=== PATIENT | female | born 1950 | race Caucasian/White ===

== ENCOUNTER → 2017-11-04 09:16 | Outpatient (CLI) | payer OTHER, SELFPAY ==
[2017-11-04 10:08] LABS: Amphetamine Urine VISTA NEGATIVE (<1000 ng/mL); Barbiturate Urine VISTA NEGATIVE (< 200 ng/mL); Benzodiazepine Urine VISTA NEGATIVE (< 200 ng/mL); Cocaine Urine VISTA NEGATIVE (< 300 ng/mL); Ecstacy Urine VISTA NEGATIVE (< 500 ng/mL); Methadone Urine VISTA NEGATIVE (< 300 ng/mL); PCP Urine VISTA NEGATIVE (< 25 ng/mL); THC Urine VISTA NEGATIVE (< 50 ng/mL); Vista UDS pH Range 5
== END ==
PROVIDERS: Family Provider Family Medicine; PCP Family Medicine; Visit Provider Anesthesiology Pain Medicine
DX: F11.20 Opioid dependence, uncomplicated (principal)
CPT/HCPCS: 80307

== ENCOUNTER → 2018-07-05 09:18 | Outpatient (CLI) | payer OTHER, SELFPAY ==
[2018-07-05 10:28] LABS: Amphetamine Urine VISTA NEGATIVE (<1000 ng/mL); Barbiturate Urine VISTA NEGATIVE (< 200 ng/mL); Benzodiazepine Urine VISTA NEGATIVE (< 200 ng/mL); Cocaine Urine VISTA NEGATIVE (< 300 ng/mL); Ecstacy Urine VISTA NEGATIVE (< 500 ng/mL); Methadone Urine VISTA NEGATIVE (< 300 ng/mL); PCP Urine VISTA NEGATIVE (< 25 ng/mL); THC Urine VISTA NEGATIVE (< 50 ng/mL); Vista UDS pH Range 5
== END ==
PROVIDERS: Family Provider Family Medicine; PCP Family Medicine; Referring Provider Anesthesiology Pain Medicine; Visit Provider Anesthesiology Pain Medicine
DX: F11.20 Opioid dependence, uncomplicated (principal)
CPT/HCPCS: 80307

== ENCOUNTER → 2018-09-23 07:15 | Outpatient (CLI) | payer OTHER, SELFPAY ==
--- NOTE | 2018-09-23 07:24 | MRI_ITS ---
STUDY: MRI BRAIN WITHOUT CONTRAST (ATTENTION INTERNAL AUDITORY CANALS - I.A.C.'s) REASON FOR EXAM: Female, 68 years old. Right hearing loss. No pain. TECHNIQUE: Standardized multiplanar fat and water weighted pulse sequences were obtained. COMPARISON: None. FINDINGS: Normal bilateral internal auditory canals. There is no demonstrated intracanalicular or cisternal vestibular schwannoma (acoustic neuroma) on this unenhanced examination. Normal visualized bilateral cochlea, vestibules and semicircular canals. Normal bilateral mastoid air cells. Normal midbrain, carmela and medulla. Normal cerebellum. Normal basal cisterns. Normal size of the ventricles and extra-axial spaces for the patient's age. T2 FLAIR hyperintensity foci in the white matter of both cerebral hemispheres are chronic white matter ischemic changes. Normal bilateral basal ganglia. Normal thalami. There is no extra-axial fluid accumulation. Normal flow voids within the major intracranial circulation suggesting patency by spin echo criteria. Normal sella turcica, pituitary gland, infundibular stalk, optic chiasm and hypothalamus. Normal tectal plate and pineal gland. No demonstrated orbital abnormality, within the constraints of a routine brain study. Normal visualized paranasal sinuses. Normal calvarium and skull base. Normal visualized soft tissue structures. MRI/Brain without Contrast IMPRESSION: 1. Normal unenhanced MRI of the bilateral internal auditory canals (I.A.C's). 2. Chronic white matter ischemic changes in both cerebral hemispheres. Electronically Signed: Zay Disla MD at 13:22 EST , Service support ,
[2018-09-23 08:56] LABS: CREATININE FINGERSTICK 1.4 mg/dL (0.55-1.02)
== END ==
PROVIDERS: Family Provider Family Medicine; PCP Family Medicine; Referring Provider Otolaryngology; Visit Provider Otolaryngology
DX: H91.21 Sudden idiopathic hearing loss, right ear (principal)
CPT/HCPCS: 70551

== ENCOUNTER → 2019-01-18 06:17 | Outpatient (CLI) | payer MEDICARE, SELFPAY ==
[2019-01-18 07:31] LABS: Prograf-FK506 TO CCF/UNIV MAILED SPECIMEN
[2019-01-18 07:52] LABS: Hematocrit 36.2 % (37-47); Hemoglobin 11.3 g/dl (12.0-15.0); Mean Corp Hgb Conc 31.2 g/gl (32-36); Mean Corpuscular Hgb 29.6 pg (27.0-32.0); Mean Corpuscular Volume 94.8 fL (81-99); Mean Platelet Vol. 10.7 fl (6.2-12.0); Platelet Count 242 K/mm3 (150-450); RBC Distribution Width CV 12.5 % (11.6-14.6); RBC Distribution Width SD 43.1 fl (35.1-43.9); Red Blood Count 3.82 M/mm3 (4.2-5.4)
[2019-01-18 07:53] LABS: Scan Indicated on CBC? Y/N NO
[2019-01-18 08:02] LABS: Hemoglobin A1c 5.1 % (4.2-6.3)
[2019-01-18 08:17] LABS: AST(SGOT) 29 U/L (15-37); Alanine Aminotransfer ALT/SGPT 23 U/L (13-56); Albumin, Serum 3.6 g/dL (3.2-5.0); Alkaline Phosphatase 81 U/L (45-117); Amylase 109 U/L (25-115); Anion Gap 6 (5-15); BUN 23 mg/dL (7-18); Calcium,Total 9.1 mg/dL (8.5-10.1); Chloride 104 mmol/L (98-107); Cholesterol 129 mg/dL (200); Creatinine, Serum 0.88 mg/dL (0.55-1.02); EST Glomerular Filtration Rate 67 mL/min (>60); Est Glom Filt Rate - Afr Amer 81 mL/min (>60); Globulin 3.7 g/dL (2.2-4.2); Glucose 98 mg/dL (74-106); High Density Lipoprotein 69 mg/dL; Lipase 201 U/L (73-393); Potassium 4.8 mmol/L (3.5-5.1); Protein, Total 7.3 g/dL (6.4-8.2); Sodium Level 135 mmol/L (136-145); Triglycerides 102 mg/dL; Very Low Density Lipoprotein 20 mg/dL (5-40)
[2019-01-18 08:22] LABS: Vitamin B12 457 pg/mL (211-911)
== END ==
PROVIDERS: Family Provider Family Medicine; PCP Family Medicine
DX: Z94.0 Kidney transplant status (principal); Z94.83 Pancreas transplant status; Z48.298 Encounter for aftercare following other organ transplant; I25.10 Atherosclerotic heart disease of native coronary artery without angina pectoris; I10 Essential (primary) hypertension; E10.8 Type 1 diabetes mellitus with unspecified complications; E78.5 Hyperlipidemia, unspecified
CPT/HCPCS: 36415; 80053; 80061; 82150; 82607; 83036; 83690; 84681; 85027

== ENCOUNTER → 2019-04-25 08:29 | Outpatient (CLI) | payer MEDICARE, SELFPAY ==
[2019-04-25 09:00] LABS: Absolute Lymphocyte Count 0.62 X10^3/uL (0.83-4.51); Absolute Neutrophil Count 3.1 X10^3/uL (2.0-7.7); Basophil# 0.02 X10^3/uL; Basophil% 0.5 % (0-1); Eosinophil# 0.04 X10^3/uL; Eosinophils% 0.9 % (0-5); Hematocrit 36.8 % (37-47); Hemoglobin 11.4 g/dL (12.0-15.0); Lymphocyte # 0.62 X10^3/ul (4.0); Lymphocyte % 14.7 % (19-41); Mean Corpuscular Hgb 29.7 pg (27.0-32.0); Mean Corpuscular Volume 95.8 fL (81-99); Mean Platelet Vol. 10.4 fl (6.2-12.0); Monocyte# 0.41 X10^3/uL; Monocyte% 9.7 % (0-10); NRBC Flagged by Analyzer 0 % (0-5); Neutrophil # 3.12 X10^3/uL (2.7-7.7); Neutrophil % 73.7 % (47-70); Platelet Count 243 K/mm3 (150-450); RBC Distribution Width CV 12.2 % (11.6-14.6); Red Blood Count 3.84 M/mm3 (4.2-5.4); White Blood Count 4.2 K/mm3 (4.4-11.0)
[2019-04-25 09:31] LABS: BUN 27 mg/dL (7-18); Creatinine, Serum 1.12 mg/dL (0.55-1.02); EST Glomerular Filtration Rate 51 mL/min (>60); Glucose 98 mg/dL (74-106)
[2019-04-25 09:32] LABS: ALB/GLOB Ratio 1.1 RATIO (0.9-2.4); AST(SGOT) 27 U/L (15-37); Alanine Aminotransfer ALT/SGPT 25 U/L (13-56); Albumin, Serum 3.9 g/dL (3.2-5.0); Alkaline Phosphatase 75 U/L (45-117); Amylase 110 U/L (25-115); Anion Gap 5 (5-15); BUN/Creat Ratio 24.1 RATIO (10-20); Calcium,Total 9.5 mg/dL (8.5-10.1); Chloride 104 mmol/L (98-107); Est Glom Filt Rate - Afr Amer 62 mL/min (>60); Globulin 3.6 g/dL (2.2-4.2); Lipase 234 U/L (73-393); Potassium 5.1 mmol/L (3.5-5.1); Protein, Total 7.5 g/dL (6.4-8.2); Sodium Level 137 mmol/L (136-145)
== END ==
PROVIDERS: Family Provider Family Medicine; PCP Family Medicine
DX: E10.8 Type 1 diabetes mellitus with unspecified complications (principal); I25.10 Atherosclerotic heart disease of native coronary artery without angina pectoris; I10 Essential (primary) hypertension; Z94.0 Kidney transplant status; Z94.83 Pancreas transplant status; Z48.298 Encounter for aftercare following other organ transplant
CPT/HCPCS: 36415; 80053; 80197; 82150; 83690; 85025

== ENCOUNTER → 2019-07-26 07:06 | Outpatient (CLI) | payer MEDICARE, SELFPAY ==
[2019-07-26 08:26] LABS: Absolute Lymphocyte Count 0.66 X10^3/uL (0.83-4.51); Absolute Neutrophil Count 3.6 X10^3/uL (2.0-7.7); Basophil# 0.02 X10^3/uL; Basophil% 0.4 % (0-1); Eosinophil# 0.05 X10^3/uL; Hematocrit 36.4 % (37-47); Hemoglobin 11.2 g/dL (12.0-15.0); Lymphocyte # 0.66 X10^3/ul (4.0); Lymphocyte % 13.6 % (19-41); Mean Corp Hgb Conc 30.8 g/dL (32-36); Mean Corpuscular Hgb 28.8 pg (27.0-32.0); Mean Corpuscular Volume 93.6 fL (81-99); Mean Platelet Vol. 10.8 fl (6.2-12.0); Monocyte# 0.48 X10^3/uL; Monocyte% 9.9 % (0-10); NRBC Flagged by Analyzer 0 % (0-5); Neutrophil # 3.64 X10^3/uL (2.7-7.7); Neutrophil % 74.9 % (47-70); Platelet Count 240 K/mm3 (150-450); RBC Distribution Width CV 12.2 % (11.6-14.6); RBC Distribution Width SD 41.8 fl (35.1-43.9); Red Blood Count 3.89 M/mm3 (4.2-5.4); White Blood Count 4.9 K/mm3 (4.4-11.0)
[2019-07-26 08:38] LABS: Hemoglobin A1c 5.4 % (4.2-6.3)
[2019-07-26 08:41] LABS: ALB/GLOB Ratio 1.1 RATIO (0.9-2.4); AST(SGOT) 25 U/L (15-37); Alanine Aminotransfer ALT/SGPT 39 U/L (13-56); Albumin, Serum 3.9 g/dL (3.2-5.0); Alkaline Phosphatase 82 U/L (45-117); Amylase 107 U/L (25-115); Anion Gap 6 (5-15); BUN 26 mg/dL (7-18); BUN/Creat Ratio 25.7 RATIO (10-20); Calcium,Total 9.1 mg/dL (8.5-10.1); Chloride 101 mmol/L (98-107); Creatinine, Serum 1.01 mg/dL (0.55-1.02); EST Glomerular Filtration Rate 58 mL/min (>60); Est Glom Filt Rate - Afr Amer 70 mL/min (>60); Globulin 3.6 g/dL (2.2-4.2); Glucose 94 mg/dL (74-106); Lipase 229 U/L (73-393); Potassium 5.1 mmol/L (3.5-5.1); Protein, Total 7.5 g/dL (6.4-8.2); Sodium Level 134 mmol/L (136-145)
[2019-07-30 13:03] LABS: C-Peptide 2.5 ng/mL (1.1-4.4); Tacrolimus (FK506) 6.1 ng/mL (2.0-20.0)
== END ==
PROVIDERS: Family Provider Family Medicine; PCP Family Medicine
DX: Z48.298 Encounter for aftercare following other organ transplant (principal); Z94.0 Kidney transplant status; Z94.83 Pancreas transplant status; I25.10 Atherosclerotic heart disease of native coronary artery without angina pectoris; I10 Essential (primary) hypertension
CPT/HCPCS: 36415; 80053; 80197; 82150; 83036; 83690; 84681; 85025

== ENCOUNTER → 2019-08-10 09:49 | Outpatient (CLI) | payer MEDICARE, SELFPAY ==
[2019-08-10 11:16] LABS: Amphetamine Urine VISTA NEGATIVE (<1000 ng/mL); Barbiturate Urine VISTA NEGATIVE (< 200 ng/mL); Benzodiazepine Urine VISTA NEGATIVE (< 200 ng/mL); Cocaine Urine VISTA NEGATIVE (< 300 ng/mL); Ecstacy Urine VISTA NEGATIVE (< 500 ng/mL); Methadone Urine VISTA NEGATIVE (< 300 ng/mL); PCP Urine VISTA NEGATIVE (< 25 ng/mL); THC Urine VISTA NEGATIVE (< 50 ng/mL); Vista UDS pH Range 6
== END ==
PROVIDERS: Family Provider Family Medicine; PCP Family Medicine; Referring Provider Anesthesiology Pain Medicine; Visit Provider Anesthesiology Pain Medicine
DX: F11.20 Opioid dependence, uncomplicated (principal)
CPT/HCPCS: 80307

== ENCOUNTER → 2019-09-12 06:31 | Outpatient (CLI) | payer MEDICARE, SELFPAY ==
[2019-09-12 07:26] LABS: Absolute Lymphocyte Count 0.61 X10^3/uL (0.83-4.51); Absolute Neutrophil Count 2.8 X10^3/uL (2.0-7.7); Basophil# 0.02 X10^3/uL; Basophil% 0.5 % (0-1); Eosinophil# 0.05 X10^3/uL; Eosinophils% 1.3 % (0-5); Hematocrit 36.7 % (37-47); Hemoglobin 11.3 g/dL (12.0-15.0); Lymphocyte # 0.61 X10^3/ul (4.0); Lymphocyte % 15.4 % (19-41); Mean Corp Hgb Conc 30.8 g/dL (32-36); Mean Corpuscular Hgb 29.3 pg (27.0-32.0); Mean Corpuscular Volume 95.1 fL (81-99); Mean Platelet Vol. 10.7 fl (6.2-12.0); Monocyte# 0.44 X10^3/uL; Monocyte% 11.1 % (0-10); NRBC Flagged by Analyzer 0 % (0-5); Neutrophil # 2.82 X10^3/uL (2.7-7.7); Neutrophil % 71.4 % (47-70); Platelet Count 257 K/mm3 (150-450); RBC Distribution Width CV 12.5 % (11.6-14.6); RBC Distribution Width SD 43.7 fl (35.1-43.9); Red Blood Count 3.86 M/mm3 (4.2-5.4)
[2019-09-12 07:52] LABS: AST(SGOT) 29 U/L (15-37); Alanine Aminotransfer ALT/SGPT 29 U/L (13-56); Albumin, Serum 3.8 g/dL (3.2-5.0); Alkaline Phosphatase 85 U/L (45-117); Amylase 118 U/L (25-115); Anion Gap 3 (5-15); BUN 26 mg/dL (7-18); BUN/Creat Ratio 21.7 RATIO (10-20); Calcium,Total 9.1 mg/dL (8.5-10.1); Chloride 100 mmol/L (98-107); EST Glomerular Filtration Rate 47 mL/min (>60); Est Glom Filt Rate - Afr Amer 57 mL/min (>60); Globulin 3.7 g/dL (2.2-4.2); Glucose 100 mg/dL (74-106); Lipase 249 U/L (73-393); Protein, Total 7.5 g/dL (6.4-8.2); Sodium Level 134 mmol/L (136-145)
[2019-09-13 15:16] LABS: Tacrolimus (FK506) 5.7 ng/mL (2.0-20.0)
== END ==
PROVIDERS: PCP Family Medicine; Referring Provider Family Medicine; Visit Provider Family Medicine
DX: L60.2 Onychogryphosis (principal); Z48.298 Encounter for aftercare following other organ transplant; Z94.0 Kidney transplant status; Z94.83 Pancreas transplant status; I25.10 Atherosclerotic heart disease of native coronary artery without angina pectoris; I10 Essential (primary) hypertension
CPT/HCPCS: 36415; 80053; 80197; 82150; 83690; 85025

== ENCOUNTER → 2020-03-30 06:41 | Outpatient (CLI) | payer MEDICARE, SELFPAY ==
[2020-03-30 07:13] LABS: Absolute Lymphocyte Count 0.71 X10^3/uL (0.83-4.51); Absolute Neutrophil Count 2.5 X10^3/uL (2.0-7.7); Basophil# 0.02 X10^3/uL; Basophil% 0.5 % (0-1); Eosinophil# 0.14 X10^3/uL; Eosinophils% 3.5 % (0-5); Hematocrit 33.9 % (37-47); Hemoglobin 10.4 g/dL (12.0-15.0); Lymphocyte # 0.71 X10^3/ul (4.0); Lymphocyte % 17.9 % (19-41); Mean Corp Hgb Conc 30.7 g/dL (32-36); Mean Corpuscular Hgb 29.7 pg (27.0-32.0); Mean Corpuscular Volume 96.9 fL (81-99); Mean Platelet Vol. 9.8 fl (6.2-12.0); Monocyte# 0.55 X10^3/uL; Monocyte% 13.9 % (0-10); NRBC Flagged by Analyzer 0 % (0-5); Neutrophil # 2.53 X10^3/uL (2.7-7.7); Neutrophil % 63.9 % (47-70); Platelet Count 376 K/mm3 (150-450); RBC Distribution Width CV 12.2 % (11.6-14.6)
[2020-03-30 07:46] LABS: ALB/GLOB Ratio 0.9 RATIO (0.9-2.4); AST(SGOT) 34 U/L (15-37); Alanine Aminotransfer ALT/SGPT 35 U/L (13-56); Albumin, Serum 3.1 g/dL (3.2-5.0); Alkaline Phosphatase 91 U/L (45-117); Amylase 80 U/L (25-115); Anion Gap 6 (5-15); BUN 28 mg/dL (7-18); BUN/Creat Ratio 24.6 RATIO (10-20); Calcium,Total 8.4 mg/dL (8.5-10.1); Chloride 101 mmol/L (98-107); Creatinine, Serum 1.14 mg/dL (0.55-1.02); EST Glomerular Filtration Rate 50 mL/min (>60); Est Glom Filt Rate - Afr Amer 61 mL/min (>60); Globulin 3.6 g/dL (2.2-4.2); Glucose 77 mg/dL (74-106); Lipase 140 U/L (73-393); Potassium 4.6 mmol/L (3.5-5.1); Protein, Total 6.7 g/dL (6.4-8.2); Sodium Level 135 mmol/L (136-145)
[2020-03-30 07:50] LABS: Hemoglobin A1c 5.5 % (3.8-5.6)
[2020-04-03 14:02] LABS: Tacrolimus (FK506) 9.5 ng/mL (2.0-20.0)
== END ==
PROVIDERS: PCP Family Medicine
DX: I25.10 Atherosclerotic heart disease of native coronary artery without angina pectoris (principal); I10 Essential (primary) hypertension; E10.8 Type 1 diabetes mellitus with unspecified complications; Z94.0 Kidney transplant status; Z94.83 Pancreas transplant status; Z48.298 Encounter for aftercare following other organ transplant
CPT/HCPCS: 36415; 80053; 80197; 82150; 83036; 83690; 84681; 85025

== ENCOUNTER → 2020-05-29 11:20 | Outpatient (CLI) | payer MEDICARE, SELFPAY ==
[2020-05-29 11:50] LABS: Amphetamine Urine VISTA NEGATIVE (<1000 ng/mL); Barbiturate Urine VISTA NEGATIVE (< 200 ng/mL); Benzodiazepine Urine VISTA NEGATIVE (< 200 ng/mL); Cocaine Urine VISTA NEGATIVE (< 300 ng/mL); Ecstacy Urine VISTA NEGATIVE (< 500 ng/mL); Methadone Urine VISTA NEGATIVE (< 300 ng/mL); PCP Urine VISTA NEGATIVE (< 25 ng/mL); THC Urine VISTA NEGATIVE (< 50 ng/mL); Vista UDS pH Range 7
== END ==
PROVIDERS: PCP Family Medicine; Referring Provider Anesthesiology Pain Medicine; Visit Provider Anesthesiology Pain Medicine
DX: F11.20 Opioid dependence, uncomplicated (principal)
CPT/HCPCS: 80307

== ENCOUNTER → 2020-07-11 08:21 | Outpatient (CLI) | payer MEDICARE, SELFPAY ==
[2020-07-11 08:49] LABS: Absolute Lymphocyte Count 0.63 X10^3/uL (0.83-4.51); Absolute Neutrophil Count 2.8 X10^3/uL (2.0-7.7); Basophil# 0.03 X10^3/uL; Basophil% 0.8 % (0-1); Eosinophil# 0.04 X10^3/uL; Hematocrit 38.2 % (37-47); Hemoglobin 11.7 g/dL (12.0-15.0); Lymphocyte # 0.63 X10^3/ul (4.0); Lymphocyte % 15.9 % (19-41); Mean Corp Hgb Conc 30.6 g/dL (32-36); Mean Corpuscular Hgb 29.7 pg (27.0-32.0); Mean Platelet Vol. 10.2 fl (6.2-12.0); Monocyte# 0.49 X10^3/uL; Monocyte% 12.3 % (0-10); NRBC Flagged by Analyzer 0 % (0-5); Neutrophil # 2.77 X10^3/uL (2.7-7.7); Neutrophil % 69.7 % (47-70); Platelet Count 233 K/mm3 (150-450); RBC Distribution Width CV 12.1 % (11.6-14.6); RBC Distribution Width SD 43.5 fl (35.1-43.9); Red Blood Count 3.94 M/mm3 (4.2-5.4)
[2020-07-11 09:27] LABS: AST(SGOT) 29 U/L (15-37); Alanine Aminotransfer ALT/SGPT 30 U/L (13-56); Albumin, Serum 3.5 g/dL (3.2-5.0); Alkaline Phosphatase 88 U/L (45-117); Amylase 94 U/L (25-115); Anion Gap 3 (5-15); BUN 22 mg/dL (7-18); BUN/Creat Ratio 21.2 RATIO (10-20); Calcium,Total 8.6 mg/dL (8.5-10.1); Chloride 102 mmol/L (98-107); Cholesterol 119 mg/dL (200); Creatinine, Serum 1.04 mg/dL (0.55-1.02); EST Glomerular Filtration Rate 56 mL/min (>60); Est Glom Filt Rate - Afr Amer 67 mL/min (>60); Globulin 3.4 g/dL (2.2-4.2); Glucose 92 mg/dL (74-106); High Density Lipoprotein 67 mg/dL; Lipase 150 U/L (73-393); Potassium 4.9 mmol/L (3.5-5.1); Protein, Total 6.9 g/dL (6.4-8.2); Sodium Level 135 mmol/L (136-145); Triglycerides 88 mg/dL; Very Low Density Lipoprotein 18 mg/dL (5-40)
[2020-07-13 12:55] LABS: Tacrolimus (FK506) 8.3 ng/mL (2.0-20.0)
== END ==
PROVIDERS: PCP Family Medicine
DX: Z00.00 Encounter for general adult medical examination without abnormal findings (principal); Z48.298 Encounter for aftercare following other organ transplant; Z13.6 Encounter for screening for cardiovascular disorders; E10.8 Type 1 diabetes mellitus with unspecified complications; Z94.0 Kidney transplant status; Z94.83 Pancreas transplant status
CPT/HCPCS: 36415; 80053; 80061; 80197; 82150; 83690; 85025

== ENCOUNTER → 2020-11-15 08:12 | Outpatient (CLI) | payer MEDICARE, SELFPAY ==
[2020-10-09 11:23] VITALS: BMI 16.3
[2020-11-15 09:16] LABS: Absolute Lymphocyte Count 0.61 X10^3/uL (0.83-4.51); Absolute Neutrophil Count 4.5 X10^3/uL (2.0-7.7); Basophil# 0.01 X10^3/uL; Basophil% 0.2 % (0-1); Eosinophil# 0.02 X10^3/uL; Eosinophils% 0.3 % (0-5); Hematocrit 36.1 % (37-47); Hemoglobin 10.9 g/dL (12.0-15.0); Lymphocyte # 0.61 X10^3/ul (0.83-4.51); Lymphocyte % 10.5 % (19-41); Mean Corp Hgb Conc 30.2 g/dL (32-36); Mean Corpuscular Hgb 29.5 pg (27.0-32.0); Mean Corpuscular Volume 97.6 fL (81-99); Mean Platelet Vol. 11.1 fl (6.2-12.0); Monocyte# 0.64 X10^3/uL; NRBC Flagged by Analyzer 0 % (0-5); Neutrophil # 4.51 X10^3/uL (2.7-7.7); Neutrophil % 77.7 % (47-70); Platelet Count 249 K/mm3 (150-450); RBC Distribution Width SD 43.8 fl (35.1-43.9); White Blood Count 5.8 K/mm3 (4.4-11.0)
[2020-11-15 09:38] LABS: Hemoglobin A1c 4.9 % (3.8-5.6)
[2020-11-15 09:56] LABS: ALB/GLOB Ratio 1.1 RATIO (0.9-2.4); AST(SGOT) 33 U/L (15-37); Alanine Aminotransfer ALT/SGPT 34 U/L (13-56); Albumin, Serum 3.7 g/dL (3.2-5.0); Alkaline Phosphatase 89 U/L (45-117); Amylase 123 U/L (25-115); Anion Gap 5 (5-15); BUN 36 mg/dL (7-18); BUN/Creat Ratio 28.6 RATIO (10-20); Calcium,Total 8.5 mg/dL (8.5-10.1); Chloride 98 mmol/L (98-107); Creatinine, Serum 1.26 mg/dL (0.55-1.02); EST Glomerular Filtration Rate 44 mL/min (>60); Est Glom Filt Rate - Afr Amer 54 mL/min (>60); Globulin 3.5 g/dL (2.2-4.2); Glucose 98 mg/dL (74-106); Lipase 233 U/L (73-393); Potassium 4.8 mmol/L (3.5-5.1); Protein, Total 7.2 g/dL (6.4-8.2); Sodium Level 132 mmol/L (136-145)
[2020-11-19 07:49] LABS: C-Peptide 2.4 ng/mL (1.1-4.4); Tacrolimus (FK506) 8.2 ng/mL (2.0-20.0)
== END ==
PROVIDERS: PCP Family Medicine
DX: E10.8 Type 1 diabetes mellitus with unspecified complications (principal); I25.10 Atherosclerotic heart disease of native coronary artery without angina pectoris; I10 Essential (primary) hypertension; Z94.0 Kidney transplant status; Z94.83 Pancreas transplant status
CPT/HCPCS: 36415; 80053; 80197; 82150; 83036; 83690; 84681; 85025

== ENCOUNTER 2021-03-05 07:13 | Outpatient (RCR) | payer MEDICARE, SELFPAY ==
[2020-10-09 11:23] VITALS: BMI 16.3
[2021-03-05 07:55] LABS: Absolute Lymphocyte Count 0.68 X10^3/uL (0.83-4.51); Absolute Neutrophil Count 2.1 X10^3/uL (2.0-7.7); Basophil# 0.02 X10^3/uL; Basophil% 0.6 % (0-1); Eosinophil# 0.07 X10^3/uL; Eosinophils% 2.1 % (0-5); Hematocrit 30.9 % (37-47); Hemoglobin 9.7 g/dL (12.0-15.0); Lymphocyte # 0.68 X10^3/ul (0.83-4.51); Lymphocyte % 19.9 % (19-41); Mean Corp Hgb Conc 31.4 g/dL (32-36); Mean Corpuscular Hgb 29.7 pg (27.0-32.0); Mean Corpuscular Volume 94.5 fL (81-99); Mean Platelet Vol. 10.5 fl (6.2-12.0); Monocyte# 0.48 X10^3/uL; Monocyte% 14.1 % (0-10); NRBC Flagged by Analyzer 0 % (0-5); Neutrophil # 2.14 X10^3/uL (2.7-7.7); Neutrophil % 62.7 % (47-70); Platelet Count 265 K/mm3 (150-450); RBC Distribution Width CV 12.1 % (11.6-14.6); Red Blood Count 3.27 M/mm3 (4.2-5.4); White Blood Count 3.4 K/mm3 (4.4-11.0)
[2021-03-05 08:26] LABS: AST(SGOT) 28 U/L (15-37); Alanine Aminotransfer ALT/SGPT 30 U/L (13-56); Albumin, Serum 3.3 g/dL (3.2-5.0); Alkaline Phosphatase 80 U/L (45-117); Amylase 105 U/L (25-115); Anion Gap 3 (5-15); BUN 53 mg/dL (7-18); BUN/Creat Ratio 34.9 RATIO (10-20); Calcium,Total 8.8 mg/dL (8.5-10.1); Chloride 99 mmol/L (98-107); Creatinine, Serum 1.52 mg/dL (0.55-1.02); EST Glomerular Filtration Rate 36 mL/min (>60); Est Glom Filt Rate - Afr Amer 43 mL/min (>60); Globulin 3.2 g/dL (2.2-4.2); Glucose 101 mg/dL (74-106); Lipase 133 U/L (73-393); Potassium 5.6 mmol/L (3.5-5.1); Protein, Total 6.5 g/dL (6.4-8.2); Sodium Level 132 mmol/L (136-145)
[2021-03-07 15:51] LABS: Tacrolimus (FK506) 6.6 ng/mL (2.0-20.0)
== END 2021-03-05 18:00 | disposition home or self-care (01) ==
LOC: LAB 07:13
PROVIDERS: PCP Family Medicine
DX: Z94.0 Kidney transplant status (principal); Z94.83 Pancreas transplant status; Z48.298 Encounter for aftercare following other organ transplant; E10.8 Type 1 diabetes mellitus with unspecified complications; I25.10 Atherosclerotic heart disease of native coronary artery without angina pectoris; I10 Essential (primary) hypertension
CPT/HCPCS: 36415; 80053; 80197; 82150; 83690; 85025

== ENCOUNTER → 2021-04-15 09:28 | Outpatient (CLI) | payer MEDICARE, SELFPAY ==
[2021-04-15 10:46] LABS: Amphetamine Urine VISTA NEGATIVE (<1000 ng/mL); Barbiturate Urine VISTA NEGATIVE (< 200 ng/mL); Benzodiazepine Urine VISTA NEGATIVE (< 200 ng/mL); Cocaine Urine VISTA NEGATIVE (< 300 ng/mL); Ecstacy Urine VISTA NEGATIVE (< 500 ng/mL); Methadone Urine VISTA NEGATIVE (< 300 ng/mL); PCP Urine VISTA NEGATIVE (< 25 ng/mL); THC Urine VISTA NEGATIVE (< 50 ng/mL); Vista UDS pH Range 6
== END ==
PROVIDERS: PCP Family Medicine; Referring Provider Anesthesiology Pain Medicine; Visit Provider Anesthesiology Pain Medicine
DX: F11.20 Opioid dependence, uncomplicated (principal)
CPT/HCPCS: 80307

== ENCOUNTER → 2021-05-22 08:29 | Outpatient (CLI) | payer MEDICARE, SELFPAY ==
[2021-05-22 10:57] LABS: Absolute Lymphocyte Count 0.52 X10^3/uL (0.83-4.51); Absolute Neutrophil Count 2.8 X10^3/uL (2.0-7.7); Basophil# 0.02 X10^3/uL; Basophil% 0.5 % (0-1); Eosinophil# 0.04 X10^3/uL; Hematocrit 32.5 % (37-47); Lymphocyte # 0.52 X10^3/ul (0.83-4.51); Lymphocyte % 13.6 % (19-41); Mean Corp Hgb Conc 30.8 g/dL (32-36); Mean Corpuscular Hgb 30.7 pg (27.0-32.0); Mean Corpuscular Volume 99.7 fL (81-99); Mean Platelet Vol. 11.7 fl (6.2-12.0); Monocyte# 0.38 X10^3/uL; NRBC Flagged by Analyzer 0 % (0-5); Neutrophil # 2.84 X10^3/uL (2.7-7.7); Neutrophil % 74.6 % (47-70); POSITIVE DIFFERENTIAL YES; Platelet Count 238 K/mm3 (150-450); RBC Distribution Width CV 12.9 % (11.6-14.6); RBC Distribution Width SD 47.8 fl (35.1-43.9); Red Blood Count 3.26 M/mm3 (4.2-5.4); White Blood Count 3.8 K/mm3 (4.4-11.0)
[2021-05-22 10:59] LABS: Differential Indicated SCAN CRITERIA MET
[2021-05-22 11:12] LABS: Hemoglobin A1c 4.9 % (3.8-5.6)
[2021-05-22 11:35] LABS: ALB/GLOB Ratio 0.9 RATIO (0.9-2.4); AST(SGOT) 34 U/L (15-37); Alanine Aminotransfer ALT/SGPT 30 U/L (13-56); Alkaline Phosphatase 106 U/L (45-117); Amylase 103 U/L (25-115); Anion Gap 4 (5-15); BUN 22 mg/dL (7-18); BUN/Creat Ratio 25.6 RATIO (10-20); Calcium,Total 8.7 mg/dL (8.5-10.1); Chloride 105 mmol/L (98-107); Cholesterol 108 mg/dL (200); Creatinine, Serum 0.86 mg/dL (0.55-1.02); EST Glomerular Filtration Rate 69 mL/min (>60); Est Glom Filt Rate - Afr Amer 84 mL/min (>60); Globulin 3.4 g/dL (2.2-4.2); Glucose 81 mg/dL (74-106); High Density Lipoprotein 59 mg/dL; Lipase 222 U/L (73-393); Potassium 5.2 mmol/L (3.5-5.1); Protein, Total 6.4 g/dL (6.4-8.2); Sodium Level 135 mmol/L (136-145); Triglycerides 93 mg/dL; Very Low Density Lipoprotein 19 mg/dL (5-40)
[2021-05-23 09:06] LABS: Pathologist Review Reviewed
[2021-05-25 21:08] LABS: C-Peptide 1.7 ng/mL (1.1-4.4); Tacrolimus (FK506) 4.5 ng/mL (2.0-20.0)
== END ==
PROVIDERS: PCP Family Medicine
DX: Z48.298 Encounter for aftercare following other organ transplant (principal); I25.10 Atherosclerotic heart disease of native coronary artery without angina pectoris; I10 Essential (primary) hypertension; E10.8 Type 1 diabetes mellitus with unspecified complications; Z94.0 Kidney transplant status; Z94.83 Pancreas transplant status
CPT/HCPCS: 36415; 80053; 80061; 80197; 82150; 83036; 83690; 84681; 85025

== ENCOUNTER 2021-07-23 07:50 | Outpatient (RCR) | payer MEDICARE, SELFPAY ==
[2021-03-26 23:26] VITALS: BMI 16.3
[2021-07-23 08:27] LABS: Absolute Lymphocyte Count 0.76 X10^3/uL (0.83-4.51); Absolute Neutrophil Count 3.2 X10^3/uL (2.0-7.7); Basophil# 0.03 X10^3/uL; Basophil% 0.7 % (0-1); Eosinophil# 0.08 X10^3/uL; Eosinophils% 1.7 % (0-5); Hematocrit 31.8 % (37-47); Hemoglobin 9.7 g/dL (12.0-15.0); Lymphocyte # 0.76 X10^3/ul (0.83-4.51); Lymphocyte % 16.6 % (19-41); Mean Corp Hgb Conc 30.5 g/dL (32-36); Mean Corpuscular Hgb 30.1 pg (27.0-32.0); Mean Corpuscular Volume 98.8 fL (81-99); Mean Platelet Vol. 9.8 fl (6.2-12.0); Monocyte# 0.52 X10^3/uL; Monocyte% 11.4 % (0-10); NRBC Flagged by Analyzer 0 % (0-5); Neutrophil # 3.18 X10^3/uL (2.7-7.7); Neutrophil % 69.4 % (47-70); Platelet Count 340 K/mm3 (150-450); RBC Distribution Width CV 12.4 % (11.6-14.6); RBC Distribution Width SD 44.9 fl (35.1-43.9); Red Blood Count 3.22 M/mm3 (4.2-5.4); White Blood Count 4.6 K/mm3 (4.4-11.0)
[2021-07-23 08:56] LABS: Hemoglobin A1c 4.8 % (3.8-5.6)
[2021-07-23 09:19] LABS: ALB/GLOB Ratio 0.8 RATIO (0.9-2.4); AST(SGOT) 22 U/L (15-37); Alanine Aminotransfer ALT/SGPT 29 U/L (13-56); Alkaline Phosphatase 106 U/L (45-117); Amylase 219 U/L (25-115); Anion Gap 5 (5-15); BUN 40 mg/dL (7-18); BUN/Creat Ratio 27.2 RATIO (10-20); Calcium,Total 8.5 mg/dL (8.5-10.1); Chloride 103 mmol/L (98-107); Cholesterol 158 mg/dL (200); Creatinine, Serum 1.47 mg/dL (0.55-1.02); EST Glomerular Filtration Rate 37 mL/min (>60); Est Glom Filt Rate - Afr Amer 45 mL/min (>60); Globulin 3.9 g/dL (2.2-4.2); Glucose 91 mg/dL (74-106); High Density Lipoprotein 79 mg/dL; Lipase 766 U/L (73-393); Potassium 5.3 mmol/L (3.5-5.1); Protein, Total 6.9 g/dL (6.4-8.2); Sodium Level 135 mmol/L (136-145); Triglycerides 86 mg/dL; Very Low Density Lipoprotein 17 mg/dL (5-40)
== END 2021-07-27 18:00 | disposition home or self-care (01) ==
LOC: LAB 07:50
PROVIDERS: PCP Family Medicine
DX: E10.8 Type 1 diabetes mellitus with unspecified complications (principal); Z94.0 Kidney transplant status; Z94.83 Pancreas transplant status; I25.10 Atherosclerotic heart disease of native coronary artery without angina pectoris; I10 Essential (primary) hypertension
CPT/HCPCS: 36415; 80053; 80061; 80197; 82150; 83036; 83690; 84681; 85025

== ENCOUNTER 2021-08-15 08:18 | Outpatient (RCR) | payer MEDICARE, SELFPAY ==
[2021-07-28 04:22] VITALS: BMI 16.3
[2021-07-31 09:18] LABS: Absolute Lymphocyte Count 0.61 X10^3/uL (0.83-4.51); Basophil# 0.04 X10^3/uL; Eosinophil# 0.13 X10^3/uL; Eosinophils% 3.1 % (0-5); Hematocrit 33.3 % (37-47); Hemoglobin 10.1 g/dL (12.0-15.0); Lymphocyte # 0.61 X10^3/ul (0.83-4.51); Lymphocyte % 14.5 % (19-41); Mean Corp Hgb Conc 30.3 g/dL (32-36); Mean Corpuscular Hgb 30.1 pg (27.0-32.0); Mean Corpuscular Volume 99.1 fL (81-99); Mean Platelet Vol. 10.3 fl (6.2-12.0); Monocyte# 0.46 X10^3/uL; Monocyte% 10.9 % (0-10); NRBC Flagged by Analyzer 0 % (0-5); Neutrophil # 2.95 X10^3/uL (2.7-7.7); Platelet Count 333 K/mm3 (150-450); RBC Distribution Width CV 12.5 % (11.6-14.6); RBC Distribution Width SD 45.4 fl (35.1-43.9); Red Blood Count 3.36 M/mm3 (4.2-5.4); White Blood Count 4.2 K/mm3 (4.4-11.0)
[2021-07-31 09:48] LABS: ALB/GLOB Ratio 0.7 RATIO (0.9-2.4); AST(SGOT) 28 U/L (15-37); Alanine Aminotransfer ALT/SGPT 28 U/L (13-56); Albumin, Serum 3.2 g/dL (3.2-5.0); Alkaline Phosphatase 114 U/L (45-117); Amylase 233 U/L (25-115); Anion Gap 6 (5-15); BUN 44 mg/dL (7-18); BUN/Creat Ratio 28.8 RATIO (10-20); Chloride 105 mmol/L (98-107); Creatinine, Serum 1.53 mg/dL (0.55-1.02); EST Glomerular Filtration Rate 36 mL/min (>60); Est Glom Filt Rate - Afr Amer 43 mL/min (>60); Globulin 4.4 g/dL (2.2-4.2); Glucose 98 mg/dL (74-106); Lipase 958 U/L (73-393); Potassium 5.6 mmol/L (3.5-5.1); Protein, Total 7.6 g/dL (6.4-8.2); Sodium Level 137 mmol/L (136-145)
[2021-08-02 21:44] LABS: C-Peptide 2.3 ng/mL (1.1-4.4); Tacrolimus (FK506) 2.4 ng/mL (2.0-20.0)
[2021-08-15 10:19] LABS: ALB/GLOB Ratio 0.8 RATIO (0.9-2.4); AST(SGOT) 23 U/L (15-37); Alanine Aminotransfer ALT/SGPT 24 U/L (13-56); Albumin, Serum 3.5 g/dL (3.2-5.0); Alkaline Phosphatase 101 U/L (45-117); Amylase 223 U/L (25-115); Anion Gap 4 (5-15); BUN 37 mg/dL (7-18); BUN/Creat Ratio 26.8 RATIO (10-20); Chloride 106 mmol/L (98-107); Creatinine, Serum 1.38 mg/dL (0.55-1.02); EST Glomerular Filtration Rate 40 mL/min (>60); Est Glom Filt Rate - Afr Amer 48 mL/min (>60); Globulin 4.2 g/dL (2.2-4.2); Glucose 99 mg/dL (74-106); Lipase 876 U/L (73-393); Protein, Total 7.7 g/dL (6.4-8.2); Sodium Level 135 mmol/L (136-145)
== END 2021-08-26 18:00 | disposition home or self-care (01) ==
LOC: LAB 08:18
PROVIDERS: PCP Family Medicine
DX: E10.8 Type 1 diabetes mellitus with unspecified complications (principal); Z94.0 Kidney transplant status; Z94.83 Pancreas transplant status; I25.10 Atherosclerotic heart disease of native coronary artery without angina pectoris; I10 Essential (primary) hypertension; Z48.298 Encounter for aftercare following other organ transplant
CPT/HCPCS: 36415; 80053; 80197; 82150; 83036; 83690; 84681; 85025

== ENCOUNTER → 2021-11-26 | Outpatient (CLI) | payer MEDICARE, SELFPAY ==
[2021-11-26 11:25] LABS: Amphetamine Urine VISTA NEGATIVE (<1000 ng/mL); Barbiturate Urine VISTA NEGATIVE (< 200 ng/mL); Benzodiazepine Urine VISTA NEGATIVE (< 200 ng/mL); Cocaine Urine VISTA NEGATIVE (< 300 ng/mL); Ecstacy Urine VISTA NEGATIVE (< 500 ng/mL); Methadone Urine VISTA NEGATIVE (< 300 ng/mL); PCP Urine VISTA NEGATIVE (< 25 ng/mL); THC Urine VISTA POSITIVE (< 50 ng/mL); Vista UDS pH Range 5
== END | disposition home or self-care (01) ==
LOC: LAB 10:08
PROVIDERS: PCP Family Medicine; Referring Provider Anesthesiology Pain Medicine; Visit Provider Anesthesiology Pain Medicine
DX: F11.20 Opioid dependence, uncomplicated (principal)
CPT/HCPCS: 80307

== ENCOUNTER → 2021-12-11 | Outpatient (CLI) | payer MEDICARE, SELFPAY ==
--- NOTE | 2021-12-11 06:41 | ECHOD_ITS ---
Reason For Study: Murmur Procedure This was a 2D Doppler, Color Flow transthoracic echocardiogram. The exam was of adequate technical quality. Exam performed in department. Left Ventricle Normal LV size. Left ventricular systolic function is normal. The estimated ejection fraction is 70 %. Diastolic function is indeterminate. No regional wall motion abnormalities noted. Right Ventricle Normal RV size. Normal systolic function. Atria Normal left atrium. Normal right atrium. Hypermobile atrial septum. Positive agitated saline contrast study for right to left interatrial shunt compatible with a small PFO versus ASD. Mitral Valve There is no mitral annular calcification. Moderate focal mitral valve calcification of the anterior leaflet. The mitral valve chordae are thickened and/or calcified. Mild mitral valve stenosis. Mild (1+) mitral valve insufficiency. Tricuspid Valve Normal tricuspid valve. Trivial tricuspid valve insufficiency. Unable to estimate RV systolic pressure due to insufficient tricuspid regurgitant envelope. Aortic Valve The aortic valve leaflets were not well visualized, however, based upon the 2D echocardiographic images obtained there appears to be diffuse thickening, calcification, and partial restriction of the aortic valve leaflets. Moderate aortic stenosis. Pulmonic Valve The pulmonic valve is not well visualized. Great Vessels The aortic root is not well visualized. Pericardium/Pleural No pericardial effusion. Medication 22 gauge I.V. with prn adaptor inserted into right arm. Performed a rapid injection of agitated mix of 9 cc saline and 1cc air to assess for atrial septal defect. MMode/2D Measurements & Calculations LVIDd: 3.5 cm IVSd: 0.86 cm LVOT diam: 1.8 cm LVIDs: 2.6 cm LVPWd: 0.96 cm RVDd: 2.8 cm FS: 26.7 % LVOT area: 2.4 cm2 LAV(MOD-bp): 40.0 ml LA A4 area: 14.5 cm2 RA A4 area: 11.4 cm2 LAV(MOD-bp) Indexed: 29.2 ml/m2 LAV(MOD-sp2): 41.8 ml LAV(MOD-sp4): 37.3 ml Time Measurements MV dec time: 0.30 sec Doppler Measurements & Calculations MV E max fredi: 85.2 cm/sec Lat Peak E' Fredi: 5.4 cm/sec Med Peak E' Fredi: 4.1 cm/sec MV A max fredi: 138.6 cm/sec E/E' lat: 15.9 E/E' med: 21.0 MV E/A: 0.61 MV V2 max: 154.1 cm/sec MV P1/2t max fredi: 109.8 cm/sec Ao V2 max: 271.6 cm/sec MV max P.5 mmHg MV P1/2t: 102.6 msec Ao max P.5 mmHg MV V2 mean: 86.1 cm/sec MV dec slope: 313.4 cm/sec2 Ao V2 mean: 182.9 cm/sec MV mean P.4 mmHg Ao mean P.3 mmHg MV V2 VTI: 35.0 cm MVA(P1/2t): 2.1 cm2 Ao V2 VTI: 60.8 cm MVA(VTI): 1.7 cm2 FRANKLIN(I,D): 1.00 cm2 FRANKLIN(V,D): 0.91 cm2 LV V1 max: 103.0 cm/sec SV(LVOT): 60.6 ml PA V2 max: 104.0 cm/sec LV V1 max P.3 mmHg LV V1 mean P.5 mmHg LV V1 mean: 75.0 cm/sec LV V1 VTI: 25.2 cm ECHO/Echo Complete Interpretation Summary Left ventricular systolic function is normal. The estimated ejection fraction is 70 %. Moderate focal mitral valve calcification of the anterior leaflet. The mitral valve chordae are thickened and/or calcified. Mild mitral valve stenosis. Mild (1+) mitral valve insufficiency. Trivial tricuspid valve insufficiency. Moderate aortic stenosis. Unable to estimate RV systolic pressure due to insufficient tricuspid regurgita nt envelope. Diastolic function is indeterminate. Positive agitated saline contrast study for right to left interatrial shunt com patible with a small PFO versus ASD. Ordering Physician: Beverly Sahu Referring Physician: Luh Hernandez Performed By: Aditya Kern RCS
--- NOTE | 2021-12-11 10:55 | STRESSREP_ITS ---
Stress Test Report Date: 12-11-2021 Procedure: Pharmacologic stress nuclear imaging study Indications: Chest pain; CAD; CABG; valvular heart disease; hyperlipidemia; hypertension; diabetes mellitus; status post renal transplant; status post pancreatic transplant Consent: Per the patient Procedure: The patient underwent pharmacologic (Regadenoson 0.4mg ) evaluation with a peak heart rate of 104 beats per minute (70%predicted maximal heart rate) and a peak blood pressure of 140/72 mmHg. The baseline ECG demonstrated normal sinus rhythm; right bundle branch block. The peak pharmacologic ECG demonstrated no obvious ECG changes. There was an occasional PVC pretest and during recovery. There was no complaint of chest discomfort during pharmacologic infusion or recovery. The examination was discontinued secondary to completion of protocol. Impression: 1. Pharmacologic (Regadenoson) evaluation 2. Peak pharmacologic ECG with with continued right bundle branch block with no obvious ECG changes. 3. There was an occasional PVC pretest and during recovery. 4. Nuclear images pending Myocardial perfusion imaging study: Technique: The patient was injected with 11.4 millicuries of technetium 99m Cardiolite and subsequently rest SPECT Cardiolite nuclear imaging was obtained in the horizontal long, vertical long, and short axis views. The patient underwent pharmacologic (Regadenoson) evaluation with a peak heart rate of 104 beats per minute (70% percent predicted maximal heart rate) and a peak blood pressure of 140/72 mmHg. The patient was injected with 31.9 millicuries of technetium 99m Cardiolite and subsequently stress SPECT Cardiolite nuclear imaging was obtained in the horizontal long, vertical long, and short axis views. A gated Cardiolite study at peak stress was obtained. Interpretation: Rest and stress SPECT Cardiolite nuclear imaging status post realignment, normalization, and attenuation correction demonstrate relative uniform tracer uptake and myocardial perfusion appearing within normal limits. There is end systolic thickening and brightening. The gated Cardiolite study demonstrates myocardial thickening and inward wall motion. The reported LVEF is 54%. Impression: 1. Rest and stress SPECT Cardiolite nuclear imaging demonstrate relative uniform tracer uptake and myocardial perfusion appearing within normal limits. 2. The gated Cardiolite study reports an LVEF of 54%. This note was generated with Cause.itation software. It may contain incorrect words, spelling, and punctuation that were not noted in checking the note before signing.
== END | disposition home or self-care (01) ==
LOC: CVS 06:36
PROVIDERS: PCP Family Medicine; Visit Provider Physician Assistant Medical
DX: R07.9 Chest pain, unspecified (principal); I25.10 Atherosclerotic heart disease of native coronary artery without angina pectoris; R01.1 Cardiac murmur, unspecified; Z95.1 Presence of aortocoronary bypass graft
CPT/HCPCS: 78452; 93017; 93306; A9500; A4216; J2785

== ENCOUNTER 2021-12-14 15:53 | Observation (INO) | payer MEDICARE, SELFPAY ==
[2021-12-14] VITALS (10 sets, daily range): BP systolic 125–159; BP diastolic 55–97; PULSE 79–99; RESP 14–20; TEMP 37–37.9; O2SAT 96–99; BMI 19.5; BMI 19.3
--- NOTE | 2021-12-14 16:16 | EKG12_ITS ---
Test Reason : STROKE ALERT Blood Pressure : / mmHG Vent. Rate : 083 BPM Atrial Rate : 083 BPM P-R Int : 182 ms QRS Dur : 130 ms QT Int : 374 ms P-R-T Axes : 058 -49 062 degrees QTc Int : 439 ms Normal sinus rhythm Right bundle branch block Left anterior fascicular block Bifascicular block Abnormal ECG Confirmed by DUARTE MARTÍNEZ, CHASITY ([id number]), continuity editor RONALD AVILA ([id number]) on 12/16/2021 11:37:09 AM Referred By: DARION Confirmed By:CHASITY RAMACHANDRAN MD
--- NOTE | 2021-12-14 16:16 | CT_ITS ---
We are attempting to reach an attending provider to discuss findings. An addendum with communication details will be sent when the communication is complete. STUDY: CT BRAIN WITHOUT CONTRAST REASON FOR EXAM: Female, 71 years old. Neuro deficit, acute, stroke suspected RADIATION DOSAGE (If Supplied By Facility): CTDIvol = ( ) mGy, DLP = ( ) mGycm TECHNIQUE: Transaxial CT imaging of the brain was performed without administration of intravenous contrast material. Individualized dose optimization techniques were used for this CT. COMPARISON: No relevant priors. FINDINGS: Normal soft tissue structures. Normal calvarium. There is moderate cortical and central atrophy. There is mild to moderate chronic microvascular ischemic change within periventricular white matter. There is mild cerebellar atrophy. There is a lacunar infarct within the left external capsule measuring 4 mm in diameter age indeterminate but likely chronic. There is also lacunar infarct in the right lentiform nucleus also 4 mm in diameter age-indeterminate but more likely chronic. There are diffuse dural calcifications seen along the falx and along the tentorium bilaterally. There is no intracranial hemorrhage. Normal visualized paranasal sinuses. 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 There are hyperdensities seen in the anterior right globe likely postsurgical less likely dystrophic calcifications. CT/STROKE Brain/Head without Cont IMPRESSION: Moderate cortical and central atrophy. Mild cerebellar atrophy. [id number] chronic microvascular ischemic change periventricular white matter. Lacunar infarcts within the left external capsule and the right lentiform nucleus. These are age indeterminate but more likely chronic. Dural calcifications along the falx and along the tentorium bilaterally. Prosthetic left globe. Densities at the periphery of anterior right globe likely postsurgical less likely dystrophic calcifications. Results discussed with Dr. Tl Alcala. Electronically Signed: Shawn Nesbitt MD at 17:30 EDT ,
[2021-12-14 16:40] LABS: Bedside Glucose 118 mg/dL (74-106)
[2021-12-14 17:12] LABS: Absolute Lymphocyte Count 1.31 X10^3/uL (0.83-4.51); Absolute Neutrophil Count 5.6 X10^3/uL (2.0-7.7); Basophil# 0.04 X10^3/uL; Basophil% 0.5 % (0-1); Eosinophil# 0.11 X10^3/uL; Eosinophils% 1.4 % (0-5); Hematocrit 35.9 % (37-47); Hemoglobin 11.5 g/dL (12.0-15.0); Lymphocyte # 1.31 X10^3/ul (0.83-4.51); Lymphocyte % 16.2 % (19-41); Mean Corpuscular Hgb 29.3 pg (27.0-32.0); Mean Corpuscular Volume 91.3 fL (81-99); Monocyte# 1.03 X10^3/uL; Monocyte% 12.8 % (0-10); NRBC Flagged by Analyzer 0 % (0-5); Neutrophil # 5.55 X10^3/uL (2.7-7.7); Neutrophil % 68.7 % (47-70); Platelet Count 271 K/mm3 (150-450); RBC Distribution Width CV 13.2 % (11.6-14.6); RBC Distribution Width SD 44.6 fl (35.1-43.9); Red Blood Count 3.93 M/mm3 (4.2-5.4); White Blood Count 8.1 K/mm3 (4.4-11.0)
[2021-12-14 17:17] LABS: Prothrombin Time (Protime)PT. 12.8 SECONDS (11.7-14.9)
[2021-12-14 17:18] LABS: Partial Thromboplast Time 26.5 Seconds (24.1-36.2)
[2021-12-14 17:23] LABS: Anion Gap 5 (5-15); BUN 37 mg/dL (7-18); BUN/Creat Ratio 18.5 RATIO (10-20); Calcium,Total 9.6 mg/dL (8.5-10.1); Chloride 100 mmol/L (98-107); EST Glomerular Filtration Rate 26 mL/min (>60); Est Glom Filt Rate - Afr Amer 32 mL/min (>60); Estimated Creatinine Clearance 17.74 ml/min; Glucose 102 mg/dL (74-106); Potassium 4.9 mmol/L (3.5-5.1); Sodium Level 131 mmol/L (136-145); Troponin-I HS 13 pg/mL (3.0-54.0)
--- NOTE | 2021-12-14 17:30 | RAD_ITS ---
STUDY: X-RAY CHEST REASON FOR EXAM: Female, 71 years old. Neuro deficit, acute, stroke suspected TECHNIQUE: COMPARISON: None. FINDINGS: At the right base there is a nodular density visualized measuring 1.08 cm transverse. Left lung is clear. There is no demonstrated pleural abnormality. Status post sternotomy. Normal size heart. Normal mediastinum and thania. Normal visualized pulmonary arteries. Normal visualized aortic arch and descending thoracic aorta. Normal visualized thoracic spine. Normal visualized ribs, clavicles, and shoulders. There is no demonstrated abnormality of the visualized soft tissue structures of the upper abdomen. RAD/Chest 1 View IMPRESSION: Question nodule at the right base. Recommend comparison to old chest x-ray. If unavailable recommend chest CT without and with contrast. Electronically Signed: Shawn Nesbitt MD at 17:53 EDT ,
--- NOTE | 2021-12-14 17:55 | EX.ED.DYSGE1 ---
HPI History of Present Illness Chief Complaint: Neuro S/Sx Detail of Chief Complaint: Slurred speech Informant: patient and family Onset/Context/Timing Onset: Today Context: Sudden Onset Timing: - (gone) Current Severity: 0/10 Worsened by: Nothing Relieved by: Nothing Narrative Narrative: Patient has had sudden onset slurred speech and she could not write with her right hand. This has been going on intermittently for several days now. Last episode was just under an hour prior to arrival and it lasted for about 30 minutes. She currently has no symptoms or complaints. Nothing seemed to bring this on or make it worse. Nothing seemed to make it better. [facility] Medical History Atherosclerotic heart disease of [place] coronary artery without angina pectoris Benign hypertension Gastroesophageal reflux disease Non-rheumatic mitral regurgitation Nonrheumatic aortic (valve) stenosis RBBB (right bundle branch block) Home Medications cyanocobalamin (vitamin B-12) 1,000 mcg/mL injection solution 100 mcg IM QMONTH 07/10/20 [History Last Taken Unknown] duloxetine 30 mg capsule,delayed release 30 mg PO DAILY 07/10/20 [History Last Taken Unknown] folic acid 1 mg tablet 1 mg PO DAILY 07/10/20 [History Last Taken Unknown] lisinopril 20 mg-hydrochlorothiazide 25 mg tablet 1 tab PO DAILY 07/10/20 [History Last Taken Unknown] omeprazole 40 mg capsule,delayed release 40 mg PO DAILY 07/10/20 [History Last Taken Unknown] oxycodone-acetaminophen 5 mg-325 mg tablet 1 tab PO BID PRN tab 07/10/20 [History Last Taken Unknown] pravastatin 20 mg tablet 20 mg PO QHS 07/10/20 [History Last Taken Unknown] sulfamethoxazole 400 mg-trimethoprim 80 mg tablet 1 tab PO DAILY 07/10/20 [History Last Taken Unknown] tacrolimus 0.5 mg capsule, immediate-release 0.5 mg PO Q12H cap 07/10/20 [History Last Taken Unknown] amlodipine 5 mg tablet 5 mg PO DAILY #90 tab 07/12/20 [Rx Last Taken Unknown] cholecalciferol (vitamin D3) 25 mcg (1,000 unit) capsule 25 mcg PO DAILY 07/12/20 [History Last Taken Unknown] clobetasol 0.05 % lotion 1 applic TOPICAL DAILY 07/12/20 [History Last Taken Unknown] fluticasone propionate 50 mcg/actuation nasal spray,suspension 2 spray INTRANASAL DAILY PRN 07/12/20 [History Last Taken Unknown] mycophenolate mofetil 250 mg capsule 250 mg PO BID cap 07/12/20 [History Last Taken Unknown] aspirin 81 mg tablet,delayed release 81 mg PO DAILY 10/09/20 [History Last Taken Unknown] Lactobacillus acidophilus 1,000 mmu cells PO DAILY 08/26/21 [History Last Taken Unknown] furosemide 20 mg tablet 10 mg PO DAILY tab 11/14/21 [History Last Taken Unknown] carvedilol 6.25 mg tablet 6.25 mg PO BID #180 tab 11/18/21 [Rx Last Taken Unknown] Allergy/AdvReac Type Severity Reaction Status Date / Time No Known Allergies Allergy Verified 11/14/21 08:23 Family History Father CAD (coronary artery disease) Surgical History Cataract extraction status History of coronary artery bypass surgery (~07/29/12) History of eye surgery (~01/07/05) History of kidney transplant (~03/2004) History of pancreatectomy (~03/2004) History of repair of rotator cuff (~08/31/09) History of right breast biopsy (~11/23/03) History of umbilical hernia repair (~03/01/20) Status post pancreas transplantation (~05/25/05) Social History Smoking Status: Never smoker alcohol intake: current substance use type: does not use caffeine: Yes Type: coffee Number of servings: 3 ROS ROS ED Constitutional Constitutional ED: Reports systems reviewed and no addt'l complaints, except as documented Eyes Eyes: Reports systems reviewed and no addt'l complaints, except as documented ENT ENT ED: Reports systems reviewed and no addt'l complaints, except as documented Cardiovascular Cardiovascular: Reports systems reviewed and no addt'l complaints, except as documented Respiratory/Chest Respiratory/Chest: Reports systems reviewed and no addt'l complaints, except as documented Gastrointestinal Gastrointestinal: Reports systems reviewed and no addt'l complaints, except as documented Genitourinary Genitourinary ED: Reports systems reviewed and no addt'l complaints, except as documented Musculoskeletal Musculoskeletal: Reports systems reviewed and no addt'l complaints, except as documented Integumentary Reports systems reviewed and no addt'l complaints, except as documented Neurologic Neurologic: Reports other Psychiatric Psychiatric: Reports systems reviewed and no addt'l complaints, except as documented Endocrine Endocrinology: Reports systems reviewed and no addt'l complaints, except as documented Hematologic/Lymphatic Hematologic/Lymphatic: Reports systems reviewed and no addt'l complaints, except as documented Allergic/Immunologic Allergic/Immunologic ED: Reports systems reviewed and no addt'l complaints, except as documented EXAM Physical Exam Const Vital Signs: 12/14/21 16:00 12/14/21 16:42 12/14/21 16:44 Temperature 98.9 F Temperature Source Oral Pulse Rate 79 99 Respiratory Rate 14 20 H Blood Pressure 125/97 H 153/75 H Blood Pressure Mean 106 101 Pulse Ox 99 97 96 Oxygen Delivery Method Room Air Room Air Room Air 12/14/21 17:16 Temperature Temperature Source Pulse Rate 90 Respiratory Rate 16 Blood Pressure 159/72 H Blood Pressure Mean 101 Pulse Ox 96 Oxygen Delivery Method Room Air Positive well nourished and well developed General Appearance ED: active, cooperative and well developed HEENT normocephalic Eyes PERRL and EOMs intact bilaterally Neck full ROM Resp normal respiratory effort Cardio regular rate and regular rhythm Neuro oriented x3, CN's II-XII intact bilaterally, moves all extremities, no focal motor deficits and no sensory deficits noted Skin no rashes or lesions noted MDM MDM MDM Narrative Medical decision making narrative: EKG shows sinus rhythm with a right bundle branch block and left anterior fascicular block pattern. No sign of acute infarction pattern. This was interpreted by me. Chest x-ray showed no acute process. Official read is still pending at this time. This was interpreted by me. Patient is having intermittent TIA symptoms. Her episode today lasted about half an hour. She currently has an NIH of [address] was done and showed chronic changes. EKG, labs performed. Patient will need admission for further stroke testing and risk factor mitigation. Hospitalist was contacted. Impression #1 TIA Impression #2 coronary disease Impression #3 history of hypertension Impression #4 history of kidney transplant Lab Data Attestation: I reviewed the patient's lab results. Labs: Laboratory Results - last 24 hr 12/14/21 12/14/21 12/14/21 16:30 16:35 16:35 WBC 8.1 RBC 3.93 L Hgb 11.5 L Hct 35.9 L MCV 91.3 MCH 29.3 MCHC 32.0 RDW Std Deviation 44.6 H RDW Coeff of Jenny 13.2 Plt Count 271 MPV 10.0 Immature Gran % (Auto) 0.400 Neut % (Auto) 68.7 Lymph % (Auto) 16.2 L Antelope % (Auto) 12.8 H Eos % (Auto) 1.4 Baso % (Auto) 0.5 Absolute Neuts (auto) 5.6 Absolute Lymphs (auto) 1.31 Nucleated RBC % 0 PT 12.8 INR 1.0 APTT 26.5 Sodium Potassium Chloride Carbon Dioxide Anion Gap BUN Creatinine Estim Creat Clear Calc Est GFR (MDRD) Af Amer Est GFR (MDRD) Non-Af BUN/Creatinine Ratio Glucose Calcium Troponin I High Sens POC Glucose 118 H 12/14/21 16:35 WBC RBC Hgb Hct MCV MCH MCHC RDW Std Deviation RDW Coeff of Jenny Plt Count MPV Immature Gran % (Auto) Neut % (Auto) Lymph % (Auto) Antelope % (Auto) Eos % (Auto) Baso % (Auto) Absolute Neuts (auto) Absolute Lymphs (auto) Nucleated RBC % PT INR APTT Sodium 131 L Potassium 4.9 Chloride 100 Carbon Dioxide 26.0 Anion Gap 5 BUN 37 H Creatinine 2.00 H Estim Creat Clear Calc 17.74 Est GFR (MDRD) Af Amer 32 L Est GFR (MDRD) Non-Af 26 L BUN/Creatinine Ratio 18.5 Glucose 102 Calcium 9.6 Troponin I High Sens 13 POC Glucose Radiography Diagnostic Testing: Clinical Impression(s) from Imaging Studies Brain CT 12/14/21 16:16 IMPRESSION: Moderate cortical and central atrophy. Mild cerebellar atrophy. [id number] chronic microvascular ischemic change periventricular white matter. Lacunar infarcts within the left external capsule and the right lentiform nucleus. These are age indeterminate but more likely chronic. Dural calcifications along the falx and along the tentorium bilaterally. Prosthetic left globe. Densities at the periphery of anterior right globe likely postsurgical less likely dystrophic calcifications. Results discussed with Dr. Tl Alcala. Electronically Signed: Shawn Nesbitt MD at 17:30 EDT , ADDENDUM: 12/14/21 [id number] IMPRESSION: Moderate cortical and central atrophy. Mild cerebellar atrophy. [id number] chronic microvascular ischemic change periventricular white matter. Lacunar infarcts within the left external capsule and the right lentiform nucleus. These are age indeterminate but more likely chronic. Dural calcifications along the falx and along the tentorium bilaterally. Prosthetic left globe. Densities at the periphery of anterior right globe likely postsurgical less likely dystrophic calcifications. Results discussed with Dr. Tl Alcala. N.B. : The above Results were Read Back by Shawn Nesbitt MD to Tl Alcala MD, and understanding confirmed on 12/14/2021 17:47:10 (ET). Electronically Signed: Shawn Nesbitt MD at 17:30 EDT , Chest X-Ray 12/14/21 17:30 IMPRESSION: Question nodule at the right base. Recommend comparison to old chest x-ray. If unavailable recommend chest CT without and with contrast. Electronically Signed: Shawn Nesbitt MD at 17:53 EDT , Discharge Plan Triage Chief Complaint: Neuro S/Sx ED Provider: Tl Alcala Dx/Rx/DC Orders Prescriptions: No Action cholecalciferol (vitamin D3) 25 mcg (1,000 unit) capsule 25 mcg PO DAILY RF: 0 clobetasol 0.05 % lotion 1 applic TOPICAL DAILY RF: 0 amlodipine 5 mg tablet 5 mg PO DAILY Qty: 90 RF: 3 oxycodone-acetaminophen [Percocet] 5-325 mg tablet 1 tab PO BID PRNRF: 0 cyanocobalamin (vitamin B-12) 1,000 mcg/mL solution 100 mcg IM QMONTH RF: 0 duloxetine 30 mg capsule,delayed release(DR/EC) 30 mg PO DAILY RF: 0 folic acid 1 mg tablet 1 mg PO DAILY RF: 0 lisinopril-hydrochlorothiazide 20-25 mg tablet 1 tab PO DAILY RF: 0 omeprazole 40 mg capsule,delayed release(DR/EC) 40 mg PO DAILY RF: 0 pravastatin 20 mg tablet 20 mg PO QHS RF: 0 sulfamethoxazole-trimethoprim [Bactrim] 400-80 mg tablet 1 tab PO DAILY RF: 0 tacrolimus 0.5 mg capsule 0.5 mg PO Q12H RF: 0 mycophenolate mofetil 250 mg capsule 250 mg PO BID RF: 0 fluticasone propionate [Allergy Relief (fluticasone)] 50 mcg/actuation spray,suspension 2 spray INTRANASAL DAILY PRNRF: 0 aspirin [Adult Low Dose Aspirin] 81 mg tablet,delayed release (DR/EC) 81 mg PO DAILY RF: 0 furosemide 20 mg tablet 10 mg PO DAILY RF: 0 Acidophilus Capsule 1,000 mmu cells PO DAILY RF: 0 carvedilol [Coreg] 6.25 mg tablet 6.25 mg PO BID Qty: 180 RF: 3 Primary Care Provider: Luh Hernandez
--- NOTE | 2021-12-14 18:06 | PCM.HP.STD ---
HPI - General General Date of Admission: 12/14/21 Date of Service: 12/14/21 Chief Complaint: Aphasia, Headache, Difficulty writing. HPI Narrative The patient is a 71 y/o F w/ PMHx: Anxiety and Depression, Chronic normocytic anemia, CAD s/p CABG, HTN, GERD, ESRD s/p renal transplant, Hx pancreatectomy w/ transplantation who presents to the [facility] ED on 12/14/21 with history of history of left eye surgery with history of detached retina with intervention approximately 14 days prior to current presentation with most recent reevaluation by ophthalmology on Thursday with no acute findings and appropriate reevaluation at that time with onset suddenly starting at 7 PM notable headaches described as an aching specifically behind the left eye with associated difficulty speaking and inability to appropriately right noting that she was able to write squiggles but could not write any words lasting approximately 15 to 30 minutes with complete resolution of everything but the headache at that time with then recurrent event the night prior to current presentation at approximately 10:45 PM with similar presentation and again on day of ED eventual presentation at 1515 with resolution of neurological symptoms except headache prior to ED presentation. Patient states that her vision has continued to improve and she denies any discharge from the left eye. Patient and family note that they did talk to ophthalmology who recommended ED evaluation given concern for stroke. 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 Upon ED evaluation patient had complete resolution of her neurological symptoms and NIH stroke scale was 0 at that time. Work-up in the ED included T98.9 initially however repeat T 100.2, heart rate 79, BP 125/97, respiratory rate 14, 99% on room air, CBC with WC 8.1, hemoglobin 11.5, platelet 271 without marked shift, unremarkable coags, BMP with sodium 131, BUN/creatinine 37/2.0, troponin 13, chest x-ray with questionable nodule at the right base, CT of the head with moderate cortical and central atrophy, mild cerebellar atrophy, mild to moderate chronic microvascular ischemic changes, lacunar infarcts within the left external capsule and right lentiform nucleus noted to be age-indeterminate but more likely chronic, dural calcifications along the falx and along the tentorium bilaterally, prosthetic left globe, densities at the periphery of the anterior right globe likely postsurgical and less likely dystrophic calcifications, EKG with sinus rhythm with right bundle branch block and left anterior fascicular block with no acute evidence of ischemia. [facility] Medical History (Updated 12/14/21 @ 18:[address] Zohra Tam MD) Atherosclerotic heart disease of [place] coronary artery without angina pectoris Benign hypertension Gastroesophageal reflux disease Non-rheumatic mitral regurgitation Nonrheumatic aortic (valve) stenosis RBBB (right bundle branch block) Home Medications cyanocobalamin (vitamin B-12) 1,000 mcg/mL injection solution 100 mcg IM QMONTH 07/10/20 [History Last Taken Unknown] folic acid 1 mg tablet 1 mg PO DAILY 07/10/20 [History Last Taken Unknown] lisinopril 20 mg-hydrochlorothiazide 25 mg tablet 1 tab PO DAILY 07/10/20 [History Last Taken Unknown] omeprazole 40 mg capsule,delayed release 40 mg PO DAILY 07/10/20 [History Last Taken Unknown] pravastatin 20 mg tablet 20 mg PO QHS 07/10/20 [History Last Taken Unknown] sulfamethoxazole 400 mg-trimethoprim 80 mg tablet 1 tab PO DAILY 07/10/20 [History Last Taken Unknown] tacrolimus 0.5 mg capsule, immediate-release 0.5 mg PO Q12H cap 07/10/20 [History Last Taken Unknown] cholecalciferol (vitamin D3) 25 mcg (1,000 unit) capsule 25 mcg PO DAILY 07/12/20 [History Last Taken Unknown] clobetasol 0.05 % lotion 1 applic TOPICAL DAILY PRN 07/12/20 [History Last Taken Unknown] fluticasone propionate 50 mcg/actuation nasal spray,suspension 2 spray INTRANASAL DAILY PRN 07/12/20 [History Last Taken Unknown] mycophenolate mofetil 250 mg capsule 250 mg PO DAILY cap 07/12/20 [History Last Taken Unknown] aspirin 81 mg tablet,delayed release 81 mg PO DAILY 10/09/20 [History Last Taken Unknown] carvedilol 6.25 mg tablet 6.25 mg PO BID #180 tab 11/18/21 [Rx Last Taken Unknown] Allergy/AdvReac Type Severity Reaction Status Date / Time No Known Allergies Allergy Verified 11/14/21 08:23 Family History (Updated 12/14/21 @ 18:[address] 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 Zohra Tam MD) household members: spouse Smoking Status: Never smoker alcohol intake: current alcohol intake frequency: a few times a month substance use type: does not use caffeine: Yes Type: coffee Number of servings: 3 ROS ROS Narrative Admission Review of Systems: CONSTITUTIONAL: No weight loss, fever, chills, + weakness or fatigue. HEENT: + Headache, recent L eye detached retina surgery. Denies any eye discharge or worsened appearance or worsened vision. Eyes: No visual loss, blurred vision, double vision or yellow sclerae. Ears, Nose, Throat: No hearing loss, sneezing, congestion, runny nose or sore throat. SKIN: No rash or itching, lesions, wounds. CARDIOVASCULAR: No chest pain, chest pressure or chest discomfort, palpitations, edema, orthopnea, syncopal events. RESPIRATORY: No shortness of breath, cough or sputum, wheezing, hemoptysis. GASTROINTESTINAL: No anorexia, nausea, vomiting or diarrhea, abdominal pain, melena, BRBPR. GENITOURINARY: No dysuria, frequency, urgency or retention. NEUROLOGICAL: + Headache, aphasia, difficulty writing but patient reports made squiggles only, could not understand what to write, No dizziness, syncope, paralysis, ataxia, numbness or tingling in the extremities, change in bowel or bladder control, seizure. MUSCULOSKELETAL: No muscle, back pain, joint pain or stiffness. HEMATOLOGIC: + anemia, bleeding or bruising. LYMPHATICS: No enlarged nodes. No history of splenectomy. PSYCHIATRIC: + history of depression or anxiety. ENDOCRINOLOGIC: No reports of sweating, cold or heat intolerance. No polyuria or polydipsia. ALLERGIES: No history of asthma, hives, eczema or rhinitis. Vital Signs Vital Signs Vital Signs: 12/14/21 16:00 12/14/21 16:42 12/14/21 16:44 Temperature 98.9 F Temperature Source Oral Pulse Rate 79 99 Respiratory Rate 14 20 H Blood Pressure 125/97 H 153/75 H Blood Pressure Mean 106 101 Pulse Ox 99 97 96 Oxygen Delivery Method Room Air Room Air Room Air 12/14/21 17:16 Temperature Temperature Source Pulse Rate 90 Respiratory Rate 16 Blood Pressure 159/72 H Blood Pressure Mean 101 Pulse Ox 96 Oxygen Delivery Method Room Air Weight Weight: 97 lb 7.109 oz Body Mass Index (BMI) 19.5 Physical Exam Narrative Physical Examination: General: Awake, alert, oriented x 3 and cooperative, seated upright in the ED bed, mildly fatigued, notes still some left-sided headache behind the eye but improving. Skin: Extremely tanned color, normal turgor, no icterus, no cyanosis. HEENT: AT/NC, EOMI, recent left eye surgery for retinal detachment, vision per discussion with patient has been improving, no drainage noted, scleral icterus significantly improved patient and spouse report concurrently, PERRLA, MMM, no carotid bruits or JVD noted. Lungs: Mild diminished, greater bases, poor effort no rales, ronchi or wheezing. Heart: Currently regular rate and rhythm; no gallop, rub audible. Abdomen: Soft, thin habitus, NTTP, ND, normal BS, no HSM. Extremities: No cyanosis, clubbing, or edema. Patient with bilateral hand significant arthritic change. Neurological: Patient awake, alert, oriented as noted, cognitive function appears intact; pupils equally reactive to light and accommodation, cranial nerves II-XII grossly normal, moving all 4 extremities, no focal deficits, strength preserved, finger-nose and [id number] appropriate, sensation appropriate, no evidence of any residual aphasia. Psychiatric: Affect appears normal, no acute evidence of depressive or anxiety feelings. Results Lab / Micro Data Result Diagrams: 12/14/21 16:35 12/14/21 16:35 Labs: Laboratory Results - last 24 hr 12/14/21 16:30: POC Glucose 118 H 12/14/21 16:35: WBC 8.1, RBC 3.93 L, Hgb 11.5 L, Hct 35.9 L, MCV 91.3, MCH 29.3, MCHC 32.0, RDW Std Deviation 44.6 H, RDW Coeff of Jenny 13.2, Plt Count 271, MPV 10.0, Immature Gran % (Auto) 0.400, Neut % (Auto) 68.7, Lymph % (Auto) 16.2 L, Gilchrist % (Auto) 12.8 H, Eos % (Auto) 1.4, Baso % (Auto) 0.5, Absolute Neuts (auto) 5.6, Absolute Lymphs (auto) 1.31, Nucleated RBC % 0 12/14/21 16:35: PT 12.8, INR 1.0, APTT 26.5 12/14/21 16:35: Sodium 131 L, Potassium 4.9, Chloride 100, Carbon Dioxide 26.0, Anion Gap 5, BUN 37 H, Creatinine 2.00 H, Estim Creat Clear Calc 17.74, Est GFR (MDRD) Af Amer 32 L, Est GFR (MDRD) Non-Af 26 L, BUN/Creatinine Ratio 18.5, Glucose 102, Calcium 9.6, Troponin I High Sens [address] 12/14/21 16:16 IMPRESSION: Moderate cortical and central atrophy. Mild cerebellar atrophy. Cgyw-zj-urrgzeto chronic microvascular ischemic change periventricular white matter. Lacunar infarcts within the left external capsule and the right lentiform nucleus. These are age indeterminate but more likely chronic. Dural calcifications along the falx and along the tentorium bilaterally. Prosthetic left globe. Densities at the periphery of anterior right globe likely postsurgical less likely dystrophic calcifications. Results discussed with Dr. Tl Alcala. Electronically Signed: Shawn Nesbitt MD at 17:30 EDT , ADDENDUM: 12/14/21 [id number] IMPRESSION: Moderate cortical and central atrophy. Mild cerebellar atrophy. [id number]-[id number] chronic microvascular ischemic change periventricular white matter. Lacunar infarcts within the left external capsule and the right lentiform nucleus. These are age indeterminate but more likely chronic. Dural calcifications along the falx and along the tentorium bilaterally. Prosthetic left globe. Densities at the periphery of anterior right globe likely postsurgical less likely dystrophic calcifications. Results discussed with Dr. Tl Alcala. N.B. : The above Results were Read Back by Shawn Nesbitt MD to Tl Alcala MD, and understanding confirmed on 12/14/2021 17:47:10 (ET). Electronically Signed: Shawn Nesbitt MD at 17:30 EDT , Chest X-Ray 12/14/21 17:30 IMPRESSION: Question nodule at the right base. Recommend comparison to old chest x-ray. If unavailable recommend chest CT without and with contrast. Electronically Signed: Shawn Nesbitt MD at 17:53 EDT , Assessment & Plan Assessment/Plan (1) TIA (transient ischemic attack): PLAN: The patient is a 71 y/o F w/ PMHx: Anxiety and Depression, Chronic normocytic anemia, CAD s/p CABG, HTN, GERD, ESRD s/p renal transplant, Hx pancreatectomy w/ transplantation who presents to the [facility] ED on 12/14/21 with history of history of left eye surgery with history of detached retina with intervention approximately 14 days prior to current presentation with most recent reevaluation by ophthalmology on Thursday with no acute findings and appropriate reevaluation at that time with onset suddenly starting at 7 PM notable headaches described as an aching specifically behind the left eye with associated difficulty speaking and inability to appropriately right noting that she was able to write squiggles but could not write any words lasting approximately 15 to 30 minutes with complete resolution of everything but the headache at that time with then recurrent event the night prior to current presentation at approximately 10:45 PM with similar presentation and again on day of ED eventual presentation at 1515 with resolution of neurological symptoms except headache prior to ED presentation. #1. Transient Dysarthria, inability to right, headache concerning for TIA/CVA complicated by #3 with evidence of Prior CVA (Lacunar infarcts within the left external capsule and the right lentiform nucleus): Will admit to PCU, will obtain MRI Brain, MRA Head and Neck, ECHO, PT/OT/Speech/Nutrition evaluation per protocol. Will consult Neurology for evaluation once further imaging and work-up obtained. Will allow permissive HTN temporarily with 3 addition of regimen once appropriate, maintain on asa, given she had already been on asa with CT head has noted, will add plavix pending Neurology assessment, continue home statin w/ AM FLP, fall precautions. Magnesium, TSH, FLP, hemoglobin A1c requested. Discussed with [facility] they noted she is able to be on both asa and plavix. #2. Mild Acute Renal Insufficiency on Chronic Kidney Disease Stage III, unclear subtype s/p prior ESRD with transplant status: Patient status post renal transplant with previous to this end-stage renal disease, currently admission BUN/Cr 37/2.0, baseline renal function appears more recently primarily 1.3-1.5, will continue judicious hydration, hold any nephrotoxic medications, plan repeat BMP in AM. We will continue patient home tacrolimus, mycophenolate home regimen. For review of medications patient is not on any chronic low-dose steroids. Will await repeat renal function in AM prior to restart on home bactrim regimen. #3. Recent left eye surgery for detached retina with low-grade temperature in the ED: Complicates presentation, unclear if related, also low grade T in the ED 100.2 in transplant status, will contact the [facility] about her presentation, no acute findings of note reported on CT head, plan for MRI brain, will continue to closely monitor VS and if [facility] recommends low threshold to add abx therapy. Of note however CBC with WBC 8.1 without marked left shift. Procalcitonin requested. [facility] notes no abx therapy at this time but to continue follow and will have her follow-up early at the office to re-evaluated at discharge. #4. Incidental lung nodule: Right base nodule noted on chest x-ray, will need follow-up further imaging. #5. CAD: Status post CABG, will continue aspirin, statin, temporarily holding patient hypertensive regimen for improved perfusion pending MRI of the brain, not diabetic. #6. Hypertension: We will temporarily hold patient regimen, continue with permissive hypertension and judicious hydration, as needed agents per stroke protocol in interim. #7. Hyperlipidemia: Continue home statin regimen. AM FLP. #8. Anxiety and depression: Patient reports that she recently discontinued her duloxetine regimen. Recommend in the future that tapers downward are more appropriate for this type of medications when discontinuing. #9. Chronic normocytic anemia: Admission hemoglobin 11.5, baseline appears 10-11, stable, trend. #10. GERD: We will continue patient on PPI. #11. DVT prophylaxis: SCDs, heparin ([facility] is amenable). Charges/Coding Visit Charges OBSV E&M: 93327 Initial observation care L3
[2021-12-14 18:40] LABS: Magnesium 2.2 mg/dL (1.6-2.6)
[2021-12-14] MEDS: 0.9% Normal Saline 1,000 ML 100 ML IV (20:08)
[2021-12-14] MEDS: CLARIFY ORDER 1 EACH NOTE (21:16)
[2021-12-14 21:20] LABS: Hemoglobin A1c 5.2 % (3.8-5.6)
[2021-12-14 21:25] LABS: Thyroid Stim Hormone (TSH) 0.94 uIU/mL (0.358-3.74)
[2021-12-14] MEDS: Pravastatin 20 MG Tablet PO (21:27)
[2021-12-14] MEDS: Mycophenolate Mofetil 250 MG Capsule PO (21:27)
[2021-12-14] MEDS: Clopidogrel Bisulfate 75 MG Tablet PO (21:27)
[2021-12-14] MEDS: Tacrolimus 0.5 MG Capsule PO (21:27)
[2021-12-14 21:28] LABS: Procalcitonin 0.04 ng/mL (0.00-0.09)
[2021-12-15] VITALS (13 sets, daily range): BP systolic 135–177; BP diastolic 58–65; PULSE 68–94; RESP 16–18; TEMP 36.6–37; O2SAT 97–99; BMI 19.3
--- NOTE | 2021-12-15 05:44 | PCM.PN.HOSP ---
Subjective Subjective Patient overnight without any acute events. Patient had no recurrent speech difficulties or RUE hand writing difficulties. She had no further elevated temperatures. Patient notes resolution of prior headache behind the left eye as well. Discussed plan of care which included MRI of the brain as well as echocardiogram. Reviewed CT imaging again and noted that there was evidence of prior strokes which patient had never been aware of previously. Discussed with patient's evenings prior discussion with [facility] and allowance of aspirin and Plavix given recent intervention. Patient denies fevers, chills, nausea, emesis, abdominal pain, chest pain or dyspnea. Objective Data Objective Data Vital Signs: Vital Signs Temp Pulse Resp BP Pulse Ox 97.8 F 70 16 135/58 H 97 12/15/21 02:48 12/15/21 03:30 12/15/21 02:48 12/15/21 02:48 12/15/21 02:48 Oxygen Delivery Method Room Air Weight: 95 lb 8 oz Body Mass Index (BMI) 19.3 Intake & Output: Intake and Output for Last 24 Hours 12/13/21 12/14/21 12/15/21 23:59 23:59 23:59 Output Total 240 / 240 Balance -240 / -240 Lab / Micro Data Result Diagrams: 12/14/21 16:35 12/14/21 16:35 Labs: Laboratory Results - last 24 hr 12/14/21 16:30: POC Glucose 118 H 12/14/21 16:35: WBC 8.1, RBC 3.93 L, Hgb 11.5 L, Hct 35.9 L, MCV 91.3, MCH 29.3, MCHC 32.0, RDW Std Deviation 44.6 H, RDW Coeff of Jenny 13.2, Plt Count 271, MPV 10.0, Immature Gran % (Auto) 0.400, Neut % (Auto) 68.7, Lymph % (Auto) 16.2 L, [place] % (Auto) 12.8 H, Eos % (Auto) 1.4, Baso % (Auto) 0.5, Absolute Neuts (auto) 5.6, Absolute Lymphs (auto) 1.31, Nucleated RBC % 0 12/14/21 16:35: PT 12.8, INR 1.0, APTT 26.5 12/14/21 16:35: Sodium 131 L, Potassium 4.9, Chloride 100, Carbon Dioxide 26.0, Anion Gap 5, BUN 37 H, Creatinine 2.00 H, Estim Creat Clear Calc 17.74, Est GFR (MDRD) Af Amer 32 L, Est GFR (MDRD) Non-Af 26 L, BUN/Creatinine Ratio 18.5, Glucose 102, Calcium 9.6, Troponin I High Sens 13 12/14/21 16:35: Magnesium 2.2 12/14/21 20:22: Procalcitonin 0.04 12/14/21 20:22: TSH 0.94 12/14/21 20:22: Hemoglobin A1c 5.2 Radiography Diagnostic Testing: Radiology Impression Brain CT 12/14/21 16:16 IMPRESSION: Moderate cortical and central atrophy. Mild cerebellar atrophy. Nhtf-pc-[id number] chronic microvascular ischemic change periventricular white matter. Lacunar infarcts within the left external capsule and the right lentiform nucleus. These are age indeterminate but more likely chronic. Dural calcifications along the falx and along the tentorium bilaterally. Prosthetic left globe. Densities at the periphery of anterior right globe likely postsurgical less likely dystrophic calcifications. Results discussed with Dr. Tl Alcala. Electronically Signed: Shawn Nesbitt MD at 17:30 EDT , ADDENDUM: 12/14/21 1754 IMPRESSION: Moderate cortical and central atrophy. Mild cerebellar atrophy. Gklt-lt-ychyhzmw chronic microvascular ischemic change periventricular white matter. Lacunar infarcts within the left external capsule and the right lentiform nucleus. These are age indeterminate but more likely chronic. Dural calcifications along the falx and along the tentorium bilaterally. Prosthetic left globe. Densities at the periphery of anterior right globe likely postsurgical less likely dystrophic calcifications. Results discussed with Dr. Tl Alcala. N.B. : The above Results were Read Back by Shawn Nesbitt MD to Tl Alcala MD, and understanding confirmed on 12/14/2021 17:47:10 (ET). Electronically Signed: Shawn Nesbitt MD at 17:30 EDT , Chest X-Ray 12/14/21 17:30 IMPRESSION: Question nodule at the right base. Recommend comparison to old chest x-ray. If unavailable recommend chest CT without and with contrast. Electronically Signed: Shawn Nesbitt MD at 17:53 EDT , Physical Exam Narrative Physical Examination: General: Awake, alert, oriented x 3 and cooperative, seated upright in the PCU bed, more alert, more comfortable appearing, resolved headache. Skin: Extremely tanned color, normal turgor, no icterus, no cyanosis. HEENT: AT/NC, EOMI, recent left eye surgery for retinal detachment, vision per discussion with patient has been improving, no drainage noted, scleral icterus significantly improved patient and spouse report concurrently, KORI, MMM. Lungs: Mild diminished, greater bases, poor effort no rales, ronchi or wheezing. Heart: Regular rate and rhythm; no gallop, rub audible. Abdomen: Soft, thin habitus, NTTP, ND, normal BS. Extremities: No cyanosis, clubbing, or edema. Patient with bilateral hand significant arthritic change. Neurological: Patient awake, alert, oriented as noted, cognitive function appears intact; pupils equally reactive to light and accommodation, cranial nerves II-XII grossly normal, moving all 4 extremities, no focal deficits, strength preserved, finger-nose and hwmx-yr-hivf appropriate, sensation appropriate, no evidence of any residual aphasia. Psychiatric: Affect appears normal, no acute evidence of depressive or anxiety feelings. Assessment & Plan Assessment/Plan (1) TIA (transient ischemic attack): PLAN: The patient is a 71 y/o F w/ PMHx: Anxiety and Depression, Chronic normocytic anemia, CAD s/p CABG, HTN, GERD, ESRD s/p renal transplant, Hx pancreatectomy w/ transplantation who presents to the [facility] ED on 12/14/21 with history of history of left eye surgery with history of detached retina with intervention approximately 14 days prior to current presentation with most recent reevaluation by ophthalmology on Thursday with no acute findings and appropriate reevaluation at that time with onset suddenly starting at 7 PM notable headaches described as an aching specifically behind the left eye with associated difficulty speaking and inability to appropriately right noting that she was able to write squiggles but could not write any words lasting approximately 15 to 30 minutes with complete resolution of everything but the headache at that time with then recurrent event the night prior to current presentation at approximately 10:45 PM with similar presentation and again on day of ED eventual presentation at 1515 with resolution of neurological symptoms except headache prior to ED presentation. #1. Transient Dysarthria, inability to right, headache concerning for TIA/CVA complicated by #3 with evidence of Prior CVA (Lacunar infarcts within the left external capsule and the right lentiform nucleus): Admitted to PCU, pending MRI Brain, MRA Head and Neck, ECHO, PT/OT/Speech/Nutrition evaluation per protocol. Will consult Neurology for evaluation once further imaging and work-up obtained. Will allow permissive HTN temporarily with re-addition of regimen once appropriate, maintain on asa, given she had already been on asa with CT head has noted, added plavix pending Neurology assessment which was amenable per [facility], continue home statin w/ AM FLP, fall precautions. Magnesium 2.2, TSH 0.94, FLP pending, hemoglobin A1c 5.5% but of note per discussion with [facility] patient remotely prior to pancreatic intervention was diabetic. #2. Mild Acute Renal Insufficiency on Chronic Kidney Disease Stage III, unclear subtype s/p prior ESRD with transplant status: Patient status post renal transplant with previous to this end-stage renal disease, currently admission BUN/Cr 37/2.0, baseline renal function appears more recently primarily 1.3-1.5, judiciously hydrated, temporarily held any nephrotoxic medications. Continued patient home tacrolimus, mycophenolate home regimen. For review of medications patient is not on any chronic low-dose steroids. 12/15/21 BUN/Cr pending upon evaluation. #3. Recent left eye surgery for detached retina with low-grade temperature in the ED: Complicates presentation, unclear if related, also low grade T in the ED 100.2 in transplant status. Discussed case with [facility] including no acute findings of note reported on CT head, agreed with plan for MRI brain and continued close monitoring without any abx initiation. Overnight 12/14-12/15/21 patient without any increased recurrent T, no acute complaints, procalcitonin obtained and normal range. Once discharged will plan early [facility] re-evaluation per discussion with their service. #4. Incidental lung nodule: Right base nodule noted on chest x-ray, will need follow-up further imaging outpatient. #5. CAD: Status post CABG, will continue aspirin, statin, temporarily holding patient hypertensive regimen for improved perfusion pending MRI of the brain, not diabetic but does have history of note #1. #6. Hypertension: We will temporarily hold patient regimen, continue with permissive hypertension and judicious hydration, as needed agents per stroke protocol in interim. #7. Hyperlipidemia: Continue home statin regimen. AM FLP pending upon evaluation. #8. Anxiety and depression: Patient reports that she recently discontinued her duloxetine regimen. Recommend in the future that tapers downward are more appropriate for this type of medications when discontinuing. #9. Chronic normocytic anemia: Admission hemoglobin 11.5, baseline appears 10-11, stable, trend. 12/15/21 Hgb pending on evaluation. #10. GERD: We will continue patient on PPI. #11. DVT prophylaxis: SCDs, heparin ([facility] amenable). Charges/Coding Visit Charges OBSV E&M: 96139 Subsequent observation care L3
[2021-12-15] MEDS: 0.9% Normal Saline 1,000 ML 100 ML IV (06:27)
[2021-12-15] MEDS: Folic Acid 1 MG Tablet PO (06:28)
[2021-12-15] MEDS: Pantoprazole Sodium 40 MG Tablet PO (08:25)
[2021-12-15] MEDS: Mycophenolate Mofetil 250 MG Capsule PO ×2 (08:25→21:19)
[2021-12-15] MEDS: Clopidogrel Bisulfate 75 MG Tablet PO (08:25)
[2021-12-15] MEDS: Tacrolimus 0.5 MG Capsule PO ×2 (08:25→21:19)
[2021-12-15 08:26] LABS: Absolute Lymphocyte Count 0.94 X10^3/uL (0.83-4.51); Absolute Neutrophil Count 3.6 X10^3/uL (2.0-7.7); Basophil# 0.04 X10^3/uL; Basophil% 0.8 % (0-1); Eosinophil# 0.07 X10^3/uL; Eosinophils% 1.3 % (0-5); Hematocrit 31.6 % (37-47); Hemoglobin 10.2 g/dL (12.0-15.0); Lymphocyte # 0.94 X10^3/ul (0.83-4.51); Lymphocyte % 17.8 % (19-41); Mean Corp Hgb Conc 32.3 g/dL (32-36); Mean Corpuscular Hgb 29.1 pg (27.0-32.0); Mean Corpuscular Volume 90.3 fL (81-99); Mean Platelet Vol. 9.5 fl (6.2-12.0); Monocyte# 0.66 X10^3/uL; Monocyte% 12.5 % (0-10); NRBC Flagged by Analyzer 0 % (0-5); Neutrophil # 3.56 X10^3/uL (2.7-7.7); Neutrophil % 67.4 % (47-70); Platelet Count 223 K/mm3 (150-450); RBC Distribution Width CV 13.3 % (11.6-14.6); RBC Distribution Width SD 43.7 fl (35.1-43.9); White Blood Count 5.3 K/mm3 (4.4-11.0)
[2021-12-15 08:47] LABS: AST(SGOT) 16 U/L (15-37); Alanine Aminotransfer ALT/SGPT 16 U/L (13-56); Albumin, Serum 3.2 g/dL (3.2-5.0); Alkaline Phosphatase 56 U/L (45-117); Anion Gap 4 (5-15); BUN 27 mg/dL (7-18); BUN/Creat Ratio 19.3 RATIO (10-20); Calcium,Total 8.5 mg/dL (8.5-10.1); Chloride 106 mmol/L (98-107); Cholesterol 171 mg/dL (200); EST Glomerular Filtration Rate 39 mL/min (>60); Est Glom Filt Rate - Afr Amer 48 mL/min (>60); Estimated Creatinine Clearance 24.83 ml/min; Globulin 3.3 g/dL (2.2-4.2); Glucose 102 mg/dL (74-106); High Density Lipoprotein 87 mg/dL; Potassium 4.7 mmol/L (3.5-5.1); Protein, Total 6.5 g/dL (6.4-8.2); Sodium Level 135 mmol/L (136-145); Triglycerides 70 mg/dL; Very Low Density Lipoprotein 14 mg/dL (5-40)
--- NOTE | 2021-12-15 13:30 | MRI_ITS ---
INDICATION: CVA EXAMINATION: MRA - MRA Neck W/O Contrast TECHNIQUE: Routine non-contrast [id number] Carotid MR angiogram protocol was performed without gadolinium. 3D reconstructions were reviewed. Nascet criteria using the distal ICAs for comparison were used for evaluation of stenoses. IV Contrast Dosage and Agent: None. COMPARISON: None. FINDINGS: AORTIC ARCH AND BRANCHES: No significant stenosis at the visualized portions. RIGHT CCA: No occlusion or significant stenosis. RIGHT ICA: No occlusion or significant stenosis. LEFT CCA: No occlusion or significant stenosis. LEFT ICA: No occlusion or significant stenosis. RIGHT VERTEBRAL ARTERY: No occlusion or significant stenosis. LEFT VERTEBRAL ARTERY: No occlusion or significant stenosis. No evidence of acute injury of the major arterial system of the neck. MRI/MRA Neck without Contrast IMPRESSION: Normal non-contrast MRA of the Neck. Electronically Signed: Chuckie Ramirez MD at 15:28 EDT ,
--- NOTE | 2021-12-15 13:30 | MRI_ITS ---
EXAM: MR HEAD WITHOUT INTRAVENOUS CONTRAST CLINICAL INDICATION: CVA TECHNIQUE: Multiplanar and multisequence MR images of the brain were obtained without intravenous contrast. This report was created using [employer] report generation technology. COMPARISON: CT brain 12/15/2021 FINDINGS: BRAIN AND EXTRA-AXIAL SPACES: Increased T2 signal intensity within the cerebral white matter suggestive of chronic microvascular change. No intra- or extra-axial hemorrhage. No evidence of acute infarct. No intracranial mass or mass effect. There is preservation of the gaming/white matter interface. Posterior fossa structures are unremarkable. Ventricles are appropriate for age. No hydrocephalus. Basal cisterns are patent. SELLA: Unremarkable. Normal sella turcica, pituitary gland, infundibular stalk, optic chiasm and hypothalamus. AUDITORY SYSTEM: Unremarkable. The internal auditory canals are patent. BONES/JOINTS: Unremarkable. No discrete lytic or blastic abnormalities. SINUSES: Unremarkable as visualized. Clear. MASTOID AIR CELLS: Unremarkable as visualized. Clear. ORBITS: Unremarkable as visualized. Both globes, extraocular muscles, optic nerves and retrobulbar fat appear unremarkable. VASCULATURE: Unremarkable as visualized. Normal flow voids in the major intracranial circulation. MRI/Brain without Contrast IMPRESSION: 1. No evidence of acute ischemia. 2. Chronic microvascular changes. Electronically Signed: Chuckie Ramirez MD at 15:27 EDT ,
--- NOTE | 2021-12-15 13:30 | MRI_ITS ---
INDICATION: CVA EXAMINATION: MRA - MRA Head W/O Contrast TECHNIQUE: Routine [place] of [place]/brain 3D time of flight MR angiogram protocol was performed without gadolinium. 3D reconstructions were reviewed. IV Contrast Dosage and Agent: None. COMPARISON: None. FINDINGS: --Anterior Circulation: ICAs: No significant stenosis at the intracranial/visualized segments. ACAs: No significant stenosis at the visualized segments. ACOM: Present. MCAs: No significant stenosis at the visualized segments. --Posterior Circulation: PCOMs: Left P-comm is present tobacco blender: No significant stenosis at the visualized segments. BASILAR ARTERY: No significant stenosis. VERTEBRAL ARTERIES: No significant stenosis at the intradural/visualized segments. No evidence of intracranial aneurysm or vascular malformation. MRI/MRA Head ONLY without Contrast IMPRESSION: Normal MRA head. Electronically Signed: Chuckie Ramirez MD at 15:25 EDT ,
--- NOTE | 2021-12-15 14:58 | TELEMED_ITS ---
[facility] has confirmed receipt of a request for visit. This document confirms receipt of the order initiating the consult. To find the results of the consultation, please view the patient's reports for the scanned Telemed Consult.
[2021-12-15] MEDS: OFLOXACIN 5 ML DROPS LEFT EYE ×2 (17:26→21:18)
[2021-12-15] MEDS: hydrALAZINE 20 MG/ML Vial 10 MG IV (17:32)
[2021-12-15] MEDS: 0.9% Saline Lock 10 ML Syringe IV ×2 (17:32→21:19)
[2021-12-15] MEDS: Carvedilol 6.25 MG Tablet PO (21:19)
[2021-12-15] MEDS: Pravastatin 20 MG Tablet PO (21:19)
[2021-12-16] VITALS (7 sets, daily range): BP systolic 140–163; BP diastolic 70–89; PULSE 71–80; RESP 18; TEMP 36.8; O2SAT 98–99
[2021-12-16 05:20] LABS: Absolute Lymphocyte Count 0.95 X10^3/uL (0.83-4.51); Absolute Neutrophil Count 4.7 X10^3/uL (2.0-7.7); Basophil# 0.05 X10^3/uL; Basophil% 0.8 % (0-1); Eosinophil# 0.12 X10^3/uL; Eosinophils% 1.9 % (0-5); Hematocrit 33.7 % (37-47); Hemoglobin 10.9 g/dL (12.0-15.0); Lymphocyte # 0.95 X10^3/ul (0.83-4.51); Lymphocyte % 14.7 % (19-41); Mean Corp Hgb Conc 32.3 g/dL (32-36); Mean Corpuscular Hgb 29.5 pg (27.0-32.0); Mean Corpuscular Volume 91.1 fL (81-99); Mean Platelet Vol. 10.3 fl (6.2-12.0); Monocyte# 0.66 X10^3/uL; Monocyte% 10.2 % (0-10); NRBC Flagged by Analyzer 0 % (0-5); Neutrophil # 4.66 X10^3/uL (2.7-7.7); Neutrophil % 72.1 % (47-70); Platelet Count 228 K/mm3 (150-450); RBC Distribution Width CV 13.2 % (11.6-14.6); RBC Distribution Width SD 43.7 fl (35.1-43.9); White Blood Count 6.5 K/mm3 (4.4-11.0)
[2021-12-16 05:53] LABS: BUN 26 mg/dL (7-18); Creatinine, Serum 1.18 mg/dL (0.55-1.02); Glucose 98 mg/dL (74-106)
[2021-12-16 05:54] LABS: ALB/GLOB Ratio 0.9 RATIO (0.9-2.4); AST(SGOT) 23 U/L (15-37); Alanine Aminotransfer ALT/SGPT 16 U/L (13-56); Albumin, Serum 3.3 g/dL (3.2-5.0); Alkaline Phosphatase 61 U/L (45-117); Anion Gap 6 (5-15); Calcium,Total 8.9 mg/dL (8.5-10.1); Chloride 105 mmol/L (98-107); EST Glomerular Filtration Rate 48 mL/min (>60); Est Glom Filt Rate - Afr Amer 58 mL/min (>60); Estimated Creatinine Clearance 29.46 ml/min; Globulin 3.5 g/dL (2.2-4.2); Potassium 4.5 mmol/L (3.5-5.1); Protein, Total 6.8 g/dL (6.4-8.2); Sodium Level 133 mmol/L (136-145)
[2021-12-16] MEDS: Aspirin E.C. 81 MG Tablet PO (08:27)
[2021-12-16] MEDS: Clopidogrel Bisulfate 75 MG Tablet PO (08:27)
[2021-12-16] MEDS: Pantoprazole Sodium 40 MG Tablet PO (08:27)
[2021-12-16] MEDS: Carvedilol 6.25 MG Tablet PO (08:27)
[2021-12-16] MEDS: Folic Acid 1 MG Tablet PO (08:27)
[2021-12-16] MEDS: Tacrolimus 0.5 MG Capsule PO (08:27)
[2021-12-16] MEDS: OFLOXACIN 5 ML DROPS LEFT EYE ×2 (08:28→12:24)
[2021-12-16] MEDS: Cholecalciferol (VIT D3) 25 MCG TABLET (1,000 UNITS) PO (08:28)
[2021-12-16] MEDS: Mycophenolate Mofetil 250 MG Capsule PO (08:28)
[2021-12-16] MEDS: Acetaminophen 325 MG Tablet 650 MG PO (12:24)
--- NOTE | 2021-12-16 13:55 | DCINST_ITS ---
Discharge Instructions Diet Discharge Diet: Low fat / Low cholesterol Activity Discharge Activity: Return to Normal Activity Dressing / Incision Call your doctor if you observe: Shortness of breath, Dizziness and Chest pain Follow Up Care Test Results: Test results from this visit will be discussed in further detail at your follow-up appointment, if applicable. Discharge Plan Admission Admit Date/Time: 12/14/21 18:15 Primary Reason for Your Visit: TIA Attending Provider: Allyson Camargo Primary Care Provider: Luh Hernandez Consulting Providers: Zohra Tam Instructions Additional Instructions / Restrictions: Follow-up with ophthalmology/[facility] within two days. Discharge Orders/Prescriptions Prescriptions: New clopidogrel 75 mg Tablet 75 mg PO DAILY 30 Days Qty: 30 RF: 0 Continued cholecalciferol (vitamin D3) 25 mcg (1,000 unit) capsule 25 mcg PO DAILY RF: 0 clobetasol 0.05 % lotion 1 applic TOPICAL DAILY PRN (Reason: Back Pain) RF: 0 cyanocobalamin (vitamin B-12) 1,000 mcg/mL solution 100 mcg IM QMONTH RF: 0 folic acid 1 mg tablet 1 mg PO DAILY RF: 0 lisinopril-hydrochlorothiazide 20-25 mg tablet 1 tab PO DAILY RF: 0 omeprazole 40 mg capsule,delayed release(DR/EC) 40 mg PO DAILY RF: 0 pravastatin 20 mg tablet 20 mg PO QHS RF: 0 sulfamethoxazole-trimethoprim [Bactrim] 400-80 mg tablet 1 tab PO DAILY RF: 0 tacrolimus 0.5 mg capsule 0.5 mg PO Q12H RF: 0 mycophenolate mofetil 250 mg capsule 250 mg PO DAILY RF: 0 fluticasone propionate [Allergy Relief (fluticasone)] 50 mcg/actuation spray,suspension 2 spray INTRANASAL DAILY PRN (Reason: allergies) RF: 0 aspirin [Adult Low Dose Aspirin] 81 mg tablet,delayed release (DR/EC) 81 mg PO DAILY RF: 0 ofloxacin 0.3 % drops 1 drp LEFT EYE 4X/DAY RF: 0 carvedilol [Coreg] 6.25 mg tablet 6.25 mg PO BID Qty: 180 RF: 3 Other Ambulatory Orders: 30-Day Event Recorder (Routine) Location: None Selected Ordered By: Filomena Dent NP Referrals / Follow Up: Luh Hernandez DO [Primary Care Provider] - In 1 Week Saran Candelario MD [STAFF PHYSICIAN] - Within 2 Weeks Disposition Disposition (needs filled in before D/C Order can be placed): Home, Self Care
--- NOTE | 2021-12-16 14:11 | CASEMGMT ---
This RN CM to room and pt states no further questions/concerns/needs for discharge. Pt declines need for any further therapy. S[place] RN CM
--- NOTE | 2021-12-16 14:12 | DS.PCM_ITS ---
Documented by User: Filomena Dent NP, GEOTECHNICAL LABORATORY TECHNICIAN-C 12/16/21 14:20 Providers Date of Admission: 12/14/21 Date of Discharge: 12/16/21 Primary Care Physician: Dr. Luh Hernandez DO Reason For Visit: TIA Diagnosis Discharge Diagnosis (1) TIA (transient ischemic attack): Status: Acute Code(s): G45.9 - Transient cerebral ischemic attack, unspecified Medications at Discharge Home Medications cyanocobalamin (vitamin B-12) 1,000 mcg/mL injection solution 100 mcg IM QMONTH 07/10/20 folic acid 1 mg tablet 1 mg PO DAILY 07/10/20 lisinopril 20 mg-hydrochlorothiazide 25 mg tablet 1 tab PO DAILY 07/10/20 omeprazole 40 mg capsule,delayed release 40 mg PO DAILY 07/10/20 pravastatin 20 mg tablet 20 mg PO QHS 07/10/20 sulfamethoxazole 400 mg-trimethoprim 80 mg tablet 1 tab PO DAILY 07/10/20 tacrolimus 0.5 mg capsule, immediate-release 0.5 mg PO Q12H cap 07/10/20 cholecalciferol (vitamin D3) 25 mcg (1,000 unit) capsule 25 mcg PO DAILY 07/12/20 clobetasol 0.05 % lotion 1 applic TOPICAL DAILY PRN 07/12/20 fluticasone propionate 50 mcg/actuation nasal spray,suspension 2 spray INTRANASAL DAILY PRN 07/12/20 mycophenolate mofetil 250 mg capsule 250 mg PO DAILY cap 07/12/20 aspirin 81 mg tablet,delayed release 81 mg PO DAILY 10/09/20 carvedilol 6.25 mg tablet 6.25 mg PO BID #180 tab 11/18/21 ofloxacin 1 drp LEFT EYE 4X/DAY 12/14/21 clopidogrel 75 mg PO DAILY 30 Days #30 tab 12/16/21 Hospital Course Operations None Procedures 2-D Echocardiogram Summary of Care Provided Hospital Course: Patient is a 71-year-old female admitted 12/14/2021 due to aphasia, difficulty writing. 1. TIA-symptoms resolved. MRI negative for stroke. MRA of neck normal. Normal MRA of head. [facility] neurology consulted. Recommend continuing aspirin, Plavix, statin at discharge. 30-day Holter monitor to assess for A. fib. Recommend outpatient follow-up with neurology and outpatient EEG. Echocardiogram completed 12/11/2021 which demonstrated an EF of 70%, moderate aortic stenosis, small PFO. Follow-up with neurology within 2 weeks. Follow-up with PCP in 1 week. 2. Acute kidney injury on chronic kidney disease stage IIIb-history of end-stage renal disease status post transplant. Continue tacrolimus, mycophenolate, Bactrim. SELMA resolved. 3. Recent left eye surgery for detached retina-continue home ophthalmic regimen. Close follow-up with [facility] at discharge. 4. Incidental lung nodule-right base lung nodule noted on chest x-ray. Outpatient follow-up with PCP for further outpatient imaging/evaluation. 5. CAD with history of CABG-continue aspirin, statin, carvedilol, lisinopril. 6. Hypertension-stable, continue current regimen. 7. Hyperlipidemia- continue statin. 8. Anxiety/depression-on duloxetine. Patient seen and examined prior to discharge. Physical assessment as noted below. Patient is stable for discharge with follow up recommendations as noted above. This patient was seen by PABLITO Aylaa under the supervision of Dr. Camargo. Physical Exam Const alert, oriented x3 and no apparent distress Orientation / Consciousness: awake, oriented to person, oriented to place and oriented to time HEENT normocephalic and moist oral mucous membranes Eyes PERRL, EOMs intact bilaterally and conjunctivae normal Neck no lymphadenopathy Resp normal respiratory effort and clear to auscultation bilaterally Cardio regular rate and regular rhythm Cardio Narrative: +murmur Peripheral Pulses: pulses 2+ throughout GI normal to inspection, nondistended, normoactive bowel sounds, non-tender and non-distended Extremity normal to inspection Skin no rashes or lesions noted Lesions: no lesions Rashes: no rashes Trauma: no lacerations or abrasions Neuro CN's II-XII intact bilaterally, no focal motor deficits, no sensory deficits no rojelio and deep tendon reflexes 2+ bilaterally Psych mental status grossly normal and affect normal Weight / BMI Weight Weight: 94 lb 2.198 oz Body Mass Index (BMI) 19.3 ABG / Lab / Microbiology Data Result Diagrams: 12/16/21 04:42 12/16/21 04:42 Laboratory: Laboratory Results - last 24 hr 12/16/21 04:42: WBC 6.5, RBC 3.70 L, Hgb 10.9 L, Hct 33.7 L, MCV 91.1, MCH 29.5, MCHC 32.3, RDW Std Deviation 43.7, RDW Coeff of Jenny 13.2, Plt Count 228, MPV 10.3, Immature Gran % (Auto) 0.300, Neut % (Auto) 72.1 H, Lymph % (Auto) 14.7 L, Frederick % (Auto) 10.2 H, Eos % (Auto) 1.9, Baso % (Auto) 0.8, Absolute Neuts (auto) 4.7, Absolute Lymphs (auto) 0.95, Nucleated RBC % 0 12/16/21 04:42: Sodium 133 L, Potassium 4.5, Chloride 105, Carbon Dioxide 22.0, Anion Gap 6, BUN 26 H, Creatinine 1.18 H, Estim Creat Clear Calc 29.46, Est GFR (MDRD) Af Amer 58 L, Est GFR (MDRD) Non-Af 48 L, BUN/Creatinine Ratio 22.0 H, Glucose 98, Calcium 8.9, Total Bilirubin 0.30, AST 23, ALT 16, Alkaline Phosphatase 61, Total Protein 6.8, Albumin 3.3, Globulin 3.5, Albumin/Globulin Ratio 0.9 Radiography Diagnostic Testing: Radiology Impression Brain MRI 12/15/21 13:30 IMPRESSION: 1. No evidence of acute ischemia. 2. Chronic microvascular changes. Electronically Signed: Chuckie Ramirez MD at 15:27 EDT , Head MRA 12/15/21 13:30 IMPRESSION: Normal MRA head. Electronically Signed: Chuckie Ramirez MD at 15:25 EDT , Neck MRA 12/15/21 13:30 IMPRESSION: Normal non-contrast MRA of the Neck. Electronically Signed: Chuckie Ramirez MD at 15:28 EDT , D/C Instructions Discharge Diet: Low fat / Low cholesterol Call your doctor if you observe: Shortness of breath, Dizziness and Chest pain Meaningful Use Info Meaningful Use Diagnoses (Choose all that apply): None applicable Discharge Plan Admission Admit Date/Time: 12/14/21 18:15 Primary Reason for Your Visit: TIA Attending Provider: Allyson Camargo Primary Care Provider: Luh Hernandez Consulting Providers: Zohra Tam Instructions Additional Instructions / Restrictions: Follow-up with ophthalmology/[facility] within two days. Discharge Orders/Prescriptions Prescriptions: New clopidogrel 75 mg Tablet 75 mg PO DAILY 30 Days Qty: 30 RF: 0 Continued cholecalciferol (vitamin D3) 25 mcg (1,000 unit) capsule 25 mcg PO DAILY RF: 0 clobetasol 0.05 % lotion 1 applic TOPICAL DAILY PRN (Reason: Back Pain) RF: 0 cyanocobalamin (vitamin B-12) 1,000 mcg/mL solution 100 mcg IM QMONTH RF: 0 folic acid 1 mg tablet 1 mg PO DAILY RF: 0 lisinopril-hydrochlorothiazide 20-25 mg tablet 1 tab PO DAILY RF: 0 omeprazole 40 mg capsule,delayed release(DR/EC) 40 mg PO DAILY RF: 0 pravastatin 20 mg tablet 20 mg PO QHS RF: 0 sulfamethoxazole-trimethoprim [Bactrim] 400-80 mg tablet 1 tab PO DAILY RF: 0 tacrolimus 0.5 mg capsule 0.5 mg PO Q12H RF: 0 mycophenolate mofetil 250 mg capsule 250 mg PO DAILY RF: 0 fluticasone propionate [Allergy Relief (fluticasone)] 50 mcg/actuation spray,suspension 2 spray INTRANASAL DAILY PRN (Reason: allergies) RF: 0 aspirin [Adult Low Dose Aspirin] 81 mg tablet,delayed release (DR/EC) 81 mg PO DAILY RF: 0 ofloxacin 0.3 % drops 1 drp LEFT EYE 4X/DAY RF: 0 carvedilol [Coreg] 6.25 mg tablet 6.25 mg PO BID Qty: 180 RF: 3 Other Ambulatory Orders: 30-Day Event Recorder (Routine) Location: None Selected Ordered By: Filomena Dent GEOTECHNICAL LABORATORY TECHNICIAN Referrals / Follow Up: David,Luh, DO [Primary Care Provider] - In 1 Week Saran Candelario MD [STAFF PHYSICIAN] - Within 2 Weeks Disposition Disposition (needs filled in before D/C Order can be placed): Home, Self Care Documented by User: Dr. Allyson Camargo MD 12/16/21 16:25 Providers Date of Admission: 12/14/21 Reason For Visit: TIA Medications at Discharge Home Medications cyanocobalamin (vitamin B-12) 1,000 mcg/mL injection solution 100 mcg IM QMONTH 07/10/20 folic acid 1 mg tablet 1 mg PO DAILY 07/10/20 lisinopril 20 mg-hydrochlorothiazide 25 mg tablet 1 tab PO DAILY 07/10/20 omeprazole 40 mg capsule,delayed release 40 mg PO DAILY 07/10/20 pravastatin 20 mg tablet 20 mg PO QHS 07/10/20 sulfamethoxazole 400 mg-trimethoprim 80 mg tablet 1 tab PO DAILY 07/10/20 tacrolimus 0.5 mg capsule, immediate-release 0.5 mg PO Q12H cap 07/10/20 cholecalciferol (vitamin D3) 25 mcg (1,000 unit) capsule 25 mcg PO DAILY 07/12/20 clobetasol 0.05 % lotion 1 applic TOPICAL DAILY PRN 07/12/20 fluticasone propionate 50 mcg/actuation nasal spray,suspension 2 spray INTRANASAL DAILY PRN 07/12/20 mycophenolate mofetil 250 mg capsule 250 mg PO DAILY cap 07/12/20 aspirin 81 mg tablet,delayed release 81 mg PO DAILY 10/09/20 carvedilol 6.25 mg tablet 6.25 mg PO BID #180 tab 11/18/21 ofloxacin 1 drp LEFT EYE 4X/DAY 12/14/21 clopidogrel 75 mg PO DAILY 30 Days #30 tab 12/16/21 ABG / Lab / Microbiology Data Result Diagrams: 12/16/21 04:42 12/16/21 04:42 Discharge Plan Admission Admit Date/Time: 12/14/21 18:15 Primary Reason for Your Visit: TIA Attending Provider: Allyson Camargo Primary Care Provider: Luh Hernandez Consulting Providers: Zohra Tam Instructions Additional Instructions / Restrictions: Follow-up with ophthalmology/[facility] within two days. Discharge Orders/Prescriptions Prescriptions: New clopidogrel 75 mg Tablet 75 mg PO DAILY 30 Days Qty: 30 RF: 0 Continued cholecalciferol (vitamin D3) 25 mcg (1,000 unit) capsule 25 mcg PO DAILY RF: 0 clobetasol 0.05 % lotion 1 applic TOPICAL DAILY PRN (Reason: Back Pain) RF: 0 cyanocobalamin (vitamin B-12) 1,000 mcg/mL solution 100 mcg IM QMONTH RF: 0 folic acid 1 mg tablet 1 mg PO DAILY RF: 0 lisinopril-hydrochlorothiazide 20-25 mg tablet 1 tab PO DAILY RF: 0 omeprazole 40 mg capsule,delayed release(DR/EC) 40 mg PO DAILY RF: 0 pravastatin 20 mg tablet 20 mg PO QHS RF: 0 sulfamethoxazole-trimethoprim [Bactrim] 400-80 mg tablet 1 tab PO DAILY RF: 0 tacrolimus 0.5 mg capsule 0.5 mg PO Q12H RF: 0 mycophenolate mofetil 250 mg capsule 250 mg PO DAILY RF: 0 fluticasone propionate [Allergy Relief (fluticasone)] 50 mcg/actuation spray,suspension 2 spray INTRANASAL DAILY PRN (Reason: allergies) RF: 0 aspirin [Adult Low Dose Aspirin] 81 mg tablet,delayed release (DR/EC) 81 mg PO DAILY RF: 0 ofloxacin 0.3 % drops 1 drp LEFT EYE 4X/DAY RF: 0 carvedilol [Coreg] 6.25 mg tablet 6.25 mg PO BID Qty: 180 RF: 3 Other Ambulatory Orders: 30-Day Event Recorder (Routine) Location: None Selected Ordered By: Filomena Dent NP Referrals / Follow Up: Luh Hernandez DO [Primary Care Provider] - In 1 Week Saran Candelario MD [STAFF PHYSICIAN] - Within 2 Weeks Disposition Disposition (needs filled in before D/C Order can be placed): Home, Self Care Charges/Coding Addendum Addendum: This patient was seen in conjunction with Filomena Dent NP. I have independently interviewed and examined the patient and reviewed pertinent historical, laboratory, and other data. I have reviewed her note and concur with her documentation 71-year-old female with past medical history of anxiety/depression, CAD status post CABG, hypertension who comes in with aphasia, difficulty writing and a headache. This happened on the day of admission. Patient's symptoms had resolved and and at time of admission. Her NIH stroke scale was 0. CT of the head showed moderate cortical and central atrophy, mild cerebral atrophy, mild to moderate chronic microvascular ischemic changes. Patient was admitted to the PCU. MRI of the brain was negative for acute stroke. MRA of the head and neck was unremarkable. 2D echo showed EF of 70%, moderate aortic stenosis, small PFO. Tele-neurology was consulted and recommended continue aspirin, Plavix, statin at discharge. 30-day event monitor was obtained to assess for A. fib. Patient needs to follow-up with outpatient neurology within 2 weeks and also needs to get an outpatient EEG. Physical Exam: Gen: Comfortable, not pale, not jaundiced CVS:HS I +II, regular, no murmurs RESP: Clinically clear to auscultation GI: BS present and normal, soft, nontender, no palpable organs EXT:No edema Time spent coordinating all aspects of patient's care, discussing with nursin minutes Visit Charges OBSV E&M: 25670 Observation care discharge
--- NOTE | 2021-12-16 14:55 | PHA.DC.MC ---
Pharmacy Service has performed discharge medication reconciliation and counseling for this patient. 1. CLOPIDOGREL 75MG PO DAILY The patient's discharge medication list was reviewed for discrepancies and discrepancies were resolved. Home Medications cyanocobalamin (vitamin B-12) 1,000 mcg/mL injection solution 100 mcg IM QMONTH 07/10/20 folic acid 1 mg tablet 1 mg PO DAILY 07/10/20 lisinopril 20 mg-hydrochlorothiazide 25 mg tablet 1 tab PO DAILY 07/10/20 omeprazole 40 mg capsule,delayed release 40 mg PO DAILY 07/10/20 pravastatin 20 mg tablet 20 mg PO QHS 07/10/20 sulfamethoxazole 400 mg-trimethoprim 80 mg tablet 1 tab PO DAILY 07/10/20 tacrolimus 0.5 mg capsule, immediate-release 0.5 mg PO Q12H cap 07/10/20 cholecalciferol (vitamin D3) 25 mcg (1,000 unit) capsule 25 mcg PO DAILY 07/12/20 clobetasol 0.05 % lotion 1 applic TOPICAL DAILY PRN 07/12/20 fluticasone propionate 50 mcg/actuation nasal spray,suspension 2 spray INTRANASAL DAILY PRN 07/12/20 mycophenolate mofetil 250 mg capsule 250 mg PO DAILY cap 07/12/20 aspirin 81 mg tablet,delayed release 81 mg PO DAILY 10/09/20 carvedilol 6.25 mg tablet 6.25 mg PO BID #180 tab 11/18/21 ofloxacin 1 drp LEFT EYE 4X/DAY 12/14/21 clopidogrel 75 mg PO DAILY 30 Days #30 tab 12/16/21 The patient was counseled on the following discharge medications and changes in medications for homegoing were reviewed. The Reason for Use, instructions for use, and potential side effects were reviewed for all new medications. The patient's questions regarding all of their medications were answered. The patient was able to verbally demonstrate an understanding of their discharge medications.
== END 2021-12-16 13:58 | disposition home or self-care (01) ==
LOC: ED 18:16 → PCU 18:30
PROVIDERS: Admitting Provider Family Medicine; Emergency Provider Emergency Medicine; PCP Family Medicine; Visit Provider Internal Medicine
DX: G45.9 Transient cerebral ischemic attack, unspecified (principal); Z94.83 Pancreas transplant status; N17.9 Acute kidney failure, unspecified; N18.32 Chronic kidney disease, stage 3b; F32.A Depression, unspecified; I12.9 Hypertensive chronic kidney disease with stage 1 through stage 4 chronic kidney disease, or unspecified chronic kidney disease; E78.5 Hyperlipidemia, unspecified; R47.01 Aphasia; K21.9 Gastro-esophageal reflux disease without esophagitis; I25.10 Atherosclerotic heart disease of native coronary artery without angina pectoris; I45.2 Bifascicular block; R47.81 Slurred speech; Z79.82 Long term (current) use of aspirin; F41.9 Anxiety disorder, unspecified; R91.1 Solitary pulmonary nodule; Z79.899 Other long term (current) drug therapy; Z94.0 Kidney transplant status; R47.1 Dysarthria and anarthria
CPT/HCPCS: 36415; 70450; 70544; 70547; 70551; 71045; 80048; 80053; 80061; 82962; 83036; 83735; 84145; 84443; 84484; 85025; 85610; 85730; 92523; 92610; 93005; 94762; 96361; 96374; 97161; 97165; 97802; 99218; 99285; J7030; A4216; G0378

== ENCOUNTER 2022-01-25 14:29 | Emergency (ER) | payer MEDICARE, SELFPAY ==
[2022-01-25 14:30] VITALS: BP 154/99; PULSE 77; RESP 16; TEMP 36.2; O2SAT 99; BMI 20.6
[2022-01-25 15:18] VITALS: BP 170/63; PULSE 69; RESP 13; O2SAT 98
--- NOTE | 2022-01-25 15:19 | EKG12_ITS ---
Test Reason : GENERAL Blood Pressure : / mmHG Vent. Rate : 067 BPM Atrial Rate : 067 BPM P-R Int : 192 ms QRS Dur : 120 ms QT Int : 412 ms P-R-T Axes : 076 -55 081 degrees QTc Int : 435 ms Normal sinus rhythm Right bundle branch block Left anterior fascicular block Bifascicular block Consider Left ventricular hypertrophy Abnormal ECG Confirmed by ANTHONY MARTÍNEZ, VALERIA ([id number]), restaurant expeditor BRADY YOST ([id number]) on 01/28/2022 9:58:27 AM Referred By: DUSTIN/LYNSEY Confirmed By:VALERIA CRUZ MD
--- NOTE | 2022-01-25 15:21 | EX.ED.DYSGE1 ---
HPI History of Present Illness Chief Complaint: Palpitations Detail of Chief Complaint: Abnormal event monitor reading Informant: patient Narrative Narrative: Patient presents secondary to abnormal findings on her event monitor. She was seen here approximately 5 weeks ago with TIA symptoms for 3 consecutive days. Her neurologic work-up was unremarkable. She has had an event monitor on. She received a phone call this morning secondary to abnormal reading. Patient states that she was vomiting this morning and became lightheaded and dizzy. Event monitor appeared to show third-degree heart block. She had a junctional escape rhythm and is now currently back in sinus rhythm. She denies chest pain. [facility] Medical History Atherosclerotic heart disease of [place] coronary artery without angina pectoris Benign hypertension Gastroesophageal reflux disease Non-rheumatic mitral regurgitation Nonrheumatic aortic (valve) stenosis RBBB (right bundle branch block) TIA (transient ischemic attack) Home Medications cyanocobalamin (vitamin B-12) 1,000 mcg/mL injection solution 100 mcg IM QMONTH vitamin 07/10/20 [History Last Taken Unknown] folic acid 1 mg tablet 1 mg PO DAILY supplement 07/10/20 [History Last Taken Unknown] lisinopril 20 mg-hydrochlorothiazide 25 mg tablet 1 tab PO DAILY blood pressure 07/10/20 [History Last Taken Unknown] omeprazole 40 mg capsule,delayed release 40 mg PO DAILY reflux 07/10/20 [History Last Taken Unknown] pravastatin 20 mg tablet 20 mg PO QHS cholesterol 07/10/20 [History Last Taken Unknown] sulfamethoxazole 400 mg-trimethoprim 80 mg tablet (Bactrim) 1 tab PO DAILY infection 07/10/20 [History Last Taken Unknown] tacrolimus 0.5 mg capsule, immediate-release 0.5 mg PO Q12H anti rejection 07/10/20 [History Last Taken Unknown] cholecalciferol (vitamin D3) 25 mcg (1,000 unit) capsule 25 mcg PO DAILY vitamin 07/12/20 [History Last Taken Unknown] clobetasol 0.05 % lotion 1 applic topical DAILY PRN Back Pain 07/12/20 [History Last Taken Unknown] fluticasone propionate 50 mcg/actuation nasal spray,suspension (Allergy Relief (fluticasone)) 2 spray intranasal DAILY PRN allergies 07/12/20 [History Last Taken Unknown] mycophenolate mofetil 250 mg capsule 250 mg PO DAILY anti rejection 07/12/20 [History Last Taken Unknown] aspirin 81 mg tablet,delayed release (Adult Low Dose Aspirin) 81 mg PO DAILY heart health 10/09/20 [History Last Taken Unknown] carvedilol 6.25 mg tablet (Coreg) 6.25 mg PO BID #180 tabs 11/18/21 [Rx Last Taken Unknown] furosemide 20 mg tablet 10 mg PO DAILY PRN Edema 01/25/22 [History Last Taken Unknown] Allergy/AdvReac Type Severity Reaction Status Date / Time No Known Allergies Allergy Verified 01/25/22 14:33 Family History Father CAD (coronary artery disease) Mother Dementia Surgical History Cataract extraction status History of coronary artery bypass surgery (~07/29/12) History of eye surgery (~01/07/05) History of kidney transplant (~03/2004) History of pancreatectomy (~03/2004) History of repair of rotator cuff (~08/31/09) History of right breast biopsy (~11/23/03) History of umbilical hernia repair (~03/01/20) Status post pancreas transplantation (~05/25/05) Social History household members: spouse Smoking Status: Never smoker alcohol intake: current alcohol intake frequency: a few times a month substance use type: does not use caffeine: Yes Type: coffee Number of servings: 3 ROS ROS ED Constitutional Constitutional ED: Denies chills or fever(s) Eyes Eyes: Denies change in vision or discharge from eye(s) ENT ENT ED: Denies discharge from eye(s), rhinorrhea or sore throat Cardiovascular Cardiovascular: Reports palpitations; Denies chest pain Respiratory/Chest Respiratory/Chest: Denies cough or dyspnea Gastrointestinal Gastrointestinal: Reports nausea and vomiting; Denies abdominal pain or diarrhea Genitourinary Genitourinary ED: Denies dysuria Musculoskeletal Musculoskeletal: Denies back pain or extremity pain Integumentary Denies Abrasions or rash Neurologic Neurologic: Reports weakness; Denies headache(s) Allergic/Immunologic Allergic/Immunologic ED: Denies lip swelling or urticaria EXAM Physical Exam Const Vital Signs: 01/25/22 14:30 01/25/22 15:18 01/25/22 15:18 Temperature 97.2 F L Temperature Source Temporal Pulse Rate 77 69 Respiratory Rate 16 13 Respiratory Effort Normal Non-Labored Respiratory Pattern Normal Blood Pressure 154/99 H 170/63 H Blood Pressure Mean 117 98 Pulse Ox 99 98 Oxygen Delivery Method Room Air Room Air 01/25/22 16:16 Temperature Temperature Source Pulse Rate 65 Respiratory Rate 16 Respiratory Effort Respiratory Pattern Blood Pressure 152/63 H Blood Pressure Mean 92 Pulse Ox 96 Oxygen Delivery Method Room Air Positive well nourished and well developed General Appearance ED: well developed HEENT Reports normocephalic and head/scalp atraumatic Eyes PERRL and EOMs intact bilaterally Neck supple Chest Wall inspection of chest normal and palpation of chest normal Resp normal respiratory effort and clear to auscultation bilaterally Cardio regular rate and regular rhythm GI normal to inspection, nondistended, normoactive bowel sounds Palpation: soft Extremity normal to inspection Neuro oriented x3 and no sensory deficits noted Sensorium / Orientation: alert Motor Exam: strength 5/5 throughout Psych mental status grossly normal Skin no rashes or lesions noted MDM MDM MDM Narrative Medical decision making narrative: Patient placed on residential monitor. Defibrillation pads placed on the patient and defibrillator placed outside the room. Lab work obtained. Lab Data Attestation: I reviewed the patient's lab results. Labs: Laboratory Results - last 24 hr 01/25/22 01/25/22 15:02 15:02 WBC 5.5 RBC 3.68 L Hgb 11.0 L Hct 34.1 L MCV 92.7 MCH 29.9 MCHC 32.3 RDW Std Deviation 44.7 H RDW Coeff of Jenny 13.1 Plt Count 271 MPV 9.8 Immature Gran % (Auto) 0.200 Neut % (Auto) 78.7 H Lymph % (Auto) 10.0 L Josephine % (Auto) 9.2 Eos % (Auto) 1.4 Baso % (Auto) 0.5 Absolute Neuts (auto) 4.3 Absolute Lymphs (auto) 0.55 L Nucleated RBC % 0 Differential Comment SCANNED Sodium 134 L Potassium 4.5 Chloride 102 Carbon Dioxide 26.0 Anion Gap 6 BUN 20 H Creatinine 1.30 H Estim Creat Clear Calc 28.57 Est GFR (MDRD) Af Amer 52 L Est GFR (MDRD) Non-Af 43 L BUN/Creatinine Ratio 15.4 Glucose 128 H Calcium 8.9 Magnesium 2.2 Troponin I High Sens 11 Rapid COVID: Negative EKG Initial EKG: Attestation: I personally reviewed and interpreted this EKG as follows: Interpretation: Sinus Rhythm (Sinus at 67 bifascicular block. No significant change when compared to prior study from November 2021.) Treatment and Re-Evaluation Narrative: Patient resting comfortably. CBC and chemistry studies unremarkable here. Troponin and magnesium are both normal. We called [facility] for transfer, however her insurance is not accepted at that facility. Patient has been discussed with [facility]. She has been accepted and will be transferred via EMS. Discharge Plan Triage Chief Complaint: Palpitations ED Provider: Cindy Noyola Dx/Rx/DC Orders Clinical Impression: Intermittent complete heart block Prescriptions: No Action cholecalciferol (vitamin D3) 25 mcg (1,000 unit) capsule 25 mcg PO DAILY clobetasol 0.05 % lotion 1 applic TOPICAL DAILY PRN (Reason: Back Pain) cyanocobalamin (vitamin B-12) 1,000 mcg/mL solution 100 mcg IM QMONTH folic acid 1 mg tablet 1 mg PO DAILY lisinopril-hydrochlorothiazide 20-25 mg tablet 1 tab PO DAILY omeprazole 40 mg capsule,delayed release(DR/EC) 40 mg PO DAILY pravastatin 20 mg tablet 20 mg PO QHS sulfamethoxazole-trimethoprim [Bactrim] 400-80 mg tablet 1 tab PO DAILY tacrolimus 0.5 mg capsule 0.5 mg PO Q12H mycophenolate mofetil 250 mg capsule 250 mg PO DAILY fluticasone propionate [Allergy Relief (fluticasone)] 50 mcg/actuation spray,suspension 2 spray INTRANASAL DAILY PRN (Reason: allergies) Rx Instructions: administer into each nostril aspirin [Adult Low Dose Aspirin] 81 mg tablet,delayed release (DR/EC) 81 mg PO DAILY Rx Instructions: 3 times a week furosemide 20 mg Tablet 10 mg PO DAILY PRN (Reason: Edema) carvedilol [Coreg] 6.25 mg tablet 6.25 mg PO BID Qty: 180 3RF Rx Instructions: must administer with a meal/food Primary Care Provider: Luh Hernandez Referrals: Luh Hernandez DO [Primary Care Provider] - Disposition Disposition: Acute Care Hospital Discharge Location: [facility]
[2022-01-25 15:31] LABS: Absolute Lymphocyte Count 0.55 X10^3/uL (0.83-4.51); Absolute Neutrophil Count 4.3 X10^3/uL (2.0-7.7); Basophil# 0.03 X10^3/uL; Basophil% 0.5 % (0-1); Eosinophil# 0.08 X10^3/uL; Eosinophils% 1.4 % (0-5); Hematocrit 34.1 % (37-47); Lymphocyte # 0.55 X10^3/ul (0.83-4.51); Mean Corp Hgb Conc 32.3 g/dL (32-36); Mean Corpuscular Hgb 29.9 pg (27.0-32.0); Mean Corpuscular Volume 92.7 fL (81-99); Mean Platelet Vol. 9.8 fl (6.2-12.0); Monocyte# 0.51 X10^3/uL; Monocyte% 9.2 % (0-10); NRBC Flagged by Analyzer 0 % (0-5); Neutrophil # 4.34 X10^3/uL (2.7-7.7); Neutrophil % 78.7 % (47-70); POSITIVE DIFFERENTIAL YES; Platelet Count 271 K/mm3 (150-450); RBC Distribution Width CV 13.1 % (11.6-14.6); RBC Distribution Width SD 44.7 fl (35.1-43.9); Red Blood Count 3.68 M/mm3 (4.2-5.4); White Blood Count 5.5 K/mm3 (4.4-11.0)
[2022-01-25 15:32] LABS: Differential Indicated SCAN CRITERIA MET
[2022-01-25] MEDS: 0.9% Normal Saline 1,000 ML 150 ML IV (15:38)
--- NOTE | 2022-01-25 15:42 | ED.RN ---
Patient on pads and cart in room
[2022-01-25 15:47] LABS: BUN 20 mg/dL (7-18); EST Glomerular Filtration Rate 43 mL/min (>60); Estimated Creatinine Clearance 28.57 ml/min; Glucose 128 mg/dL (74-106)
[2022-01-25 15:48] LABS: Anion Gap 6 (5-15); BUN/Creat Ratio 15.4 RATIO (10-20); Calcium,Total 8.9 mg/dL (8.5-10.1); Chloride 102 mmol/L (98-107); Est Glom Filt Rate - Afr Amer 52 mL/min (>60); Magnesium 2.2 mg/dL (1.6-2.6); Potassium 4.5 mmol/L (3.5-5.1); Sodium Level 134 mmol/L (136-145); Troponin-I HS 11 pg/mL (3.0-54.0)
[2022-01-25 16:02] LABS: Differential Comment SCANNED
[2022-01-25 16:16] VITALS: BP 152/63; PULSE 65; RESP 16; O2SAT 96
--- NOTE | 2022-01-25 17:24 | NURSING ---
CALLED PHYSICIANS FOR TRANSPORT TO [facility], ETA 60 MIN AT THIS TIME
[2022-01-25 17:38] VITALS: BP 146/93; PULSE 67; RESP 17; O2SAT 96
== END 2022-01-25 18:52 | disposition short-term general hospital (02) ==
PROVIDERS: Emergency Provider Emergency Medicine; PCP Family Medicine; Visit Provider Emergency Medicine
DX: I44.2 Atrioventricular block, complete (principal); Z94.83 Pancreas transplant status; I25.10 Atherosclerotic heart disease of native coronary artery without angina pectoris; I10 Essential (primary) hypertension; Z94.0 Kidney transplant status; Z95.1 Presence of aortocoronary bypass graft; Z79.899 Other long term (current) drug therapy; Z86.73 Personal history of transient ischemic attack (TIA), and cerebral infarction without residual deficits
CPT/HCPCS: 80048; 83735; 84484; 85025; 87811; 93005; 96360; 96361; 99285; J7030; A4216

== ENCOUNTER → 2022-06-26 | Outpatient (CLI) | payer MEDICARE, SELFPAY ==
--- NOTE | 2022-06-26 14:00 | MRI_ITS ---
STUDY: MRI LUMBAR SPINE WITHOUT CONTRAST REASON FOR EXAM: Female, 72 years old. low back pain TECHNIQUE: Standardized fat and water weighted pulse sequences were obtained in the sagittal and axial planes. COMPARISON: Radiograph lumbar spine May 29, 2022 and MRI lumbar spine December 30, 2016. FINDINGS: T12-L1: Normal endplates. Normal disc height, hydration and morphology. Normal bilateral facet joints. Normal central canal and bilateral lateral recesses. Normal bilateral intervertebral neural foramina. Normal lumbar lordosis. Moderate dextroconvex scoliosis. Normal conus medullaris that terminates at the L1. L1-2: Spondylitic endplates. Normal disc height, hydration and morphology. Normal bilateral facet joints. Normal central canal and bilateral lateral recesses. Normal bilateral intervertebral neural foramina. L2-3: Disc space narrowing. Moderate circumferential disc marginal osteophyte. Moderately severe narrowing of the central canal and neural foramina. L3-4: Severe trefoil type spinal thecal sac and neural foramina due to a circumferential disc marginal osteophyte and hypertrophic facet disease. L4-5: Severe trefoil type spinal thecal sac and neural foramina due to a circumferential disc marginal osteophyte and hypertrophic facet disease. L5-S1: Severe trefoil type spinal thecal sac and neural foramina due to a circumferential disc marginal osteophyte and hypertrophic facet disease. Normal visualized sacral ala. Normal visualized paraspinous soft tissue structures. Bilateral renal atrophy. Pelvic mass may represent a transplanted kidney. MRI/Spine Lumbar (Routine) IMPRESSION: Moderate scoliosis. Spondylosis. Severe multilevel spinal stenosis especially at L4-5 with almost complete spinal block. This demonstrates interval progression. Neurosurgical consultation recommended. Electronically Signed: Jordan Garza MD at 19:18 EST Reading Location ID and State: [address] [place] [id number] , Service support ,
[2022-06-26 14:15] VITALS: BP 164/76; PULSE 86; RESP 16; O2SAT 96
[2022-06-26 14:30] VITALS: BP 162/69; PULSE 86; RESP 16; O2SAT 93
[2022-06-26 14:45] VITALS: BP 162/68; PULSE 86; RESP 16; O2SAT 95
[2022-06-26 14:52] VITALS: BP 164/69; PULSE 85; RESP 16; O2SAT 94
== END | disposition home or self-care (01) ==
LOC: MRI 13:21
PROVIDERS: PCP Family Medicine; Referring Provider Orthopaedic Surgery; Visit Provider Orthopaedic Surgery
DX: M54.50 Low back pain, unspecified (principal); M48.061 Spinal stenosis, lumbar region without neurogenic claudication; M51.36 Other intervertebral disc degeneration, lumbar region; M47.816 Spondylosis without myelopathy or radiculopathy, lumbar region; R19.00 Intra-abdominal and pelvic swelling, mass and lump, unspecified site; M41.9 Scoliosis, unspecified; N26.1 Atrophy of kidney (terminal)
CPT/HCPCS: 72148

== ENCOUNTER 2022-11-28 06:59 | Day surgery (SDC) | payer MEDICARE, SELFPAY ==
[2022-11-28] VITALS (7 sets, daily range): BP systolic 135–142; BP diastolic 49–62; PULSE 76–83; RESP 16–18; TEMP 36.5–37.1; O2SAT 94–98; BMI 19.5
[2022-11-28] MEDS: Lactated Ringers 1,000 ML 15 ML IV (07:44)
--- NOTE | 2022-11-28 08:57 | RAD_ITS ---
PROCEDURE: Spinal cord stimulator insertion. DATE OF EXAMINATION: November 28, 2022. INDICATION: Female, 72 years old. Chronic back pain. FLUOROSCOPY TIME (if supplied): (65.7 seconds) minutes/seconds. 5 images were submitted. RAD/Lumbar Spine 2 or 3 Views IMPRESSION: Fluoroscopic services provided for percutaneous spinal cord stimulator placement. The tip of the electrodes is at the T7-T8 level. Electronically Signed: Trevin Mtz MD at 10:48 EDT ,
[2022-11-28] MEDS: Bupivacaine 0.25% 30 ML Vial (09:15)
[2022-11-28] MEDS: Lidocaine 1% /Epi 1:100 (20ml) 20 ML Vial (09:15)
== END 2022-11-28 11:19 | disposition home or self-care (01) ==
LOC: SDC 07:02 → AC 07:04
PROVIDERS: PCP Family Medicine; Referring Provider Anesthesiology Pain Medicine; Visit Provider Anesthesiology Pain Medicine
PROC: (CPT 63685; principal; 2022-11-28 08:15)
DX: M54.16 Radiculopathy, lumbar region (principal); M48.061 Spinal stenosis, lumbar region without neurogenic claudication; M54.50 Low back pain, unspecified; G89.29 Other chronic pain; I25.10 Atherosclerotic heart disease of native coronary artery without angina pectoris; I10 Essential (primary) hypertension; E78.00 Pure hypercholesterolemia, unspecified; Z86.73 Personal history of transient ischemic attack (TIA), and cerebral infarction without residual deficits; Z95.1 Presence of aortocoronary bypass graft; Z95.0 Presence of cardiac pacemaker; Z79.82 Long term (current) use of aspirin; Z79.899 Other long term (current) drug therapy
CPT/HCPCS: 63650; 63685; 00620; 72100; 76000; C1778; J7120; J2405

== ENCOUNTER → 2023-04-27 | Outpatient (CLI) | payer MEDICARE, SELFPAY ==
--- NOTE | 2023-04-27 11:02 | ECHOD_ITS ---
Reason For Study: Aortic Stenosis Procedure This was a 2D Doppler, Color Flow transthoracic echocardiogram. Exam performed in department. Left Ventricle Normal LV size. Mild concentric left ventricular hypertrophy. The left ventricular ejection fraction is 70 %. Diastolic function is indeterminate. Right Ventricle ICD or pacer leads identified within the right ventricle. Atria The left and right atria are normal. ICD or pacer leads identified within the right atrium. Aneurysmal atrial septum. Mitral Valve Severe mitral annular calcification. Mild mitral valve stenosis. Mild (1+) mitral valve insufficiency. Tricuspid Valve Trivial tricuspid valve insufficiency. Unable to estimate RV systolic pressure due to insufficient tricuspid regurgitant envelope. Aortic Valve Moderate diffuse aortic valve calcification. Moderate aortic stenosis. Pulmonic Valve The pulmonic valve is not well visualized. Great Vessels Normal sized aortic root. Pericardium/Pleural No pericardial effusion. MMode/2D Measurements & Calculations LVIDd: 3.9 cm IVSd: 1.00 cm LVOT diam: 1.8 cm LVIDs: 2.0 cm LVPWd: 0.97 cm LVOT area: 2.5 cm2 RVDd: 3.0 cm FS: 47.6 % Ao root diam: 2.7 cm LAV(MOD-bp): 37.3 ml LVAd ap4: 19.2 cm2 LA dimension: 3.6 cm LAV(MOD-bp) Indexed: 28.0 ml/m2 LVLd ap4: 6.6 cm LAV(MOD-sp2): 48.1 ml EDV(MOD-sp4): 45.8 ml LAV(MOD-sp4): 29.2 ml EDV(sp4-el): 47.4 ml LVAs ap4: 10.2 cm2 LVLs ap4: 5.8 cm ESV(MOD-sp4): 15.9 ml ESV(sp4-el): 15.1 ml EF(MOD-sp4): 65.3 % EF(sp4-el): 68.2 % SV(MOD-sp4): 29.9 ml SV(sp4-el): 32.3 ml LA A4 area: 13.2 cm2 RA A4 area: 17.1 cm2 TAPSE: 1.1 cm Time Measurements MV dec time: 0.29 sec Doppler Measurements & Calculations MV E max fredi: 91.5 cm/sec Lat Peak E' Fredi: 6.3 cm/sec Med Peak E' Fredi: 4.1 cm/sec MV A max fredi: 131.2 cm/sec E/E' lat: 14.4 E/E' med: 22.2 MV E/A: 0.70 MV V2 max: 142.8 cm/sec MV P1/2t max fredi: 95.9 cm/sec Ao V2 max: 305.1 cm/sec MV max P.2 mmHg MV P1/2t: 99.0 msec Ao max P.2 mmHg MV V2 mean: 76.1 cm/sec Ao V2 mean: 209.3 cm/sec MV mean P.8 mmHg MV dec slope: 283.7 cm/sec2 Ao mean P.4 mmHg MV V2 VTI: 31.7 cm MVA(P1/2t): 2.2 cm2 Ao V2 VTI: 64.3 cm AV (velocity ratio): 0.38 MVA(VTI): 1.9 cm2 FRANKLIN(I,D): 0.95 cm2 FRANKLIN(V,D): 0.89 cm2 LV V1 max: 107.9 cm/sec SV(LVOT): 61.2 ml PA V2 max: 96.1 cm/sec LV V1 max P.7 mmHg LV V1 mean P.4 mmHg LV V1 mean: 73.0 cm/sec LV V1 VTI: 24.4 cm TR max fredi: 171.4 cm/sec TR max P.8 mmHg ECHO/Echo Complete Interpretation Summary Mild concentric left ventricular hypertrophy. The left ventricular ejection fraction is 70 %. Diastolic function is indeterminate. Severe mitral annular calcification. Mild mitral valve stenosis. Moderate aortic stenosis. Aneurysmal atrial septum. Ordering Physician: Angus Bashir Referring Physician: Angus Bashir Performed By: Aditya Kern RCS
== END | disposition home or self-care (01) ==
PROVIDERS: PCP Family Medicine; Referring Provider Nurse Practitioner Family; Visit Provider Nurse Practitioner Family
DX: I35.0 Nonrheumatic aortic (valve) stenosis (principal); I25.10 Atherosclerotic heart disease of native coronary artery without angina pectoris
CPT/HCPCS: 93306

== ENCOUNTER 2023-09-25 08:30 | Outpatient (RCR) | payer MEDICARE, SELFPAY ==
--- NOTE | 2023-09-15 10:59 | HP.PTEVAL ---
Patient's Visit Information Visit Information Visit Information: GEORGINA VALLADARES is a 73 year old F referred to Physical Therapy by Dr. Smitha Wills MD with a diagnosis of BACK PAIN AND BALANCE. Date of Evaluation: 09/15/23 Physical Therapist: Teddy Recinos, PT, Cert MDT, OCS Visit Plan Frequency: 2x /Week Duration: 4 Weeks Plan: PREACUTION: LEGALY BLIND , AND PACEMAKER PT INTERVTIONS DLS, POSTURAL EX'S ,BALNACE PROGRAM ,FUNCTIONAL STRENGTHENING AND BLE STRENGTHNEING Subjective Subjective: This 73 y/o female presents to physical therapy with low back pain and balance. Patient has had back pain~ 10 years . Patient has been under care of pain management with epidural injections last injection last . No recent imaging. 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 Patient has had pain stimulator 2022. Patient has lumbar pain described constant ache. Aggravating factors walking ,standing ,housework vacuuming ,patient uses cane for balance. Alleviating factors rest and sitting. Denies paresthesia/tingling. Bowel/bladder -. Coughing/sneezing -. Patient pain can affects sleeping. Patient has balance deficits as well as legally blind which can affects balance. Patient has no falls. Patient pain affects QOL and function. Patient goals to decrease pain and improve strength and balance. SOCIAL: VOCATION: retired Objective Objective: POSTURE: mild forward posture GAIT: ambulates with straight cane 2 point gait guidance due to legally blind PALAPTION: unremarkable MMT: quad/hams 4/5 ,hip flexion 4-/5 ,hip abduction 4-/5,ankle 4/5 LUMBAR ROM: flexion mod loss ,extension severe loss ,side glides min/mod loss FLEXABLITY: min tight Special Tests L/S Slump test left side: Negative L/S Slump test right side: Negative L/S Left Straight Leg Raise: Negative L/S Right Straight Leg Raise: Negative Balance/Special Test Scores Functional Gait Assessment Score: 10 % Disability: 66.6700 CATSIB Score (Max score 120 seconds): 35 Oswestry Low Back Score: 26 Goals Goal 1:: Patient to be I with HEP for back and balance Goal Time Frame: 4-6 Weeks Goal 2:: Patient to demonstrate 50% improvement with decrease pain and improved function Goal Time Frame: 4-6 Weeks Goal 3:: Patient to improve lumbar ROM for function of recovery to put on shoes Goal Time Frame: 4-6 Weeks Goal 4:: Patient to improve back oswestry score by 5 points to improve QOL Goal Time Frame: 4-6 Weeks Goal 5:: Patient to improve CATSIB by 5-10 points to improve balance Goal Time Frame: 4-6 Weeks Goal 6:: Patient to improve functional gait assessment score by 5 points to improve QOL and function Goal Time Frame: 4-6 Weeks Rehabilitation Potential Physical Therapy Diagnosis: This patient has low back pain with DDD with poor ROM lumbar ,decrease strength ,decrease balance with CATSIB ,functional gait assessment impairs walking along with legally blind and other comorbities to influence condition thus benefit from skilled PT Rehabilitation Potential: Good Anticipated Interventions Patient/Client Instruction: Educate patient on: Condition and Plan of Care For the Purpose of:: To decrease pain, To increase ROM, To improve muscle performance and motor function, To improve ability to perform ADL's, To increase tolerance to activity/condition/position, To improve ability of physical actions for home/community/work/leisure, To improve gait and locomotor functions, To improve health of tissue, To decrease soft tissue restriction, To increase flexibility/ROM, To improve endurance and To improve balance Therapeutic Exercise to Include: Strength training, Endurance training, Balance training, Body mechanics, Postural training, Flexibilty training and Dynamic Lumbar Stabilization For the Purpose of:: To decrease pain, To increase ROM, To improve muscle performance and motor function, To increase tolerance to activity/condition/position, To improve ability of physical actions for home/community/work/leisure, To improve health of tissue, To decrease soft tissue restriction, To increase flexibility/ROM, To improve endurance, To improve balance and To improve tolerance to ADL's Text: Thank you for the opportunity to evaluate your patient. For Medicare and Medicare HMO plans, please review the plan of care and approve it. It will need to be FAXED BACK to us at [phone] for Medicare purposes. For Medicare only, by signing this I certify the plan of care. Please let me know if there are questions or concerns regarding this plan of care. Physician Signature: Date:
--- NOTE | 2023-11-09 16:43 | HP.PTDCSUM ---
Discharge Summary D/C summary: It has been my pleasure to treat GEORGINA VALLADARES referred by Dr. Smitha Wills MD, with the diagnosis of BACK PAIN AND BALANCE for a total of 3 visit(s). Discharge Date: Please see the following information for a summary of their discharge status. Subjective Subjective: Patient reports she felt pretty good after last session, is compliant with HEP, states they are making her sore but not painful. Pain Back: Pain Intensity (Out of 10): 3 Objective Objective/Function: Did well with progression of balance and strengthening activities today with fatigue t/o. Had a few LOB standing on foam with toe taps. Goals Goal 1:: Patient to be I with HEP for back and balance Goal 2:: Patient to demonstrate 50% improvement with decrease pain and improved function Goal 3:: Patient to improve lumbar ROM for function of recovery to put on shoes Goal 4:: Patient to improve back oswestry score by 5 points to improve QOL Goal 5:: Patient to improve CATSIB by 5-10 points to improve balance Goal 6:: Patient to improve functional gait assessment score by 5 points to improve QOL and function Plan Plan: PREACUTION: LEGALY BLIND , AND PACEMAKER PT INTERVTIONS DLS, POSTURAL EX'S ,BALNACE PROGRAM ,FUNCTIONAL STRENGTHENING AND BLE STRENGTHNEING D/C Information d/c sentence: If there are questions or concerns regarding this patient's physical therapy, please feel free to call me at [phone]. Thank you for the referral of this patient. Sincerely, Teddy Recinos, PT, Cert MDT, OCS Balance/Gait/Functional tests Balance/Special Test Scores Functional Gait Assessment Score: 10 % Disability: 66.6700 CATSIB Score (Max score 120 seconds): 35 Oswestry Low Back Score: 26
== END 2023-09-25 19:00 | disposition home or self-care (01) ==
LOC: PT 08:30
PROVIDERS: PCP Family Medicine; Referring Provider Anesthesiology Pain Medicine; Visit Provider Anesthesiology Pain Medicine
DX: M54.9 Dorsalgia, unspecified (principal); R26.81 Unsteadiness on feet
CPT/HCPCS: 97110; 97162

== ENCOUNTER → 2023-11-04 | Outpatient (CLI) | payer MEDICARE, SELFPAY ==
--- NOTE | 2023-11-04 11:40 | RAD_ITS ---
STUDY: X-RAY - CERVICAL SPINE REASON FOR EXAM: Female, 73 years old. Other cervical disc degeneration, unspecified cervical region TECHNIQUE: 3 view(s) of the cervical spine were obtained. COMPARISON: None FINDINGS: Normal anterior atlantoaxial articulation. Normal odontoid process. Normal cervical lordosis. 2 mm of anterolisthesis of C4 on C5 and 2 mm retrolisthesis of C6 on C7. There is multi-level endplate spondylosis. There is multi-level degenerative disc disease with multilevel disc space narrowing. Normal visualized intervertebral neuroforamina. The soft tissue structures are unremarkable. RAD/Cerv Spine 2 or 3 Views IMPRESSION: Moderate degenerative disc disease lower cervical spine with 2 mm of anterolisthesis of C4 on C5 and 2 mm retrolisthesis of C6 on C7. Electronically Signed: Irwin Teixeira MD at 20:17 EDT ,
== END | disposition home or self-care (01) ==
LOC: RAD 11:35
PROVIDERS: PCP Family Medicine; Referring Provider Anesthesiology Pain Medicine; Visit Provider Anesthesiology Pain Medicine
DX: M50.30 Other cervical disc degeneration, unspecified cervical region (principal); M54.12 Radiculopathy, cervical region
CPT/HCPCS: 72040

== ENCOUNTER → 2023-12-09 | Outpatient (CLI) | payer MEDICARE, SELFPAY ==
--- NOTE | 2023-12-09 13:25 | CT_ITS ---
INDICATION: GAIT ABNORMALITIES EXAMINATION: CT CERVICAL SPINE - CT Spine Cervical W/O Contrast Injection TECHNIQUE: Helically acquired images were obtained of the cervical spine. 2D reformatted images were reviewed. The protocol utilizes one or more of the following dose reduction techniques: automated exposure control, adjustment of mA and/or kV according to patient size, and/or use of iterative reconstruction technique. IV Contrast dosage and agent: None. RADIATION DOSAGE (If Supplied By Facility): CTDIvol = ( 12.00 ) mGy, DLP = ( 244.94 ) mGycm COMPARISON: No relevant prior comparison study available FINDINGS: VERTEBRAE: No fracture or traumatic subluxation. No discrete lytic or blastic abnormality. Normal alignment. Normal craniocervical junction and cervicothoracic junction. DISCS and SPINAL CANAL: Degenerative changes of the atlantoaxial joint. Severe disc space narrowing of C3-C4, C4-C5, C5-C6 and C6-C7. Mild anterolisthesis of C5 over C6. Posterior lateral degenerative spurs at multiple levels. Degenerative changes of the apophyseal joints at multiple levels. Mild spinal canal stenosis at the level of C6-C7. NECK SOFT TISSUES: No prevertebral soft tissue swelling. Atherosclerotic calcifications of the carotid arteries bilaterally and of the visualized vertebral arteries. LUNG APICES: Clear. CT/Spine Cervical without Contras IMPRESSION: Multilevel degenerative changes of the cervical spine as described above. If clinically indicated, further evaluation with MRI of the cervical spine might be of value. Electronically Signed: Ruben Rojas MD at 14:06 EDT ,
== END | disposition home or self-care (01) ==
PROVIDERS: PCP Family Medicine; Referring Provider Psychiatry & Neurology Neurology; Visit Provider Psychiatry & Neurology Neurology
DX: R26.9 Unspecified abnormalities of gait and mobility (principal)
CPT/HCPCS: 72125

== ENCOUNTER → 2023-12-29 | Outpatient (CLI) | payer MEDICARE, SELFPAY ==
--- NOTE | 2023-12-29 14:28 | MRI_ITS ---
STUDY: MRI CERVICAL SPINE WITHOUT CONTRAST REASON FOR EXAM: Female, 73 years old. PAIN IN NECK, SHOULDERS, ARMS NUMB, LOSS OF BALANCE PAIN IN SPINE, NO SURGERY TECHNIQUE: Standardized fat and water weighted pulse sequences were obtained in the sagittal and axial planes. COMPARISON: CT of the cervical spine dated December 09, 2023 FINDINGS: Normal foramen magnum and brainstem-cervical cord junction. Normal craniovertebral junction. There are degenerative changes of the anterior atlantoaxial articulation. Normal odontoid process. There is reversal of the normal cervical lordosis. C2-3: Normal endplates. Normal disc height. Minimal posterior annular bulging. Diffuse disc desiccation. Moderate central canal stenosis with mild mass effect on the anterior posterior aspect of the cord secondary to annular bulging and moderate hypertrophy of the ligamenta flava. Mild bilateral foraminal stenosis is present, left greater than right secondary to uncovertebral and facet joint hypertrophy. C3-4: Severe disc space narrowing with a minimal posterior disc spur complex causing mild mass effect/compression on anterior aspect of the cord and [id number] central canal stenosis. Mild bilateral foraminal stenosis. C4-5: Severe disc space narrowing with a minor anterior disc spur complex. Mild intrinsic central canal stenosis. Normal right neural foramen. Mild facet joint hypertrophy. Mild left foraminal stenosis. C5-6: Moderate to severe disc space narrowing with a diffuse disc osteophyte complex and superimposed subligamentous small disc extrusion causing moderate to severe central canal stenosis and compression of the cord; which is slightly flattened and with increase bright signal due to compressive myelomalacia. Moderate right foraminal stenosis with nerve root compression due to uncovertebral hypertrophy. Mild left foraminal stenosis. C6-7: Retrolisthesis of C6 on C7 of 2 mm. Moderate to significant disc space narrowing with a diffuse disc bulge/disc spur complex causing compression anterior aspect of cord and moderate central canal stenosis severe bilateral foraminal stenosis with nerve root compression due to uncovertebral facet joint hypertrophy. C7-T1: Normal endplates. Normal disc height and morphology. Normal central canal and intervertebral neural foramina. Diffuse disc desiccation. Normal remaining aspects of the cervical cord. There is no demonstrated cervical cord demyelinating process. Normal visualized soft tissue structures. MRI/Spine Cervical (Routine) IMPRESSION: 1. Multilevel degenerative changes, as described above. 2. Severe central canal stenosis without cord compression and flattening and compressive myelomalacia at C5-C6 due to a large disc osteophyte complex Electronically Signed: Uriel Mcmahon MD at 16:05 EDT ,
[2023-12-29 14:48] VITALS: BP 169/73; PULSE 77; RESP 16; O2SAT 96
[2023-12-29 14:58] VITALS: BP 135/46; PULSE 68; RESP 14; O2SAT 92
[2023-12-29 15:08] VITALS: BP 142/58; PULSE 71; RESP 14; O2SAT 92
[2023-12-29 15:18] VITALS: BP 152/61; PULSE 76; RESP 14; O2SAT 92
== END | disposition home or self-care (01) ==
PROVIDERS: PCP Family Medicine; Referring Provider Psychiatry & Neurology Neurology; Visit Provider Psychiatry & Neurology Neurology
DX: M48.02 Spinal stenosis, cervical region (principal)
CPT/HCPCS: 72141

== ENCOUNTER → 2024-01-14 | Outpatient (CLI) | payer MEDICARE, SELFPAY ==
--- NOTE | 2024-01-14 10:18 | ECHOD_ITS ---
Reason For Study: Pre-op clearance Procedure This was a 2D Doppler, Color Flow transthoracic echocardiogram. Exam performed in department. Left Ventricle Normal LV size. Mild eccentric left ventricular hypertrophy. Left ventricular systolic function is hyperdynamic. The estimated ejection fraction is 70 %. Diastolic function is indeterminate. No regional wall motion abnormalities noted. Right Ventricle Normal RV size. ICD or pacer leads identified within the right ventricle. Normal systolic function. Atria The left and right atria are normal. ICD or pacer leads identified within the right atrium. Mitral Valve Moderate mitral annular calcification. Mild mitral valve stenosis. Mean transmitral valve gradient 4 mmHg. Moderate (2+) eccentric mitral valve insufficiency. Tricuspid Valve Normal tricuspid valve. Mild (1+) tricuspid valve insufficiency. Pulmonary artery systolic pressure is 26 mmHg. Aortic Valve Trisinus/trileaflet aortic valve. Moderate aortic stenosis. Peak aortic valve gradient 53 mmHg. Mean aortic valve gradient 29 mmHg. Mild (1+) aortic valve insufficiency. Pulmonic Valve Normal pulmonic valve. Mild (1+) pulmonic valve insufficiency. Great Vessels Normal aortic root. Pericardium/Pleural No pericardial effusion. MMode/2D Measurements & Calculations LVIDd: 3.7 cm IVSd: 1.0 cm LVOT diam: 1.8 cm LVIDs: 1.9 cm LVPWd: 1.2 cm LVOT area: 2.5 cm2 RVDd: 2.7 cm FS: 47.5 % Ao root diam: 2.3 cm LAV(MOD-bp): 34.5 ml LVAd ap4: 23.7 cm2 LAV(MOD-bp) Indexed: 25.7 ml/m2 LVLd ap4: 7.3 cm LAV(MOD-sp2): 44.1 ml EDV(MOD-sp4): 63.4 ml LAV(MOD-sp4): 27.5 ml EDV(sp4-el): 65.0 ml LVAs ap4: 10.6 cm2 LVLs ap4: 6.0 cm ESV(MOD-sp4): 16.6 ml ESV(sp4-el): 15.9 ml EF(MOD-sp4): 73.9 % EF(sp4-el): 75.5 % LVAd ap2: 20.5 cm2 SV(MOD-sp4): 46.9 ml SV(MOD-sp2): 36.3 ml LVLd ap2: 7.1 cm EDV(MOD-sp2): 49.7 ml EDV(sp2-el): 50.1 ml LVAs ap2: 9.2 cm2 LVLs ap2: 6.4 cm ESV(MOD-sp2): 13.4 ml ESV(sp2-el): 11.2 ml EF(MOD-sp2): 72.9 % SV(sp4-el): 49.0 ml LA dimension(2D): 4.0 cm LA A4 area: 12.8 cm2 RA A4 area: 12.6 cm2 TAPSE: 1.7 cm Time Measurements MV dec time: 0.23 sec Doppler Measurements & Calculations MV E max fredi: 95.7 cm/sec Lat Peak E' Fredi: 7.4 cm/sec Med Peak E' Fredi: 4.3 cm/sec MV A max fredi: 173.9 cm/sec E/E' lat: 12.9 E/E' med: 22.2 MV E/A: 0.55 MV V2 max: 166.0 cm/sec MV P1/2t max fredi: 105.6 cm/sec Ao V2 max: 362.1 cm/sec MV max P.0 mmHg MV P1/2t: 74.6 msec Ao max P.6 mmHg MV V2 mean: 97.8 cm/sec Ao V2 mean: 252.5 cm/sec MV mean P.3 mmHg MV dec slope: 414.8 cm/sec2 Ao mean P.7 mmHg MV V2 VTI: 37.3 cm MVA(P1/2t): 2.9 cm2 Ao V2 VTI: 85.0 cm AV (velocity ratio): 0.37 MVA(VTI): 2.1 cm2 FRANKLIN(I,D): 0.92 cm2 FRANKLIN(V,D): 0.86 cm2 AI max fredi: 389.3 cm/sec LV V1 max: 125.9 cm/sec SV(LVOT): 78.4 ml AI max P.7 mmHg LV V1 max P.3 mmHg AI dec slope: 335.6 cm/sec2 LV V1 mean P.7 mmHg AI P1/2t: 339.8 msec LV V1 mean: 91.8 cm/sec LV V1 VTI: 31.6 cm PA V2 max: 108.6 cm/sec TR max fredi: 241.8 cm/sec TR max P.4 mmHg ECHO/Echo Complete Interpretation Summary The estimated ejection fraction is 70 %. Diastolic function is indeterminate. Mild eccentric left ventricular hypertrophy. Mild mitral valve stenosis. Moderate (2+) eccentric mitral valve insufficiency. Mild (1+) tricuspid valve insufficiency. Moderate aortic stenosis. Mild (1+) aortic valve insufficiency. Ordering Physician: Fernando Donaldson Referring Physician: Luh Hernandez Performed By: Piedad Deleon RDCS
--- NOTE | 2024-01-14 10:18 | CDU_ITS ---
Reason For Study: Lightheadedness Rt. Velocities/BP Lt. Velocities/BP Prox CCA 64.5/4.1 cm/sec. Prox CCA 75.9/6 cm/sec. Mid CCA 53.2/6 cm/sec. Mid CCA 66.4/6.9 cm/sec. Dist CCA 51.3/6.9 cm/sec. Dist CCA 49.4/6.9 cm/sec. Prox ICA 56/6.9 cm/sec. Prox ICA 74/13.5 cm/sec. Mid ICA 71.1/10.7 cm/sec. Mid ICA 60.8/11.3 cm/sec. Dist ICA 72.1/11.6 cm/sec. Dist ICA 86.1/20.1 cm/sec. Rt. ICA/CCA = 1.36. Lt. ICA/CCA = 1.30. Prox ECA 80.6 cm/sec. Prox ECA 145.9 cm/sec. Rt. Vert. 64.5/8.8 cm/sec. Lt. Vert. 35.8/5.9 cm/sec. Right Extracranial There is intimal thickening but no significant atherosclerotic plaque noted in the right common carotid artery. There is heterogeneous, irregular atherosclerotic plaque noted in the right internal carotid artery. There is heterogeneous, irregular atherosclerotic plaque noted in the right external carotid artery. Antegrade flow is noted in the right vertebral artery. Left Extracranial There is intimal thickening but no significant atherosclerotic plaque noted in the left common carotid artery. There is heterogeneous, irregular atherosclerotic plaque noted in the left internal carotid artery. There is heterogeneous, irregular atherosclerotic plaque noted in the left external carotid artery. Antegrade flow is noted in the left vertebral artery. Procedure Carotid Duplex [id number]. This is a Carotid Duplex examination using B-mode, color flow and specral Doppler. Exam performed in department. VL/Carotid Duplex Ultrasound Interpretation Summary Calcific irregular plaque at the proximal right internal carotid artery with le ss than 50% stenosis Less than 50% stenosis right external carotid artery Irregular calcific plaque at the proximal left internal carotid artery with les s than 50% stenosis Less than 50% stenosis left external carotid artery Patent and antegrade flow bilateral vertebrals Ordering Physician: Fernando Donaldson Referring Physician: Luh Hernandez Performed By: Laure Perez RVT
--- NOTE | 2024-01-14 13:06 | STRESSREP ---
Stress Test Report Date: 01/14/2024 Procedure: Pharmacologic stress nuclear imaging study Indications: Coronary artery disease Consent: Per the patient Procedure: The patient underwent pharmacologic (Regadenoson 0.4mg ) evaluation with a peak heart rate of 90 beats per minute (61%predicted maximal heart rate) and a peak blood pressure of 160/78 mmHg. The baseline ECG demonstrated sinus rhythm with right bundle branch block. The peak pharmacologic ECG demonstrated no diagnostic ischemic changes. There were no cardiac dysrhythmias pretest, during pharmacologic infusion, or recovery. There was no complaint of chest discomfort during pharmacologic infusion or recovery. The patient was injected with 11.8 millicuries of technetium 99m Cardiolite and subsequently rest SPECT Cardiolite nuclear imaging was obtained in the horizontal long, vertical long, and short axis views. The patient underwent pharmacologic (Regadenoson) evaluation. The patient was injected with 32.9 millicuries of technetium 99m Cardiolite and subsequently stress SPECT Cardiolite nuclear imaging was obtained in the horizontal long, vertical long, and short axis views. No gated study was done. The examination was stopped secondary to completion of protocol. Rest and stress SPECT Cardiolite nuclear imaging status post realignment, normalization, and attenuation correction demonstrate small reversible perfusion defect of the basal septum. Impression: 1. Pharmacologic (Regadenoson) evaluation 2. Peak pharmacologic ECG with no diagnostic ischemic changes. 3. There were no cardiac dysrhythmias pretest, during pharmacologic infusion, or recovery. 5. A very small reversible perfusion defect of the basal septum suggestive of mild ischemia. 6. No gated images were done. This note was generated with Augureation software. It may contain incorrect words, spelling, and punctuation that were not noted in checking the note before signing.
== END | disposition home or self-care (01) ==
PROVIDERS: PCP Family Medicine; Referring Provider Internal Medicine Cardiovascular Disease; Visit Provider Internal Medicine Cardiovascular Disease
DX: Z01.818 Encounter for other preprocedural examination (principal); G95.89 Other specified diseases of spinal cord; I35.0 Nonrheumatic aortic (valve) stenosis; I25.10 Atherosclerotic heart disease of native coronary artery without angina pectoris; R53.83 Other fatigue; Z95.0 Presence of cardiac pacemaker; Z86.79 Personal history of other diseases of the circulatory system; R42 Dizziness and giddiness; M48.02 Spinal stenosis, cervical region; E78.2 Mixed hyperlipidemia
CPT/HCPCS: 78452; 93017; 93306; 93880; A9500; A4216; J2785

== ENCOUNTER 2024-02-12 09:58 | Inpatient (IN) | payer MEDICARE, SELFPAY ==
[2024-01-13 13:24] LABS: Absolute Lymphocyte Count 0.92 X10^3/uL (0.83-4.51); Absolute Neutrophil Count 3.7 X10^3/uL (2.0-7.7); Basophil# 0.04 X10^3/uL; Basophil% 0.8 % (0-1); Eosinophils% 1.9 % (0-5); Hematocrit 36.1 % (37-47); Hemoglobin 11.2 g/dL (12.0-15.0); Lymphocyte # 0.92 X10^3/ul (0.83-4.51); Lymphocyte % 17.7 % (19-41); Mean Corpuscular Hgb 29.2 pg (27.0-32.0); Mean Platelet Vol. 10.2 fl (6.2-12.0); Monocyte# 0.45 X10^3/uL; Monocyte% 8.7 % (0-10); NRBC Flagged by Analyzer 0 % (0-5); Neutrophil # 3.66 X10^3/uL (2.7-7.7); Neutrophil % 70.5 % (47-70); Platelet Count 290 K/mm3 (150-450); RBC Distribution Width CV 13.6 % (11.6-14.6); RBC Distribution Width SD 47.1 fl (35.1-43.9); Red Blood Count 3.84 M/mm3 (4.2-5.4); White Blood Count 5.2 K/mm3 (4.4-11.0)
[2024-01-13 13:28] LABS: Prothrombin Time (Protime)PT. 13.6 SECONDS (11.7-14.9)
[2024-01-13 13:29] LABS: Partial Thromboplast Time 30.3 Seconds (24.1-36.2)
[2024-01-13 13:46] LABS: Anion Gap 6 (5-15); BUN 37 mg/dL (7-18); BUN/Creat Ratio 27.2 RATIO (10-20); Calcium,Total 10.4 mg/dL (8.5-10.1); Chloride 101 mmol/L (98-107); Creatinine, Serum 1.36 mg/dL (0.55-1.02); EST Glomerular Filtration Rate 40 mL/min (>60); Est Glom Filt Rate - Afr Amer 49 mL/min (>60); Glucose 113 mg/dL (74-106); Potassium 5.3 mmol/L (3.5-5.1); Sodium Level 133 mmol/L (136-145)
[2024-01-13 13:50] LABS: AST(SGOT) 20 U/L (15-37); Alanine Aminotransfer ALT/SGPT 17 U/L (13-56); Albumin, Serum 4.2 g/dL (3.2-5.0); Alkaline Phosphatase 65 U/L (45-117); Bilirubin, Direct 0.18 mg/dL (0.00-0.30); Globulin 3.9 g/dL (2.2-4.2); Magnesium 2.1 mg/dL (1.6-2.6); Protein, Total 8.1 g/dL (6.4-8.2)
[2024-01-13 14:28] LABS: HIV - WCH Non-Reactive (Nonreactive); Hepatitis B Surface Antibody Reactive; Hepatitis C Antibody Non-Reactive (Nonreactive)
[2024-01-15 05:07] LABS: Hepatitis A AB, Total Negative (Negative)
[2024-02-12] VITALS (18 sets, daily range): BP systolic 133–176; BP diastolic 55–85; PULSE 67–120; RESP 14–18; TEMP 36.2–37.5; O2SAT 93–98; BMI 19.3
--- NOTE | 2024-02-12 06:30 | RAD_ITS ---
STUDY: X-RAY - CERVICAL SPINE REASON FOR EXAM: Female, 73 years old. ANTERIOR FUSION C5-6 C6-7 TECHNIQUE: 2 view(s) of the cervical spine were obtained. COMPARISON: 11/04/2023 FINDINGS: 15 seconds of fluoroscopy of the cervical spine was utilized operating room during anterior cervical discectomy and fusion and 9 images are cemented for interpretation... RAD/Cerv Spine 2 or 3 Views IMPRESSION: Fluoroscopy during anterior cervical discectomy and fusion. Electronically Signed: Irwin Teixeira MD at 17:14 EDT ,
[2024-02-12] MEDS: Acetaminophen 500 MG Tablet 1000 MG PO ×3 (06:44→21:07)
[2024-02-12] MEDS: Lactated Ringers 1,000 ML 15 ML IV (06:44)
[2024-02-12] MEDS: Magnesium 1 GM over 15 mins IV (06:44)
--- NOTE | 2024-02-12 07:04 | PCM.PRE.AN2 ---
ASA Classification* ASA Classification ASA Classification: 4 Assessment & Plan Anesthesia* Anesthesia Assessment Anesthesia Assessment: Discussed sedation and/or anesthesia options, risks, benefits, and alternatives with patient/parents/legal guardian/POA. Questions invited. The patient/parents/legal guardian/POA seems to understand and agrees to proceed with anesthesia plan. Reviewed the physical assessment, medical history, allergy history and patient home medications list prior to surgery/procedure/anesthetic and documented any changes. Performed airway and anesthesia risk assessments. Anesthesia Type Anesthesia Type: General (mod aortic stenosis, l arm av fistula, CADS with mild ischemia on stress testing) Anesthesia Focused Assessment* Temperature: 98.3 F Pulse Rate: 67 Blood Pressure: 133/80 Respiratory Rate: 16 Pulse Ox: 98 Airway Assessment Mouth opens: >3 cm Mallampati Score: II Focused Labs Anesthesia Preop lab: CBC WBC 5.2 K/mm3 (4.4-11.0) 01/13/24 12:47 RBC 3.84 M/mm3 (4.2-5.4) L 01/13/24 12:47 Hgb 11.2 g/dL (12.0-15.0) L 01/13/24 12:47 Hct 36.1 % (37-47) L 01/13/24 12:47 Plt Count 290 K/mm3 (150-450) 01/13/24 12:47 CHEMISTRY Potassium 5.3 mmol/L (3.5-5.1) H 01/13/24 12:47 Sodium 133 mmol/L (136-145) L 01/13/24 12:47 Magnesium 2.1 mg/dL (1.6-2.6) 01/13/24 12:47 BUN 37 mg/dL (7-18) H 01/13/24 12:47 Creatinine 1.36 mg/dL (0.55-1.02) H 01/13/24 12:47 Glucose 113 mg/dL (74-106) H 01/13/24 12:47 POC Glucose 118 mg/dL (74-106) H 12/14/21 16:30 TSH 0.94 uIU/mL (0.358-3.74) 12/14/21 20:22 COAG PT 13.6 SECONDS (11.7-14.9) 01/13/24 12:47 Pre-Assessment Diagnosis/Proposed Procedure Planned Operative Procedure(s): ANTERIOR CERVICAL DISC FUSION C5-6 C6-7 Anesthesia History Anesthesia History - substitute nurse: Anesthesia History - substitute nurse Hx Hospitalization No 01/27/24 10:03 Any Problems With Anesthesia No 01/27/24 10:03 Cholinesterase deficiency No 01/27/24 10:03 You/Your Family Experience No 01/27/24 10:03 fever (hyperthermia) with Relationship Recent Exposure to Contagious No 02/12/24 06:31 Disease Does patient have nerve Yes: PT ABLE TO TURN OFF DOS 01/27/24 10:03 stimulator Patient instructed to have device shut off --Does patient have Pacemaker Yes 02/12/24 06:31 or ICD? When Was Last Pacemaker Check QUESTION #4 FULL TEXT: You/Your Family Experience fever (hyperthermia) with Anesthesia Last Oral Intake Last Oral intake: Last Oral Intake NPO since 04:30 02/12/24 06:31 Meds taken in AM with sips of Yes 02/12/24 06:31 water? Meds patient instructed to see med list 02/12/24 06:31 take am of surgery PONV PONV - substitute nurse: PONV - substitute nurse Female Yes 01/27/24 10:03 HX of Motion Sickness Yes 01/27/24 10:03 HX of N/V After Surgery No 01/27/24 10:03 Non-Smoker Yes 01/27/24 10:03 Duration of Surgery greater Yes 01/27/24 10:03 than 60 minutes Number of Risk Factors 4 01/27/24 10:03 PONV Score Severe Risk 01/27/24 10:03 Height & Weight Height & Weight: Anesthesia: Height & Weight Height 4 ft 11 in 02/12/24 06:31 Weight: 43.5 kg 02/12/24 06:31 Body Mass Index (BMI) 19.3 02/12/24 06:31 Respiratory Assessment Respiratory Assessment - substitute nurse: Respiratory Tract Infection Hx - substitute nurse Hx Respiratory Tract Infection No 01/27/24 10:03 STOP Sleep Apnea STOP Sleep Apnea - substitute nurse: STOP Sleep Apnea - substitute nurse Hx Hypertension Yes: CONTROLLED WITH MED 01/27/24 10:03 Hx Sleep Apnea No 01/27/24 10:03 CPAP BIPAP Do you snore loudly (louder Yes 01/27/24 10:03 than talking or can be heard Do you often feel tired/ No 01/27/24 10:03 fatigued/ sleepy during daytime? Has anyone observed you stop Yes 01/27/24 10:03 breathing during sleep? STOP Results Positive 01/27/24 10:03 QUESTION #5 FULL TEXT : Do you snore loudly (louder than talking or can be heard through closed doors)? Tobacco Use History Tobacco Use History - substitute nurse: Tobacco Use History - substitute nurse Tobacco Use Smoking Status Never smoker 01/27/24 10:03 Hx Tobacco Use No 01/27/24 10:03 Years Smoking Packs Smoked per Day Smoking Cessation Date was within the last 15 years Hx Smoking Cessation Date Hx Smoking Cessation No 01/27/24 10:03 Counseling Hematologic Medial History Hematologic Hx - substitute nurse: Hematologic Medical Hx - buffer copper Hx of Blood Transfusion No 01/27/24 10:03 Hx of Transfusion in last 3 No 01/27/24 10:03 Months Date of Last Transfusion (if within last 3 months) Ever experience any problems No 01/27/24 10:03 with transfusion(s)? Specify any problems Hx of Preganancy in last 3 No 01/27/24 10:03 Months Nurse Filling Out Transfusion DSCHRIBER 01/27/24 10:03 & Questions: Date: 01/27/24 01/27/24 10:03 Time: 10:05 01/27/24 10:03 Patient unable to answer at this time (ie. confused, unrespo /Reproduction History /Reproductive History - substitute nurse: /Reproductive Hx- substitute nurse Hx Now No 01/27/24 10:03 Gestational Age (in weeks): EDC: Hx Hx Para Hx Section SAB No 01/27/24 10:03 Active Medications Active Medications: Current Medications Generic Name Dose Route Start Last Admin Trade Name Freq PRN Reason Stop Dose Admin Acetaminophen 1,000 mg 02/12/24 07:30 02/12/24 06:44 Acetaminophen 500 Mg Tablet PO 02/12/24 07:31 1,000 mg X1 ONE Administration Cefazolin Sodium 2 gm/ Sodium 110 mls @ 150 mls/hr 02/12/24 07:30 Chloride IV 02/12/24 08:13 PREOP ONE Magnesium Sulfate 1 gm/ 102 mls @ 408 mls/hr 02/12/24 07:30 02/12/24 06:44 Dextrose IV 02/12/24 07:44 408 mls/hr X1 ONE Administration Lactated Ringer's 1,000 mls @ 15 mls/hr 02/12/24 06:00 02/12/24 06:44 IV 15 mls/hr .Q48H BERNARD Administration Insulin Human Lispro 1 - 6 unit 02/12/24 07:30 Insulin Lispro 100 Unit/Ml Insuln.Pen SC 02/12/24 18:00 Q4H PRN PRN BG>/= 180, SEE PROTOCOL Protocol PFSH Medical History Diabetes Bruising Back pain Blackout Gastric reflux History of pain when walking Fatigue Wears hearing aid Wears glasses Cancer Ambulates with cane Arthritis High cholesterol Easy bruising Non-smoker History of stress test History of echocardiogram Cardiology follow-up encounter HLD (hyperlipidemia) Spinal stenosis of lumbar region at multiple levels Scoliosis of lumbar region due to degenerative disease of spine in adult Low back pain DDD (degenerative disc disease) High degree atrioventricular block TIA (transient ischemic attack) Chest pain Non-rheumatic mitral regurgitation Nonrheumatic aortic (valve) stenosis RBBB (right bundle branch block) Atherosclerotic heart disease of [place] coronary artery without angina pectoris Gastroesophageal reflux disease Benign hypertension Home Medications ?Medication ?Instructions ?Recorded ?Last Taken ?Type cyanocobalamin (vitamin B-12) 100 mcg IM QMONTH vitamin 07/10/20 01/22/24 History 1,000 mcg/mL injection solution folic acid 1 mg tablet 1 mg PO DAILY supplement 07/10/20 02/11/24 History pravastatin 20 mg tablet 20 mg PO QHS cholesterol 07/10/20 02/11/24 History sulfamethoxazole 400 1 tab PO DAILY ANTI REJECTION 07/10/20 02/11/24 History mg-trimethoprim 80 mg tablet (Bactrim) tacrolimus 0.5 mg capsule, 1 mg PO Q12H anti rejection 07/10/20 02/11/24 History immediate-release cholecalciferol (vitamin D3) 25 25 mcg PO DAILY vitamin 07/12/20 02/11/24 History mcg (1,000 unit) capsule aspirin 81 mg tablet,delayed 81 mg PO DAILY heart health 10/09/20 02/07/24 History release (Adult Low Dose Aspirin) mycophenolate mofetil 250 mg 250 mg PO BID anti rejection 09/25/22 02/11/24 History capsule amlodipine 10 mg tablet 10 mg PO DAILY BP 11/20/22 02/12/24 04:20 History lisinopril 20 1 tab PO DAILY BP #90 tabs 05/07/23 02/11/24 Rx mg-hydrochlorothiazide 25 mg tablet carvedilol 6.25 mg tablet 6.25 mg PO BID HEART #180 tabs 08/05/23 02/12/24 04:20 Rx ibandronate 150 mg tablet 150 mg PO QMONTH BONE HEALTH 08/05/23 Unknown History omeprazole 40 mg capsule,delayed 40 mg PO DAILY GERD 08/05/23 02/12/24 04:20 History release duloxetine 30 mg capsule,delayed 30 mg PO BID DEPRESSION 01/13/24 02/12/24 04:20 History release hydrocodone-acetaminophen 5-325mg 1 tab PO BID PRN PRN pain 01/13/24 02/11/24 History 5mg-325mg Allergy/AdvReac Type Severity Reaction Status Date / Time Seasonal Allergies: Uncoded Allergy Other Verified 02/05/24 11:34 Family History Father CAD (coronary artery disease) Mother Dementia Surgical History S/P insertion of sacral nerve stimulator (~11/2022) Presence of permanent cardiac pacemaker (~01/28/22) History of umbilical hernia repair (~03/01/20) History of right breast biopsy (~11/23/03) Cataract extraction status History of repair of rotator cuff (~08/31/09) History of eye surgery (~01/07/05) History of pancreatectomy (~03/2004) History of kidney transplant (~03/2004) History of coronary artery bypass surgery (~07/29/12) Status post pancreas transplantation (~05/25/05) Social History household members: spouse Smoking Status: Never smoker alcohol intake: current alcohol intake frequency: a few times a week substance use type: does not use caffeine: Yes Type: coffee Number of servings: 3 Review of Systems (Anesthesia) ROS Narrative System reviewed and no additional complaints, except as documented.
[2024-02-12 07:18] LABS: Bedside Glucose 135 mg/dL (74-106)
--- NOTE | 2024-02-12 07:20 | PCM.HP.BLA ---
History and Physical Date of Admission: 02/12/24 MR#: [id number] Acct: [id number] Name: GEORGINA VALLADARES Rep #: [id number] : 1950 Provider: Dr. Rambo Verduzco MD Age/Sex: 73/F Location: [facility] – [place] Status: Signed Intake Vital Signs 01/12/2411:33 Height 4 ft 11 in Intake Visit Reasons: cervical spine Chief Complaint: pre op cervical spine Is patient in pain?: Yes (neck ) Pain scale (1-10): 8 Allergies Seasonal Allergies: Uncoded Allergy (Verified 02/05/24 11:34) Other Medications ?Medication ?Instructions ?Recorded ?Confirmed ?Type cyanocobalamin (vitamin B-12) 100 mcg IM QMONTH vitamin 07/10/20 02/05/24 History 1,000 mcg/mL injection solution folic acid 1 mg tablet 1 mg PO DAILY supplement 07/10/20 02/05/24 History pravastatin 20 mg tablet 20 mg PO QHS cholesterol 07/10/20 02/05/24 History sulfamethoxazole 400 1 tab PO DAILY ANTI REJECTION 07/10/20 02/05/24 History mg-trimethoprim 80 mg tablet (Bactrim) tacrolimus 0.5 mg capsule, 1 mg PO Q12H anti rejection 07/10/20 02/05/24 History immediate-release cholecalciferol (vitamin D3) 25 25 mcg PO DAILY vitamin 07/12/20 02/05/24 History mcg (1,000 unit) capsule aspirin 81 mg tablet,delayed 81 mg PO DAILY heart health 10/09/20 02/05/24 History release (Adult Low Dose Aspirin) mycophenolate mofetil 250 mg 250 mg PO BID anti rejection 09/25/22 02/05/24 History capsule amlodipine 10 mg tablet 10 mg PO DAILY BP 11/20/22 02/05/24 History lisinopril 20 1 tab PO DAILY BP #90 tabs 05/07/23 02/05/24 Rx mg-hydrochlorothiazide 25 mg tablet carvedilol 6.25 mg tablet 6.25 mg PO BID HEART #180 tabs 08/05/23 02/05/24 Rx ibandronate 150 mg tablet 150 mg PO QMONTH BONE HEALTH 08/05/23 02/05/24 History omeprazole 40 mg capsule,delayed 40 mg PO DAILY GERD 08/05/23 02/05/24 History release duloxetine 30 mg capsule,delayed 30 mg PO BID DEPRESSION 01/13/24 02/05/24 History release hydrocodone-acetaminophen 5-325mg 1 tab PO BID PRN PRN pain 01/13/24 02/05/24 History 5mg-325mg Have you fallen in the past year?: Yes PFSH Medical History Diabetes Bruising Back pain Blackout Gastric reflux History of pain when walking Fatigue Wears hearing aid Wears glasses Cancer Ambulates with cane Arthritis High cholesterol Easy bruising Non-smoker History of stress test History of echocardiogram Cardiology follow-up encounter HLD (hyperlipidemia) Spinal stenosis of lumbar region at multiple levels Scoliosis of lumbar region due to degenerative disease of spine in adult Low back pain DDD (degenerative disc disease) High degree atrioventricular block TIA (transient ischemic attack) Chest pain Non-rheumatic mitral regurgitation Nonrheumatic aortic (valve) stenosis RBBB (right bundle branch block) Atherosclerotic heart disease of [place] coronary artery without angina pectoris Gastroesophageal reflux disease Benign hypertension Surgical History S/P insertion of sacral nerve stimulator (~11/2022) Presence of permanent cardiac pacemaker (~01/28/22) History of umbilical hernia repair (~03/01/20) History of right breast biopsy (~11/23/03) Cataract extraction status History of repair of rotator cuff (~08/31/09) History of eye surgery (~01/07/05) History of pancreatectomy (~03/2004) History of kidney transplant (~03/2004) History of coronary artery bypass surgery (~07/29/12) Status post pancreas transplantation (~05/25/05) Family History Father CAD (coronary artery disease)Mother Dementia Social History household members: spouse Smoking Status: Never smoker alcohol intake: current alcohol intake frequency: a few times a week substance use type: does not use caffeine: Yes Type: coffee Number of servings: 3 HPI cervical spine Chief Complaint: pre-op cervical spine Details: This documentation accurately reflects the service provided and the decisions made by me, Dr. Rambo Verduzco MD 02/05/24 5220. Part of today?s visit was documented by [ ], acting as scribe. GEORGINA VALLADARES is a 73 year old F here today for pre-op cervical spine. DOS 02-12-24 Georgina has been seen by Dr. Eagle last month and has been referred to me for severe worsening cervical myelopathy. She notices neck pain for many months, however it has been the worsening balance difficulties for which she initially required a cane followed by a quad cane and then now a walker for the last 3 months. She is also had severe difficulty with dexterity and she has been dropping things from her hand. She has severe difficulty holding a pen and writing and her handwriting is severely worsened over the last few months. She has had balance issues with multiple falls. 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 She has a complex medical history with cardiac comorbidities as well as history of pancreas and kidney transplantation's. She has been cleared by cardiology. Ortho Exam General General: Yes no acute distress Neurologic: Yes alert and Yes oriented x3 Spine SPINE TESTING CERVICAL THORACIC LUMBAR Musculoskeletal Strength 0=absent - 5=normal Details: Examination of the neck shows bilateral paraspinal tenderness. Neurologic motion of upper and lower extremity shows 4+ of 5 strength in all muscle groups. Vane's is positive bilaterally. Romberg's and gait could not be tested because of severe imbalance. Hyperreflexia noted in lower extremities. Coding Level of Care Code Off vis,est,level 4 Diagnoses Cervical myelopathy G95.9 Time Spent (min) 35 Assessment and Plan Assessment and Plan (1) Cervical myelopathy: Status: Acute Plan I evaluated her x-rays CT and MRI of the cervical spine. She has autofusion from C3-5. C4-5 shows stable spondylolisthesis. C5-6 and C6-7 show severe degenerative stenosis with cord compression and myelomalacia. I explained her imaging findings in detail. She has severe progressive cervical myelopathy from stenosis and cord compression cord signal changes. I explained to her that this is typically treated with surgery in order to halt the progression of myelopathy. I recommend C5-7 ACDF on an urgent basis. All risk benefits and alternatives were discussed in detail. The risks include but are not limited to infection, bleeding, injury to nerves and vessels, esophageal injury, recurrent laryngeal nerve injury, hoarseness, and dysphagia, dysphonia, Sharon syndrome, spinal cord injury, nerve root injury, pneumonia, atelectasis, hematoma, need for further surgery, cardiopulmonary event, DVT, pulm embolism, . Patient understands and agrees to proceed with surgical consent was signed.
[2024-02-12] MEDS: Cefazolin 2 GM in 0.9% Normal Saline (100mL Bag) 100 ML IV ×2 (07:30→15:12)
--- NOTE | 2024-02-12 10:05 | PCM.OPRPT ---
Report of Operation Date of Procedure: 02/12/24 Description of Surgical Findings:: Preoperative diagnosis: C5-7 disc degeneration with stenosis, cord compression, severe myelopathy Postoperative diagnosis: Same Name of procedure: C5-7 anterior cervical discectomy and fusion with plate instrumentation - Anterior cervical fusion C5-6, CPT code 91911 - Anterior plate instrumentation C5-7, CPT code 32542/59 - Anterior cervical fusion C6-7, CPT code 03207/51 -C5-6 structural allograft bone with DBX, CPT code 13614 -C6-7 structural allograft bone with DBX, CPT code 75027 Attending surgeon: Rambo Verduzco M.D. Anesthesia: Gen. endotracheal Estimated blood loss: 25 mL Complications: None Instrumentation used: Medtronic Dix Elite plate, LASR corticocancellous block Indications: The patient is a pleasant 73-year-old lady who presented with neck pain, worsening difficulty with dexterity and balance. MRI showed C5-7 disc degeneration with stenosis with cord compression & cord signal changes. In order to halt the progression of myelopathy, the patient requested surgical treatment. All risks and benefits of the procedure were explained to the patient. The risks include but are not limited to infection, bleeding, injury to nerves and vessels, vertebral artery injury, spinal cord injury, paralysis, vocal cord paralysis, injury to esophagus, pseudoarthrosis, need for further procedures, adjacent segment degeneration. Procedure: The patient was identified in the preoperative suite using unique patient identifiers. Skin was marked consent was taken and all questions were answered. The patient was then brought back to the operative room and a timeout was performed. General endotracheal anesthesia was given. Intraoperative neuro monitoring leads were applied. The patient was carefully positioned supine on a regular OR table. A lateral view with a C-arm was done to identify the level and to define the incision. The anterior neck was then prepped and draped in the usual fashion. A final timeout was then performed. A transverse skin incision was taken to the left of midline. Subcutaneous tissue was then divided with Bovie. Platysma was identified and cut along the incision with scissors. The fascial interval between the sternocleidomastoid and the larynx was developed. Omohyoid was identified and retracted. The esophagus with the larynx was retracted medially to reach the prevertebral fascia. Marker x-ray was performed with bent spinal needle and disc space and levels were confirmed. Longus coli muscle was elevated on both sides at and above and below C5-7 discs. Self-retaining retractors were then placed. A long handle knife was then used to perform annulotomy at C5-6. Disc fragments were removed with the pituitary. Allison pins were placed in C5 and C6 for disc distraction. Curettes and bur was utilized to remove cartilage from the endplates. Discectomy was performed laterally up to the uncovertebral joints. Posterior osteophytes were thinned down with the bur and adequate decompression in the central and foraminal areas were performed and PLL was thinned out. Once the disc space was prepared, trials of various sizes were utilized. Thorough irrigation was given. 6 mm LASR cortical cancellous allograft bone large footprint was then fashioned in such a way that concavities were burred out inferiorly and superiorly and half cc of DBX (demineralized bone matrix) was squeezed into the cancellous portion. The graft was then inserted into the C5-6 disc space. The retractors were then repositioned and the procedure was repeated for C6-7 discs with complete discectomy. Graft size was 5 mm at with large footprint at C6-7. The grafts were found to be in good apposition with good pullout strength. A 37 mm Medtronic Dix Elite plate was then fixed to C5-7 with 15 mm screws. A lateral x-ray was then taken to check the length of the screws. Both AP and lateral x-rays showed good positioning of plate and screws. The locking mechanism over the screw heads was then turned. Thorough irrigation was again given. Hemostasis was achieved. A [place] drain was then inserted. Closure was done with 3-0 Vicryl for the platysma and subcutaneous tissue layers and 4-0 Monocryl for the skin. Closure was done around the drain. Steri-Strips were applied and dressing was done with 4 x 4 gauze and Tegaderm. A cervical collar was then applied. The patient was then woken up from anesthesia extubated and taken to PACU in stable condition. From here, the patient will be transitioned to the floor. Intraoperative neuro monitoring was performed throughout this procedure. Motor evoked potentials were run periodically. All potentials remained at baseline throughout the procedure. I was present for the entire surgery and performed the surgery myself. Surgeon: Rambo Verduzco Drains: annalise aguirre Admit VTE Documentation VTE Mechan Device Prophylaxis: SCD's Procedures Musculoskeletal [id number]: Other Procedure See Report
--- NOTE | 2024-02-12 10:28 | PCM.POST.ANE ---
Anesthesia: Postop Eval I Current Vital Signs Temperature: 99.5 F Pulse Rate: 90 Blood Pressure: 157/76 Respiratory Rate: 14 Pulse Ox: 96 Oxygen Delivery Method: Room Air Assessment Airway patent: Yes Spontaneous unlabored respirations: Yes Mental status: Awake and Calm nausea: No Vomiting: No Anesthesia Complication: No Fluid Hydration Crystalloid volume administer (ml): 1,200 Total IV fluid infused: 1,200 Progress Note Anesthesia document: Postop Eval 1 completed: Yes
[2024-02-12 11:36] LABS: Bedside Glucose 148 mg/dL (74-106)
[2024-02-12] MEDS: Lactated Ringers 1,000 ML 100 ML IV (12:52)
--- NOTE | 2024-02-12 13:30 | CASEMGMT ---
RIC CASTILLO Assessment: Face to Face with pt for initial transition planning/care coordination assessment. RIC CASTILLO introduced self and role at [facility], pt voices understanding and consents to assessment. Pt is A&O x4 and answers all questions appropriately at this time. Pt lying in bed in no distress with at bedside. Therapy in room for eval upon RN CM leaving. Care providers, pharmacy, and demographics verified/updated. Admitting Dx: Anterior cervical fusion PCP:David Specialists:Dax, ortho; Mendoza, cardio; [facility] ur coordinator Preferred Pharmacy: [facility] [place] Insurance: [employer] [facility] Prescription Benefit: yes LNOK: Carl Goodwin, Living Arrangements: Pt lives with in a two story home with 1 step to enter with a grab bar. Pt reports she was I in ADLs and IADLs prior to surgery. Pt denies concerns at home. Transportation: Pt does not drive, provides transportation. DME:3 walkers, 3 canes, shower chair, BGM but has not needed since transplant HHC/SNF: Denies hx of Pt states no concerns with going home at time of dc. able to assist and requests therapy eval with a walker. Therapy aware. Pt states no further concerns/needs. CM to follow. Advised pt to ask CM if any further question/concerns/needs arise, voices understanding. Pt Goal: Home Plan: Home pending therapy tatiana. Branden LARIOS CM
--- NOTE | 2024-02-12 13:31 | PCM.PN.HOSP ---
Reason for Visit Reason for Visit: Neck pain Subjective Subjective Patient is a 73 year old white female who presented ?to [facility] on 02/12/2024 for an elective ACDF at C5-C7 the secondary 2 disc degeneration with stenosis at these levels as well as cord compression and severe myelopathy. She has a history of coronary artery disease with a CABG in 2012 as well as moderate aortic valve stenosis and was evaluated preoperatively with a stress test and echocardiogram done by her orthodontist vice president. She also has a history of kidney/pancreas transplant done in 2013. We have been consulted post operatively for medical management for chronic medical issues. She was evaluated on the medical floor postoperatively. Pt states that she is feeling ok. Pain is fairly well controlled. Objective Data Objective Data Vital Signs: Vital Signs Temp Pulse Resp BP Pulse Ox O2 Del Method O2 Flow Rate 97.6 F L 83 16 141/69 H 98 Nasal Cannula 2 02/12/24 12:36 02/12/24 12:36 02/12/24 12:36 02/12/24 12:36 02/12/24 12:36 02/12/24 12:36 02/12/24 12:36 Oxygen Flow Rate (L/min) 2 Oxygen Delivery Method Nasal Cannula Weight: 43.5 kg Body Mass Index (BMI) 19.3 Intake & Output: Intake and Output for Last 24 Hours 02/10/24 02/11/24 02/12/24 23:59 23:59 23:59 Intake Total 1227.25 / 1227.25 Balance 1227.25 / 1227.25 Lab / Micro Data 01/13/24 12:47 01/13/24 12:47 Labs: Laboratory Results - last 24 hr 02/12/24 06:20: POC Glucose 135 H 02/12/24 10:35: POC Glucose 148 H Micro: Microbiology 01/13/24 12:47 Swab (Method) Nasal Screen MRSA/MSSA - Final Physical Exam Const alert, oriented x3, no apparent distress and average body habitus Constitutional Narrative: Older, WF, sitting up in a chair at the bedside, present, Pt appears comfortable and nontoxic HEENT head/scalp atraumatic Head and Scalp: normocephalic Resp normal respiratory effort, no retractions, no use of accessory muscles and clear to auscultation bilaterally Auscultation: Negative for rales, rhonchi or wheezes Cardio regular rate, regular rhythm, S1 normal heart sound, S2 normal heart sound, no rub, no gallops and no clicks; Negative for no murmurs Cardio Narrative: 4/6 SM GI normal to inspection, nondistended, normoactive bowel sounds, soft to palpation and non-tender Extremity no clubbing, cyanosis or edema Neuro oriented x3 and moves all extremities Speech: speech normal Psych affect normal Psych Narrative: very pleasant Assessment & Plan Assessment/Plan (1) Cervical myelopathy: PLAN: Plan C5 through C7 disc degeneration with stenosis/cord compression/severe myelopathy -management per primary service -recommend bowel regimen -PT/OT per primary service CAD/essential HTN/HPL/moderate aortic valve stenosis/mitral regurgitation -CABGx5 2012 @ [facility] -continue home amlodipine -continue home carvedilol -continue home lisinopril- hydrochlorothiazide -continue home pravastatin H/O complete heart block -has permanent cardiac pacemaker -continue outpatient follow up H/O renal/pancreatic transplant -continue immunosuppression -continue prophylactic antibiotics GERD -Continue home PPI Osteoporosis -restart bisphosphonate at discharge H/O TIA -blood pressure and lipid control as above -continue home aspirin when appropriate for surgery Depression -continue home duloxetine DVT prophylaxis -per primary -would recommend at least SCD's for now until chemoprophylaxis can be initiated Charges/Coding Visit Charges Inpatient E&M: 00422 Subs Hosp L2
--- NOTE | 2024-02-12 13:53 | POSTOPAN2_ITS ---
Anesthesia Postop Eval I Sum Postop Eval Completion status Anesthesia document: Postop Eval 1 completed: Yes Anesthesia Postop Eval I Summary Anesthesia Postop Eval I Summary: Anesthesia Postop Eval I: Assessment Summary Airway patent Yes 02/12/24 10:29 VP [email or web address] Spontaneous unlabored Yes 02/12/24 10:29 VP [email or web address] respirations Mental status Awake,Calm 02/12/24 10:29 VP [email or web address] nausea No 02/12/24 10:29 VP [email or web address] Vomiting No 02/12/24 10:29 VP [email or web address] Anesthesia Postop Eval I: Fluid Summary Crystalloid volume administer 1,200 02/12/24 10:29 VP [email or web address] (ml) Colloids volume administered ( ml) Blood Product volume administered (ml) Total IV fluid infused 1,200 02/12/24 10:29 VP [email or web address] Anesthesia Postop Eval I: Summary Notes Anesthesia Complication No 02/12/24 10:29 VP [email or web address] Anesthesia Complication Comment: Post-operative progress note Anesthesia: Postop Eval II Evaluation Mental status: Awake and Calm Pain Level: 2 nausea: No Vomiting: No Complications Anesthesia Complication: No
--- NOTE | 2024-02-12 13:53 | PCM.POSTANE2 ---
Anesthesia Postop Eval I Sum Postop Eval Completion status Anesthesia document: Postop Eval 1 completed: Yes Anesthesia Postop Eval I Summary Anesthesia Postop Eval I Summary: Anesthesia Postop Eval I: Assessment Summary Airway patent Yes 02/12/24 10:29 DIRECTOR OF RETAIL [email or web address] Spontaneous unlabored Yes 02/12/24 10:29 DIRECTOR OF RETAIL [email or web address] respirations Mental status Awake,Calm 02/12/24 10:29 DIRECTOR OF RETAIL MERCHANDISING.[email or web address] nausea No 02/12/24 10:29 DIRECTOR OF RETAIL MERCHANDISING.[email or web address] Vomiting No 02/12/24 10:29 DIRECTOR OF RETAIL MERCHANDISING.[email or web address] Anesthesia Postop Eval I: Fluid Summary Crystalloid volume administer 1,200 02/12/24 10:29 DIRECTOR OF RETAIL [email or web address] (ml) Colloids volume administered ( ml) Blood Product volume administered (ml) Total IV fluid infused 1,200 02/12/24 10:29 DIRECTOR OF RETAIL [email or web address] Anesthesia Postop Eval I: Summary Notes Anesthesia Complication No 02/12/24 10:29 DIRECTOR OF RETAIL MERCHANDISING.[email or web address] Anesthesia Complication Comment: Post-operative progress note Anesthesia: Postop Eval II Evaluation Mental status: Awake and Calm Pain Level: 2 nausea: No Vomiting: No Complications Anesthesia Complication: No
[2024-02-12] MEDS: dexAMETHasone 4 MG/ML Vial IV ×2 (14:42→21:03)
[2024-02-12] MEDS: Folic Acid 1 MG Tablet PO (15:04)
[2024-02-12] MEDS: Methocarbamol 500 MG Tablet 1000 MG PO ×2 (15:04→21:08)
[2024-02-12] MEDS: Pantoprazole Sodium 40 MG Tablet PO (15:04)
[2024-02-12] MEDS: Smz/Tmp Ds Tablet 0.5 TABLET PO (15:05)
[2024-02-12] MEDS: Ondansetron 4 MG/2 ML Vial IV (16:44)
[2024-02-12] MEDS: Morphine 4 MG/ML Syringe IV (16:57)
--- NOTE | 2024-02-12 17:04 | NURSING ---
Pt was up to chair for approximately 2 hrs. pt became hot and dry heaved. Zofran given. Assisted to bathroom, voided but missed measuring hat. Pt was incont of mod of urine prior to toileting while pt was dry heaving. Back to bed now;. Bed exit alarm on.
[2024-02-12] MEDS: Senna/Docusate Sodium 1 Tablet 2 TABLET PO (21:07)
[2024-02-12] MEDS: DULoxetine Hcl 30 MG Capsule PO (21:07)
[2024-02-12] MEDS: Mycophenolate Mofetil 250 MG Capsule PO (21:07)
[2024-02-12] MEDS: Carvedilol 6.25 MG Tablet PO (21:07)
[2024-02-12] MEDS: Pravastatin 20 MG Tablet PO (21:07)
[2024-02-12] MEDS: Tacrolimus Anhydrous 1 MG Capsule PO (21:07)
[2024-02-13] MEDS: Cefazolin 2 GM in 0.9% Normal Saline (100mL Bag) 100 ML IV (00:49)
[2024-02-13] MEDS: Lactated Ringers 1,000 ML 100 ML IV (00:51)
[2024-02-13] MEDS: oxyCODONE 5 MG Tablet PO ×2 (00:52→06:12)
[2024-02-13 00:53] VITALS: BP 168/73; PULSE 95; RESP 18; TEMP 36.8; O2SAT 96
[2024-02-13] MEDS: Morphine 2 MG/ML Syringe IV (03:34)
[2024-02-13 03:47] VITALS: BP 164/91; PULSE 97; RESP 22; TEMP 36.8; O2SAT 97
[2024-02-13 06:08] VITALS: BP 163/77; PULSE 94; RESP 18; TEMP 36.7; O2SAT 96
[2024-02-13] MEDS: Acetaminophen 500 MG Tablet 1000 MG PO (06:13)
[2024-02-13 07:19] LABS: Hematocrit 34.3 % (37-47); Hemoglobin 10.9 g/dL (12.0-15.0); Mean Corp Hgb Conc 31.8 g/dL (32-36); Mean Corpuscular Hgb 29.5 pg (27.0-32.0); Mean Platelet Vol. 10.5 fl (6.2-12.0); Platelet Count 231 K/mm3 (150-450); RBC Distribution Width CV 13.1 % (11.6-14.6); RBC Distribution Width SD 45.1 fl (35.1-43.9); Red Blood Count 3.69 M/mm3 (4.2-5.4); White Blood Count 11.4 K/mm3 (4.4-11.0)
[2024-02-13 07:46] LABS: Anion Gap 7 (5-15); BUN 24 mg/dL (7-18); BUN/Creat Ratio 19.2 RATIO (10-20); Calcium,Total 8.7 mg/dL (8.5-10.1); Chloride 100 mmol/L (98-107); Creatinine, Serum 1.25 mg/dL (0.55-1.02); EST Glomerular Filtration Rate 44 mL/min (>60); Est Glom Filt Rate - Afr Amer 54 mL/min (>60); Estimated Creatinine Clearance 27.12 ml/min; Glucose 144 mg/dL (74-106); Potassium 4.9 mmol/L (3.5-5.1); Sodium Level 130 mmol/L (136-145)
[2024-02-13 08:16] VITALS: O2SAT 97
[2024-02-13 08:36] VITALS: BP 153/77; PULSE 94; RESP 18; TEMP 36.6; O2SAT 98
[2024-02-13] MEDS: Smz/Tmp Ds Tablet 0.5 TABLET PO (08:51)
[2024-02-13] MEDS: Mycophenolate Mofetil 250 MG Capsule PO (08:52)
[2024-02-13] MEDS: amLODIPine 10 MG Tablet PO (08:52)
[2024-02-13] MEDS: Methocarbamol 500 MG Tablet 1000 MG PO (08:52)
[2024-02-13] MEDS: Tacrolimus Anhydrous 1 MG Capsule PO (08:52)
[2024-02-13] MEDS: Pantoprazole Sodium 40 MG Tablet PO (08:52)
[2024-02-13] MEDS: hydroCHLOROthiazide 25 MG Tablet PO (08:52)
[2024-02-13] MEDS: Carvedilol 6.25 MG Tablet PO (08:52)
[2024-02-13] MEDS: DULoxetine Hcl 30 MG Capsule PO (08:52)
[2024-02-13] MEDS: Folic Acid 1 MG Tablet PO (08:52)
[2024-02-13] MEDS: Lisinopril 20 MG Tablet PO (08:53)
[2024-02-13] MEDS: Senna/Docusate Sodium 1 Tablet 2 TABLET PO (08:53)
--- NOTE | 2024-02-13 10:34 | RAD_ITS ---
EXAM: XR CERVICAL SPINE, 2 OR 3 VIEWS CLINICAL INDICATION: s/p acdf -- pls do upright AP, Lat TECHNIQUE: Frontal and lateral views of the cervical spine. COMPARISON: XR Cervical Spine dated 11/04/2023 FINDINGS: VERTEBRAE: See below. DISC SPACES: Interval anterior surgical fusion of C5, C6 and C7 with disc implantation. Prominent degenerative narrowing and facet arthropathy at the C3-4 and C4-5 levels again seen. SOFT TISSUES: Normal. No prevertebral soft tissue widening. LUNG APICES: Clear. RAD/Cerv Spine 2 or 3 Views IMPRESSION: Postoperative and degenerative changes. No acute abnormality. Electronically Signed: Chuckie Ramirez MD at 12:14 EDT ,
[2024-02-13 12:08] VITALS: BP 160/75; PULSE 78; RESP 18; TEMP 36.6; O2SAT 100
--- NOTE | 2024-02-13 12:08 | PCM.PN.ORT ---
Subjective Subjective Postop day 1 status post C5-7 ACDF. Pain well-controlled. Denies significant dysphagia. Ambulated with walker with PT. Objective Data Objective Data Vital Signs: Vital Signs Temp Pulse Resp BP Pulse Ox O2 Del Method O2 Flow Rate 98 F 94 18 153/77 H 98 Room Air 2 02/13/24 08:36 02/13/24 08:36 02/13/24 08:36 02/13/24 08:36 02/13/24 08:36 02/13/24 08:36 02/12/24 20:55 FiO2 98 02/12/24 12:36 Oxygen Flow Rate (L/min) 2 Oxygen Delivery Method Room Air Weight: 95 lb 14.417 oz Body Mass Index (BMI) 19.3 Intake & Output: Intake and Output for Last 24 Hours 02/11/24 02/12/24 02/13/24 23:59 23:59 23:59 Intake Total 2577.25 / 2777.25 1251.67 / 1251.67 Output Total 1000 / 1000 Balance 2577.25 / 2177.25 251.67 / 251.67 Lab / Micro Data 02/13/24 06:53 02/13/24 06:53 Labs: Laboratory Results - last 24 hr 02/13/24 06:53: WBC 11.4 H, RBC 3.69 L, Hgb 10.9 L, Hct 34.3 L, MCV 93.0, MCH 29.5, MCHC 31.8 L, RDW Std Deviation 45.1 H, RDW Coeff of Jenny 13.1, Plt Count 231, MPV 10.5, Sodium 130 L, Potassium 4.9, Chloride 100, Carbon Dioxide 23.0, Anion Gap 7, BUN 24 H, Creatinine 1.25 H, Estim Creat Clear Calc 27.12, Est GFR (MDRD) Af Amer 54 L, Est GFR (MDRD) Non-Af 44 L, BUN/Creatinine Ratio 19.2, Glucose 144 H, Calcium 8.7 Micro: Microbiology 01/13/24 12:47 Swab (Method) Nasal Screen MRSA/MSSA - Final Radiography Diagnostic Testing: Radiology Impression Cervical Spine X-Ray 02/12/24 06:30 IMPRESSION: Fluoroscopy during anterior cervical discectomy and fusion. Electronically Signed: Irwin Teixeira MD at 17:14 EDT , Physical Exam Narrative Dressing?sanguinous saturation. Dressing was removed. [place] drain was removed and new dressing was applied. Neurologic evaluation of upper extremity shows 5 x 5 power normal shows normal sensations in all dermatomes. Vane's negative. Assessment & Plan Assessment/Plan (1) S/P cervical spinal fusion: PLAN: Plan Postop day 1 status post C5-7 ACDF. X-rays done, reviewed. [place] drain removed. PT OT cleared. Okay to discharge home and follow-up in clinic in 2 weeks.
== END 2024-02-13 13:21 | disposition home or self-care (01) | DRG 472 ==
LOC: MS3 12:30
PROVIDERS: Anesthesiology; Admitting Provider Orthopaedic Surgery Orthopaedic Surgery of the Spine; PCP Family Medicine; Referring Provider Orthopaedic Surgery Orthopaedic Surgery of the Spine; Visit Provider Orthopaedic Surgery Orthopaedic Surgery of the Spine
PROC: 0RG20A0 Fusion of 2 or more Cervical Vertebral Joints with Interbody Fusion Device, Anterior Approach, Anterior Column, Open Approach (ICD-10-PCS; CPT 22551; principal; 2024-02-12 07:00)
DX: M50.022 Cervical disc disorder at C5-C6 level with myelopathy (principal); Z94.0 Kidney transplant status; Z94.83 Pancreas transplant status; I10 Essential (primary) hypertension; I35.0 Nonrheumatic aortic (valve) stenosis; F32.A Depression, unspecified; M48.02 Spinal stenosis, cervical region; I25.10 Atherosclerotic heart disease of native coronary artery without angina pectoris; K21.9 Gastro-esophageal reflux disease without esophagitis; E78.00 Pure hypercholesterolemia, unspecified; M81.0 Age-related osteoporosis without current pathological fracture; Z95.0 Presence of cardiac pacemaker; Z95.1 Presence of aortocoronary bypass graft; Z79.82 Long term (current) use of aspirin; Z79.899 Other long term (current) drug therapy; Z86.73 Personal history of transient ischemic attack (TIA), and cerebral infarction without residual deficits
CPT/HCPCS: 36415; 72040; 76000; 80048; 80076; 82962; 83735; 85025; 85027; 85610; 85730; 86703; 86706; 86708; 86803; 86850; 86900; 86901; 87081; 94668; 97116; 97162; 97166; 97530; C1713; J7030; J7120; J2405; J3475

== ENCOUNTER 2024-02-15 09:43 | Inpatient (IN) | payer MEDICARE, SELFPAY ==
[2024-02-15] VITALS (10 sets, daily range): BP systolic 152–197; BP diastolic 71–89; PULSE 82–102; RESP 16–18; TEMP 35.9–37.2; O2SAT 95–100; BMI 18.3
--- NOTE | 2024-02-15 14:31 | CT_ITS ---
STUDY: CT SOFT TISSUE NECK WITHOUT CONTRAST REASON FOR EXAM: Female, 73 years old. Dysphasia.. The patient is status post anterior fusion with screw and plate fixation device and prosthetic disc at the C5-C6 and C6-C7 levels. RADIATION DOSAGE (If Supplied By Facility): CTDIvol = ( 8.82 ) mGy, DLP = ( 284.20 ) mGycm TECHNIQUE: The patient was scanned in a multi-detector CT scanner. High resolution transaxial imaging was performed without the administration of intravenous contrast material. Sagittal and coronal images were reconstructed. Individualized dose optimization techniques were used for this CT. COMPARISON: None. FINDINGS: There is diffuse soft tissue swelling more prominent on the left side. Air is seen within the soft tissues most likely secondary to recent surgical intervention. There is also evidence of a soft tissue swelling in the prevertebral space suggestive of possible hematoma formation. Normal visualized paranasal sinuses. The patient is status post anterior fusion with screw and plate fixation device and prosthetic disc at the C5-C6 and C6-C7 levels. Loss of the normal cervical lordosis. Mild compromise of the subglottic airway. Extensive plaque calcification of the aortic bifurcations bilaterally. CT/Soft Tissue Neck without Contr IMPRESSION: Status post anterior fusion at the C5-C6 and C6-C7 levels. Diffuse cervical soft tissue swelling as described and possible hematoma in the prevertebral soft tissues worse on the left side of the midline most likely secondary to recent surgical intervention. Mild compromise of the subglottic airway. Extensive carotid plaque formation. Electronically Signed: Trevin Mtz MD at 15:21 EDT ,
--- NOTE | 2024-02-15 14:34 | NURSING ---
MED SURG OBS GARAY DYSPHAGIA
--- NOTE | 2024-02-15 14:35 | NURSING ---
MED SURG OBS GARAY DYSPALGIA
[2024-02-15 14:52] LABS: Absolute Lymphocyte Count 1.02 X10^3/uL (0.83-4.51); Absolute Neutrophil Count 9.5 X10^3/uL (2.0-7.7); Basophil# 0.04 X10^3/uL; Basophil% 0.3 % (0-1); Eosinophil# 0.04 X10^3/uL; Eosinophils% 0.3 % (0-5); Hematocrit 31.8 % (37-47); Hemoglobin 10.2 g/dL (12.0-15.0); Lymphocyte # 1.02 X10^3/ul (0.83-4.51); Lymphocyte % 8.3 % (19-41); Mean Corp Hgb Conc 32.1 g/dL (32-36); Mean Corpuscular Hgb 28.8 pg (27.0-32.0); Mean Corpuscular Volume 89.8 fL (81-99); Mean Platelet Vol. 9.8 fl (6.2-12.0); Monocyte# 1.59 X10^3/uL; NRBC Flagged by Analyzer 0 % (0-5); Neutrophil # 9.48 X10^3/uL (2.7-7.7); Neutrophil % 77.5 % (47-70); POSITIVE DIFFERENTIAL YES; Platelet Count 206 K/mm3 (150-450); RBC Distribution Width CV 12.6 % (11.6-14.6); RBC Distribution Width SD 41.6 fl (35.1-43.9); Red Blood Count 3.54 M/mm3 (4.2-5.4); White Blood Count 12.2 K/mm3 (4.4-11.0)
[2024-02-15 14:54] LABS: Differential Indicated SCAN CRITERIA MET
--- NOTE | 2024-02-15 15:02 | EX.ED.DYSGE1 ---
HPI History of Present Illness Chief Complaint: Other, Pain/Inj Narrative Narrative: 73-year-old female sent in by Dr. Fiore for evaluation. She states that overnight she noticed she is having more trouble swallowing. She is not able to eat food or drink fluids and started to choke on this. Initially she was on a soft diet which he was discharged from the hospital after having surgery with Dr. Verduzco. Patient advance her diet was eating well up until yesterday. She does not feel nauseous. She is not having pain. She states that she feels as if her throat is a little swollen. Patient had anterior cervical discectomy at C5-7 with anterior fusion of C5-C6 and plate instrumentation at C5-7. Patient is able to tolerate her own secretions. [facility] Medical History Diabetes Bruising Back pain Blackout Gastric reflux History of pain when walking Fatigue Wears hearing aid Wears glasses Cancer Ambulates with cane Arthritis High cholesterol Easy bruising Non-smoker History of stress test History of echocardiogram Cardiology follow-up encounter HLD (hyperlipidemia) Spinal stenosis of lumbar region at multiple levels Scoliosis of lumbar region due to degenerative disease of spine in adult Low back pain DDD (degenerative disc disease) High degree atrioventricular block TIA (transient ischemic attack) Chest pain Non-rheumatic mitral regurgitation Nonrheumatic aortic (valve) stenosis RBBB (right bundle branch block) Atherosclerotic heart disease of [place] coronary artery without angina pectoris Gastroesophageal reflux disease Benign hypertension Home Medications ?Medication ?Instructions ?Recorded ?Last Taken ?Type cyanocobalamin (vitamin B-12) 100 mcg IM QMONTH vitamin 07/10/20 01/22/24 History 1,000 mcg/mL injection solution folic acid 1 mg tablet 1 mg PO DAILY supplement 07/10/20 02/11/24 History pravastatin 20 mg tablet 20 mg PO QHS cholesterol 07/10/20 02/11/24 History sulfamethoxazole 400 1 tab PO DAILY ANTI REJECTION 07/10/20 02/11/24 History mg-trimethoprim 80 mg tablet (Bactrim) tacrolimus 0.5 mg capsule, 1 mg PO Q12H anti rejection 07/10/20 02/11/24 History immediate-release cholecalciferol (vitamin D3) 25 25 mcg PO DAILY vitamin 07/12/20 02/11/24 History mcg (1,000 unit) capsule aspirin 81 mg tablet,delayed 81 mg PO DAILY heart health 10/09/20 02/07/24 History release (Adult Low Dose Aspirin) mycophenolate mofetil 250 mg 250 mg PO BID anti rejection 09/25/22 02/11/24 History capsule amlodipine 10 mg tablet 10 mg PO DAILY BP 11/20/22 02/12/24 04:20 History lisinopril 20 1 tab PO DAILY BP #90 tabs 05/07/23 02/11/24 Rx mg-hydrochlorothiazide 25 mg tablet carvedilol 6.25 mg tablet 6.25 mg PO BID HEART #180 tabs 08/05/23 02/12/24 04:20 Rx ibandronate 150 mg tablet 150 mg PO QMONTH [facility] 08/05/23 Unknown History omeprazole 40 mg capsule,delayed 40 mg PO DAILY GERD 08/05/23 02/12/24 04:20 History release duloxetine 30 mg capsule,delayed 30 mg PO BID DEPRESSION 01/13/24 02/12/24 04:20 History release acetaminophen 500 mg tablet 500 mg PO Q6H 7 days #28 tabs 02/13/24 Unknown Rx methocarbamol 500 mg tablet 750 mg (1.5 x 500 mg) PO TID PRN 02/13/24 Unknown Rx pain/spasms 7 days #28 tabs oxycodone 5 mg tablet 2.5 - 5 mg (0.5 - 1 x 5 mg) PO Q6H 02/13/24 Unknown Rx PRN pain 7 days #28 tabs sennosides 8.6 mg-docusate sodium 2 tab PO BID PRN constipation 7 02/13/24 Unknown Rx 50 mg tablet (Stimulant Laxative days #28 tabs Plus) Allergy/AdvReac Type Severity Reaction Status Date / Time Seasonal Allergies: Uncoded Allergy Other Verified 02/15/24 09:44 Family History Father CAD (coronary artery disease) Mother Dementia Surgical History S/P insertion of sacral nerve stimulator (~11/2022) Presence of permanent cardiac pacemaker (~01/28/22) History of umbilical hernia repair (~03/01/20) History of right breast biopsy (~11/23/03) Cataract extraction status History of repair of rotator cuff (~08/31/09) History of eye surgery (~01/07/05) History of pancreatectomy (~03/2004) History of kidney transplant (~03/2004) History of coronary artery bypass surgery (~07/29/12) Status post pancreas transplantation (~05/25/05) Social History household members: spouse Smoking Status: Never smoker alcohol intake: current alcohol intake frequency: a few times a week substance use type: does not use caffeine: Yes Type: coffee Number of servings: 3 ROS ROS ED Constitutional Constitutional ED: Denies chills, fever(s) or sweats Eyes Eyes: Denies blurry vision or change in vision ENT ENT ED: Reports other Details: Difficulty swallowing ; Denies ear pain or sore throat Cardiovascular Cardiovascular: Denies chest pain, palpitations or racing heartbeat Respiratory/Chest Respiratory/Chest: Denies cough, dyspnea or sputum Gastrointestinal Gastrointestinal: Denies abdominal pain, constipation, diarrhea, nausea or vomiting Genitourinary Genitourinary ED: Denies dysuria, hematuria or urinary frequency Musculoskeletal Musculoskeletal: Denies arthralgias, myalgias or neck pain Integumentary Denies abscess, Abrasions or rash Neurologic Neurologic: Denies headache(s), paresthesias or weakness Psychiatric Psychiatric: Denies anxiety, depression, suicidal ideation or suicidal thoughts Endocrine Endocrinology: Denies polydipsia or polyuria EXAM Physical Exam Const Vital Signs: 02/15/24 09:45 02/15/24 09:53 02/15/24 11:44 Temperature 96.6 F L Temperature Source Temporal Pulse Rate 92 88 Respiratory Rate 18 16 Respiratory Effort Normal Respiratory Pattern Normal Blood Pressure 152/80 H 170/89 H Blood Pressure Mean 104 116 Pulse Ox 99 98 Oxygen Delivery Method Room Air Room Air 02/15/24 13:00 Temperature Temperature Source Pulse Rate 84 Respiratory Rate 16 Respiratory Effort Respiratory Pattern Blood Pressure 161/74 H Blood Pressure Mean 103 Pulse Ox 97 Oxygen Delivery Method Room Air Positive well nourished General Appearance ED: NAD; Negative for pallor HEENT Reports dry mucous membranes Nose: external nose normal Mouth ED: Yes oral and palatal mucosa normal, Yes lips normal, Yes tongue normal, Yes salivary gland normal and Yes dry mucous membranes Mouth: oral and palatal mucosa normal, lips normal, tongue normal, salivary gland normal and dry mucous membranes Eyes PERRL Resp normal respiratory effort and clear to auscultation bilaterally Cardio regular rate and regular rhythm GI normal to inspection, nondistended, normoactive bowel sounds Neuro oriented x3 and CN's II-XII intact bilaterally Sensorium / Orientation: alert Psych mental status grossly normal Skin no rashes or lesions noted General Skin Exam: Negative for jaundice or pallor MDM MDM MDM Narrative Medical decision making narrative: Patient evaluated for difficulty swallowing. Initially I spoke with Dr. Verduzco who asked me to get speech evaluation. Speech was in it the room and tried to look at her vocal cords but there is too much swelling. Patient was unable to swallow. At this point we added lab work including a CBC to assess white blood cell count, hemoglobin, platelets. BMP to assess renal function and electrolytes. Dr. Verduzco requested that I give 10 of IV Decadron. We obtained CT of the soft tissue of the neck without contrast per his request which showed diffuse cervical soft tissue swelling possibly a hematoma. Patient is protecting her airway. She is speaking in full sentences. Her vital signs are stable and she is not hypoxic or tachypneic. Discussed the case with Dr. Verduzco who will admit the patient for monitoring in the PCU. He did not believe this was a hematoma. Impression: 1. Postoperative soft tissue swelling Lab Data Attestation: I reviewed the patient's lab results. Labs: Laboratory Results - last 24 hr 02/15/24 14:35 Diff Path Review Reviewed Radiography Diagnostic Testing: Clinical Impression(s) from Imaging Studies Soft Tissue Neck CT 02/15/24 14:31 IMPRESSION: Status post anterior fusion at the C5-C6 and C6-C7 levels. Diffuse cervical soft tissue swelling as described and possible hematoma in the prevertebral soft tissues worse on the left side of the midline most likely secondary to recent surgical intervention. Mild compromise of the subglottic airway. Extensive carotid plaque formation. Electronically Signed: Trevin Mtz MD at 15:21 EDT , Discharge Plan Disposition Disposition: Acute Care Hospital [facility] Discharge Date/Time: 02/15/24 17:29
[2024-02-15 15:10] LABS: Anion Gap 6 (5-15); BUN 17 mg/dL (7-18); BUN/Creat Ratio 18.4 RATIO (10-20); Chloride 90 mmol/L (98-107); Creatinine, Serum 0.93 mg/dL (0.55-1.02); EST Glomerular Filtration Rate 63 mL/min (>60); Est Glom Filt Rate - Afr Amer 76 mL/min (>60); Glucose 94 mg/dL (74-106); Potassium 4.5 mmol/L (3.5-5.1); Sodium Level 124 mmol/L (136-145)
[2024-02-15] MEDS: dexAMETHasone 10 MG/ML Vial IV ×2 (15:14→21:18)
--- NOTE | 2024-02-15 15:24 | PCM.PN.HOSP ---
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, Hx renal txp and Hx pancreas transplant on chronic CellCept and tacrolimus regimen, GERD, CAD s/p CABG, Hx TIA, Hx Diabetes mellitus who presents to the [facility] ED on 02/15/2024 with history of recent cervical spinal fusion with C5-7 anterior cervical discectomy and fusion with plate instrumentation secondary to underlying history of cervical myelopathy on 02/12/24 who now represents secondary to history of onset over the last 12 hours difficulty swallowing, unable to eat or drink any fluids if she starts to choke with also altered hoarse voice with some mild throat discomfort but no recent fevers or chills but given not improving and worsening prompted ED evaluation. Workup in the ED included T96.6, heart rate 92, BP 152/80, respiratory rate 18, 99% room air, CBC with WBC 12.2, hemoglobin 10.2, MCV 89.8, platelet 206 with left shift, BMP with sodium 124, chloride 90 otherwise unremarkable, CT neck soft tissue without contrast with noted evidence status post anterior fusion at the C5-6 and C6-7 levels, diffuse cervical soft tissue swelling with a possible hematoma in the prevertebral soft tissues worse on the left side of the midline most likely secondary to recent intervention, mild compromise of the subglottic airway, extensive carotic plaque formation. Patient admitted per Dr. Verduzco with recent surgical intervention history per his service. In the ED, ED physician and Dr. Verduzco requested evaluation for speech therapy. In the ED patient administered Decadron 10 mg IV x 1, Zofran 4 mg IV x 1, morphine 4 mg IV x 1 and metoprolol 5 mg IV x 1. Orthopedic surgery requested Hospitalist service consultation. In the ED patient currently denies fevers, chills, nausea, emesis, abdominal pain, chest pain or dyspnea. Objective Data Objective Data Vital Signs: Vital Signs Temp Pulse Resp BP Pulse Ox O2 Del Method 96.6 F L 84 18 178/73 H 96 Room Air 02/15/24 09:45 02/15/24 15:00 02/15/24 15:00 02/15/24 15:00 02/15/24 15:00 02/15/24 15:00 Oxygen Delivery Method Room Air Lab / Micro Data 02/15/24 14:35 02/15/24 14:35 Labs: Laboratory Results - last 24 hr 02/15/24 14:35: WBC 12.2 H, RBC 3.54 L, Hgb 10.2 L, Hct 31.8 L, MCV 89.8, MCH 28.8, MCHC 32.1, RDW Std Deviation 41.6, RDW Coeff of Jenny 12.6, Plt Count 206, MPV 9.8, Immature Gran % (Auto) 0.600, Neut % (Auto) 77.5 H, Lymph % (Auto) 8.3 L, [place] % (Auto) 13.0 H, Eos % (Auto) 0.3, Baso % (Auto) 0.3, Absolute Neuts (auto) 9.5 H, Absolute Lymphs (auto) 1.02, Nucleated RBC % 0, Differential Comment COMMENT, Diff Path Review November foll, Sodium 124 L, Potassium 4.5, Chloride 90 L, Carbon Dioxide 28.0, Anion Gap 6, BUN 17, Creatinine 0.93, Est GFR (MDRD) Af Amer 76, Est GFR (MDRD) Non-Af 63, BUN/Creatinine Ratio 18.4, Glucose 94, Calcium 9.0 Radiography Diagnostic Testing: Radiology Impression Soft Tissue Neck CT 02/15/24 14:31 IMPRESSION: Status post anterior fusion at the C5-C6 and C6-C7 levels. Diffuse cervical soft tissue swelling as described and possible hematoma in the prevertebral soft tissues worse on the left side of the midline most likely secondary to recent surgical intervention. Mild compromise of the subglottic airway. Extensive carotid plaque formation. Electronically Signed: Trevin Mtz MD at 15:21 EDT , Physical Exam Narrative Physical Examination: General: Awake, alert, oriented x 3 and cooperative, seated upright in the ED bed in no apparent distress, No evidence of any airway compromise, fatigued, hoarse voice evident. Skin: Normal color, normal turgor, no icterus, no cyanosis except very staged ecchymoses, abrasions. HEENT: AT/NC, EOMI, PERRLA, dry MM, posterior oropharynx with some erythema but no acute findings and some difficulty viewing the region given inability to open her mouth wide secondary to neck brace in place, status post recent cervical fusion with anterior dressings in place with no active drainage, difficult to assess JVD and carotid bruit given neck brace in place. Lungs: Diminished, distant, no evidence of any distress, no rales, ronchi or wheezing. Heart: Regular rate and rhythm; no gallop, rub audible, + SM Abdomen: Soft, thin habitus, NTTP, ND, mildly hyperactive BS, no appreciated HSM. Extremities: No cyanosis, clubbing, or edema. Neurological: Patient awake, alert, oriented as noted, cognitive function intact; pupils equally reactive to light and accommodation, cranial nerves grossly normal, moving all 4 extremities, no focal deficits, strength moderately to severely global decreased given recent surgery and acute presentation. Psychiatric: Affect appears flat, fatigued, no acute evidence of depressive or anxiety feelings. 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, Hx renal txp and Hx pancreas transplant on chronic CellCept and tacrolimus regimen, GERD, CAD s/p CABG, Hx TIA, Hx Diabetes mellitus who presents to the [facility] ED on 02/15/2024 with history of recent cervical spinal fusion with C5-7 anterior cervical discectomy and fusion with plate instrumentation secondary to underlying history of cervical myelopathy on 02/12/24 who now represents secondary to history of onset over the last 12 hours difficulty swallowing, unable to eat or drink any fluids if she starts to choke with also altered hoarse voice with some mild throat discomfort but no recent fevers or chills but given not improving and worsening prompted ED evaluation. #1. Acute dysphagia with diffuse cervical soft tissue swelling and possible hematoma in the prevertebral soft tissues with mild compromise of the subglottic airway: Onset over the last 12 hours status post recent cervical surgery, admitted per primary service orthopedic surgery, maintain on telemetry monitoring, maintain on continuous airway monitoring, continue scheduled Decadron therapy, speech therapy ongoing assessments, ENT per orthopedic surgery discretion, maintain n.p.o. status, transitioning medications to IV options as able, maintain on aspiration precautions. #2. Cervical myelopathy status post recent cervical spinal fusion: Status post recent C5-7 anterior cervical discectomy and fusion with plate instrumentation, continue neck brace per primary service Dr. Verduzco parameters, continue PT/OT in addition to ST given presentation as noted, will have IV pain regimen only given unsafe current oral intake, incision/dressing care per Dr. Verduzco discretion. #3. Hypertension, uncontrolled given lack of recent oral antihypertensive regimen: Temporarily holding all oral hypertensive regimen including amlodipine, Coreg, lisinopril, hydrochlorothiazide, will have IV scheduled Lopressor with hold parameters and as needed IV hydralazine. #4. History of renal transplant, history of pancreatic transplant: Patient status post pancreatectomy with pancreatic and kidney transplant history per report in 2003, given current presentation with inability for oral intake will temporally hold patient tacrolimus and CellCept regimen, resume once clinically appropriate for oral intake, not on any chronic steroid therapy per current list, utilizes chronic suppressive Bactrim which will also be held but low threshold to transition to IV antibiotic therapy if needed. #5. History high degree AV block/complete heart block: Status post pacemaker status, encourage continued outpatient follow-up with cardiology as previously arranged. #6. Hx TIA: Temporarily holding aspirin, if long-term low threshold to transition to TX but given possible need for scoping will temporally hold out right, temporarily holding statin hypertensive regimen, resume once clinically appropriate. #7. CAD: Status post CABG in 2012, temporally holding aspirin, if long-term low threshold to transition to TX but given possible need for scoping will temporally hold out right, temporally holding statin therapy, Coreg and lisinopril, resume once clinically appropriate. #8. Anxiety and depression: Temporally holding home Cymbalta regimen given unsafe oral intake, resume once clinically appropriate. #9. Hyperlipidemia: Temporarily holding patient on statin therapy. #10. History of diabetes: Unclear exact extent, unclear if previous on insulin therapy or only oral, status post pancreatectomy as noted, not on any chronic regimen currently, blood sugar upon presentation 94, will defer aggressive Accu-Cheks and sliding scale but if repeat labs in the a.m. concerning low threshold to add. #11. Carotid disease: Recent carotid duplex ultrasound 01/15/2024 with calcific irregular plaque in the proximal right ICA with less than 50% stenosis, less than 50% stenosis right external carotid artery, regular calcific plaque at the proximal left ICA with less than 50% stenosis, less 50% stenosis left external carotid artery, patent antegrade flow bilateral vertebrals, as noted temporally holding aspirin, statin, hypertensive regimen. #12. Valvular heart disease: Most recent echocardiogram noted 01/14/2024 with EF 70%, diastolic function indeterminate, mild eccentric LVH, mild MV stenosis, moderate MV insufficiency, mild TVI, moderate aortic stenosis, mild AV insufficiency. #13. GERD: Will maintain on IV PPI given presentation. #14. DVT prophylaxis: SCDs given noted hematoma on imaging status post recent OR to be cautious and unclear if may be scope will be necessary. #15. CODE status: Patient HCPOA and living will are not in place but her who is present would be her decision-maker if necessary. Discussed CODE status at length including difference between FULL code, DNR-CCA and DNR-CC status. Following discussions about the differences in these status, requested Full Code status. Charges/Coding Visit Charges Inpatient E&M: 63318 Subs Hosp L3
[2024-02-15] MEDS: Morphine 4 MG/ML Syringe IV (15:37)
[2024-02-15] MEDS: Ondansetron 4 MG/2 ML Vial IV (15:37)
--- NOTE | 2024-02-15 15:38 | SP.FEES_ITS ---
FEES Patient Information Date of Evaluation: 02/15/24 Time of Evaluation: 14:00 Diagnosis: Dysphagia R13.10 Referring Physician: French Molina Staff Providing this Care/Treatment:: YANETH Direct Billable Minutes: 100 History: Past Medical History:: PMH: Diabetes, Bruising, Back pain, Blackout, Gastric reflux, History of pain when walking, Fatigue, Wears hearing aid, Wears glasses, Cancer, Ambulates with cane, Arthritis, High cholesterol, Easy bruising, Non- smoker, History of stress test, History of echocardiogram, Cardiology follow-up encounter, HLD, Spinal stenosis of lumbar region at multiple levels, Scoliosis of lumbar region due to degenerative disease of spine in adult, Low back pain, DDD, High degree atrioventricular block, TIA, Chest pain, Non-rheumatic mitral regurgitation, Nonrheumatic aortic (valve) stenosis, RBBB, Atherosclerotic heart disease of [place] coronary artery without angina pectoris, GERD, Benign hypertension. Surgical Hx: S/P insertion of sacral nerve stimulator (~11/2022), Presence of permanent cardiac pacemaker (~01/28/22), History of umbilical hernia repair (~03/01/20), History of right breast biopsy (~11/23/03), Cataract extraction status, History of repair of rotator cuff (~08/31/09), History of eye surgery (~01/07/05), History of pancreatectomy (~03/2004), History of kidney transplant (~03/2004), History of coronary artery bypass surgery (~07/29/12), Status post pancreas transplantation (~05/25/05). Pt presented to [facility] ED with inability to swallow anything that was not food or drink. Pt is 3 days s/p anterior cervical discectomy and fusion for C5-C7 disc degeneration w/ stenosis, cord compression, and severe myelopathy. Per patient and , she had resumed an oral diet after surgery and was even consuming soft solids and liquids on the evening of 02/14/24; however, when she woke up today she could only swallow her own saliva and her voice was hoarse. ASSEMBLY LEAD PERSON was consulted in the ED for BSE; however, ASSEMBLY LEAD PERSON requested FEES order from physician to objectively assess oropharyngeal anatomy and aspiration risk. Current Diet: Comment:: Pt unable to swallow anything but her saliva per patient report. Respiratory Status Observation:: Room air Vocal Quality: Observations:: Hoarse Cognition: Observations:: WNL Position During FEES: Position During FEES:: Upright Location: In Bed Fiberoptic Endoscope: Size: 3.4 mm Nare Used:: Right Anatomical Findings: Anatomical Findings:: The scope was passed through the R nare without difficulty; however, ASSEMBLY LEAD PERSON observed a white, irregular-textured, raised excrescence on the R side of the R inferior turbinate. Upon entering the nasopharynx, the posterior pharyngeal wall appeared bruised. The oropharynx, laryngeal vestibule, and hypopharynx had such severe edema it was difficult to visualize structures other than the posterior pharyngeal wall and epiglottis. During task for inhalation followed by phonation, the ASSEMBLY LEAD PERSON was able to visualize an edematous L arytenoid cartilage and the L true vocal fold briefly. Secretions: Description:: Thin and Clear Penetration-Aspiration Scale Penetration-Aspiration Scale Thin Liquids by Teaspoon Food/Drink Provided:: ASSEMBLY LEAD PERSON trialed ice chip as the patient appeared to be managing her own secretions at bedside. Pt did not cope well with ice chip, began choking on ice chip, and had a difficult time eliciting a cough and breathing. ASSEMBLY LEAD PERSON alerted RN who attended quickly to the patient as ASSEMBLY LEAD PERSON removed scope. The patient's SpO2 briefly dropped to mid 80s and then recovered to the 90s. ASSEMBLY LEAD PERSON discontinued further trials and concluded the assessment. Diagnosis/Impressions Diagnosis: Severe pharyngeal phase dysphagia R13.13 Impressions: Pt is currently unable to swallow any drink or food due to severe pharyngeal edema s/p anterior cervical discectomy and fusion. Pt requires medical management of edema prior to re-assessment of swallow function by ASSEMBLY LEAD PERSON. Additionally, an ENT consult is recommended due to ASSEMBLY LEAD PERSON observing a white, irregular-textured, raised excrescence on the R side of the R inferior turbinate as the scope was passed. Recommendations Comments: STRICT NPO Recommend Repeat Instrumental Swallow Assessment: Yes Need for Skilled Speech Therapy Services: Yes Recommended Referrals: ENT Consult Education Completed: 1. Described result of evaluation., 2. Pt understands evaluation & agrees with goals and treatment plan. and 4. Family/caregivers understand evaluation & agree w/ goals & tx plan. Comments: Pt is being admitted. ASSEMBLY LEAD PERSON will request dysphagia therapy orders to follow and re-assess swallow function once edema has been medically managed.
--- NOTE | 2024-02-15 15:43 | ST ---
Image 1. HEALTH INSURANCE AGENT visualized a white, irregular-textured, and raised excrescence on the R wall of the R inferior turbinate as the scope was passed through the R nare at the start of the evaluation. HEALTH INSURANCE AGENT recommends ENT consult.
--- NOTE | 2024-02-15 16:21 | PCM.HP.BLA ---
History and Physical Date of Admission: 02/15/24 Violet is postop day 3 status post C5-7 ACDF. She has multiple medical comorbidities including cardiac morbidities and history of pancreas and kidney replacements. She presents with severe dysphagia which worsened such that she could not eat or drink anything since today morning. She was discharged from the hospital on postop day 1 Thursday. She denies eating anything hard. She called our orthopedic office earlier today morning, and I requested that she come into the ER. She has been in the ER and underwent swallowing evaluation which suggested keeping her n.p.o. Dressing was changed by this morning and did not have any significant drainage. On exam, dressing showed dried sanguinous staining. I remove the dressing and place a new 1. No active discharge noticed. Postop swelling noticed throughout the left anterolateral neck. No fluctuation. Patient is able to take deep breaths without any stridor. Maintaining good saturation. Neurologic evaluation of upper and lower extremity shows 5 x 5 power normal shows normal sensations in all dermatomes. Assessment & Plan Assessment/Plan (1) S/P cervical spinal fusion: (2) Dysphagia: QUALIFIERS: Dysphagia type: other dysphagia Qualified Code(s): R13.19 - Other dysphagia PLAN: Plan Patient is postop day 3 with severe postoperative swelling. I reviewed CT soft tissue neck shows edema in the prevertebral space and the possibility of hematoma. I would like to monitor her and keep her n.p.o. with IV steroids. recommend admission to PCU for continuous monitoring of oxygen saturation as well as blood pressure. Systolics are staying high. Will keep her on IV Decadron 10 mg every 8. All medications will be given IV. Recommend upright position in bed with head of bed at least 60 degrees. Weightbearing as tolerated. Okay to ambulate with walker. Appreciate hospitalist comanagement. Discussed with Dr. Tam. Will request speech pathology to continue follow-up for further recommendations as the swelling comes down. Discussed with patient and her . All questions answered.
[2024-02-15] MEDS: Metoprolol Tartrate 5 MG/5 ML Vial IV (17:05)
[2024-02-15] MEDS: 0.9% Normal Saline (1000mL) 1,000 ML 125 ML IV (18:39)
[2024-02-15] MEDS: hydrALAZINE 20 MG/ML Vial 10 MG IV (18:41)
[2024-02-15] MEDS: Morphine 2 MG/ML Syringe IV (20:30)
[2024-02-15] MEDS: 0.9% Saline Lock 10 ML Syringe IV ×2 (20:35→21:23)
[2024-02-15] MEDS: Pantoprazole Sodium 40 MG in 0.9% Normal Saline (100mL MB+) 100 ML 330 MG IV (21:17)
[2024-02-16] VITALS (13 sets, daily range): BP systolic 145–179; BP diastolic 64–83; PULSE 79–93; RESP 16–18; TEMP 36.8–37.1; O2SAT 94–98; BMI 18.3
[2024-02-16] MEDS: 0.9% Normal Saline (1000mL) 1,000 ML 125 ML IV (03:21)
[2024-02-16 05:56] LABS: Absolute Lymphocyte Count 0.64 X10^3/uL (0.83-4.51); Absolute Neutrophil Count 8.3 X10^3/uL (2.0-7.7); Basophil# 0.01 X10^3/uL; Basophil% 0.1 % (0-1); Hematocrit 31.6 % (37-47); Hemoglobin 10.1 g/dL (12.0-15.0); Lymphocyte # 0.64 X10^3/ul (0.83-4.51); Mean Corpuscular Hgb 29.2 pg (27.0-32.0); Mean Corpuscular Volume 91.3 fL (81-99); Mean Platelet Vol. 9.9 fl (6.2-12.0); Monocyte# 0.21 X10^3/uL; Monocyte% 2.3 % (0-10); NRBC Flagged by Analyzer 0 % (0-5); Neutrophil # 8.27 X10^3/uL (2.7-7.7); Neutrophil % 89.9 % (47-70); Platelet Count 193 K/mm3 (150-450); RBC Distribution Width CV 12.9 % (11.6-14.6); RBC Distribution Width SD 43.1 fl (35.1-43.9); Red Blood Count 3.46 M/mm3 (4.2-5.4); White Blood Count 9.2 K/mm3 (4.4-11.0)
[2024-02-16] MEDS: Metoprolol Tartrate 5 MG/5 ML Vial IV ×3 (06:24→21:38)
[2024-02-16] MEDS: dexAMETHasone 10 MG/ML Vial IV ×3 (06:24→21:40)
[2024-02-16 06:56] LABS: ALB/GLOB Ratio 0.9 RATIO (0.9-2.4); AST(SGOT) 24 U/L (15-37); Alanine Aminotransfer ALT/SGPT 9 U/L (13-56); Albumin, Serum 3.4 g/dL (3.2-5.0); Alkaline Phosphatase 48 U/L (45-117); Anion Gap 12 (5-15); BUN 26 mg/dL (7-18); BUN/Creat Ratio 28.3 RATIO (10-20); Calcium,Total 8.7 mg/dL (8.5-10.1); Chloride 95 mmol/L (98-107); Creatinine, Serum 0.92 mg/dL (0.55-1.02); EST Glomerular Filtration Rate 64 mL/min (>60); Est Glom Filt Rate - Afr Amer 77 mL/min (>60); Estimated Creatinine Clearance 34.98 ml/min; Globulin 3.7 g/dL (2.2-4.2); Glucose 124 mg/dL (74-106); Potassium 4.8 mmol/L (3.5-5.1); Protein, Total 7.1 g/dL (6.4-8.2); Sodium Level 128 mmol/L (136-145)
--- NOTE | 2024-02-16 09:15 | PCM.PN.HOSP ---
Reason for Visit Reason for Visit: Diagnoses Other dysphagia (02/15/24) Arthrodesis status (02/15/24) Subjective Subjective Patient is a 73-year-old female who underwent C5-7 anterior cervical discectomy and fusion with plate instrumentation on 02/12/[address] Rambo Verduzco discharge on 02/13/2024 presented to the emergency department with difficulty swallowing Objective Data Objective Data Vital Signs: Vital Signs Temp Pulse Resp BP Pulse Ox O2 Del Method O2 Flow Rate 98.8 F 91 16 179/77 H 98 Nasal Cannula 1 02/16/24 03:23 02/16/24 06:24 02/16/24 03:23 02/16/24 06:24 02/16/24 03:23 02/16/24 03:23 02/16/24 03:23 Oxygen Flow Rate (L/min) 1 Oxygen Delivery Method Nasal Cannula Weight: 41.1 kg Body Mass Index (BMI) 18.3 Intake & Output: Intake and Output for Last 24 Hours 02/14/24 02/15/24 02/16/24 23:59 23:59 23:59 Intake Total 110 / 110 1000 / 1000 Balance 110 / 110 1000 / 1000 Lab / Micro Data 02/16/24 05:42 02/16/24 05:42 Labs: Laboratory Results - last 24 hr 02/15/24 14:35: WBC 12.2 H, RBC 3.54 L, Hgb 10.2 L, Hct 31.8 L, MCV 89.8, MCH 28.8, MCHC 32.1, RDW Std Deviation 41.6, RDW Coeff of Jenny 12.6, Plt Count 206, MPV 9.8, Immature Gran % (Auto) 0.600, Neut % (Auto) 77.5 H, Lymph % (Auto) 8.3 L, [place] % (Auto) 13.0 H, Eos % (Auto) 0.3, Baso % (Auto) 0.3, Absolute Neuts (auto) 9.5 H, Absolute Lymphs (auto) 1.02, Nucleated RBC % 0, Differential Comment COMMENT, Diff Path Review November, Sodium 124 L, Potassium 4.5, Chloride 90 L, Carbon Dioxide 28.0, Anion Gap 6, BUN 17, Creatinine 0.93, Est GFR (MDRD) Af Amer 76, Est GFR (MDRD) Non-Af 63, BUN/Creatinine Ratio 18.4, Glucose 94, Calcium 9.0 02/16/24 05:42: WBC 9.2, RBC 3.46 L, Hgb 10.1 L, Hct 31.6 L, MCV 91.3, MCH 29.2, MCHC 32.0, RDW Std Deviation 43.1, RDW Coeff of [place] 12.9, Plt Count 193, MPV 9.9, Immature Gran % (Auto) 0.700, Neut % (Auto) 89.9 H, Lymph % (Auto) 7.0 L, [place] % (Auto) 2.3, Eos % (Auto) 0.0, Baso % (Auto) 0.1, Absolute Neuts (auto) 8.3 H, Absolute Lymphs (auto) 0.64 L, Nucleated RBC % 0, Sodium 128 L, Potassium 4.8, Chloride 95 L, Carbon Dioxide 21.0, Anion Gap 12, BUN 26 H, Creatinine 0.92, Estim Creat Clear Calc 34.98, Est GFR (MDRD) Af Amer 77, Est GFR (MDRD) Non-Af 64, BUN/Creatinine Ratio 28.3 H, Glucose 124 H, Calcium 8.7, Total Bilirubin 0.70, AST 24, ALT 9 L, Alkaline Phosphatase 48, Total Protein 7.1, Albumin 3.4, Globulin 3.7, Albumin/Globulin Ratio 0.9 Radiography Diagnostic Testing: Radiology Impression Soft Tissue Neck CT 02/15/24 14:31 IMPRESSION: Status post anterior fusion at the C5-C6 and C6-C7 levels. Diffuse cervical soft tissue swelling as described and possible hematoma in the prevertebral soft tissues worse on the left side of the midline most likely secondary to recent surgical intervention. Mild compromise of the subglottic airway. Extensive carotid plaque formation. Electronically Signed: Trevin Mtz MD at 15:21 EDT , Physical Exam Narrative GENERAL: cooperative HEENT: Atraumatic; normocephalic EYES; Anicteric, Normal Conjunctiva NECK; patient in neck collar surgical incision clean dry and intact RESPIRATORY: Diminished to auscultation CARDIOVASCULAR: Regular S1 S2, GI: soft, normoactive bowel sounds, : No Renal angle tenderness; EXTREMITIES: No edema, no clubbing, MUSCULOSKELETAL: no muscle wasting NEURO: Awake; no lateralizing signs. SKIN: No Rash PSYCH; Flat affect Assessment & Plan Assessment/Plan (1) Dysphagia: QUALIFIERS: Dysphagia type: other dysphagia Qualified Code(s): R13.19 - Other dysphagia (2) S/P cervical spinal fusion: PLAN: Plan Patient is a 73-year-old female who underwent C5-7 anterior cervical discectomy and fusion with plate instrumentation on 02/12/[address] Rambo Verduzco discharge on 02/13/2024 presented to the emergency department with difficulty swallowing 1. Acute dysphagia ? Secondary to postoperative hematoma. Imaging studies obtained on admission did show Diffuse cervical soft tissue swelling as described and possible hematoma in the prevertebral soft tissues worse on the left side of the midline most likely secondary to recent surgical intervention.Mild compromise of the subglottic airway.admitted for inpatient management. Patient was kept n.p.o., was treated with Decadron with consultation ENT surgeon. Consult placed to speech therapy 2. Status post C5-7 anterior cervical discectomy and fusion with plate instrumentation on 02/12/[address] Rambo Verduzco 3. Essential hypertension ? Patient home medications were placed on hold given her difficulty with swallowing placed on hydralazine as needed. Blood pressure greater than 160 4. Coronary artery disease ? CABG patient is on guideline directed medical therapy 5. History of high degree AV block ? Status post pacemaker placement 6. History of renal transplant ? Patient is on Bactrim as well as tacrolimus 7. History of pancreatic transplant -Patient is on Bactrim as well as tacrolimus 8. Dyslipidemia ? Plan is to resume home meds once patient is able to swallow 9. Carotid artery disease ? Patient to follow-up with primary care physician for referral to vascular surgery 10. DVT prophylaxis ? Bilateral SCDs Charges/Coding Visit Charges Inpatient E&M: 91183 Subs Hosp L2
[2024-02-16] MEDS: Pantoprazole Sodium 40 MG in 0.9% Normal Saline (100mL MB+) 100 ML 330 MG IV ×2 (09:21→21:38)
[2024-02-16 11:50] LABS: Pathologist Review Reviewed
[2024-02-16] MEDS: 0.9% Saline Lock 10 ML Syringe IV ×3 (14:17→21:40)
--- NOTE | 2024-02-16 14:43 | CASEMGMT ---
Social Work SW asked pt and about POA papers, pt confirms is healthcare POA. SW asked to bring in the papers as able so we can place a copy on the chart. Pt and state understanding. LIBERTY Kapadia
--- NOTE | 2024-02-16 15:05 | CASEMGMT ---
Met with patient to complete REYES form. REYES form explained to patient who voiced understanding and signed form. Original form placed in pt?s chart and copy provided to patient. Jazmine Mccallum, Discharge Planning Asst
--- NOTE | 2024-02-16 16:08 | HP.SPFEES ---
FEES Patient Information Date of Evaluation: 02/16/24 Time of Evaluation: 12:30 Diagnosis: Dysphagia R13.10 Referring Physician: Rambo Verduzco Staff Providing this Care/Treatment:: YANETH Direct Billable Minutes: 116 History: Past Medical History:: Diabetes, Bruising, Back pain, Blackout, Gastric reflux, History of pain when walking, Fatigue, Wears hearing aid, Wears glasses, Cancer, Ambulates with cane, Arthritis, High cholesterol, Easy bruising, Non-smoker, History of stress test, History of echocardiogram, Cardiology follow-up encounter, HLD, Spinal stenosis of lumbar region at multiple levels, Scoliosis of lumbar region due to degenerative disease of spine in adult, Low back pain, DDD, High degree atrioventricular block, TIA, Chest pain, Non-rheumatic mitral regurgitation, Nonrheumatic aortic (valve) stenosis, RBBB, Atherosclerotic heart disease of eek coronary artery without angina pectoris, GERD, Benign hypertension. Surgical Hx: S/P insertion of sacral nerve stimulator (~11/2022), Presence of permanent cardiac pacemaker (~01/28/22), History of umbilical hernia repair (~03/01/20), History of right breast biopsy (~11/23/03), Cataract extraction status, History of repair of rotator cuff (~08/31/09), History of eye surgery (~01/07/05), History of pancreatectomy (~03/2004), History of kidney transplant (~03/2004), History of coronary artery bypass surgery (~07/29/12), Status post pancreas transplantation (~05/25/05). Pt presented to [facility] ED 02/15/24 with inability to swallow anything that was not food or drink. Pt is 3 days s/p anterior cervical discectomy and fusion for C5-C7 disc degeneration w/ stenosis, cord compression, and severe myelopathy. Per patient and , she had resumed an oral diet after surgery and was even consuming soft solids and liquids on the evening of 02/14/24; however, when she woke up 02/15/24 she could only swallow her own saliva and her voice was hoarse. TRANSPORT AIDE was consulted in the ED for BSE; however, TRANSPORT AIDE requested FEES order from physician to objectively assess oropharyngeal anatomy and aspiration risk. FEES was completed 02/15/24 and recommended strict NPO due to severe pharyngeal edema and choking episode on ice chip during assessment. She was also recommended for ENT consult due to incidental finding of a white, irregular-textured excrescence in R inferior nasal turbinate during the FEES. Patient was admitted to PCU for medical management of severe post-operative swelling. She was started on IV steroids. TRANSPORT AIDE spoke with Dr. Verduzco, pt?s surgeon, this morning who recommended re-assessment of swallow function today. After discussion with Dr. Verduzco, will proceed with repeat FEES. Current Diet: Comment:: Strict NPO Respiratory Status Observation:: 1L via nasal cannula Vocal Quality: Observations:: Hoarse Comments:: Decreased hoarseness and increased vocal intensity as compared to FEES 02/15/24. Cognition: Observations:: WNL Position During FEES: Position During FEES:: Upright Location: In Chair Fiberoptic Endoscope: Size: 3.4 mm Nare Used:: Left Comments: TRANSPORT AIDE reviewed findings of white, irregular-textured excrescence in R inferior nasal turbinate during the FEES completed on 02/15/24 and informed pt and of recommendations for ENT consult. TRANSPORT AIDE passed scope through L nare for today's assessment without difficulty. No abnormal findings upon passing scope through L nare. Anatomical Findings: Anatomical Findings:: Continued bruising of posterior pharyngeal wall at the level of the oropharynx and extending into the nasopharynx. Pt continues with moderate edema throughout oropharynx, epiglottis, and laryngeal vestibule. TRANSPORT AIDE able to visualize the R arytenoid and aryepiglottic folds, as well as the ventricular folds. Of note, the patient had a large, purple protuberance extending from the L side of the posterior pharyngeal wall, covering ~1/2 of the laryngeal vestibule (TRANSPORT AIDE unable to visualize L arytenoid or L aryepiglottic fold), and extending to the L lateral glosso-epiglottic fold. Large purple protuberance is likely a hematoma s/p cervical fusion. Of note, soft tissue CT of the neck 02/15/24 revealed Diffuse cervical soft tissue swelling as described and possible hematoma in the prevertebral soft tissues worse on the left side of the midline most likely secondary to recent surgical intervention. Area of the R pyriforms also appeared dark purple. Unable to visualize the hypopharynx. During task for inhalation and phonation ([id number]), TRANSPORT AIDE able to briefly visualize the R vocal fold, L ventricular fold, and glottis. Unable to view the L vocal fold d/t edema of the L ventricular fold. Secretions: Description:: Thin and Clear Penetration-Aspiration Scale Penetration-Aspiration Scale Thin Liquids by Teaspoon Food/Drink Provided:: Unfortunately, TRANSPORT AIDE was only able to trial 1 ice chip as the patient had an extensive coughing episode. Yankauer suction was ready and available, but was not needed. Following ice chip trial, thin, clear secretions were pooling in the vallecula, on the large purple protuberance on the L side of the pharynx, spilling to the laryngeal vestibule and R side of the oropharynx with reflexive coughing. Due to patient having difficulty managing her secretions and 1 ice chip trial, TRANSPORT AIDE removed scope and discontinued trials. Diagnosis/Impressions Diagnosis: Severe pharyngeal phase dysphagia R13.13 Impressions: Pt continues to be unable to swallow any drink or food due to moderate-severe pharyngeal edema and large protuberance in L side of pharynx (likely hematoma when comparing FEES imaging to soft tissue CT of the neck 02/15/24) s/p anterior cervical discectomy and fusion. TRANSPORT AIDE spoke with Dr. Verduzco who recommends continued medical management of edema prior to re-assessment of swallow function by TRANSPORT AIDE 02/17/24. He reported that he feels the hematoma appears to be stable. Recommendations Comments: Strict NPO Recommend Repeat Instrumental Swallow Assessment: Yes Comments: Repeat FEES 02/17/24 planned for 9:30 Need for Skilled Speech Therapy Services: Yes Recommended Referrals: ENT Consult Education Completed: 1. Described result of evaluation., 2. Pt understands evaluation & agrees with goals and treatment plan. and 4. Family/caregivers understand evaluation & agree w/ goals & tx plan. Comments: Pt is being admitted. TRANSPORT AIDE will request dysphagia therapy orders to follow and re-assess swallow function once edema has been medically managed.
--- NOTE | 2024-02-16 16:13 | ST ---
Image 1. Large, purple protuberance extending from the L side of the posterior pharyngeal wall, covering ~1/2 of the laryngeal vestibule (SLUDGE CONTROL ATTENDANT unable to visualize L arytenoid or L aryepiglottic fold), and extending to the L lateral glosso-epiglottic fold. Large purple protuberance is likely a hematoma s/p cervical fusion. Of note, soft tissue CT of the neck 02/15/24 revealed Diffuse cervical soft tissue swelling as described and possible hematoma in the prevertebral soft tissues worse on the left side of the midline most likely secondary to recent surgical intervention.
[2024-02-16] MEDS: hydrALAZINE 20 MG/ML Vial 10 MG IV (16:20)
--- NOTE | 2024-02-16 17:16 | PN.ORTHO_ITS ---
Subjective Subjective Postop day 4 status post C5-7 ACDF admitted for dysphagia. Underwent speech eval again today. Still continues to fail swallow evaluation. Continues to stay NPO. Mentions that her throat feels less swollen compared to last night. Objective Data Objective Data Vital Signs: Vital Signs Temp Pulse Resp BP Pulse Ox O2 Del Method O2 Flow Rate 98.5 F 86 18 174/76 H 96 Room Air 1 02/16/24 16:18 02/16/24 16:20 02/16/24 16:18 02/16/24 16:20 02/16/24 16:18 02/16/24 16:18 02/16/24 09:38 Oxygen Flow Rate (L/min) 1 Oxygen Delivery Method Room Air Weight: 90 lb 9.76 oz Body Mass Index (BMI) 18.3 Intake & Output: Intake and Output for Last 24 Hours 02/14/24 02/15/24 02/16/24 23:59 23:59 23:59 Intake Total 110 / 110 2109 Balance 110 / 110 2109 Medical Nutrition Assessment Dietitian: Malnutrition Criteria Met Start: 02/16/24 14:47 Freq: Status: Active Protocol: Document 02/16/24 14:47 SB (Rec: 02/16/24 14:47 SB [id number]) Nutrition Malnutrition Evidence of Malnutrition Exists Yes Malnutrition (severe): Acute Illness/Injury Evidenced By Suboptimal Energy Intake ( Severe),Weight Loss (Severe) Intake Problem Inadequate Oral Intake Etiology related to swallowing difficulty Signs/Symptoms as evidence by NPO. Status Active Problem Clinical Problem Acute Disease or Injury Related Malnutrition Etiology severe protein calorie malnutrition related to swallowing difficulty and inability to take adequate PO Signs/Symptoms as evidence by 4.7% unintentional weight loss in less than 1 week, inadequate PO intake <50% x 1 week, and BMI of 18.3. Status Active Problem Recommendation Dietitian Recommendations/Changes Recommend advance diet as tolerated to regular with consistency/texture per PROFESSOR OF VEGETABLE SCIENCE. Monitor need to restrict carbohydrates given history of DM. Suggest Ensure plus HP for repletion as diet advanced from NPO. Consider enteral nutrition support if PO remains contraindicated in 24-72 hours . Reviewed and approved by Mae Zuniga, MS, RD, LD Lab / Micro Data 02/16/24 05:42 02/16/24 05:42 Labs: Laboratory Results - last 24 hr 02/15/24 14:35: Diff Path Review Reviewed 02/16/24 05:42: WBC 9.2, RBC 3.46 L, Hgb 10.1 L, Hct 31.6 L, MCV 91.3, MCH 29.2, MCHC 32.0, RDW Std Deviation 43.1, RDW Coeff of Jenny 12.9, Plt Count 193, MPV 9.9, Immature Gran % (Auto) 0.700, Neut % (Auto) 89.9 H, Lymph % (Auto) 7.0 L, [place] % (Auto) 2.3, Eos % (Auto) 0.0, Baso % (Auto) 0.1, Absolute Neuts (auto) 8.3 H, Absolute Lymphs (auto) 0.64 L, Nucleated RBC % 0, Sodium 128 L, Potassium 4.8, Chloride 95 L, Carbon Dioxide 21.0, Anion Gap 12, BUN 26 H, Creatinine 0.92, Estim Creat Clear Calc 34.98, Est GFR (MDRD) Af Amer 77, Est GFR (MDRD) Non-Af 64, BUN/Creatinine Ratio 28.3 H, Glucose 124 H, Calcium 8.7, Total Bilirubin 0.70, AST 24, ALT 9 L, Alkaline Phosphatase 48, Total Protein 7.1, Albumin 3.4, Globulin 3.7, Albumin/Globulin Ratio 0.9 Physical Exam Narrative Dressing?CDI. Neurologic evaluation of upper extremity shows 5 out of 5 bilateral muscles normal sensations in all dermatomes. Assessment & Plan Assessment/Plan (1) Dysphagia: QUALIFIERS: Dysphagia type: other dysphagia Qualified Code(s): R 13.19 - Other dysphagia (2) S/P cervical spinal fusion: PLAN: Plan Postop day 4 cervical C5-7 ACDF readmitted for dysphagia. Throat soreness improvement with IV steroids. Will continue IV Decadron 10 mg Q8. Encouraged out of bed mobility with nursing as frequently as possible. Blood pressures continue to stay on the higher side. Appreciate hospitalist comanagement. If vitals stay stable, it may be okay to transfer to regular MedSurg floor if okay with hospitalist. Continue IV formulations of all home meds. Concerned about staying off of antirejection medication for her pancreas and kidney transplants. Will discuss with hospitalist and pharmacy regarding possible procuring of IV formulations of these medications. ENT consult for speech scope finding of nasal excrescence.
--- NOTE | 2024-02-16 22:21 | NURSING ---
Notified pharmacy that patient did not appear to get 1000 dose of protonix IV. Bag was not mixed or ran or hooked up to patient. Pharmacy said to make a note and continue with 2200 dose as scheduled.
[2024-02-17] VITALS (9 sets, daily range): BP systolic 142–179; BP diastolic 54–85; PULSE 69–93; RESP 14–17; TEMP 36.3–36.8; O2SAT 95–100; BMI 18.6
[2024-02-17] MEDS: Metoprolol Tartrate 5 MG/5 ML Vial IV (06:12)
[2024-02-17] MEDS: dexAMETHasone 10 MG/ML Vial IV ×2 (06:13→15:36)
--- NOTE | 2024-02-17 08:02 | PN.HOSP_ITS ---
Reason for Visit Reason for Visit: Diagnoses Other dysphagia (02/15/24) Arthrodesis status (02/15/24) Subjective Subjective Patient seen still complains of some throat discomfort. Scheduled to undergo speech and swallow eval. Objective Data Objective Data Vital Signs: Vital Signs Temp Pulse Resp BP Pulse Ox O2 Del Method O2 Flow Rate 98.1 F 80 14 161/58 H 97 Room Air 1 02/17/24 05:00 02/17/24 06:12 02/17/24 05:00 02/17/24 05:00 02/17/24 05:00 02/17/24 05:00 02/16/24 09:38 Oxygen Flow Rate (L/min) 1 Oxygen Delivery Method Room Air Weight: 41.1 kg Body Mass Index (BMI) 18.3 Intake & Output: Intake and Output for Last 24 Hours 02/15/24 02/16/24 02/17/24 23:59 23:59 23:59 Intake Total 110 / 110 2220 / 2220 0 / 0 Balance 110 / 110 2220 / 2220 0 / 0 Medical Nutrition Assessment Dietitian: Malnutrition Criteria Met Start: 02/16/24 14:47 Freq: Status: Active Protocol: Document 02/16/24 14:47 SB (Rec: 02/16/24 14:47 SB [id number]) Nutrition Malnutrition Evidence of Malnutrition Exists Yes Malnutrition (severe): Acute Illness/Injury Evidenced By Suboptimal Energy Intake ( Severe),Weight Loss (Severe) Intake Problem Inadequate Oral Intake Etiology related to swallowing difficulty Signs/Symptoms as evidence by NPO. Status Active Problem Clinical Problem Acute Disease or Injury Related Malnutrition Etiology severe protein calorie malnutrition related to swallowing difficulty and inability to take adequate PO Signs/Symptoms as evidence by 4.7% unintentional weight loss in less than 1 week, inadequate PO intake <50% x 1 week, and BMI of 18.3. Status Active Problem Recommendation Dietitian Recommendations/Changes Recommend advance diet as tolerated to regular with consistency/texture per PASSENGER CAR CONDUCTOR. Monitor need to restrict carbohydrates given history of DM. Suggest Ensure plus HP for repletion as diet advanced from NPO. Consider enteral nutrition support if PO remains contraindicated in 24-72 hours . Reviewed and approved by Mae Zuniga, , RD, LD Lab / Micro Data 02/17/24 08:40 02/17/24 08:40 Labs: Laboratory Results - last 24 hr 02/15/24 14:35: Diff Path Review Reviewed Physical Exam Narrative GENERAL: cooperative HEENT: Atraumatic; normocephalic EYES; Anicteric, Normal Conjunctiva NECK; patient in neck collar surgical incision clean dry and intact RESPIRATORY: Diminished to auscultation CARDIOVASCULAR: Regular S1 S2, GI: soft, normoactive bowel sounds, : No Renal angle tenderness; EXTREMITIES: No edema, no clubbing, MUSCULOSKELETAL: no muscle wasting NEURO: Awake; no lateralizing signs. SKIN: No Rash PSYCH; Flat affect Assessment & Plan Assessment/Plan (1) Dysphagia: QUALIFIERS: Dysphagia type: other dysphagia Qualified Code(s): R 13.19 - Other dysphagia (2) S/P cervical spinal fusion: PLAN: Plan Patient is a 73-year-old female who underwent C5-7 anterior cervical discectomy and fusion with plate instrumentation on 02/12/[address] Rambo Verduzco discharge on 02/13/2024 presented to the emergency department with difficulty swallowing 1. Acute dysphagia ? Secondary to postoperative hematoma. Imaging studies obtained on admission did show Diffuse cervical soft tissue swelling as described and possible hematoma in the prevertebral soft tissues worse on the left side of the midline most likely secondary to recent surgical intervention.Mild compromise of the subglottic airway.admitted for inpatient management. Patient was kept n.p.o., was treated with Decadron with consultation ENT surgeon. Consult placed to speech therapy ? 02/17/2024;Patient seen still complains of some throat discomfort. Scheduled to undergo speech and swallow eval. 2. Status post C5-7 anterior cervical discectomy and fusion with plate instrumentation on 02/12/[address] Rambo Verduzco 3. Essential hypertension ? Patient home medications were placed on hold given her difficulty with swallowing placed on hydralazine as needed. Blood pressure greater than 160 4. Coronary artery disease ? CABG patient is on guideline directed medical therapy 5. History of high degree AV block ? Status post pacemaker placement 6. History of renal transplant ? Patient is on Bactrim as well as tacrolimus 7. History of pancreatic transplant -Patient is on Bactrim as well as tacrolimus 8. Dyslipidemia ? Plan is to resume home meds once patient is able to swallow 9. Carotid artery disease ? Patient to follow-up with primary care physician for referral to vascular surgery 10. DVT prophylaxis ? Bilateral SCDs Time spent in the patient's overall evaluation,decision-making process, review of diagnostic data, adjustment of management, discussion with other providers, nursing nursing and ancillary staff involved in patient's care documentation, 36 Minutes Charges/Coding Visit Charges Inpatient E&M: 38022 Subs Hosp L2
[2024-02-17 08:47] LABS: Absolute Lymphocyte Count 0.57 X10^3/uL (0.83-4.51); Absolute Neutrophil Count 9.4 X10^3/uL (2.0-7.7); Basophil# 0.01 X10^3/uL; Basophil% 0.1 % (0-1); Hematocrit 34.4 % (37-47); Hemoglobin 11.1 g/dL (12.0-15.0); Lymphocyte # 0.57 X10^3/ul (0.83-4.51); Lymphocyte % 5.4 % (19-41); Mean Corp Hgb Conc 32.3 g/dL (32-36); Mean Corpuscular Hgb 29.4 pg (27.0-32.0); Monocyte# 0.46 X10^3/uL; Monocyte% 4.4 % (0-10); NRBC Flagged by Analyzer 0 % (0-5); Neutrophil % 89.4 % (47-70); POSITIVE DIFFERENTIAL YES; Platelet Count 285 K/mm3 (150-450); RBC Distribution Width CV 13.2 % (11.6-14.6); Red Blood Count 3.78 M/mm3 (4.2-5.4); White Blood Count 10.5 K/mm3 (4.4-11.0)
[2024-02-17 09:20] LABS: Anion Gap 9 (5-15); BUN 39 mg/dL (7-18); BUN/Creat Ratio 34.2 RATIO (10-20); Chloride 102 mmol/L (98-107); Creatinine, Serum 1.14 mg/dL (0.55-1.02); EST Glomerular Filtration Rate 49 mL/min (>60); Est Glom Filt Rate - Afr Amer 60 mL/min (>60); Estimated Creatinine Clearance 28.09 ml/min; Glucose 134 mg/dL (74-106); Magnesium 2.2 mg/dL (1.6-2.6); Phosphorus 3.3 mg/dL (2.5-4.9); Potassium 4.3 mmol/L (3.5-5.1); Sodium Level 133 mmol/L (136-145)
[2024-02-17] MEDS: 0.9% Saline Lock 10 ML Syringe IV ×2 (10:50→21:27)
[2024-02-17] MEDS: Pantoprazole Sodium 40 MG in 0.9% Normal Saline (100mL MB+) 100 ML 330 MG IV ×2 (10:50→21:27)
[2024-02-17] MEDS: hydrALAZINE 20 MG/ML Vial 10 MG IV (10:50)
--- NOTE | 2024-02-17 11:58 | CASEMGMT ---
RN CM to pt room at this time for pt assessment. Pt and pt request that this RN CM come back later for assessment. ENZO.
--- NOTE | 2024-02-17 14:45 | CASEMGMT ---
Addendum entered by Mary Birmingham 02/17/24 15:26: Sol states that she will come in and see the pt tomorrow prior to DC. Original Note: RN CM Assessment Face to Face with patient for initial transition planning/care coordination assessment. RN JONATHAN introduced self and role at [facility], pt voices understanding. Pt is A&Ox4 and is resting comfortably in the chair. Pt at bedside. Care providers, pharmacy, and demographics verified. Admitting dx: Dysphagia LACE Strata: 3 PCP: Luh Hernandez Specialists: Dax DAWSON (Ortho), Beverly Padilla (DECORATING MACHINE TENDER - Kidney Medicine) Preferred Pharmacy: [email or web address] Insurance: [employer] [facility] Prescription Benefit: Yes LNOK: Carl Goodwin (H) Living Arrangements: Pt lives with her in a two story home with a FFSU and one step to enter ADLs/IADLs: Pt states that she is independent Transportation: Pt does not drive. Pt drives. Denies concerns DME: Shower GB. Shower chair. FWW. Cane. C-Collar. BP Monitor. Pulse Ox. HHC/SNF: Denies history or needs Pt?s goal: Home with Plan: Per Dr. Verduzco, the plan is to DC the pt tomorrow (02/17) and recommends to f/u with OP ST. The MD (Dax) is not recommending OP PT/OT (although PT is recommending this). At this time, the pt is unsure if the pt will need OP ST. This RN CM educated the pt and her SO that this is recommended and the pt states that if her swelling goes down we will not need it. Pt and pt notified that CM will f/u prior to DC to see if they would like this set up. The pt also has concerns regarding their financial situation and would like to have answers regarding inpt/ obs status, qualifications, procedure expenses, etc. Larry (pt advocate) is already involved with this case and has been assisting the pt and the pt SO. This RN CM also emailed Sol (pt financial advisor trainee) to see if she could be of assistance. SW also notified and aware and to provide assistance as warranted. CM and SW to follow to ensure safe DC home from [facility]. Bee Birmingham RN, CM
--- NOTE | 2024-02-17 15:29 | PCM.CONS.GEN ---
Assessment & Plan Assessment/Plan (1) Dysphagia: QUALIFIERS: Dysphagia type: other dysphagia Qualified Code(s): R13.19 - Other dysphagia PLAN: 5 days s/p ACDF with cervical hematoma -speech pathology photodocumented hematoma findings; i viewed these images. they are consistent with her reason for admission. she has no stridor or voice changes and appears to be doing quite well. she will follow up a few weeks after discharge to reevaluate her larynx in clinic. HPI Consult Data Date of Consult: 02/17/24 HPI Narrative Reason for Consultation: endoscopic findings HPI Narrative: GEORGINA VALLADARES, is a 73 F who presents 5 days s/p left cervical hematoma with subsequent dysphagia. she was admitted and put on decadron; she is currently doing quite well and per dr vazquez is significantly better since admission. [facility] Medical History Diabetes Bruising Back pain Blackout Gastric reflux History of pain when walking Fatigue Wears hearing aid Wears glasses Cancer Ambulates with cane Arthritis High cholesterol Easy bruising Non-smoker History of stress test History of echocardiogram Cardiology follow-up encounter HLD (hyperlipidemia) Spinal stenosis of lumbar region at multiple levels Scoliosis of lumbar region due to degenerative disease of spine in adult Low back pain DDD (degenerative disc disease) High degree atrioventricular block TIA (transient ischemic attack) Chest pain Non-rheumatic mitral regurgitation Nonrheumatic aortic (valve) stenosis RBBB (right bundle branch block) Atherosclerotic heart disease of [place] coronary artery without angina pectoris Gastroesophageal reflux disease Benign hypertension Home Medications ?Medication ?Instructions ?Recorded ?Last Taken ?Type cyanocobalamin (vitamin B-12) 100 mcg IM QMONTH vitamin 07/10/20 01/22/24 History 1,000 mcg/mL injection solution folic acid 1 mg tablet 1 mg PO DAILY supplement 07/10/20 02/11/24 History pravastatin 20 mg tablet 20 mg PO QHS cholesterol 07/10/20 02/11/24 History sulfamethoxazole 400 1 tab PO DAILY ANTI REJECTION 07/10/20 02/11/24 History mg-trimethoprim 80 mg tablet (Bactrim) tacrolimus 0.5 mg capsule, 1 mg PO Q12H anti rejection 07/10/20 02/11/24 History immediate-release cholecalciferol (vitamin D3) 25 25 mcg PO DAILY vitamin 07/12/20 02/11/24 History mcg (1,000 unit) capsule aspirin 81 mg tablet,delayed 81 mg PO DAILY heart health 10/09/20 02/07/24 History release (Adult Low Dose Aspirin) mycophenolate mofetil 250 mg 250 mg PO BID anti rejection 09/25/22 02/11/24 History capsule amlodipine 10 mg tablet 10 mg PO DAILY BP 11/20/22 02/12/24 04:20 History lisinopril 20 1 tab PO DAILY BP #90 tabs 05/07/23 02/11/24 Rx mg-hydrochlorothiazide 25 mg tablet carvedilol 6.25 mg tablet 6.25 mg PO BID HEART #180 tabs 08/05/23 02/12/24 04:20 Rx ibandronate 150 mg tablet 150 mg PO QMONTH B[facility]ALTH 08/05/23 Unknown History omeprazole 40 mg capsule,delayed 40 mg PO DAILY GERD 08/05/23 02/12/24 04:20 History release duloxetine 30 mg capsule,delayed 30 mg PO BID DEPRESSION 01/13/24 02/12/24 04:20 History release acetaminophen 500 mg tablet 500 mg PO Q6H 7 days #28 tabs 02/13/24 Unknown Rx methocarbamol 500 mg tablet 750 mg (1.5 x 500 mg) PO TID PRN 02/13/24 Unknown Rx pain/spasms 7 days #28 tabs oxycodone 5 mg tablet 2.5 - 5 mg (0.5 - 1 x 5 mg) PO Q6H 02/13/24 Unknown Rx PRN pain 7 days #28 tabs sennosides 8.6 mg-docusate sodium 2 tab PO BID PRN constipation 7 02/13/24 Unknown Rx 50 mg tablet (Stimulant Laxative days #28 tabs Plus) Allergy/AdvReac Type Severity Reaction Status Date / Time Seasonal Allergies: Uncoded Allergy Other Verified 02/15/24 09:44 Family History Father CAD (coronary artery disease) Mother Dementia Surgical History S/P insertion of sacral nerve stimulator (~11/2022) Presence of permanent cardiac pacemaker (~01/28/22) History of umbilical hernia repair (~03/01/20) History of right breast biopsy (~11/23/03) Cataract extraction status History of repair of rotator cuff (~08/31/09) History of eye surgery (~01/07/05) History of pancreatectomy (~03/2004) History of kidney transplant (~03/2004) History of coronary artery bypass surgery (~07/29/12) Status post pancreas transplantation (~05/25/05) Social History household members: spouse Smoking Status: Never smoker alcohol intake: current alcohol intake frequency: a few times a week substance use type: does not use caffeine: Yes Type: coffee Number of servings: 3 ROS Constitutional Constitutional: Reports systems reviewed and no addt'l complaints, except as documented Eyes Eyes: Reports systems reviewed and no addt'l complaints, except as documented ENT HEENT: Denies hoarseness, mouth pain, mucositis or nasal congestion Respiratory/Chest Respiratory/Chest: Denies dry cough, dyspnea or pain with cough Physical Exam Const alert and oriented x3 General Appearance: cooperative HEENT HEENT Narrative: c-collar in place. left neck consistent with her postoperative hematoma. voice normal. no stridor/stertor. oral cavity, nose and soft palate normal. Medical Records Data Medical Nutrition Assessment Dietitian: Malnutrition Criteria Met Start: 02/16/24 14:47 Freq: Status: Active Protocol: Document 02/16/24 14:47 SB (Rec: 02/16/24 14:47 [id number]) Nutrition Malnutrition Evidence of Malnutrition Exists Yes Malnutrition (severe): Acute Illness/Injury Evidenced By Suboptimal Energy Intake ( Severe),Weight Loss (Severe) Intake Problem Inadequate Oral Intake Etiology related to swallowing difficulty Signs/Symptoms as evidence by NPO. Status Active Problem Clinical Problem Acute Disease or Injury Related Malnutrition Etiology severe protein calorie malnutrition related to swallowing difficulty and inability to take adequate PO Signs/Symptoms as evidence by 4.7% unintentional weight loss in less than 1 week, inadequate PO intake <50% x 1 week, and BMI of 18.3. Status Active Problem Recommendation Dietitian Recommendations/Changes Recommend advance diet as tolerated to regular with consistency/texture per CHILDHOOD TEACHER. Monitor need to restrict carbohydrates given history of DM. Suggest Ensure plus HP for repletion as diet advanced from NPO. Consider enteral nutrition support if PO remains contraindicated in 24-72 hours . Reviewed and approved by Mae Zuniga, MS, RD, LD Lab / Micro Data 02/17/24 08:40 02/17/24 08:40 Labs: Laboratory Results - last 24 hr 02/17/24 08:40: WBC 10.5, RBC 3.78 L, Hgb 11.1 L, Hct 34.4 L, MCV 91.0, MCH 29.4, MCHC 32.3, RDW Std Deviation 44.0 H, RDW Coeff of Jenny 13.2, Plt Count 285, MPV 10.0, Immature Gran % (Auto) 0.700, Neut % (Auto) 89.4 H, Lymph % (Auto) 5.4 L, [place] % (Auto) 4.4, Eos % (Auto) 0.0, Baso % (Auto) 0.1, Absolute Neuts (auto) 9.4 H, Absolute Lymphs (auto) 0.57 L, Nucleated RBC % 0, Sodium 133 L, Potassium 4.3, Chloride 102, Carbon Dioxide 22.0, Anion Gap 9, BUN 39 H, Creatinine 1.14 H, Estim Creat Clear Calc 28.09, Est GFR (MDRD) Af Amer 60, Est GFR (MDRD) Non-Af 49 L, BUN/Creatinine Ratio 34.2 H, Glucose 134 H, Calcium 9.0, Phosphorus 3.3, Magnesium 2.2
[2024-02-17] MEDS: Carvedilol 6.25 MG Tablet PO ×2 (15:38→21:32)
[2024-02-17] MEDS: Folic Acid 1 MG Tablet PO (15:38)
[2024-02-17] MEDS: amLODIPine 10 MG Tablet PO (15:39)
[2024-02-17] MEDS: Lisinopril 20 MG Tablet PO (15:39)
[2024-02-17] MEDS: hydroCHLOROthiazide 25 MG Tablet PO (15:39)
[2024-02-17] MEDS: Smz/Tmp Ds Tablet 0.5 TABLET PO (15:40)
[2024-02-17] MEDS: Mycophenolate Mofetil 250 MG Capsule PO ×2 (15:40→21:33)
[2024-02-17] MEDS: DULoxetine Hcl 30 MG Capsule PO ×2 (15:42→21:32)
--- NOTE | 2024-02-17 15:50 | SP.FEES_ITS ---
FEES Patient Information Date of Evaluation: 02/17/24 Time of Evaluation: 09:30 Diagnosis: Dysphagia R13.10 Referring Physician: Rambo Verduzco Staff Providing this Care/Treatment:: YANETH Direct Billable Minutes: 135 History: Past Medical History:: Diabetes, Bruising, Back pain, Blackout, Gastric reflux, History of pain when walking, Fatigue, Wears hearing aid, Wears glasses, Cancer, Ambulates with cane, Arthritis, High cholesterol, Easy bruising, Non-smoker, History of stress test, History of echocardiogram, Cardiology follow-up encounter, HLD, Spinal stenosis of lumbar region at multiple levels, Scoliosis of lumbar region due to degenerative disease of spine in adult, Low back pain, DDD, High degree atrioventricular block, TIA, Chest pain, Non-rheumatic mitral regurgitation, Nonrheumatic aortic (valve) stenosis, RBBB, Atherosclerotic heart disease of [place] coronary artery without angina pectoris, GERD, Benign hypertension. Surgical Hx: S/P insertion of sacral nerve stimulator (~11/2022), Presence of permanent cardiac pacemaker (~01/28/22), History of umbilical hernia repair (~03/01/20), History of right breast biopsy (~11/23/03), Cataract extraction status, History of repair of rotator cuff (~08/31/09), History of eye surgery (~01/07/05), History of pancreatectomy (~03/2004), History of kidney transplant (~03/2004), History of coronary artery bypass surgery (~07/29/12), Status post pancreas transplantation (~05/25/05). Pt presented to [facility] ED 02/15/24 with inability to swallow anything that was not food or drink. Pt is 3 days s/p anterior cervical discectomy and fusion for C5- C7 disc degeneration w/ stenosis, cord compression, and severe myelopathy. Per patient and , she had resumed an oral diet after surgery and was even consuming soft solids and liquids on the evening of 02/14/24; however, when she woke up 02/15/24 she could only swallow her own saliva and her voice was hoarse. SIX COLOR PRESS OPERATOR was consulted in the ED for BSE; however, SIX COLOR PRESS OPERATOR requested FEES order from physician to objectively assess oropharyngeal anatomy and aspiration risk. FEES was completed 02/15/24 and recommended strict NPO due to severe pharyngeal edema and choking episode on ice chip during assessment. She was also recommended for ENT consult due to incidental finding of a white, irregular-textured excrescence in R inferior nasal turbinate during the FEES. Patient was admitted to PCU for medical management of severe post-operative swelling. She was started on IV steroids. SIX COLOR PRESS OPERATOR repeated FEES 02/16/24 with patient having extensive coughing epis ode of single ice chip and pooling of secretions in pharynx and presence of large, purple protuberance (likely hematoma). Soft tissue CT of the neck 02/15/24 revealed Diffuse cervical soft tissue swelling as described and possible hematoma in the prevertebral soft tissues worse on the left side of the midline most likely secondary to recent surgical intervention. SIX COLOR PRESS OPERATOR recommended continuing strict NPO with plans for re-assessment of swallow via FEES today after continued medical intervention for post-operative edema. Current Diet: Comment:: Strict NPO Respiratory Status Observation:: Room air Vocal Quality: Observations:: Hoarse Comments:: Mildly hoarse Cognition: Observations:: WNL Position During FEES: Position During FEES:: Upright Location: In Chair Fiberoptic Endoscope: Size: 3.4 mm Nare Used:: Left Comments: SIX COLOR PRESS OPERATOR observed white, irregular-textured excrescence in R inferior nasal turbinate during the FEES completed on 02/15/24. ENT consult placed. SIX COLOR PRESS OPERATOR passed scope through L nare for today's assessment without difficulty. No abnormal findings upon passing scope through L nare. Anatomical Findings: Anatomical Findings:: Continued bruised posterior pharyngeal wall. Pt has mild- moderate edema of the arytenoids and ventricular folds. Tongue base appears bruised with mild-moderate edema. Able to visualize R true vocal fold for majority of the study, while L true vocal fold appears to be covered by edematous L ventricular fold except during phonation. R true vocal fold appears white, while L true vocal folds appears red during phonation. Vocal folds have slight gap when adducted. Large purple protuberance, likely hematoma, appears smaller today as compared to yesterday. Large, purple protuberance now extends from the L side of the posterior pharyngeal wall, covering the L arytenoid and L aryepiglottic fold, and extending to the L lateral glosso-epiglottic fold. Secretions: Description:: Thin and Clear Penetration-Aspiration Scale Penetration-Aspiration Scale Thin Liquids by Single Straw Food/Drink Provided:: Green-colored liquids Swallow Onset Location:: [place] PAS Score: PAS Score *5 Visual Analysis of Swallowing Efficiency and Safety (VASES) after the swallow: Oropharynx, Hypopharynx, Epiglottis and Laryngeal Vestibule Comments:: 10% anterior commissure of true vocal folds, 15% in R pyriform sinus, 20% in vallecula, 10% on large purple protuberance Strategies Trialed:: Cued cough and re-swallow = effective Multiple swallows = effective Additional Comments:: Cannot definitively rule out aspiration during 2nd trial (PAS of 5) as the glottis was difficult to visualize with remaining edema. Other thin liquids trials were PAS of 1. Puree Textures Food/Drink Provided:: Green-colored applesauce Swallow Onset Location:: [place] PAS Score: PAS Score *1 Visual Analysis of Swallowing Efficiency and Safety (VASES) after the swallow: Oropharynx, Hypopharynx and Epiglottis Comments:: <5% inter-arytenoid tissue, <5% in R pyriform sinus, 15% in vallecula, 20% on large purple protuberance, <5% epiglottis, 10% R aryepiglottic fold Strategies Trialed:: Effortful swallow = little to no impact Multiple swallows = somewhat effective Soft & Bite Sized Textures Food/Drink Provided:: 1/ Lidia Doone softened and moistened in green-colored applesauce Swallow Onset Location:: [place] PAS Score: PAS Score *1 Visual Analysis of Swallowing Efficiency and Safety (VASES) after the swallow: Oropharynx, Hypopharynx and Epiglottis Comments:: <5% inter-arytenoid tissue, 10% in R pyriform sinus, 20% in vallecula, 30% on large purple protuberance, 15% epiglottis Strategies Trialed:: Multiple swallows = somewhat effective Liquid wash = somewhat effective Diagnosis/Impressions Diagnosis: Moderate pharyngeal dysphagia R13.13 Impressions: The pharyngeal phase is primarily marked by... -Mild-moderate pharyngeal residues, most notable with applesauce and cookie trials, due to decreased pharyngeal contraction. Liquid wash and multiple swallows were most effective in clearing pharyngeal residues. -Decreased airway closure with deep laryngeal penetration of thin liquids via straw 1X. Cannot definitively rule out aspiration. Cough and re-swallow is most effective in decreasing aspiration risk. Did not trial thickened liquids due to concerns for increased pharyngeal residue and increased risk for post prandial aspiration. Swallowing Impairment: Decreased Pharyngeal Contraction and Decreased Airway Closure Recommendations Diet: Puree Textures and Thin Liquids Medication Administration:: Crushed in puree Comments: Pt can't have anti-rejection meds crushed. SIX COLOR PRESS OPERATOR recommends whole in applesauce one at a time for pills that can't be crushed. Frequent oral care Intermittent cough and re-swallow w/ liquids Compensatory Strategies: Small Bites, Small Sips, Slow Rate, Multiple Swallows, Alternate bites/solids and sips/liquids, Sitting upright and Remain sitting upright for 30 minutes after PO intake Supervision: 1:1 Distant Supervision Recommend Repeat Instrumental Swallow Assessment: TBD Need for Skilled Speech Therapy Services: Yes Comments: Will follow for dysphagia therapy at bedside during remainder of acute stay. Will recommend OP speech therapy orders at discharge to follow for ongoing assessment of diet tolerance, trialing solids w/ SIX COLOR PRESS OPERATOR to consider diet advancement, and for continued education re: strategies to decrease risk for aspiration. Hold oropharyngeal strengthening at this time to allow the throat time to fully heal from postoperative edema. Recommended Referrals: ENT Consult (Consult already placed from 02/15/24 FEES) Education Completed: 1. Described result of evaluation., 2. Pt understands evaluation & agrees with goals and treatment plan. and 4. Family/caregivers understand evaluation & agree w/ goals & tx plan. Comments: Pt is being admitted. SIX COLOR PRESS OPERATOR will request dysphagia therapy orders to follow and re-assess swallow function once edema has been medically managed.
--- NOTE | 2024-02-17 16:12 | PCM.PN.ORT ---
Subjective Subjective Postop day 5 status post C4-7 ACDF readmitted for dysphagia. Patient doing much better today. Was seen by speech pathology this morning and was cleared for soft diet with restrictions. Feels much lesser sore in the throat now. Eager to start antirejection medications for her pancreas and kidney transplants. Objective Data Objective Data Vital Signs: Vital Signs Temp Pulse Resp BP Pulse Ox O2 Del Method O2 Flow Rate 98.2 F 93 16 164/85 H 100 Room Air 1 02/17/24 15:00 02/17/24 15:00 02/17/24 15:00 02/17/24 15:00 02/17/24 15:00 02/17/24 15:00 02/16/24 09:38 Oxygen Flow Rate (L/min) 1 Oxygen Delivery Method Room Air Weight: 90 lb 9.76 oz Body Mass Index (BMI) 18.3 Intake & Output: Intake and Output for Last 24 Hours 02/15/24 02/16/24 02/17/24 23:59 23:59 23:59 Intake Total 110 / 110 2220 / 2220 410 / 410 Balance 110 / 110 2220 / 2220 410 / 410 Medical Nutrition Assessment Dietitian: Malnutrition Criteria Met Start: 02/16/24 14:47 Freq: Status: Active Protocol: Document 02/16/24 14:47 SB (Rec: 02/16/24 14:47 SB [id number]) Nutrition Malnutrition Evidence of Malnutrition Exists Yes Malnutrition (severe): Acute Illness/Injury Evidenced By Suboptimal Energy Intake ( Severe),Weight Loss (Severe) Intake Problem Inadequate Oral Intake Etiology related to swallowing difficulty Signs/Symptoms as evidence by NPO. Status Active Problem Clinical Problem Acute Disease or Injury Related Malnutrition Etiology severe protein calorie malnutrition related to swallowing difficulty and inability to take adequate PO Signs/Symptoms as evidence by 4.7% unintentional weight loss in less than 1 week, inadequate PO intake <50% x 1 week, and BMI of 18.3. Status Active Problem Recommendation Dietitian Recommendations/Changes Recommend advance diet as tolerated to regular with consistency/texture per HEALTH SAFETY ENGINEER. Monitor need to restrict carbohydrates given history of DM. Suggest Ensure plus HP for repletion as diet advanced from NPO. Consider enteral nutrition support if PO remains contraindicated in 24-72 hours . Reviewed and approved by Mae Zuniga, MS, RD, LD Lab / Micro Data 02/17/24 08:40 02/17/24 08:40 Labs: Laboratory Results - last 24 hr 02/17/24 08:40: WBC 10.5, RBC 3.78 L, Hgb 11.1 L, Hct 34.4 L, MCV 91.0, MCH 29.4, MCHC 32.3, RDW Std Deviation 44.0 H, RDW Coeff of Jenny 13.2, Plt Count 285, MPV 10.0, Immature Gran % (Auto) 0.700, Neut % (Auto) 89.4 H, Lymph % (Auto) 5.4 L, [place] % (Auto) 4.4, Eos % (Auto) 0.0, Baso % (Auto) 0.1, Absolute Neuts (auto) 9.4 H, Absolute Lymphs (auto) 0.57 L, Nucleated RBC % 0, Sodium 133 L, Potassium 4.3, Chloride 102, Carbon Dioxide 22.0, Anion Gap 9, BUN 39 H, Creatinine 1.14 H, Estim Creat Clear Calc 28.09, Est GFR (MDRD) Af Amer 60, Est GFR (MDRD) Non-Af 49 L, BUN/Creatinine Ratio 34.2 H, Glucose 134 H, Calcium 9.0, Phosphorus 3.3, Magnesium 2.2 Physical Exam Narrative Dressing?CDI. Neurologic evaluation of upper extremity shows 5 out of 5 bilateral muscles normal sensations in all dermatomes. Assessment & Plan Assessment/Plan (1) Dysphagia: QUALIFIERS: Dysphagia type: other dysphagia Qualified Code(s): R13.19 - Other dysphagia (2) S/P cervical spinal fusion: PLAN: Plan Postop day 4 cervical C5-7 ACDF readmitted for dysphagia. Throat soreness improvement with IV steroids. Will taper IV Decadron to 4 mg Q8. Encouraged out of bed mobility with nursing as frequently as possible. Speech pathology recommends starting soft diet per their recommendations and okay to start oral medications crushed in applesauce. Discussed with speech pathology, okay to try antirejection medication capsules whole without crushing or opening. Will likely discharge home with swallowing restrictions tomorrow. All questions answered. Appreciate HEALTH SAFETY ENGINEER and hospitalist comanagement.
[2024-02-17] MEDS: Pravastatin 20 MG Tablet PO (21:32)
[2024-02-17] MEDS: dexAMETHasone 4 MG/ML Vial IV (21:39)
[2024-02-17] MEDS: Tacrolimus Anhydrous 1 MG Capsule PO (21:40)
[2024-02-18 03:30] VITALS: BP 135/83; PULSE 70; RESP 17; TEMP 36.4; O2SAT 96
[2024-02-18 05:53] VITALS: BMI 18.6
[2024-02-18] MEDS: dexAMETHasone 4 MG/ML Vial IV (05:54)
[2024-02-18] MEDS: 0.9% Saline Lock 10 ML Syringe IV (05:54)
[2024-02-18 08:16] VITALS: O2SAT 96
--- NOTE | 2024-02-18 08:21 | PCM.PN.HOSP ---
Reason for Visit Reason for Visit: Diagnoses Other dysphagia (02/17/24) Arthrodesis status (02/17/24) Subjective Subjective Patient seen swallowing has improved. Home medications including antirejection medications started the day prior Objective Data Objective Data Vital Signs: Vital Signs Temp Pulse Resp BP Pulse Ox O2 Del Method O2 Flow Rate 97.6 F L 70 17 135/83 H 96 Room Air 1 02/18/24 03:30 02/18/24 03:30 02/18/24 03:30 02/18/24 03:30 02/18/24 03:30 02/18/24 03:33 02/16/24 09:38 Oxygen Flow Rate (L/min) 1 Oxygen Delivery Method Room Air Weight: 41.7 kg Body Mass Index (BMI) 18.6 Intake & Output: Intake and Output for Last 24 Hours 02/16/24 02/17/24 02/18/24 23:59 23:59 23:59 Intake Total 2220 / 2220 520 / 520 222 / 222 Balance 2220 / 2220 520 / 520 222 / 222 Medical Nutrition Assessment Dietitian: Malnutrition Criteria Met Start: 02/16/24 14:47 Freq: Status: Active Protocol: Document 02/16/24 14:47 SB (Rec: 02/16/24 14:47 SB [id number]) Nutrition Malnutrition Evidence of Malnutrition Exists Yes Malnutrition (severe): Acute Illness/Injury Evidenced By Suboptimal Energy Intake ( Severe),Weight Loss (Severe) Intake Problem Inadequate Oral Intake Etiology related to swallowing difficulty Signs/Symptoms as evidence by NPO. Status Active Problem Clinical Problem Acute Disease or Injury Related Malnutrition Etiology severe protein calorie malnutrition related to swallowing difficulty and inability to take adequate PO Signs/Symptoms as evidence by 4.7% unintentional weight loss in less than 1 week, inadequate PO intake <50% x 1 week, and BMI of 18.3. Status Active Problem Recommendation Dietitian Recommendations/Changes Recommend advance diet as tolerated to regular with consistency/texture per BUSINESS CENTER REPRESENTATIVE. Monitor need to restrict carbohydrates given history of DM. Suggest Ensure plus HP for repletion as diet advanced from NPO. Consider enteral nutrition support if PO remains contraindicated in 24-72 hours . Reviewed and approved by Mae Zuniga, , RD, LD Lab / Micro Data 02/17/24 08:40 02/17/24 08:40 Labs: Laboratory Results - last 24 hr 02/17/24 08:40: WBC 10.5, RBC 3.78 L, Hgb 11.1 L, Hct 34.4 L, MCV 91.0, MCH 29.4, MCHC 32.3, RDW Std Deviation 44.0 H, RDW Coeff of Jenny 13.2, Plt Count 285, MPV 10.0, Immature Gran % (Auto) 0.700, Neut % (Auto) 89.4 H, Lymph % (Auto) 5.4 L, Sp[place] % (Auto) 4.4, Eos % (Auto) 0.0, Baso % (Auto) 0.1, Absolute Neuts (auto) 9.4 H, Absolute Lymphs (auto) 0.57 L, Nucleated RBC % 0, Sodium 133 L, Potassium 4.3, Chloride 102, Carbon Dioxide 22.0, Anion Gap 9, BUN 39 H, Creatinine 1.14 H, Estim Creat Clear Calc 28.09, Est GFR (MDRD) Af Amer 60, Est GFR (MDRD) Non-Af 49 L, BUN/Creatinine Ratio 34.2 H, Glucose 134 H, Calcium 9.0, Phosphorus 3.3, Magnesium 2.2 Physical Exam Narrative GENERAL: cooperative HEENT: Atraumatic; normocephalic EYES; Anicteric, Normal Conjunctiva NECK; patient in neck collar surgical incision clean dry and intact RESPIRATORY: Diminished to auscultation CARDIOVASCULAR: Regular S1 S2, GI: soft, normoactive bowel sounds, : No Renal angle tenderness; EXTREMITIES: No edema, no clubbing, MUSCULOSKELETAL: no muscle wasting NEURO: Awake; no lateralizing signs. SKIN: No Rash PSYCH; Flat affect Assessment & Plan Assessment/Plan (1) Dysphagia: QUALIFIERS: Dysphagia type: other dysphagia Qualified Code(s): R13.19 - Other dysphagia (2) S/P cervical spinal fusion: PLAN: Plan Patient is a 73-year-old female who underwent C5-7 anterior cervical discectomy and fusion with plate instrumentation on 02/12/[address] Rambo Verduzco discharge on 02/13/2024 presented to the emergency department with difficulty swallowing 1. Acute dysphagia ? Secondary to postoperative hematoma. Imaging studies obtained on admission did show Diffuse cervical soft tissue swelling as described and possible hematoma in the prevertebral soft tissues worse on the left side of the midline most likely secondary to recent surgical intervention.Mild compromise of the subglottic airway.admitted for inpatient management. Patient was kept n.p.o., was treated with Decadron with consultation ENT surgeon. Consult placed to speech therapy ? 02/17/2024;Patient seen still complains of some throat discomfort. Scheduled to undergo speech and swallow eval. 2. Status post C5-7 anterior cervical discectomy and fusion with plate instrumentation on 02/12/[address] Rambo Verduzco 3. Essential hypertension ? Patient home medications were placed on hold given her difficulty with swallowing placed on hydralazine as needed. Blood pressure greater than 160 4. Coronary artery disease ? CABG patient is on guideline directed medical therapy 5. History of high degree AV block ? Status post pacemaker placement 6. History of renal transplant ? Patient is on Bactrim as well as tacrolimus 7. History of pancreatic transplant -Patient is on Bactrim as well as tacrolimus 8. Dyslipidemia ? Plan is to resume home meds once patient is able to swallow 9. Carotid artery disease ? Patient to follow-up with primary care physician for referral to vascular surgery 10. severe protein calorie malnutrition related to swallowing difficulty and inability to take adequate PO patient seen in consultation by dietitian noted recommendations reviewed 11. DVT prophylaxis ? Bilateral SCDs Time spent in the patient's overall evaluation,decision-making process, review of diagnostic data, adjustment of management, discussion with other providers, nursing nursing and ancillary staff involved in patient's care documentation, 36 Minutes Charges/Coding Visit Charges Inpatient E&M: 50033 Subs Hosp L2
[2024-02-18] MEDS: Tacrolimus Anhydrous 1 MG Capsule PO (08:56)
[2024-02-18] MEDS: Folic Acid 1 MG Tablet PO (08:57)
[2024-02-18] MEDS: Mycophenolate Mofetil 250 MG Capsule PO (08:57)
[2024-02-18] MEDS: hydroCHLOROthiazide 25 MG Tablet PO (08:57)
[2024-02-18] MEDS: amLODIPine 10 MG Tablet PO (08:57)
[2024-02-18] MEDS: Carvedilol 6.25 MG Tablet PO (08:57)
[2024-02-18] MEDS: Lisinopril 20 MG Tablet PO (08:58)
[2024-02-18] MEDS: DULoxetine Hcl 30 MG Capsule PO (08:58)
[2024-02-18] MEDS: Pantoprazole Sodium 40 MG in 0.9% Normal Saline (100mL MB+) 100 ML 330 MG IV (09:06)
[2024-02-18 09:30] VITALS: BP 156/64; PULSE 69; RESP 16; TEMP 36.6; O2SAT 97
--- NOTE | 2024-02-18 10:15 | CASEMGMT ---
Addendum entered by Tea Lewis 02/18/24 12:36: Script for OP ST received from Dr Verduzco and provided to pt. Dr Verduzco states pt is requesting recommendations by ST from today be provided to her. These were printed off and given to pt at this time. Pt denies having other dc needs/concerns. Original Note: RIC CASTILLO NOTE: Per Dr Flowers, he anticipates pt will be discharged home today. RIC CASTILLO to room. Pt sitting up in chair, in room visiting. Introduced self and role. Discussed OP ST, as this is recommended by ST @ [facility]. Pt aware this is recommended but states she has not decided yet if she wishes to do that, stating she wants to wait and see how she does once she gets home. She states if she does go, she would go to [facility]. She is agreeable to taking a script for OP ST home @ dc and then if she decides to go, she will call to schedule appt. She and deny having other discharge needs/concerns. Enrique MOFFETT RN CM
--- NOTE | 2024-02-18 13:09 | PCM.PN.ORT ---
Subjective Subjective Postop day 6 status post C5-7 ACDF with dysphagia. This is significantly improved and is now soft solid diet per speech pathology. Was able to restart her oral antirejection medications. Objective Data Objective Data Vital Signs: Vital Signs Temp Pulse Resp BP Pulse Ox O2 Del Method O2 Flow Rate 97.9 F 69 16 156/64 H 97 Room Air 1 02/18/24 09:30 02/18/24 09:30 02/18/24 09:30 02/18/24 09:30 02/18/24 09:30 02/18/24 09:30 02/16/24 09:38 Oxygen Flow Rate (L/min) 1 Oxygen Delivery Method Room Air Weight: 91 lb 14.924 oz Body Mass Index (BMI) 18.6 Intake & Output: Intake and Output for Last 24 Hours 02/16/24 02/17/24 02/18/24 23:59 23:59 23:59 Intake Total 2220 / 2220 520 / 520 332 / 332 Balance 2220 / 2220 520 / 520 332 / 332 Medical Nutrition Assessment Dietitian: Malnutrition Criteria Met Start: 02/16/24 14:47 Freq: Status: Active Protocol: Document 02/16/24 14:47 SB (Rec: 02/16/24 14:47 SB [id number]) Nutrition Malnutrition Evidence of Malnutrition Exists Yes Malnutrition (severe): Acute Illness/Injury Evidenced By Suboptimal Energy Intake ( Severe),Weight Loss (Severe) Intake Problem Inadequate Oral Intake Etiology related to swallowing difficulty Signs/Symptoms as evidence by NPO. Status Active Problem Clinical Problem Acute Disease or Injury Related Malnutrition Etiology severe protein calorie malnutrition related to swallowing difficulty and inability to take adequate PO Signs/Symptoms as evidence by 4.7% unintentional weight loss in less than 1 week, inadequate PO intake <50% x 1 week, and BMI of 18.3. Status Active Problem Recommendation Dietitian Recommendations/Changes Recommend advance diet as tolerated to regular with consistency/texture per HEMATOLOGY NURSE EDUCATOR. Monitor need to restrict carbohydrates given history of DM. Suggest Ensure plus HP for repletion as diet advanced from NPO. Consider enteral nutrition support if PO remains contraindicated in 24-72 hours . Reviewed and approved by Mae Zuniga, MS, RD, LD Lab / Micro Data 02/17/24 08:40 02/17/24 08:40 Physical Exam Narrative Dressing?CDI. Neurologic evaluation of upper extremity shows 5 out of 5 bilateral muscles normal sensations in all dermatomes. Assessment & Plan Assessment/Plan (1) Dysphagia: QUALIFIERS: Dysphagia type: other dysphagia Qualified Code(s): R13.19 - Other dysphagia (2) S/P cervical spinal fusion: PLAN: Plan Postop day 6 cervical C5-7 ACDF readmitted for dysphagia. Will discharge home today with dietary restrictions based on speech pathology recommendations. Appreciate HEMATOLOGY NURSE EDUCATOR, hospitalist, ENT involvement. Follow-up in clinic in 1 week as scheduled.
--- NOTE | 2024-02-18 13:25 | PHA.DC.MC.R ---
Pharmacy [facility] Pharmacy Service has performed discharge medication reconciliation and counseling for this patient. The patient's discharge medication list was reviewed for discrepancies and discrepancies were resolved. The patient was counseled on the following discharge medications and changes in medications for homegoing were reviewed. The Reason for Use, instructions for use, and potential side effects were reviewed for all new medications. The patient's questions regarding all of their medications were answered. 1. Dexamethasone 4 mg PO BID x 3 days The patient was able to verbally demonstrate an understanding of their discharge medications. The patient was counselled on new medications by pharmacy service associate Maxim Medications at Discharge Home Medications cyanocobalamin (vitamin B-12) 1,000 mcg/mL injection solution 100 mcg IM QMONTH vitamin 07/10/20 folic acid 1 mg tablet 1 mg PO DAILY supplement 07/10/20 pravastatin 20 mg tablet 20 mg PO QHS cholesterol 07/10/20 sulfamethoxazole 400 mg-trimethoprim 80 mg tablet (Bactrim) 1 tab PO DAILY ANTI REJECTION 07/10/20 tacrolimus 0.5 mg capsule, immediate-release 1 mg PO Q12H anti rejection 07/10/20 cholecalciferol (vitamin D3) 25 mcg (1,000 unit) capsule 25 mcg PO DAILY vitamin 07/12/20 aspirin 81 mg tablet,delayed release (Adult Low Dose Aspirin) 81 mg PO DAILY heart health 10/09/20 mycophenolate mofetil 250 mg capsule 250 mg PO BID anti rejection 09/25/22 amlodipine 10 mg tablet 10 mg PO DAILY BP 11/20/22 lisinopril 20 mg-hydrochlorothiazide 25 mg tablet 1 tab PO DAILY BP #90 tabs 05/07/23 carvedilol 6.25 mg tablet 6.25 mg PO BID HEART #180 tabs 08/05/23 ibandronate 150 mg tablet 150 mg PO QMONTH BONE HEALTH 08/05/23 omeprazole 40 mg capsule,delayed release 40 mg PO DAILY GERD 08/05/23 duloxetine 30 mg capsule,delayed release 30 mg PO BID DEPRESSION 01/13/24 acetaminophen 500 mg tablet 500 mg PO Q6H 7 days #28 tabs 02/13/24 methocarbamol 500 mg tablet 750 mg (1.5 x 500 mg) PO TID PRN pain/spasms 7 days #28 tabs 02/13/24 oxycodone 5 mg tablet 2.5 - 5 mg (0.5 - 1 x 5 mg) PO Q6H PRN pain 7 days #28 tabs 02/13/24 sennosides 8.6 mg-docusate sodium 50 mg tablet (Stimulant Laxative Plus) 2 tab PO BID PRN constipation 7 days #28 tabs 02/13/24 dexamethasone 4 mg tablet 4 mg PO BID 3 days #6 tabs 02/18/24
== END 2024-02-18 13:50 | disposition home or self-care (01) | DRG 919 ==
LOC: ED 14:44 → PCU 16:48
PROVIDERS: Family Medicine; Admitting Provider Orthopaedic Surgery Orthopaedic Surgery of the Spine; Emergency Provider Student in an Organized Health Care Education/Training Program; PCP Family Medicine; Visit Provider Internal Medicine
DX: M96.840 Postprocedural hematoma of a musculoskeletal structure following a musculoskeletal system procedure (principal); E43 Unspecified severe protein-calorie malnutrition; Z94.83 Pancreas transplant status; E87.1 Hypo-osmolality and hyponatremia; Z94.0 Kidney transplant status; Z68.1 Body mass index [BMI] 19.9 or less, adult; I10 Essential (primary) hypertension; F32.A Depression, unspecified; I65.23 Occlusion and stenosis of bilateral carotid arteries; I25.10 Atherosclerotic heart disease of native coronary artery without angina pectoris; E78.00 Pure hypercholesterolemia, unspecified; K21.9 Gastro-esophageal reflux disease without esophagitis; F41.9 Anxiety disorder, unspecified; E86.1 Hypovolemia; Z95.0 Presence of cardiac pacemaker; Z95.1 Presence of aortocoronary bypass graft; Z98.1 Arthrodesis status; Z79.82 Long term (current) use of aspirin; Z79.899 Other long term (current) drug therapy; Z86.73 Personal history of transient ischemic attack (TIA), and cerebral infarction without residual deficits; Z86.79 Personal history of other diseases of the circulatory system
CPT/HCPCS: 36415; 70490; 80048; 80053; 83735; 84100; 85025; 92526; 92612; 94668; 94762; 97162; 97802; 99283; J7030; A4216; J2405

== ENCOUNTER 2024-03-24 09:30 | Outpatient (RCR) | payer MEDICARE, SELFPAY | END 2024-03-24 19:00 | disposition home or self-care (01) | LOC: PT 09:30 | PROVIDERS: PCP Family Medicine; Referring Provider Orthopaedic Surgery Orthopaedic Surgery of the Spine; Visit Provider Orthopaedic Surgery Orthopaedic Surgery of the Spine | DX: Z98.1 Arthrodesis status (principal); Z98.890 Other specified postprocedural states | CPT/HCPCS: 97110; 97162 ==

== ENCOUNTER → 2024-04-20 | Outpatient (CLI) | payer MEDICARE, SELFPAY ==
[2024-04-20 11:44] LABS: Amphetamine Urine VISTA NEGATIVE (<1000 ng/mL); Barbiturate Urine VISTA NEGATIVE (< 200 ng/mL); Benzodiazepine Urine VISTA NEGATIVE (< 200 ng/mL); Cocaine Urine VISTA NEGATIVE (< 300 ng/mL); Ecstacy Urine VISTA NEGATIVE (< 500 ng/mL); Methadone Urine VISTA NEGATIVE (< 300 ng/mL); PCP Urine VISTA NEGATIVE (< 25 ng/mL); THC Urine VISTA POSITIVE (< 50 ng/mL); Vista UDS pH Range 4
== END | disposition home or self-care (01) ==
PROVIDERS: PCP Family Medicine; Referring Provider Anesthesiology Pain Medicine; Visit Provider Anesthesiology Pain Medicine
DX: F11.20 Opioid dependence, uncomplicated (principal)
CPT/HCPCS: 80307

== ENCOUNTER → 2024-05-18 | Outpatient (CLI) | payer MEDICARE, SELFPAY ==
--- NOTE | 2024-05-18 11:42 | RAD_ITS ---
EXAM: XR RIGHT SHOULDER COMPLETE, 2 OR MORE VIEWS CLINICAL INDICATION: RIGHT SHOULDER PAIN, FALL TECHNIQUE: Two or more views of the right shoulder. COMPARISON: No relevant prior studies available. FINDINGS: BONES/JOINTS: Lucency extending into the body of the scapula may be indicative of a nondisplaced fracture. Status post rotator cuff tendon repair. Severe acromioclavicular joint arthrosis and moderate glenohumeral joint arthrosis. Degenerative changes in the spine and postoperative changes in the cervical spine. Median sternotomy. SOFT TISSUES: No significant soft tissue abnormality in the [id number].. VASCULATURE: Atherosclerosis. TUBES, LINES AND DEVICES: Cardiac device leads partially visualized. Spinal cord stimulator leads partially visualized. OTHER FINDINGS: Status post CABG. RAD/Shoulder min 2 Views IMPRESSION: 1. Lucency extending into the body of the scapula may be indicative of a nondisplaced fracture. 2. Status post rotator cuff tendon repair. 3. Severe acromioclavicular joint arthrosis and moderate glenohumeral joint arthrosis. Electronically Signed: Charles Lawson DO at 23:56 EDT ,
== END | disposition home or self-care (01) ==
LOC: RAD 11:41
PROVIDERS: PCP Family Medicine; Referring Provider Anesthesiology Pain Medicine; Visit Provider Anesthesiology Pain Medicine
DX: M25.511 Pain in right shoulder (principal)
CPT/HCPCS: 73030

== ENCOUNTER 2024-08-28 10:25 | Inpatient (IN) | payer MEDICARE, SELFPAY ==
[2024-08-28] VITALS (30 sets, daily range): BP systolic 90–164; BP diastolic 47–100; PULSE 82–100; RESP 12–34; TEMP 35.1–36.9; O2SAT 94–100; BMI 19.0
--- NOTE | 2024-08-28 11:24 | EX.ED.DYSGE1 ---
HPI <REANNA Jordan - Last Filed: 08/28/24 21:55> History of Present Illness Chief Complaint: Abd Pain Narrative Narrative: 74-year-old female with PMH of HTN, HLD, DM2, CABG, pacemaker, renal transplant in 2003, pancreas transplant in 2004 on immunosuppression presents with 2 days of bilateral lower abdominal pain. She vomited yesterday and today has no appetite and has not had anything to eat or drink. No fever or chills. She has had decreased urination but no hematuria or dysuria. She had a normal bowel movement yesterday. Other than her transplant she has had 2 C-sections. No history of obstruction or diverticulitis. She had a colonoscopy in 2020. PFSH <REANNA Jordan - Last Filed: 08/28/24 21:55> [facility] Medical History Diabetes Bruising Back pain Blackout Gastric reflux History of pain when walking Fatigue Wears hearing aid Wears glasses Cancer Ambulates with cane Arthritis High cholesterol Easy bruising Non-smoker History of stress test History of echocardiogram Cardiology follow-up encounter HLD (hyperlipidemia) Spinal stenosis of lumbar region at multiple levels Scoliosis of lumbar region due to degenerative disease of spine in adult Low back pain DDD (degenerative disc disease) High degree atrioventricular block TIA (transient ischemic attack) Chest pain Non-rheumatic mitral regurgitation Nonrheumatic aortic (valve) stenosis RBBB (right bundle branch block) Atherosclerotic heart disease of [place] coronary artery without angina pectoris Gastroesophageal reflux disease Benign hypertension Home Medications ?Medication ?Instructions ?Recorded ?Last Taken ?Type cyanocobalamin (vitamin B-12) 100 mcg IM QMONTH vitamin 07/10/20 01/22/24 History 1,000 mcg/mL injection solution folic acid 1 mg tablet 1 mg PO DAILY supplement 07/10/20 02/11/24 History tacrolimus 0.5 mg capsule, 1 mg PO Q12H anti rejection 07/10/20 02/11/24 History immediate-release cholecalciferol (vitamin D3) 25 25 mcg PO DAILY vitamin 07/12/20 02/11/24 History mcg (1,000 unit) capsule aspirin 81 mg tablet,delayed 81 mg PO DAILY [facility] 10/09/20 02/07/24 History release (Adult Low Dose Aspirin) mycophenolate mofetil 250 mg 250 mg PO BID anti rejection 09/25/22 02/11/24 History capsule amlodipine 10 mg tablet 10 mg PO DAILY BP 11/20/22 02/12/24 04:20 History carvedilol 6.25 mg tablet 6.25 mg PO BID HEART #180 tabs 08/05/23 02/12/24 04:20 Rx ibandronate 150 mg tablet 150 mg PO QMONTH [facility] 08/05/23 Unknown History omeprazole 40 mg capsule,delayed 40 mg PO DAILY GERD 08/05/23 02/12/24 04:20 History release duloxetine 30 mg capsule,delayed 20 mg PO BID DEPRESSION 01/13/24 02/12/24 04:20 History release oxycodone 5 mg tablet 2.5 - 5 mg PO BID PRN pain 04/05/24 Unknown History pravastatin 20 mg tablet 20 mg PO QHS cholesterol #90 tabs 04/05/24 Unknown Rx lisinopril 20 1 tab PO DAILY BP #90 tabs 07/15/24 Unknown Rx mg-hydrochlorothiazide 25 mg tablet Allergy/AdvReac Type Severity Reaction Status Date / Time Seasonal Allergies: Uncoded Allergy Other Verified 08/28/24 10:35 Family History Father CAD (coronary artery disease) Mother Dementia Surgical History S/P cervical spinal fusion S/P insertion of sacral nerve stimulator (~11/2022) Presence of permanent cardiac pacemaker (~01/28/22) History of umbilical hernia repair (~03/01/20) History of right breast biopsy (~11/23/03) Cataract extraction status History of repair of rotator cuff (~08/31/09) History of eye surgery (~01/07/05) History of pancreatectomy (~03/2004) History of kidney transplant (~03/2004) History of coronary artery bypass surgery (~07/29/12) Status post pancreas transplantation (~05/25/05) Social History household members: spouse Smoking Status: Never smoker alcohol intake: current alcohol intake frequency: a few times a week substance use type: does not use caffeine: Yes Type: coffee Number of servings: 3 ROS <Anya Glauthier, PA - Last Filed: 08/28/24 21:55> ROS ED ROS Narrative Constitutional: Negative for fever, chills. Cardiac: Negative for chest pain. Respiratory: Negative for shortness of breath, cough. GI: Positive for abdominal pain, nausea, vomiting. Negative for constipation, melena, hematochezia. : Negative for dysuria, hematuria or frequency. EXAM <REANNA Jordan - Last Filed: 08/28/24 21:55> Physical Exam Narrative Exam Narrative: CONST: Patient sitting in no acute distress. EYES: Normal inspection. NECK: Normal inspection. RESP: No respiratory distress, CTAB. CVS: Regular rate and rhythm, no murmur, no gallop. ABD: Soft and nontender, no guarding or rebound, nondistended, no hepatosplenomegaly. Back: Normal inspection, no CVA tenderness. SKIN: Appears slightly jaundiced, no rash, warm, dry, intact. EXTREMITIES: Normal appearance, no pedal edema. NEURO: Alert and answering questions appropriately. PSYCH: Normal affect. Const Vital Signs: 08/28/24 10:27 08/28/24 11:34 08/28/24 12:26 Temperature 95.2 F L 95.2 F L Temperature Source Temporal Temporal Pulse Rate 100 97 88 Respiratory Rate 22 H 22 H 22 H Blood Pressure 121/63 H 121/65 H 163/67 H Blood Pressure Mean 82 83 99 Pulse Ox 97 100 99 Oxygen Delivery Method Room Air Room Air 08/28/24 12:34 08/28/24 14:00 08/28/24 14:30 Temperature 97.1 F L 98.4 F Temperature Source Temporal Oral Pulse Rate 86 84 85 Respiratory Rate 22 H 20 H 18 Blood Pressure 163/67 H 144/55 H 152/67 H Blood Pressure Mean 99 84 95 Pulse Ox 100 97 Oxygen Delivery Method Room Air Room Air 08/28/24 14:45 08/28/24 15:00 08/28/24 15:15 Temperature 98.1 F 98.2 F 98.1 F Temperature Source Temporal Temporal Temporal Pulse Rate 90 86 89 Respiratory Rate 19 H 17 18 Blood Pressure 146/100 H 152/70 H 144/68 H Blood Pressure Mean 115 97 93 Pulse Ox Oxygen Delivery Method 08/28/24 15:30 08/28/24 15:41 08/28/24 15:45 Temperature 97.9 F Temperature Source Temporal Pulse Rate 91 86 88 Respiratory Rate 15 12 21 H Blood Pressure 156/72 H 136/83 H Blood Pressure Mean 100 99 Pulse Ox Oxygen Delivery Method 08/28/24 16:00 08/28/24 16:00 08/28/24 16:06 Temperature Temperature Source Pulse Rate 88 88 Respiratory Rate 18 13 Blood Pressure 125/89 H 125/56 H Blood Pressure Mean 101 75 Pulse Ox 97 98 Oxygen Delivery Method Room Air 08/28/24 16:15 08/28/24 16:20 08/28/24 16:30 Temperature Temperature Source Pulse Rate 88 90 90 Respiratory Rate 13 16 17 Blood Pressure 122/76 H 140/77 H 144/72 H Blood Pressure Mean 82 95 94 Pulse Ox 98 100 99 Oxygen Delivery Method 08/28/24 16:45 08/28/24 17:00 08/28/24 17:15 Temperature Temperature Source Pulse Rate 89 90 87 Respiratory Rate 22 H 20 H 18 Blood Pressure 148/76 H 130/64 H 164/73 H Blood Pressure Mean 98 84 99 Pulse Ox 98 Oxygen Delivery Method 08/28/24 17:30 08/28/24 17:45 08/28/24 18:34 Temperature Temperature Source Pulse Rate 88 89 Respiratory Rate 20 H 19 H Blood Pressure 157/47 H 155/73 H 90/53 L Blood Pressure Mean 78 97 66 Pulse Ox 98 98 95 Oxygen Delivery Method 08/28/24 18:45 08/28/24 18:46 08/28/24 18:46 Temperature Temperature Source Pulse Rate 85 86 Respiratory Rate 23 H 21 H Blood Pressure 144/73 H 144/73 H Blood Pressure Mean 94 94 Pulse Ox 97 94 Oxygen Delivery Method 08/28/24 19:00 08/28/24 19:15 08/28/24 19:30 Temperature Temperature Source Pulse Rate 86 86 Respiratory Rate 23 H 13 Blood Pressure 136/67 H 141/74 H 144/73 H Blood Pressure Mean 88 94 96 Pulse Ox 96 98 Oxygen Delivery Method 08/28/24 21:00 08/28/24 23:20 08/29/24 01:00 Temperature Temperature Source Pulse Rate 82 89 90 Respiratory Rate 34 H 30 H 30 H Blood Pressure 95/67 126/67 H 107/62 Blood Pressure Mean 76 86 77 Pulse Ox 94 97 98 Oxygen Delivery Method Room Air Room Air Room Air <Dr. Cassidy Coronel, DO - Last Filed: 08/29/24 01:10> Physical Exam Const Vital Signs: 08/28/24 10:27 08/28/24 11:34 08/28/24 12:26 Temperature 95.2 F L 95.2 F L Temperature Source Temporal Temporal Pulse Rate 100 97 88 Respiratory Rate 22 H 22 H 22 H Blood Pressure 121/63 H 121/65 H 163/67 H Blood Pressure Mean 82 83 99 Pulse Ox 97 100 99 Oxygen Delivery Method Room Air Room Air 08/28/24 12:34 08/28/24 14:00 08/28/24 14:30 Temperature 97.1 F L 98.4 F Temperature Source Temporal Oral Pulse Rate 86 84 85 Respiratory Rate 22 H 20 H 18 Blood Pressure 163/67 H 144/55 H 152/67 H Blood Pressure Mean 99 84 95 Pulse Ox 100 97 Oxygen Delivery Method Room Air Room Air 08/28/24 14:45 08/28/24 15:00 08/28/24 15:15 Temperature 98.1 F 98.2 F 98.1 F Temperature Source Temporal Temporal Temporal Pulse Rate 90 86 89 Respiratory Rate 19 H 17 18 Blood Pressure 146/100 H 152/70 H 144/68 H Blood Pressure Mean 115 97 93 Pulse Ox Oxygen Delivery Method 08/28/24 15:30 08/28/24 15:41 08/28/24 15:45 Temperature 97.9 F Temperature Source Temporal Pulse Rate 91 86 88 Respiratory Rate 15 12 21 H Blood Pressure 156/72 H 136/83 H Blood Pressure Mean 100 99 Pulse Ox Oxygen Delivery Method 08/28/24 16:00 08/28/24 16:00 08/28/24 16:06 Temperature Temperature Source Pulse Rate 88 88 Respiratory Rate 18 13 Blood Pressure 125/89 H 125/56 H Blood Pressure Mean 101 75 Pulse Ox 97 98 Oxygen Delivery Method Room Air 08/28/24 16:15 08/28/24 16:20 08/28/24 16:30 Temperature Temperature Source Pulse Rate 88 90 90 Respiratory Rate 13 16 17 Blood Pressure 122/76 H 140/77 H 144/72 H Blood Pressure Mean 82 95 94 Pulse Ox 98 100 99 Oxygen Delivery Method 08/28/24 16:45 08/28/24 17:00 08/28/24 17:15 Temperature Temperature Source Pulse Rate 89 90 87 Respiratory Rate 22 H 20 H 18 Blood Pressure 148/76 H 130/64 H 164/73 H Blood Pressure Mean 98 84 99 Pulse Ox 98 Oxygen Delivery Method 08/28/24 17:30 08/28/24 17:45 08/28/24 18:34 Temperature Temperature Source Pulse Rate 88 89 Respiratory Rate 20 H 19 H Blood Pressure 157/47 H 155/73 H 90/53 L Blood Pressure Mean 78 97 66 Pulse Ox 98 98 95 Oxygen Delivery Method 08/28/24 18:45 08/28/24 18:46 08/28/24 18:46 Temperature Temperature Source Pulse Rate 85 86 Respiratory Rate 23 H 21 H Blood Pressure 144/73 H 144/73 H Blood Pressure Mean 94 94 Pulse Ox 97 94 Oxygen Delivery Method 08/28/24 19:00 08/28/24 19:15 08/28/24 19:30 Temperature Temperature Source Pulse Rate 86 86 Respiratory Rate 23 H 13 Blood Pressure 136/67 H 141/74 H 144/73 H Blood Pressure Mean 88 94 96 Pulse Ox 96 98 Oxygen Delivery Method 08/28/24 21:00 08/28/24 23:20 08/29/24 01:00 Temperature Temperature Source Pulse Rate 82 89 90 Respiratory Rate 34 H 30 H 30 H Blood Pressure 95/67 126/67 H 107/62 Blood Pressure Mean 76 86 77 Pulse Ox 94 97 98 Oxygen Delivery Method Room Air Room Air Room Air <Dr. Aditya Mccarty, DO - Last Filed: 08/28/24 21:33> Physical Exam Const Vital Signs: 08/28/24 10:27 08/28/24 11:34 08/28/24 12:26 Temperature 95.2 F L 95.2 F L Temperature Source Temporal Temporal Pulse Rate 100 97 88 Respiratory Rate 22 H 22 H 22 H Blood Pressure 121/63 H 121/65 H 163/67 H Blood Pressure Mean 82 83 99 Pulse Ox 97 100 99 Oxygen Delivery Method Room Air Room Air 08/28/24 12:34 08/28/24 14:00 08/28/24 14:30 Temperature 97.1 F L 98.4 F Temperature Source Temporal Oral Pulse Rate 86 84 85 Respiratory Rate 22 H 20 H 18 Blood Pressure 163/67 H 144/55 H 152/67 H Blood Pressure Mean 99 84 95 Pulse Ox 100 97 Oxygen Delivery Method Room Air Room Air 08/28/24 14:45 08/28/24 15:00 08/28/24 15:15 Temperature 98.1 F 98.2 F 98.1 F Temperature Source Temporal Temporal Temporal Pulse Rate 90 86 89 Respiratory Rate 19 H 17 18 Blood Pressure 146/100 H 152/70 H 144/68 H Blood Pressure Mean 115 97 93 Pulse Ox Oxygen Delivery Method 08/28/24 15:30 08/28/24 15:41 08/28/24 15:45 Temperature 97.9 F Temperature Source Temporal Pulse Rate 91 86 88 Respiratory Rate 15 12 21 H Blood Pressure 156/72 H 136/83 H Blood Pressure Mean 100 99 Pulse Ox Oxygen Delivery Method 08/28/24 16:00 08/28/24 16:00 08/28/24 16:06 Temperature Temperature Source Pulse Rate 88 88 Respiratory Rate 18 13 Blood Pressure 125/89 H 125/56 H Blood Pressure Mean 101 75 Pulse Ox 97 98 Oxygen Delivery Method Room Air 08/28/24 16:15 08/28/24 16:20 08/28/24 16:30 Temperature Temperature Source Pulse Rate 88 90 90 Respiratory Rate 13 16 17 Blood Pressure 122/76 H 140/77 H 144/72 H Blood Pressure Mean 82 95 94 Pulse Ox 98 100 99 Oxygen Delivery Method 08/28/24 16:45 08/28/24 17:00 08/28/24 17:15 Temperature Temperature Source Pulse Rate 89 90 87 Respiratory Rate 22 H 20 H 18 Blood Pressure 148/76 H 130/64 H 164/73 H Blood Pressure Mean 98 84 99 Pulse Ox 98 Oxygen Delivery Method 08/28/24 17:30 08/28/24 17:45 08/28/24 18:34 Temperature Temperature Source Pulse Rate 88 89 Respiratory Rate 20 H 19 H Blood Pressure 157/47 H 155/73 H 90/53 L Blood Pressure Mean 78 97 66 Pulse Ox 98 98 95 Oxygen Delivery Method 08/28/24 18:45 08/28/24 18:46 08/28/24 18:46 Temperature Temperature Source Pulse Rate 85 86 Respiratory Rate 23 H 21 H Blood Pressure 144/73 H 144/73 H Blood Pressure Mean 94 94 Pulse Ox 97 94 Oxygen Delivery Method 08/28/24 19:00 08/28/24 19:15 08/28/24 19:30 Temperature Temperature Source Pulse Rate 86 86 Respiratory Rate 23 H 13 Blood Pressure 136/67 H 141/74 H 144/73 H Blood Pressure Mean 88 94 96 Pulse Ox 96 98 Oxygen Delivery Method 08/28/24 21:00 08/28/24 23:20 08/29/24 01:00 Temperature Temperature Source Pulse Rate 82 89 90 Respiratory Rate 34 H 30 H 30 H Blood Pressure 95/67 126/67 H 107/62 Blood Pressure Mean 76 86 77 Pulse Ox 94 97 98 Oxygen Delivery Method Room Air Room Air Room Air [facility] <REANNA Jordan - Last Filed: 08/28/24 21:55> [facility] Narrative Medical decision making narrative: History gathered from: Patient and spouse 74-year-old female with past medical history of diabetes, renal transplant in 2003, pancreas transplant 2004 on immunosuppression presents with 2 days of vomiting, decreased p.o. intake, and bilateral lower abdominal pain. She appears ill but nontoxic. Vital signs are stable. Her temp was slightly low at 90 5.2F but she feels warm to touch. She has significant tenderness in right and left lower quadrants without peritoneal signs. Labs show white count of 17.7 with normal hemoglobin of 13.7 and platelets of 132. Sodium is 129, glucose 121, CO2 14, anion gap 16. Ketones pending. She has acute on chronic kidney injury with BUN of 60 and creatinine of 3.26 (previously 39/1.14). Lipase is 3395. It has been elevated in the past but it was 700-900. Lactate is 5.7. Patient is flagging sepsis criteria and was ordered IV fluids at 30 cc/kg and broad-spectrum vancomycin and Zosyn while her CT scan is pending. CT scan was changed to noncontrast due to her GFR. The attending discussed the case with the radiologist to review the read. The CT scan shows no significant findings?there are scattered ascites and a poorly defined pancreas without clear evidence of pancreatitis. After IV fluids her lactic is trending down to 3.3. Due to her history of renal and pancreas transplant, leukocytosis, acute kidney injury and pancreatitis she requires transfer to [facility]. Patient is excepted at [facility] with Dr. Sol. Around 630 patient was noted to have fallen out of bed. She does not know how she fell out. Nurse reports that her side rails were up and she must of gotten out of the bed from the foot of the bed. Patient is complaining of her chronic back pain that she presented for but no new pain. Patient does have multiple skin tears/abrasions, with similar partial-thickness skin tear on the right wrist, scattered abrasion on the dorsal aspect of the left wrist and scattered abrasions on lateral aspect of the left knee. No full-thickness lacerations. No malocclusion. Head normocephalic atraumatic. No midline bony tenderness of the spine. Pelvis is stable. No deformity of the extremities. No pain with range of motion of the bilateral hips. Will obtain CT of the brain and cervical spine to evaluate for any traumatic process and localized wound care to the skin tears. Patient became more rapid with out of bed and fell. Both safety rails were up and her call light was within reach. See attending note for further details?she did trauma evaluation and CT scans of the head and neck are negative. Patient was then resting comfortably but due to this a repeat BMP and blood gas were obtained. She was hypoglycemic at 44. ABG also shows metabolic acidosis with pH of 7.23, CO2 35.5, O2 74.5 with bicarb of 15.0. She was given sodium bicarb and D10. I conference called with [facility] physicians Dr. Sol in the medical floor and Dr. Macias in the ICU and they feel she is more appropriate to go to the ICU. She is still awaiting a bed. 35 minutes of critical care time was used by evaluation and treatment with patient, discussion with multiple consultants, treatment and planning. Supervisory Physician Note Patient was seen and examined with the Advanced Practice Provider. Nursing notes and vital signs have been reviewed. Pertinent old records have been reviewed. I agree with the essential elements of the TY's history, physical exam, assessment, and plan. The differential diagnosis and management options were discussed with the TY. I participated in determining and agree with the management, procedures, final impression and disposition as documented. See changes noted by me. Please see addendum or separate note for any additional details. 74-year-old male female with past medical history of DM2, renal transplant in 2003, pancreas transplant 2024 on immunosuppressants presents for evaluation of bilateral lower abdominal pain, nausea, vomiting, decreased appetite. Patient denies any fever, chills, URI symptoms, shortness of breath, chest pain, dysuria, hematuria, diarrhea, constipation. Gen: A&O x3, ill-appearing but nontoxic Head: Normocephalic, atraumatic Eyes: No sclera icterus, conjunctiva clear, PERRL, EOMI ENT: Dry mucous membranes Neck: Trachea midline, No JVD CV: RRR, no murmurs, no peripheral edema Resp: Lungs CTA BL, no w/r/c GI: Abd soft, non-distended, diffuse tenderness to palpation, no rebound or rigidity : No CVA tenderness Musc: Moves all extremities, no deformity Skin: Warm, dry, no jaundice Neuro: Alert, oriented, grossly intact, sensation intact Psych: Cooperative, appropriate mood and affect Differential diagnosis includes but is not limited to viral illness, UTI, pancreatitis, gastroenteritis, diverticulitis, obstruction, DKA, electrolyte abnormality, transplant rejection. NS bolus, Zofran, morphine ordered for symptoms. Broad workup ordered including CT abdomen pelvis without contrast. CBC with a leukocytosis of 17.6. No anemia. Patient has new thrombocytopenia with a platelets of 132. CMP shows dehydration with SELMA and hyponatremia. Sodium 129, BUN 60, creatinine 3.26. In February 2024, BUN was 39 and creatinine was 1.14. I suspect SELMA is secondary to dehydration however cannot rule out kidney transplant rejection. Campbell catheter placed. Patient receiving fluids. She does have a mild anion gap of 16. Glucose is mildly elevated at 121. Acetone pending. Patient has transaminitis with an AST of 48 but ALT normal. No elevation in alk phos or hyperbilirubinemia. Lactic acid is 5.7. Patient meets sepsis criteria. 30 cc/kg bolus ordered. Given her leukocytosis and concern for infection patient was given empiric antibiotics with vancomycin and Zosyn. Patient's lipase elevated at 3395. On chart review, patient has had elevated lipase in the past baseline appears to be around 900. Concern is for pancreatitis however with pancreatic transplant, cannot rule out transplant rejection. Acetone is negative. UA positive for ketones and blood. I suspect blood is secondary to catheter placement. No UTI. CT abdomen pelvis was performed. I personally reviewed this myself. No free air. Ascites. Multiple calls were made to radiology about delay in reading CT. I finally was able to obtain contact information for the radiologist on-call. He states that he just received the imaging and will be reading the CT scan. CT abdomen pelvis shows ascites. Renal transplant the right lower quadrant. No free air. Poorly defined pancreatic parenchyma which can be concerning for pancreatitis. Pancreatic transplant noticed. Otherwise no acute intra-abdominal pathology. Due to her history of renal and pancreatic transplant with SELMA and pancreatitis patient will warrant admission and transfer to [facility]. Anya Wright spoke to [facility] transfer line and we are awaiting callback to speak with transplant team and transfer accepting physician. Patient was signed out to oncoming physician Dr. Coronel at 1720. Patient's vitals have remained overall stable without hypotension. Impression: 1. Pancreatitis versus pancreatic transplant rejection with history of pancreatic transplant 2. SELMA versus kidney transplant rejection with history of kidney transplant 3. Sepsis of unknown etiology 4. Dehydration 5. Lactic acidosis 6. Hyponatremia 7. Thrombocytopenia 8. AST transaminitis Lab Data Attestation: I reviewed the patient's lab results. Labs: Laboratory Results - last 24 hr 08/28/24 08/28/24 08/28/24 10:50 11:44 12:38 WBC 17.7 H RBC 4.80 Hgb 13.7 Hct 42.3 MCV 88.1 MCH 28.5 MCHC 32.4 RDW Std Deviation 43.0 RDW Coeff of Jenny 13.3 Plt Count 132 L MPV 11.1 Immature Gran % (Auto) 0.700 Neut % (Auto) 86.1 H Lymph % (Auto) 5.1 L [place] % (Auto) 7.7 Eos % (Auto) 0.0 Baso % (Auto) 0.4 Absolute Neuts (auto) 15.2 H Absolute Lymphs (auto) 0.90 Nucleated RBC % 0 Platelet Estimate SLT DEC Sodium 129 L Potassium 5.1 Chloride 99 Carbon Dioxide 14.0 L Anion Gap 16 H BUN 60 H Creatinine 3.26 H Estim Creat Clear Calc Est GFR (MDRD) Af Amer 18 L Est GFR (MDRD) Non-Af 15 L BUN/Creatinine Ratio 18.4 Glucose 121 H Lactic Acid 5.7 H* Calcium 10.6 H Total Bilirubin 0.80 AST 48 H ALT 19 Alkaline Phosphatase 50 Total Protein 6.9 Albumin 3.7 Globulin 3.2 Albumin/Globulin Ratio 1.2 Lipase 3395 H Urine Color Urine Clarity Urine pH Ur Specific [place] Urine Protein Urine Glucose (UA) Urine Ketones Urine Occult Blood Urine Nitrite Urine Bilirubin Urine Urobilinogen Ur Leukocyte Esterase Urine RBC Urine WBC Ur Squamous Epith Cells Calcium Oxalate Crystal Amorphous Sediment Urine Bacteria Urine Mucus Acetone Level NEGATIVE POC Glucose 08/28/24 08/28/24 08/28/24 14:24 16:23 20:25 WBC RBC Hgb Hct MCV MCH MCHC RDW Std Deviation RDW Coeff of Jenny Plt Count MPV Immature Gran % (Auto) Neut % (Auto) Lymph % (Auto) [place] % (Auto) Eos % (Auto) Baso % (Auto) Absolute Neuts (auto) Absolute Lymphs (auto) Nucleated RBC % Platelet Estimate Sodium 134 L Potassium 4.8 Chloride 104 Carbon Dioxide 16.0 L Anion Gap 13 BUN 62 H Creatinine 3.17 H Estim Creat Clear Calc 10.36 Est GFR (MDRD) Af Amer 18 L Est GFR (MDRD) Non-Af 15 L BUN/Creatinine Ratio 19.6 Glucose 44 L* Lactic Acid 3.3 H* Calcium 9.4 Total Bilirubin AST ALT Alkaline Phosphatase Total Protein Albumin Globulin Albumin/Globulin Ratio Lipase Urine Color Yellow Urine Clarity Cloudy Urine pH 5.0 Ur Specific [place] 1.020 Urine Protein 30 H Urine Glucose (UA) Normal Urine Ketones 5 H Urine Occult Blood 150 H Urine Nitrite Negative Urine Bilirubin 6 H Urine Urobilinogen 1 H Ur Leukocyte Esterase 25 H Urine RBC 0-5 SEEN Urine WBC 0-5 SEEN Ur Squamous Epith Cells 0-5 SEEN Calcium Oxalate Crystal 1+ Amorphous Sediment 2+ URATE Urine Bacteria 0 SEEN Urine Mucus 0 SEEN Acetone Level POC Glucose 08/28/24 08/28/24 22:20 23:40 WBC RBC Hgb Hct MCV MCH MCHC RDW Std Deviation RDW Coeff of Jenny Plt Count MPV Immature Gran % (Auto) Neut % (Auto) Lymph % (Auto) [place] % (Auto) Eos % (Auto) Baso % (Auto) Absolute Neuts (auto) Absolute Lymphs (auto) Nucleated RBC % Platelet Estimate Sodium Potassium Chloride Carbon Dioxide Anion Gap BUN Creatinine Estim Creat Clear Calc Est GFR (MDRD) Af Amer Est GFR (MDRD) Non-Af BUN/Creatinine Ratio Glucose Lactic Acid Calcium Total Bilirubin AST ALT Alkaline Phosphatase Total Protein Albumin Globulin Albumin/Globulin Ratio Lipase Urine Color Urine Clarity Urine pH Ur Specific [place] Urine Protein Urine Glucose (UA) Urine Ketones Urine Occult Blood Urine Nitrite Urine Bilirubin Urine Urobilinogen Ur Leukocyte Esterase Urine RBC Urine WBC Ur Squamous Epith Cells Calcium Oxalate Crystal Amorphous Sediment Urine Bacteria Urine Mucus Acetone Level POC Glucose 150 H 87 ABG Data ABG results: ABG 08/28/24 20:37 Specimen Type JAMES Sample Site Not entered O2 % 21.0 VBG pH 7.23 L VBG pO2 75 H VBG HCO3 15 L VBG Total CO2 16 L VBG O2 Sat (Calc) 92 H VBG Base Excess -13 L POC Mix VBG pCO2 Pt Tmp 35.5 L O2 Delivery Device Room Air Radiography Diagnostic Testing: Clinical Impression(s) from Imaging Studies Abdomen/Pelvis CT 08/28/24 12:15 IMPRESSION: Scattered abdominopelvic ascites. Renal transplantation in the right lower quadrant. Further clinical correlation required to exclude transplant rejection. No free air. Poorly defined pancreatic parenchyma for which clinical correlation is required to exclude pancreatitis. Pancreatic transplantation is noted. One or more dose reduction techniques were used (e.g., Automated exposure control, adjustment of the mA and/or kV according to patient size, use of iterative reconstruction technique). [facility] 08/28/24 18:40 IMPRESSION: 1. Chronic microvascular ischemic changes are again noted. 2. Bilateral lacunar infarcts are again noted. The right lentiform nucleus lacunar infarct has increased in size since the previous study. 3. No extra-axial collections. 4. Age-appropriate senescent change. 5. Left orbital prosthesis. 6. Other nonacute findings detailed above are stable. One or more dose reduction techniques were used (e.g., Automated exposure control, adjustment of the mA and/or kV according to patient size, use of iterative reconstruction technique). Reading Location: [facility] Cervical Spine CT 08/28/24 18:40 IMPRESSION: 1. Status post ACDF, C5 through 7. 2. No acute osseous abnormalities involving the cervical spine. 3. Other nonacute findings detailed above. Reading Location: [facility] <Dr. Cassidy Coronel, DO - Last Filed: 08/29/24 01:10> [facility] Narrative Medical decision making narrative: History gathered from: Patient and spouse 74-year-old female with past medical history of diabetes, renal transplant in 2003, pancreas transplant 2004 on immunosuppression presents with 2 days of vomiting, decreased p.o. intake, and bilateral lower abdominal pain. She appears ill but nontoxic. Vital signs are stable. Her temp was slightly low at 90 5.2F but she feels warm to touch. She has significant tenderness in right and left lower quadrants without peritoneal signs. Labs show white count of 17.7 with normal hemoglobin of 13.7 and platelets of 132. Sodium is 129, glucose 121, CO2 14, anion gap 16. Ketones pending. She has acute on chronic kidney injury with BUN of 60 and creatinine of 3.26 (previously 39/1.14). Lipase is 3395. It has been elevated in the past but it was 700-900. Lactate is 5.7. Patient is flagging sepsis criteria and was ordered IV fluids at 30 cc/kg and broad-spectrum vancomycin and Zosyn while her CT scan is pending. CT scan was changed to noncontrast due to her GFR. The attending discussed the case with the radiologist to review the read. The CT scan shows no significant findings?there are scattered ascites and a poorly defined pancreas without clear evidence of pancreatitis. After IV fluids her lactic is trending down to 3.3. Due to her history of renal and pancreas transplant, leukocytosis, acute kidney injury and pancreatitis she requires transfer to [facility]. Patient became more rapid with out of bed and fell. Both safety rails were up and her call light was within reach. See attending note for further details?she did trauma evaluation and CT scans of the head and neck are negative. Patient was then resting comfortably but due to this a repeat BMP and blood gas were obtained. She was hypoglycemic at 44. ABG also shows metabolic acidosis with pH of 7.23, CO2 35.5, O2 74.5 with bicarb of 15.0. She was given sodium bicarb and D10. I conference called with [facility] physicians Dr. Sol in the medical floor and Dr. Macias in the ICU and they feel she is more appropriate to go to the ICU. She is still awaiting a bed. 35 minutes of critical care time was used by evaluation and treatment with patient, discussion with multiple consultants, treatment and planning. Supervisory Physician Note Patient was seen and examined with the Advanced Practice Provider. Nursing notes and vital signs have been reviewed. Pertinent old records have been reviewed. I agree with the essential elements of the TY's history, physical exam, assessment, and plan. The differential diagnosis and management options were discussed with the TY. I participated in determining and agree with the management, procedures, final impression and disposition as documented. See changes noted by me. Please see addendum or separate note for any additional details. 74-year-old male female with past medical history of DM2, renal transplant in 2003, pancreas transplant 2024 on immunosuppressants presents for evaluation of bilateral lower abdominal pain, nausea, vomiting, decreased appetite. Patient denies any fever, chills, URI symptoms, shortness of breath, chest pain, dysuria, hematuria, diarrhea, constipation. Gen: A&O x3, ill-appearing but nontoxic Head: Normocephalic, atraumatic Eyes: No sclera icterus, conjunctiva clear, PERRL, EOMI ENT: Dry mucous membranes Neck: Trachea midline, No JVD CV: RRR, no murmurs, no peripheral edema Resp: Lungs CTA BL, no w/r/c GI: Abd soft, non-distended, diffuse tenderness to palpation, no rebound or rigidity : No CVA tenderness Musc: Moves all extremities, no deformity Skin: Warm, dry, no jaundice Neuro: Alert, oriented, grossly intact, sensation intact Psych: Cooperative, appropriate mood and affect Differential diagnosis includes but is not limited to viral illness, UTI, pancreatitis, gastroenteritis, diverticulitis, obstruction, DKA, electrolyte abnormality, transplant rejection. NS bolus, Zofran, morphine ordered for symptoms. Broad workup ordered including CT abdomen pelvis without contrast. CBC with a leukocytosis of 17.6. No anemia. Patient has new thrombocytopenia with a platelets of 132. CMP shows dehydration with SELMA and hyponatremia. Sodium 129, BUN 60, creatinine 3.26. In February 2024, BUN was 39 and creatinine was 1.14. I suspect SELMA is secondary to dehydration however cannot rule out kidney transplant rejection. Campbell catheter placed. Patient receiving fluids. She does have a mild anion gap of 16. Glucose is mildly elevated at 121. Acetone pending. Patient has transaminitis with an AST of 48 but ALT normal. No elevation in alk phos or hyperbilirubinemia. Lactic acid is 5.7. Patient meets sepsis criteria. 30 cc/kg bolus ordered. Given her leukocytosis and concern for infection patient was given empiric antibiotics with vancomycin and Zosyn. Patient's lipase elevated at 3395. On chart review, patient has had elevated lipase in the past baseline appears to be around 900. Concern is for pancreatitis however with pancreatic transplant, cannot rule out transplant rejection. Acetone is negative. UA positive for ketones and blood. I suspect blood is secondary to catheter placement. No UTI. CT abdomen pelvis was performed. I personally reviewed this myself. No free air. Ascites. Multiple calls were made to radiology about delay in reading CT. I finally was able to obtain contact information for the radiologist on-call. He states that he just received the imaging and will be reading the CT scan. CT abdomen pelvis shows ascites. Renal transplant the right lower quadrant. No free air. Poorly defined pancreatic parenchyma which can be concerning for pancreatitis. Pancreatic transplant noticed. Otherwise no acute intra-abdominal pathology. Due to her history of renal and pancreatic transplant with SELMA and pancreatitis patient will warrant admission and transfer to [facility]. Anya Kyle spoke to [facility] transfer line and we are awaiting callback to speak with transplant team and transfer accepting physician. Patient was signed out to oncoming physician Dr. Coronel at 1720. Patient's vitals have remained overall stable without hypotension. Impression: 1. Pancreatitis versus pancreatic transplant rejection with history of pancreatic transplant 2. SELMA versus kidney transplant rejection with history of kidney transplant 3. Sepsis of unknown etiology 4. Dehydration 5. Lactic acidosis 6. Hyponatremia 7. Thrombocytopenia 8. AST transaminitis [place]: Patient signed out to me pending transfer to [facility]. Patient is accepted at [facility] with Dr. Sol. Around 630 patient was noted to have fallen out of bed. She does not know how she fell out. Nurse reports that her side rails were up and she must of gotten out of the bed from the foot of the bed. Patient is complaining of her chronic back pain that she presented for but no new pain. Patient does have multiple skin tears/abrasions, with similar partial-thickness skin tear on the right wrist, scattered abrasion on the dorsal aspect of the left wrist and scattered abrasions on lateral aspect of the left knee. No full-thickness lacerations. No malocclusion. Head normocephalic atraumatic. No midline bony tenderness of the spine. Pelvis is stable. No deformity of the extremities. No pain with range of motion of the bilateral hips. Will obtain CT of the brain and cervical spine to evaluate for any traumatic process and localized wound care to the skin tears. CT imaging does not show any acute process. Patient is back in bed. at the bedside. Informed of plan of care. Patient is now resting and seems more comfortable but is less responsive. Will add on VBG and repeat BMP. ABG shows a metabolic acidosis with a low bicarb and BMP now shows hypoglycemia with a glucose of 44. Suspect this is when she is having some decreased responsiveness. Patient is given dextrose to the emergency room and started on a D5 bicarb drip at 150 mill equivalents. Case is discussed with [facility] transplant again and patient will be admitted to the ICU. Patient frequently evaluated. Her blood sugar does drop and she does require a second bolus of D5. She is having more pain and she is more alert I suspect associated with her pancreatitis. She is given 2 doses of fentanyl and then oral oxycodone but continues to have pain. It is now been 6 hours since she was accepted at [facility]. We did call the transfer line back and they do not anticipate having bed. Patient will be admitted to the ICU here and the case discussed with our hospitalist, Dr. Ovalle. Patient is continue to have significant pain and is given 0.5 IV Dilaudid in the emergency room for further pain control. Lab Data Labs: Laboratory Results - last 24 hr 08/28/24 08/28/24 08/28/24 10:50 11:44 12:38 WBC 17.7 H RBC 4.80 Hgb 13.7 Hct 42.3 MCV 88.1 MCH 28.5 MCHC 32.4 RDW Std Deviation 43.0 RDW Coeff of Jenny 13.3 Plt Count 132 L MPV 11.1 Immature Gran % (Auto) 0.700 Neut % (Auto) 86.1 H Lymph % (Auto) 5.1 L [place] % (Auto) 7.7 Eos % (Auto) 0.0 Baso % (Auto) 0.4 Absolute Neuts (auto) 15.2 H Absolute Lymphs (auto) 0.90 Nucleated RBC % 0 Platelet Estimate SLT DEC Sodium 129 L Potassium 5.1 Chloride 99 Carbon Dioxide 14.0 L Anion Gap 16 H BUN 60 H Creatinine 3.26 H Estim Creat Clear Calc Est GFR (MDRD) Af Amer 18 L Est GFR (MDRD) Non-Af 15 L BUN/Creatinine Ratio 18.4 Glucose 121 H Lactic Acid 5.7 H* Calcium 10.6 H Total Bilirubin 0.80 AST 48 H ALT 19 Alkaline Phosphatase 50 Total Protein 6.9 Albumin 3.7 Globulin 3.2 Albumin/Globulin Ratio 1.2 Lipase 3395 H Urine Color Urine Clarity Urine pH Ur Specific Cardale Urine Protein Urine Glucose (UA) Urine Ketones Urine Occult Blood Urine Nitrite Urine Bilirubin Urine Urobilinogen Ur Leukocyte Esterase Urine RBC Urine WBC Ur Squamous Epith Cells Calcium Oxalate Crystal Amorphous Sediment Urine Bacteria Urine Mucus Acetone Level NEGATIVE POC Glucose 08/28/24 08/28/24 08/28/24 14:24 16:23 20:25 WBC RBC Hgb Hct MCV MCH MCHC RDW Std Deviation RDW Coeff of Jenny Plt Count MPV Immature Gran % (Auto) Neut % (Auto) Lymph % (Auto) [place] % (Auto) Eos % (Auto) Baso % (Auto) Absolute Neuts (auto) Absolute Lymphs (auto) Nucleated RBC % Platelet Estimate Sodium 134 L Potassium 4.8 Chloride 104 Carbon Dioxide 16.0 L Anion Gap 13 BUN 62 H Creatinine 3.17 H Estim Creat Clear Calc 10.36 Est GFR (MDRD) Af Amer 18 L Est GFR (MDRD) Non-Af 15 L BUN/Creatinine Ratio 19.6 Glucose 44 L* Lactic Acid 3.3 H* Calcium 9.4 Total Bilirubin AST ALT Alkaline Phosphatase Total Protein Albumin Globulin Albumin/Globulin Ratio Lipase Urine Color Yellow Urine Clarity Cloudy Urine pH 5.0 Ur Specific Cardale 1.020 Urine Protein 30 H Urine Glucose (UA) Normal Urine Ketones 5 H Urine Occult Blood 150 H Urine Nitrite Negative Urine Bilirubin 6 H Urine Urobilinogen 1 H Ur Leukocyte Esterase 25 H Urine RBC 0-5 SEEN Urine WBC 0-5 SEEN Ur Squamous Epith Cells 0-5 SEEN Calcium Oxalate Crystal 1+ Amorphous Sediment 2+ URATE Urine Bacteria 0 SEEN Urine Mucus 0 SEEN Acetone Level POC Glucose 08/28/24 08/28/24 22:20 23:40 WBC RBC Hgb Hct MCV MCH MCHC RDW Std Deviation RDW Coeff of Jenny Plt Count MPV Immature Gran % (Auto) Neut % (Auto) Lymph % (Auto) [place] % (Auto) Eos % (Auto) Baso % (Auto) Absolute Neuts (auto) Absolute Lymphs (auto) Nucleated RBC % Platelet Estimate Sodium Potassium Chloride Carbon Dioxide Anion Gap BUN Creatinine Estim Creat Clear Calc Est GFR (MDRD) Af Amer Est GFR (MDRD) Non-Af BUN/Creatinine Ratio Glucose Lactic Acid Calcium Total Bilirubin AST ALT Alkaline Phosphatase Total Protein Albumin Globulin Albumin/Globulin Ratio Lipase Urine Color Urine Clarity Urine pH Ur Specific Cardale Urine Protein Urine Glucose (UA) Urine Ketones Urine Occult Blood Urine Nitrite Urine Bilirubin Urine Urobilinogen Ur Leukocyte Esterase Urine RBC Urine WBC Ur Squamous Epith Cells Calcium Oxalate Crystal Amorphous Sediment Urine Bacteria Urine Mucus Acetone Level POC Glucose 150 H 87 ABG Data ABG results: ABG 08/28/24 20:37 Specimen Type JAMES Sample Site Not entered O2 % 21.0 VBG pH 7.23 L VBG pO2 75 H VBG HCO3 15 L VBG Total CO2 16 L VBG O2 Sat (Calc) 92 H VBG Base Excess -13 L POC Mix VBG pCO2 Pt Tmp 35.5 L O2 Delivery Device Room Air Radiography Diagnostic Testing: Clinical Impression(s) from Imaging Studies Abdomen/Pelvis CT 08/28/24 12:15 IMPRESSION: Scattered abdominopelvic ascites. Renal transplantation in the right lower quadrant. Further clinical correlation required to exclude transplant rejection. No free air. Poorly defined pancreatic parenchyma for which clinical correlation is required to exclude pancreatitis. Pancreatic transplantation is noted. One or more dose reduction techniques were used (e.g., Automated exposure control, adjustment of the mA and/or kV according to patient size, use of iterative reconstruction technique). Reading Location: [facility] 08/28/24 18:40 IMPRESSION: 1. Chronic microvascular ischemic changes are again noted. 2. Bilateral lacunar infarcts are again noted. The right lentiform nucleus lacunar infarct has increased in size since the previous study. 3. No extra-axial collections. 4. Age-appropriate senescent change. 5. Left orbital prosthesis. 6. Other nonacute findings detailed above are stable. One or more dose reduction techniques were used (e.g., Automated exposure control, adjustment of the mA and/or kV according to patient size, use of iterative reconstruction technique). Reading Location: [facility] CT 08/28/24 18:40 IMPRESSION: 1. Status post ACDF, C5 through 7. 2. No acute osseous abnormalities involving the cervical spine. 3. Other nonacute findings detailed above. Reading Location: [facility] <Dr. Aditya FigueroaNaveen, DO - Last Filed: 08/28/24 21:33> [facility] Narrative Medical decision making narrative: History gathered from: Patient and spouse 74-year-old female with past medical history of diabetes, renal transplant in 2003, pancreas transplant 2004 on immunosuppression presents with 2 days of vomiting, decreased p.o. intake, and bilateral lower abdominal pain. She appears ill but nontoxic. Vital signs are stable. Her temp was slightly low at 90 5.2F but she feels warm to touch. She has significant tenderness in right and left lower quadrants without peritoneal signs. Labs show white count of 17.7 with normal hemoglobin of 13.7 and platelets of 132. Sodium is 129, glucose 121, CO2 14, anion gap 16. Ketones pending. She has acute on chronic kidney injury with BUN of 60 and creatinine of 3.26 (previously 39/1.14). Lipase is 3395. It has been elevated in the past but it was 700-900. Lactate is 5.7. Patient is flagging sepsis criteria and was ordered IV fluids at 30 cc/kg and broad-spectrum vancomycin and Zosyn while her CT scan is pending. CT scan was changed to noncontrast due to her GFR. The attending discussed the case with the radiologist to review the read. The CT scan shows no significant findings?there are scattered ascites and a poorly defined pancreas without clear evidence of pancreatitis. After IV fluids her lactic is trending down to 3.3. Due to her history of renal and pancreas transplant, leukocytosis, acute kidney injury and pancreatitis she requires transfer to [facility]. Patient is excepted at [facility] with Dr. Sol. Around 630 patient was noted to have fallen out of bed. She does not know how she fell out. Nurse reports that her side rails were up and she must of gotten out of the bed from the foot of the bed. Patient is complaining of her chronic back pain that she presented for but no new pain. Patient does have multiple skin tears/abrasions, with similar partial-thickness skin tear on the right wrist, scattered abrasion on the dorsal aspect of the left wrist and scattered abrasions on lateral aspect of the left knee. No full-thickness lacerations. No malocclusion. Head normocephalic atraumatic. No midline bony tenderness of the spine. Pelvis is stable. No deformity of the extremities. No pain with range of motion of the bilateral hips. Will obtain CT of the brain and cervical spine to evaluate for any traumatic process and localized wound care to the skin tears. Patient became more rapid with out of bed and fell. Both safety rails were up and her call light was within reach. See attending note for further details?she did trauma evaluation and CT scans of the head and neck are negative. Patient was then resting comfortably but due to this a repeat BMP and blood gas were obtained. She was hypoglycemic at 44. ABG also shows metabolic acidosis with pH of 7.23, CO2 35.5, O2 74.5 with bicarb of 15.0. She was given sodium bicarb and D10. Supervisory Physician Note Patient was seen and examined with the Advanced Practice Provider. Nursing notes and vital signs have been reviewed. Pertinent old records have been reviewed. I agree with the essential elements of the TY's history, physical exam, assessment, and plan. The differential diagnosis and management options were discussed with the TY. I participated in determining and agree with the management, procedures, final impression and disposition as documented. See changes noted by me. Please see addendum or separate note for any additional details. 74-year-old male female with past medical history of DM2, renal transplant in 2003, pancreas transplant 2024 on immunosuppressants presents for evaluation of bilateral lower abdominal pain, nausea, vomiting, decreased appetite. Patient denies any fever, chills, URI symptoms, shortness of breath, chest pain, dysuria, hematuria, diarrhea, constipation. Gen: A&O x3, ill-appearing but nontoxic Head: Normocephalic, atraumatic Eyes: No sclera icterus, conjunctiva clear, PERRL, EOMI ENT: Dry mucous membranes Neck: Trachea midline, No JVD CV: RRR, no murmurs, no peripheral edema Resp: Lungs CTA BL, no w/r/c GI: Abd soft, non-distended, diffuse tenderness to palpation, no rebound or rigidity : No CVA tenderness Musc: Moves all extremities, no deformity Skin: Warm, dry, no jaundice Neuro: Alert, oriented, grossly intact, sensation intact Psych: Cooperative, appropriate mood and affect Differential diagnosis includes but is not limited to viral illness, UTI, pancreatitis, gastroenteritis, diverticulitis, obstruction, DKA, electrolyte abnormality, transplant rejection. NS bolus, Zofran, morphine ordered for symptoms. Broad workup ordered including CT abdomen pelvis without contrast. CBC with a leukocytosis of 17.6. No anemia. Patient has new thrombocytopenia with a platelets of 132. CMP shows dehydration with SELMA and hyponatremia. Sodium 129, BUN 60, creatinine 3.26. In February 2024, BUN was 39 and creatinine was 1.14. I suspect SELMA is secondary to dehydration however cannot rule out kidney transplant rejection. Campbell catheter placed. Patient receiving fluids. She does have a mild anion gap of 16. Glucose is mildly elevated at 121. Acetone pending. Patient has transaminitis with an AST of 48 but ALT normal. No elevation in alk phos or hyperbilirubinemia. Lactic acid is 5.7. Patient meets sepsis criteria. 30 cc/kg bolus ordered. Given her leukocytosis and concern for infection patient was given empiric antibiotics with vancomycin and Zosyn. Patient's lipase elevated at 3395. On chart review, patient has had elevated lipase in the past baseline appears to be around 900. Concern is for pancreatitis however with pancreatic transplant, cannot rule out transplant rejection. Acetone is negative. UA positive for ketones and blood. I suspect blood is secondary to catheter placement. No UTI. CT abdomen pelvis was performed. I personally reviewed this myself. No free air. Ascites. Multiple calls were made to radiology about delay in reading CT. I finally was able to obtain contact information for the radiologist on-call. He states that he just received the imaging and will be reading the CT scan. CT abdomen pelvis shows ascites. Renal transplant the right lower quadrant. No free air. Poorly defined pancreatic parenchyma which can be concerning for pancreatitis. Pancreatic transplant noticed. Otherwise no acute intra-abdominal pathology. Due to her history of renal and pancreatic transplant with SELMA and pancreatitis patient will warrant admission and transfer to [facility]. Anya Wright spoke to [facility] transfer line and we are awaiting callback to speak with transplant team and transfer accepting physician. Patient was signed out to oncoming physician Dr. Coronel at 1720. Patient's vitals have remained overall stable without hypotension. Impression: 1. Pancreatitis versus pancreatic transplant rejection with history of pancreatic transplant 2. SELMA versus kidney transplant rejection with history of kidney transplant 3. Sepsis of unknown etiology 4. Dehydration 5. Lactic acidosis 6. Hyponatremia 7. Thrombocytopenia 8. AST transaminitis Lab Data Labs: Laboratory Results - last 24 hr 08/28/24 08/28/24 08/28/24 10:50 11:44 12:38 WBC 17.7 H RBC 4.80 Hgb 13.7 Hct 42.3 MCV 88.1 MCH 28.5 MCHC 32.4 RDW Std Deviation 43.0 RDW Coeff of Jenny 13.3 Plt Count 132 L MPV 11.1 Immature Gran % (Auto) 0.700 Neut % (Auto) 86.1 H Lymph % (Auto) 5.1 L [place] % (Auto) 7.7 Eos % (Auto) 0.0 Baso % (Auto) 0.4 Absolute Neuts (auto) 15.2 H Absolute Lymphs (auto) 0.90 Nucleated RBC % 0 Platelet Estimate SLT DEC Sodium 129 L Potassium 5.1 Chloride 99 Carbon Dioxide 14.0 L Anion Gap 16 H BUN 60 H Creatinine 3.26 H Estim Creat Clear Calc Est GFR (MDRD) Af Amer 18 L Est GFR (MDRD) Non-Af 15 L BUN/Creatinine Ratio 18.4 Glucose 121 H Lactic Acid 5.7 H* Calcium 10.6 H Total Bilirubin 0.80 AST 48 H ALT 19 Alkaline Phosphatase 50 Total Protein 6.9 Albumin 3.7 Globulin 3.2 Albumin/Globulin Ratio 1.2 Lipase 3395 H Urine Color Urine Clarity Urine pH Ur Specific Cardale Urine Protein Urine Glucose (UA) Urine Ketones Urine Occult Blood Urine Nitrite Urine Bilirubin Urine Urobilinogen Ur Leukocyte Esterase Urine RBC Urine WBC Ur Squamous Epith Cells Calcium Oxalate Crystal Amorphous Sediment Urine Bacteria Urine Mucus Acetone Level NEGATIVE POC Glucose 08/28/24 08/28/24 08/28/24 14:24 16:23 20:25 WBC RBC Hgb Hct MCV MCH MCHC RDW Std Deviation RDW Coeff of Jenny Plt Count MPV Immature Gran % (Auto) Neut % (Auto) Lymph % (Auto) [place] % (Auto) Eos % (Auto) Baso % (Auto) Absolute Neuts (auto) Absolute Lymphs (auto) Nucleated RBC % Platelet Estimate Sodium 134 L Potassium 4.8 Chloride 104 Carbon Dioxide 16.0 L Anion Gap 13 BUN 62 H Creatinine 3.17 H Estim Creat Clear Calc 10.36 Est GFR (MDRD) Af Amer 18 L Est GFR (MDRD) Non-Af 15 L BUN/Creatinine Ratio 19.6 Glucose 44 L* Lactic Acid 3.3 H* Calcium 9.4 Total Bilirubin AST ALT Alkaline Phosphatase Total Protein Albumin Globulin Albumin/Globulin Ratio Lipase Urine Color Yellow Urine Clarity Cloudy Urine pH 5.0 Ur Specific [place] 1.020 Urine Protein 30 H Urine Glucose (UA) Normal Urine Ketones 5 H Urine Occult Blood 150 H Urine Nitrite Negative Urine Bilirubin 6 H Urine Urobilinogen 1 H Ur Leukocyte Esterase 25 H Urine RBC 0-5 SEEN Urine WBC 0-5 SEEN Ur Squamous Epith Cells 0-5 SEEN Calcium Oxalate Crystal 1+ Amorphous Sediment 2+ URATE Urine Bacteria 0 SEEN Urine Mucus 0 SEEN Acetone Level POC Glucose 08/28/24 08/28/24 22:20 23:40 WBC RBC Hgb Hct MCV MCH MCHC RDW Std Deviation RDW Coeff of Jenny Plt Count MPV Immature Gran % (Auto) Neut % (Auto) Lymph % (Auto) [place] % (Auto) Eos % (Auto) Baso % (Auto) Absolute Neuts (auto) Absolute Lymphs (auto) Nucleated RBC % Platelet Estimate Sodium Potassium Chloride Carbon Dioxide Anion Gap BUN Creatinine Estim Creat Clear Calc Est GFR (MDRD) Af Amer Est GFR (MDRD) Non-Af BUN/Creatinine Ratio Glucose Lactic Acid Calcium Total Bilirubin AST ALT Alkaline Phosphatase Total Protein Albumin Globulin Albumin/Globulin Ratio Lipase Urine Color Urine Clarity Urine pH Ur Specific Cardale Urine Protein Urine Glucose (UA) Urine Ketones Urine Occult Blood Urine Nitrite Urine Bilirubin Urine Urobilinogen Ur Leukocyte Esterase Urine RBC Urine WBC Ur Squamous Epith Cells Calcium Oxalate Crystal Amorphous Sediment Urine Bacteria Urine Mucus Acetone Level POC Glucose 150 H 87 ABG Data ABG results: ABG 08/28/24 20:37 Specimen Type JAMES Sample Site Not entered O2 % 21.0 VBG pH 7.23 L VBG pO2 75 H VBG HCO3 15 L VBG Total CO2 16 L VBG O2 Sat (Calc) 92 H VBG Base Excess -13 L POC Mix VBG pCO2 Pt Tmp 35.5 L O2 Delivery Device Room Air Radiography Diagnostic Testing: Clinical Impression(s) from Imaging Studies Abdomen/Pelvis CT 08/28/24 12:15 IMPRESSION: Scattered abdominopelvic ascites. Renal transplantation in the right lower quadrant. Further clinical correlation required to exclude transplant rejection. No free air. Poorly defined pancreatic parenchyma for which clinical correlation is required to exclude pancreatitis. Pancreatic transplantation is noted. One or more dose reduction techniques were used (e.g., Automated exposure control, adjustment of the mA and/or kV according to patient size, use of iterative reconstruction technique). Reading Location: [facility] Brain CT 08/28/24 18:40 IMPRESSION: 1. Chronic microvascular ischemic changes are again noted. 2. Bilateral lacunar infarcts are again noted. The right lentiform nucleus lacunar infarct has increased in size since the previous study. 3. No extra-axial collections. 4. Age-appropriate senescent change. 5. Left orbital prosthesis. 6. Other nonacute findings detailed above are stable. One or more dose reduction techniques were used (e.g., Automated exposure control, adjustment of the mA and/or kV according to patient size, use of iterative reconstruction technique). Reading Location: [facility] Cervical Spine CT 08/28/24 18:40 IMPRESSION: 1. Status post ACDF, C5 through 7. 2. No acute osseous abnormalities involving the cervical spine. 3. Other nonacute findings detailed above. Reading Location: [facility] <Dr. Cassidy Coronel, DO - Last Filed: 08/29/24 01:10> Critical Care Time Critical Care Time: Yes Critical care time (excluding procedures): 30-74 minutes (45), Discussing w/Consultants, Arranging Admission or Transfer and Performing Direct Patient Care at Bedside Discharge Plan Triage Chief Complaint: Abd Pain ED Midlevel Provider: Anya Wright ED Provider: Aditya Mccarty Dx/Rx/DC Orders Clinical Impression: History of kidney transplant, History of pancreas transplant, Acute hyponatremia, Acute renal failure, Pancreatitis, Lactic acidosis, Hypoglycemia, Metabolic acidosis, Fall Prescriptions: No Action cholecalciferol (vitamin D3) 25 mcg (1,000 unit) capsule 25 mcg PO DAILY cyanocobalamin (vitamin B-12) 1,000 mcg/mL solution 100 mcg IM QMONTH folic acid 1 mg tablet 1 mg PO DAILY tacrolimus 0.5 mg capsule 1 mg PO Q12H aspirin [Adult Low Dose Aspirin] 81 mg tablet,delayed release (DR/EC) 81 mg PO DAILY Rx Instructions: 3 times a week mycophenolate mofetil 250 mg capsule 250 mg PO BID omeprazole 40 mg capsule,delayed release(DR/EC) 40 mg PO DAILY Patient Comments: TAKE 1 CAPSULE BY MOUTH ONCE DAILY ibandronate 150 mg tablet 150 mg PO QMONTH Patient Comments: PLEASE SEE ATTACHED FOR DETAILED DIRECTIONS carvedilol 6.25 mg tablet 6.25 mg PO BID Qty: 180 3RF Rx Instructions: must administer with a meal/food duloxetine 30 mg capsule,delayed release(DR/EC) 20 mg PO BID oxycodone 5 mg tablet 2.5 - 5 mg PO BID PRN (Reason: pain) pravastatin 20 mg tablet 20 mg PO QHS Qty: 90 3RF amlodipine 10 mg tablet 10 mg PO DAILY lisinopril-hydrochlorothiazide 20-25 mg tablet 1 tab PO DAILY Qty: 90 3RF Primary Care Provider: Luh Hernandez Referrals: Luh Hernandez DO [Primary Care Provider] - Print Language: Greek Disposition Disposition: Acute Care Hospital [facility]
[2024-08-28] MEDS: 0.9% Normal Saline (1000mL) 1,000 ML 999 ML IV (11:41)
[2024-08-28] MEDS: Ondansetron 4 MG/2 ML Vial IV (11:41)
[2024-08-28] MEDS: Morphine 4 MG/ML Syringe IV ×2 (11:41→14:10)
[2024-08-28 11:53] LABS: ALB/GLOB Ratio 1.2 RATIO (0.9-2.4); AST(SGOT) 48 U/L (15-37); Alanine Aminotransfer ALT/SGPT 19 U/L (13-56); Albumin, Serum 3.7 g/dL (3.2-5.0); Alkaline Phosphatase 50 U/L (45-117); Anion Gap 16 (5-15); BUN 60 mg/dL (7-18); BUN/Creat Ratio 18.4 RATIO (10-20); Calcium,Total 10.6 mg/dL (8.5-10.1); Chloride 99 mmol/L (98-107); Creatinine, Serum 3.26 mg/dL (0.55-1.02); EST Glomerular Filtration Rate 15 mL/min (>60); Est Glom Filt Rate - Afr Amer 18 mL/min (>60); Globulin 3.2 g/dL (2.2-4.2); Glucose 121 mg/dL (74-106); Lipase 3395 U/L (13-75); Potassium 5.1 mmol/L (3.5-5.1); Protein, Total 6.9 g/dL (6.4-8.2); Sodium Level 129 mmol/L (136-145)
[2024-08-28 12:08] LABS: Absolute Neutrophil Count 15.2 X10^3/uL (2.0-7.7); Basophil# 0.07 X10^3/uL; Basophil% 0.4 % (0-1); Hematocrit 42.3 % (37-47); Hemoglobin 13.7 g/dL (12.0-15.0); Lymphocyte % 5.1 % (19-41); Mean Corp Hgb Conc 32.4 g/dL (32-36); Mean Corpuscular Hgb 28.5 pg (27.0-32.0); Mean Corpuscular Volume 88.1 fL (81-99); Mean Platelet Vol. 11.1 fl (6.2-12.0); Monocyte# 1.36 X10^3/uL; Monocyte% 7.7 % (0-10); NRBC Flagged by Analyzer 0 % (0-5); Neutrophil # 15.23 X10^3/uL (2.7-7.7); Neutrophil % 86.1 % (47-70); POSITIVE COUNT YES; Platelet Count 132 K/mm3 (150-450); RBC Distribution Width CV 13.3 % (11.6-14.6); White Blood Count 17.7 K/mm3 (4.4-11.0)
[2024-08-28 12:09] LABS: Differential Indicated SCAN CRITERIA MET
[2024-08-28 12:11] LABS: Platelet Estimate SLT DEC (ADEQ)
--- NOTE | 2024-08-28 12:15 | CT_ITS ---
PROCEDURE: ABDOMEN/PELVIS WITHOUT CONT REASON FOR EXAM: Pain TECHNIQUE: Abdomen and pelvis CT with intravenous contrast. COMPARISON: None. FINDINGS: Lung bases: Clear Liver: Unremarkable. Gallbladder: Unremarkable. Spleen: Unremarkable. Pancreas: Poorly defined poorly defined parenchymal. Pancreatic transplantation. Adrenals: Unremarkable. Kidneys: Bilateral [place] renal atrophy with a transplant in the right lower quadrant. Bladder: Unremarkable. Reproductive Organs: Unremarkable. Bowel: Unremarkable. Lymph nodes: No suspicious lymph node enlargement. Vasculature: Prominent vascular calcifications. Moderate scattered abdominopelvic ascites. No evidence of bowel dilation. No free air. Bones: Unremarkable. CT/Abdomen/Pelvis without Cont IMPRESSION: Scattered abdominopelvic ascites. Renal transplantation in the right lower teddy drant. Further clinical correlation required to exclude transplant rejection. No free air. Poorly defined pancreatic parenchyma for which clinical correlation is required to exclude pancreatitis. Pancreatic transplantation is noted. One or more dose reduction techniques were used (e.g., Automated exposure contr ol, adjustment of the mA and/or kV according to patient size, use of iterative reconstruction technique). Reading Location: [facility]
[2024-08-28 12:24] LABS: Lactic Acid 5.7 mmol/L (0.4-1.9)
[2024-08-28] MEDS: 0.9% Normal Saline (500mL Bag) 500 ML 999 ML IV (13:22)
[2024-08-28] MEDS: Piperacil/Tazobactam 4.5 GM in 0.9% Normal Saline (100mL MB+) 100 ML IV (13:23)
[2024-08-28] MEDS: Vancomycin IV 1,000 MG/200 ML BAG 200 MG IV (14:01)
[2024-08-28 14:54] LABS: Bacteria 0 SEEN /hpf (None Seen); Mucous, Urine 0 SEEN /hpf (<or=2+)
[2024-08-28 14:58] LABS: Glucose, Dipstick Normal (Normal); Ketone-Dipstick 5 mg/dl (Negative); Leukocyte Esterase-Dipstick 25 /ul (Negative); Nitrite-Dipstick Negative (Negative); Occult Blood-Urine 150 /ul (Negative); Protein-Dipstick 30 mg/dl (Negative); Urine Urobilinogen 1 mg/dl (Normal)
[2024-08-28 15:01] LABS: Color, Urine Yellow (Yellow); Urine Bilirubin Dipstick 6 mg/dL (Negative); Urine Clarity Cloudy (Clear)
[2024-08-28 15:10] LABS: Amorphous Sediment 2+ URATE; Calcium Oxalate Crystals Ur 1+ /hpf (<or=2+); Red Blood Cells-Urine 0-5 SEEN /hpf (0-5); Squamous Epithelial Cells - UA 0-5 SEEN /hpf (5-10); White Blood Cells 0-5 SEEN /hpf (0-5)
[2024-08-28 15:47] LABS: Reflex Lactate? Y
[2024-08-28 17:07] LABS: Lactic Acid 3.3 mmol/L (0.4-1.9)
--- NOTE | 2024-08-28 18:08 | ED.RN ---
ACCEPTED AT [facility]@ [id number] AWAITING A BED ASSIGNMENT
--- NOTE | 2024-08-28 18:35 | ED.RN ---
pts calls out the door and states that they need help in the room. and other family member found pt to be on the floor next to the bed at this time. catheter stretched and pulled taut. meggan side rails still raised and pts call light attached to the side rail. pt assisted into bed by multiple ed staff members. pt placed in bed and examined by Dr. Burt and ed nursing staff. pt was found with skin tears to meggan forearms, left knee abrasion. denies hip, leg or pelvic pain. pt was rolled and back side assessed and no areas of concern were noted. skin tears cleansed and dressed with steri strips and knee abrasion dressed with a nonstick dressing and rod wrap. dr. burt to order a CT to be sure pts head is not injured. pt given warm blankets and in a position of most comfort. after all other staff leave the room, this rn informs pts that we have accepting information at [facility]. we know what doctor will be caring for her but we do not have a bed assignment yet. this rn explains to pts that it could take anywhere from hours to days to get a bed assignment . pts becomes visibly agitated waving his cane around. expresses that he would take his to the clinic and take her to their ed. this rn states that the process would have to start all over if he left with his . pts also states that if clinic wont take her tonight, then we need to work on finding her somewhere else to go. this rn explains to patients that since [facility] did her surgery, that it is highly unlikely some other facility will accept her. pts then begins to state that all Martheys have bad luck in this hospital. states that many years ago his father aspirated and it was overlooked. pts states to this rn make sure you put this in her chart, i want this noted. this rn explains to that when this rn peeked in on patient, she was resting comfortably with her eyes closed. in the mean time, REANNA Joyner had also been in the room to talk to patient in regard to transfer acceptance. still visibly agitated and states so why didnt anyone come in to find her and i had to? this rn states that even though this rn is primary nurse, this rn also has other patients that are being cared for and again explains that we peek in hourly. states to this rn to <just go do whatever you need to do> and this rn is waved off.
--- NOTE | 2024-08-28 18:40 | CT_ITS ---
PROCEDURE: SPINE CERVICAL WITHOUT CONTRAS REASON FOR EXAM: Patient fell in ED exam room. TECHNIQUE: Cervical spine CT without contrast. COMPARISON: Cervical spine dated 05/12/2024. FINDINGS: Alignment: Normal Vertebrae: No acute fractures. Anterior cervical disc fusion with anterior plates at C5 through 7. C1-2: Normal alignment. Mild degenerative changes. Foramen: Unremarkable. Facets: Mild to moderate multilevel facet arthropathy. Soft Tissues: Unremarkable. Other Median sternotomy wires. Dural calcifications. Atherosclerotic calcific disease of the carotid arteries. CT/Spine Cervical without Contras IMPRESSION: 1. Status post ACDF, C5 through 7. 2. No acute osseous abnormalities involving the cervical spine. 3. Other nonacute findings detailed above. Reading Location: [facility]
--- NOTE | 2024-08-28 18:40 | CT_ITS ---
PROCEDURE: BRAIN/HEAD WITHOUT CONTRAST REASON FOR EXAM: Patient fell in emergency department room. TECHNIQUE: Contiguous axial scans of 3.75 mm slice thicknesses. Sagittal and coronal reconstruction images were obtained. One or more dose reduction techniques were used (e.g., automated exposure control, adjustment of mA and/or kv according to patient size, use of iterative reconstruction technique). IV CONTRAST: Not given. COMPARISON: CT brain dated 12/14/2021. FINDINGS: A stable 0.4 cm lacunar infarct in the left external capsule, axial image 22. A right lentiform nucleus lacunar infarct measuring 0.7 cm. Central white matter and subcortical diffuse hypoattenuation. No acute hemorrhage. No mass effect or midline shift. Diffuse dural calcifications are again noted involving the falx and also along the tentorium bilaterally. No extra-axial fluid collections. Stable moderate cerebral cortical atrophy. Appropriate size of the ventricles and cisterns for patient's age. No abnormality seen in the cerebellum/posterior fossa. Paranasal sinuses are unremarkable. Mastoid air cells are normal. Left globe prosthesis. Calcifications seen in the anterior right globe. Mild atherosclerotic calcific disease. CT/Brain/Head without Contrast IMPRESSION: 1. Chronic microvascular ischemic changes are again noted. 2. Bilateral lacunar infarcts are again noted. The right lentiform nucleus la cunar infarct has increased in size since the previous study. 3. No extra-axial collections. 4. Age-appropriate senescent change. 5. Left orbital prosthesis. 6. Other nonacute findings detailed above are stable. One or more dose reduction techniques were used (e.g., Automated exposure contr ol, adjustment of the mA and/or kV according to patient size, use of iterative reconstruction technique). Reading Location: [facility]
[2024-08-28 20:41] LABS: Blood Gas Specimen Type VEN; O2 Delivery Device Room Air; SITE Not entered; VBG BASE EXCESS -13 mmol/L (-1.0-3.5); VBG Bicarbonate 15 mmol/L (22-26); VBG PO2 75 mmHg (25-40); VBG SO2 92 % (50-70); VBG TCO2 16 mmol/L (23-33); VBG pCO2 35.5 mmHg (41-51); VBG pH 7.23 (7.32-7.42)
[2024-08-28 21:15] LABS: Anion Gap 13 (5-15); BUN 62 mg/dL (7-18); BUN/Creat Ratio 19.6 RATIO (10-20); Calcium,Total 9.4 mg/dL (8.5-10.1); Chloride 104 mmol/L (98-107); Creatinine, Serum 3.17 mg/dL (0.55-1.02); EST Glomerular Filtration Rate 15 mL/min (>60); Est Glom Filt Rate - Afr Amer 18 mL/min (>60); Estimated Creatinine Clearance 10.36 ml/min; Glucose 44 mg/dL (74-106); Potassium 4.8 mmol/L (3.5-5.1); Sodium Level 134 mmol/L (136-145)
[2024-08-28] MEDS: Sodium Bicarbonate 150 MEQ in Dextrose 5%-Water (1000mL Bag) 1,000 ML 100 MEQ IV (21:19)
[2024-08-28] MEDS: Dextrose 10%-Water 250 ML 999 ML IV (21:28)
[2024-08-28 22:38] LABS: Bedside Glucose 150 mg/dL (74-106)
[2024-08-28] MEDS: fentaNYL 100 MCG/2 ML Ampul 25 MCG IV (23:18)
[2024-08-28] MEDS: Tacrolimus 0.5 MG Capsule PO (23:44)
[2024-08-28] MEDS: Mycophenolate Mofetil 250 MG Capsule PO (23:44)
[2024-08-28 23:58] LABS: Bedside Glucose 87 mg/dL (74-106)
[2024-08-29] VITALS (51 sets, daily range): BP systolic 75–144; BP diastolic 39–82; PULSE 90–135; RESP 14–45; TEMP 36.1–38.6; O2SAT 91–100; BMI 19.1
[2024-08-29] MEDS: fentaNYL 100 MCG/2 ML Ampul 25 MCG IV (00:06)
[2024-08-29] MEDS: oxyCODONE 5 MG Tablet PO (00:09)
[2024-08-29] MEDS: Dextrose 10%-Water 250 ML 999 ML IV ×4 (00:29→22:29)
--- NOTE | 2024-08-29 00:58 | PCM.HP.STD ---
[facility] - General General Date of Admission: 08/29/24 Date of Service: 08/29/24 Chief Complaint: Abdominal Pain, Nausea, Vomiting and Confusion with Hypoglycemia. HPI Narrative GEORGINA VALLADARES, is a 74 F with a past medical history of essential hypertension; on lisinopril-hydrochlorothiazide, amlodipine and carvedilol, hyperlipidemia; on pravastatin, history of Right renal transplant (2003) and subsequent pancreatectomy with pancreas transplant (2004); on mycophenolate mofetil 250 mg PO BID and tacrolimus 1 mg PO BID followed by the [facility], CAD; s/p CABG x 5 (2012) on BASA daily followed by Dr. Donaldson of [facility], history of arrhythmia; s/p PPM (2021), history of TIA, depression; on duloxetine, GERD; on omeprazole, history of umbilical hernia; s/p repair, history of C-sections x 2, osteoporosis; on ibandronate and OA; with history of cervical spine fusion, spinal stenosis and scoliosis of lumbar spine causing chronic low back pain on prn oxycodone BID who presented to [facility] ER at ~11:00 AM complaining of abdominal pain and confusion with hypoglycemia. Mrs. Valladares is not a fully-reliable historian at this time so information was gathered form chart, medical staff and computer. According to the records her symptoms began ~2 days prior to admission with decreased appetite and abdominal pain followed by nausea and vomiting with bilious emesis. She informed the ER provider that her last normal BM was yesterday and she also admitted to decreased UOP but no mention of hematuria or dysuria. There was no report of fever, chills, chest pain, SOB, headache or history of diverticulitis with her last colonoscopy allegedly in 2020. In the ER her initial temperature was low at 95.2 degrees Fahrenheit with abdominal tenderness most pronounced in the lower quadrants along with Leukocytosis of 17.7K with Lactic Acidosis of 5.7 mmol/L present on admission concerning for Sepsis of Unknown Origin complicated by Severe SELMA; with serum creatinine of 3.26 mg/dL and BUN of 60 mg/dL present on admission (sharply up form her baseline serum creatinine of 1.14 mg/dL and BUN of 39 mg/dL) compounded by highly elevated serum Lipase of 3,395 U/L present on admission consistent with Acute Pancreatitis with call made to Dr. Sol at [facility] and with patient accepted 6 hours ago - but with no bed available in their ICU. Unfortunately, while in the ER her case took a sharp turn for the worse after she climbed over her bed rail and fell onto the floor below sustaining multiple skin tears over the dorsal aspects of both wrists and the lateral aspect of her Left knee with no report of associated head trauma of LOC. She then underwent trauma evaluation with CT scans of the head and neck that were negative for acute pathologic changes but when her ABG was checked it revealed Severe Metabolic Acidosis with pH 7.23/ pCO2 35.5 mmHg/ PO2 74.5 mmHg/ bicarbonate 15 mmol/L on RA complicated by clinical evidence of Acute Metabolic Encephalopathy with Severe Hypoglycemia of 44 mg/dL noted 8:25 PM and she was then started on IV Sodium Bicarbonate and IV D10 with a second call made to [facility] by the ER with no bed availability so the after ~15 hours in the ER the hospitalist service was called to take over the care of this patient as per the policy of this hospital that patient's awaiting prolonged transfers in the ER are transferred to the hospitalist service even though this hospital does not have the resources to take care of this Critically-ill Septic, Multiple Transplant with signs of Severe SELMA and evidence of possible rejection on CT along with poorly imaged pancreas concerning for Pancreatitis - she will be managed to the best of my ability until such time a bed at [facility] ICU becomes available. According to the ER staff the patient's is very frustrated with a combination of the waiting process and her nicanor course in the ER. Patient's was at the bedside in the ICU and he greatly helped to augment the history. Shorty after arriving to the ICU she had her first troponin returned elevated 1,202 pg/mL in addition to a d-dimer that was elevated at 8.97 but she denies chest pain at this time and was not noted to have lower extremity edema - so she was started on IV Heparin for suspected NSTEMI vs Acute Cardiac Strain in addition to PE with V/Q scan and LE Doppler pending in the AM as her poor renal function contraindicates CTA with contrast at this time. Few hours after arrival on ICU patient was noted to have worsening abdominal distention and discomfort with repeat stat CT scan ordered and pending at this time. I spoke with the ER physician, Computer Repair Technician and the ER Director to express my concerns about this case. She was then admitted to the ICU for ongoing care for a stay that is expected to extend beyond 2 midnights. [facility] Medical History Diabetes Bruising Back pain Blackout Gastric reflux History of pain when walking Fatigue Wears hearing aid Wears glasses Cancer Ambulates with cane Arthritis High cholesterol Easy bruising Non-smoker History of stress test History of echocardiogram Cardiology follow-up encounter HLD (hyperlipidemia) Spinal stenosis of lumbar region at multiple levels Scoliosis of lumbar region due to degenerative disease of spine in adult Low back pain DDD (degenerative disc disease) High degree atrioventricular block TIA (transient ischemic attack) Chest pain Non-rheumatic mitral regurgitation Nonrheumatic aortic (valve) stenosis RBBB (right bundle branch block) Atherosclerotic heart disease of [place] coronary artery without angina pectoris Gastroesophageal reflux disease Benign hypertension Home Medications ?Medication ?Instructions ?Recorded ?Last Taken ?Type cyanocobalamin (vitamin B-12) 100 mcg IM QMONTH vitamin 07/10/20 01/22/24 History 1,000 mcg/mL injection solution folic acid 1 mg tablet 1 mg PO DAILY supplement 07/10/20 02/11/24 History tacrolimus 0.5 mg capsule, 1 mg PO Q12H anti rejection 07/10/20 02/11/24 History immediate-release cholecalciferol (vitamin D3) 25 25 mcg PO DAILY vitamin 07/12/20 02/11/24 History mcg (1,000 unit) capsule aspirin 81 mg tablet,delayed 81 mg PO DAILY heart health 10/09/20 02/07/24 History release (Adult Low Dose Aspirin) mycophenolate mofetil 250 mg 250 mg PO BID anti rejection 09/25/22 02/11/24 History capsule amlodipine 10 mg tablet 10 mg PO DAILY BP 11/20/22 02/12/24 04:20 History carvedilol 6.25 mg tablet 6.25 mg PO BID HEART #180 tabs 08/05/23 02/12/24 04:20 Rx ibandronate 150 mg tablet 150 mg PO QMONTH [facility] 08/05/23 Unknown History omeprazole 40 mg capsule,delayed 40 mg PO DAILY GERD 08/05/23 02/12/24 04:20 History release duloxetine 30 mg capsule,delayed 20 mg PO BID DEPRESSION 01/13/24 02/12/24 04:20 History release oxycodone 5 mg tablet 2.5 - 5 mg PO BID PRN pain 04/05/24 Unknown History pravastatin 20 mg tablet 20 mg PO QHS cholesterol #90 tabs 04/05/24 Unknown Rx lisinopril 20 1 tab PO DAILY BP #90 tabs 07/15/24 Unknown Rx mg-hydrochlorothiazide 25 mg tablet sulfamethoxazole 400 1 tab PO DAILY antibiotic 08/29/24 08/28/24 History mg-trimethoprim 80 mg tablet (Bactrim) Allergy/AdvReac Type Severity Reaction Status Date / Time Seasonal Allergies: Uncoded Allergy Other Verified 08/28/24 10:35 Family History Father CAD (coronary artery disease) Mother Dementia Surgical History S/P cervical spinal fusion S/P insertion of sacral nerve stimulator (~11/2022) Presence of permanent cardiac pacemaker (~01/28/22) History of umbilical hernia repair (~03/01/20) History of right breast biopsy (~11/23/03) Cataract extraction status History of repair of rotator cuff (~08/31/09) History of eye surgery (~01/07/05) History of pancreatectomy (~03/2004) History of kidney transplant (~03/2004) History of coronary artery bypass surgery (~07/29/12) Status post pancreas transplantation (~05/25/05) Social History household members: spouse Smoking Status: Never smoker alcohol intake: current alcohol intake frequency: a few times a week substance use type: does not use caffeine: Yes Type: coffee Number of servings: 3 ROS ROS Narrative Review of Systems: Constitutional: Patient denies fever or chills. Eyes: Patient denies changes in vision or discharge from eyes. ENT: Patient denies runny nose, sore throat or ear pain. Resp: Patient admits to moderate shortness of breath but she denies cough. CV: Patient denies chest pain, palpitations, heart racing or lower extremity edema. GI: Patient admits to severe abdominal pain most focused in the lower quadrants in addition to nausea, vomiting and bilious emesis. He denies blood in stools or blood in vomit. : Patient admits to decreased urinary output as per HPI but she denies dysuria, hematuria or urinary frequency. MSK: Patient denies arthralgias or myalgias. Skin: Patient's skin is obviously discolored with darkened sickly complexion but no evidence of jaundice. She admits to skin tears after recent fall in ER. Psych: Patient denies symptoms of uncontrolled depression or anxiety. Neuro: Patient denies headache, paresthesias or focal neurologic deficits. Allergy: Patient denies lip swelling, tongue swelling or urticaria. Hematology: Patient denies easy bleeding or easy bruisability. Endocrinology: Patient denies polyuria, polydipsia or polyphagia. 14 point review of systems otherwise negative except for positives noted above in HPI. Vital Signs Vital Signs Vital Signs: 08/28/24 10:27 08/28/24 11:34 08/28/24 12:26 Temperature 95.2 F L 95.2 F L Temperature Source Temporal Temporal Pulse Rate 100 97 88 Respiratory Rate 22 H 22 H 22 H Blood Pressure 121/63 H 121/65 H 163/67 H Blood Pressure Mean 82 83 99 Pulse Ox 97 100 99 Oxygen Delivery Method Room Air Room Air 08/28/24 12:34 08/28/24 14:00 08/28/24 14:30 Temperature 97.1 F L 98.4 F Temperature Source Temporal Oral Pulse Rate 86 84 85 Respiratory Rate 22 H 20 H 18 Blood Pressure 163/67 H 144/55 H 152/67 H Blood Pressure Mean 99 84 95 Pulse Ox 100 97 Oxygen Delivery Method Room Air Room Air 08/28/24 14:45 08/28/24 15:00 08/28/24 15:15 Temperature 98.1 F 98.2 F 98.1 F Temperature Source Temporal Temporal Temporal Pulse Rate 90 86 89 Respiratory Rate 19 H 17 18 Blood Pressure 146/100 H 152/70 H 144/68 H Blood Pressure Mean 115 97 93 Pulse Ox Oxygen Delivery Method 08/28/24 15:30 08/28/24 15:41 08/28/24 15:45 Temperature 97.9 F Temperature Source Temporal Pulse Rate 91 86 88 Respiratory Rate 15 12 21 H Blood Pressure 156/72 H 136/83 H Blood Pressure Mean 100 99 Pulse Ox Oxygen Delivery Method 08/28/24 16:00 08/28/24 16:00 08/28/24 16:06 Temperature Temperature Source Pulse Rate 88 88 Respiratory Rate 18 13 Blood Pressure 125/89 H 125/56 H Blood Pressure Mean 101 75 Pulse Ox 97 98 Oxygen Delivery Method Room Air 08/28/24 16:15 08/28/24 16:20 08/28/24 16:30 Temperature Temperature Source Pulse Rate 88 90 90 Respiratory Rate 13 16 17 Blood Pressure 122/76 H 140/77 H 144/72 H Blood Pressure Mean 82 95 94 Pulse Ox 98 100 99 Oxygen Delivery Method 08/28/24 16:45 08/28/24 17:00 08/28/24 17:15 Temperature Temperature Source Pulse Rate 89 90 87 Respiratory Rate 22 H 20 H 18 Blood Pressure 148/76 H 130/64 H 164/73 H Blood Pressure Mean 98 84 99 Pulse Ox 98 Oxygen Delivery Method 08/28/24 17:30 08/28/24 17:45 08/28/24 18:34 Temperature Temperature Source Pulse Rate 88 89 Respiratory Rate 20 H 19 H Blood Pressure 157/47 H 155/73 H 90/53 L Blood Pressure Mean 78 97 66 Pulse Ox 98 98 95 Oxygen Delivery Method 08/28/24 18:45 08/28/24 18:46 08/28/24 18:46 Temperature Temperature Source Pulse Rate 85 86 Respiratory Rate 23 H 21 H Blood Pressure 144/73 H 144/73 H Blood Pressure Mean 94 94 Pulse Ox 97 94 Oxygen Delivery Method 08/28/24 19:00 08/28/24 19:15 08/28/24 19:30 Temperature Temperature Source Pulse Rate 86 86 Respiratory Rate 23 H 13 Blood Pressure 136/67 H 141/74 H 144/73 H Blood Pressure Mean 88 94 96 Pulse Ox 96 98 Oxygen Delivery Method 08/28/24 21:00 08/28/24 23:20 Temperature Temperature Source Pulse Rate 82 89 Respiratory Rate 34 H 30 H Blood Pressure 95/67 126/67 H Blood Pressure Mean 76 86 Pulse Ox 94 97 Oxygen Delivery Method Room Air Room Air Weight Weight: 94 lb 5.725 oz Body Mass Index (BMI) 19.0 Physical Exam Const alert, oriented x3 and average body habitus Constitutional Narrative: Moderate distress noted with patient complaining of severe abdominal pain with patient chronically ill in appearance. General Appearance: cooperative HEENT normocephalic, head/scalp atraumatic and hearing grossly normal bilaterally HEENT Narrative: Mucous membranes dry. Eyes PERRL and EOMs intact bilaterally Neck no lymphadenopathy and supple Resp Resp Narrative: Moderate labored respirations with lung CTA bilaterally. Cardio regular rate and regular rhythm GI non-distended GI Narrative: Abdomen moderately distended with moderate diffuse TTP with guarding or rebound. Extremity normal to inspection, full ROM and no clubbing, cyanosis or edema Skin Skin Narrative: Patient's skin is hyperpigmented and sickly in appearance with evidence of recent skin tears on the dorsal aspect of both wrists and lateral Left knee. There was no evidence of jaundice, rash, or abscess. Neuro oriented x3, CN's II-XII intact bilaterally, moves all extremities and no focal motor deficits Sensorium / Orientation: awake, alert, oriented to person, oriented to place and oriented to time Speech: speech normal Psych affect normal Results Lab / Micro Data 08/28/24 10:50 08/28/24 20:25 Labs: Laboratory Results - last 24 hr 08/28/24 10:50: WBC 17.7 H, RBC 4.80, Hgb 13.7, Hct 42.3, MCV 88.1, MCH 28.5, MCHC 32.4, RDW Std Deviation 43.0, RDW Coeff of Jenny 13.3, Plt Count 132 L, MPV 11.1, Immature Gran % (Auto) 0.700, Neut % (Auto) 86.1 H, Lymph % (Auto) 5.1 L, Alfalfa % (Auto) 7.7, Eos % (Auto) 0.0, Baso % (Auto) 0.4, Absolute Neuts (auto) 15.2 H, Absolute Lymphs (auto) 0.90, Nucleated RBC % 0, Platelet Estimate SLT DEC, Sodium 129 L, Potassium 5.1, Chloride 99, Carbon Dioxide 14.0 L, Anion Gap 16 H, BUN 60 H, Creatinine 3.26 H, Est GFR (MDRD) Af Amer 18 L, Est GFR (MDRD) Non-Af 15 L, BUN/Creatinine Ratio 18.4, Glucose 121 H, Calcium 10.6 H, Total Bilirubin 0.80, AST 48 H, ALT 19, Alkaline Phosphatase 50, Total Protein 6.9, Albumin 3.7, Globulin 3.2, Albumin/Globulin Ratio 1.2, Lipase 3395 H 08/28/24 11:44: Lactic Acid 5.7 H* 08/28/24 12:38: Acetone Level NEGATIVE 08/28/24 14:24: Urine Color Yellow, Urine Clarity Cloudy, Urine pH 5.0, Ur Specific [place] 1.020, Urine Protein 30 H, Urine Glucose (UA) Normal, Urine Ketones 5 H, Urine Occult Blood 150 H, Urine Nitrite Negative, Urine Bilirubin 6 H, Urine Urobilinogen 1 H, Ur Leukocyte Esterase 25 H, Urine RBC 0-5 SEEN, Urine WBC 0-5 SEEN, Ur Squamous Epith Cells 0-5 SEEN, Calcium Oxalate Crystal 1+, Amorphous Sediment 2+ URATE, Urine Bacteria 0 SEEN, Urine Mucus 0 SEEN 08/28/24 16:23: Lactic Acid 3.3 H* 08/28/24 20:25: Sodium 134 L, Potassium 4.8, Chloride 104, Carbon Dioxide 16.0 L, Anion Gap 13, BUN 62 H, Creatinine 3.17 H, Estim Creat Clear Calc 10.36, Est GFR (MDRD) Af Amer 18 L, Est GFR (MDRD) Non-Af 15 L, BUN/Creatinine Ratio 19.6, Glucose 44 L*, Calcium 9.4 08/28/24 22:20: POC Glucose 150 H 08/28/24 23:40: POC Glucose 87 ABG Data ABG results: ABG 08/28/24 20:37 Specimen Type JAMES Sample Site Not entered O2 % 21.0 VBG pH 7.23 L VBG pO2 75 H VBG HCO3 15 L VBG Total CO2 16 L VBG O2 Sat (Calc) 92 H VBG Base Excess -13 L POC Mix VBG pCO2 Pt Tmp 35.5 L O2 Delivery Device Room Air Interpretation: RUN DATE: 08/29/24 [facility], DEPARTMENT OF LABORATORIES PAGE 1 RUN TIME: 0246 Specimen Inquiry [id number] [place], [place], [id number] PATIENT: GEORGINA VALLADARES LOC: ICU U #: [id number] : 1950 AGE/SX: 74/F FACILITY: [facility] ROOM: [facility] RE08/29/[address]: Marty Chew STATUS:ADM IN ED: 1 DIS: ~ SPEC #: [id number] MIKE: 08/29/24 STATUS: COMP REQ #: [id number] RECD: 08/29/[address]: Dr. Cory Marx, DO ENTERED: 08/29/[address] [facility] [address]: Dr. Luh Hernandez, DO ~ Test Result Flag Reference Range IBG Blood Gas Type ART SITE R Radial AMANDA TEST Positive Mode Not entered O2 Delivery Dev Room Air FI02 21.0 pH 7.27 L 7.35-7.45 pCO2 36.8 35-45 mmHg PO2 75 75-100 mmHG HCO3 16.8 L 22-26 mmol/L BE -10 L -2 to +2 mmol/L TOTAL CO2 18 mmol/L SO2 93 L 95-99 % Imaging Radiology Impression Abdomen/Pelvis CT 08/28/24 12:15 IMPRESSION: Scattered abdominopelvic ascites. Renal transplantation in the right lower quadrant. Further clinical correlation required to exclude transplant rejection. No free air. Poorly defined pancreatic parenchyma for which clinical correlation is required to exclude pancreatitis. Pancreatic transplantation is noted. One or more dose reduction techniques were used (e.g., Automated exposure control, adjustment of the mA and/or kV according to patient size, use of iterative reconstruction technique). Reading Location: [email or web address] Brain CT 08/28/24 18:40 IMPRESSION: 1. Chronic microvascular ischemic changes are again noted. 2. Bilateral lacunar infarcts are again noted. The right lentiform nucleus lacunar infarct has increased in size since the previous study. 3. No extra-axial collections. 4. Age-appropriate senescent change. 5. Left orbital prosthesis. 6. Other nonacute findings detailed above are stable. One or more dose reduction techniques were used (e.g., Automated exposure control, adjustment of the mA and/or kV according to patient size, use of iterative reconstruction technique). Reading Location: [facility] Cervical Spine CT 08/28/24 18:40 IMPRESSION: 1. Status post ACDF, C5 through 7. 2. No acute osseous abnormalities involving the cervical spine. 3. Other nonacute findings detailed above. Reading Location: [facility] Assessment & Plan Assessment/Plan (1) Sepsis: QUALIFIERS: Acute renal failure type: unspecified Sepsis acute organ dysfunction status: with acute organ dysfunction Sepsis type: sepsis due to unspecified organism Severe sepsis acute organ dysfunction type: acute renal failure Severe sepsis shock status: without septic shock Qualified Code(s): A41.9 - Sepsis, unspecified organism; R65.20 - Severe sepsis without septic shock; N17.9 - Acute kidney failure, unspecified (2) Acute pancreatitis: QUALIFIERS: Acute pancreatitis complication: unspecified Pancreatitis type: unspecified pancreatitis type Qualified Code(s): K85.90 - Acute pancreatitis without necrosis or infection, unspecified (3) History of pancreas transplant: (4) Adverse drug reaction: QUALIFIERS: Encounter type: initial encounter Qualified Code(s): T50.905A - Adverse effect of unspecified drugs, medicaments and biological substances, initial encounter (5) SELMA (acute kidney injury): (6) History of renal transplant: (7) Acute metabolic encephalopathy: (8) Hypoglycemia: (9) Fall: QUALIFIERS: Encounter type: initial encounter Qualified Code(s): W19.XXXA - Unspecified fall, initial encounter (10) Skin tear of upper extremity: (11) Elevated troponin: (12) D-dimer, elevated: PLAN: Plan 1. Sepsis of Unknown Origin evidenced by Leukocytosis of 17.7K with Lactic Acidosis of 5.7 mmol/L and Hypothermia of 95.2 degrees Fahrenheit present on admission - Admit to ICU for treatment under the Sepsis protocol. Continue IV piperacillin-tazobactam but stop IV vancomycin with severely impaired renal function in favor of Zyvox IV and await culture and sensitivity data. Give acetaminophen prn for [id number] (level 1-5/10) pain or fever. Give morphine IV prn for severe (level 6-10/10) pain. We will consult the jet wiper to see this patient on-rounds in the AM when he is available with help appreciated in advance. Finally, we will consult Case Management and transfer this patient to [facility] ICU as soon as a bed becomes available with any help to expedite the process greatly appreciated. 2. Acute Pancreatitis; evidenced by highly elevated serum Lipase of 3,395 U/L present on admission in the setting of previous pancreatectomy with pancreas transplant (2004); on mycophenolate mofetil 250 mg PO BID and tacrolimus 1 mg PO BID followed by the [facility] with pancreas poorly imaged on CT concerning for possible rejection and with clinical evidence of Severe Lower Abdominal Pain, Nausea and Vomiting with Bilious Emesis noted on admission complicating #1 - Aggressively volume resuscitate. Continue immune suppressing agents if patient can tolerate oral intake with elevated concern for possible organ rejection. Check daily serum Lipase to follow trend. Give pantoprazole 40 mg IV daily. Otherwise, keep strict NPO except ice chips, sips and medications. Pancreatitis due to Adverse Drug Reaction to thiazide-diuretics has been well-described in the medical literature so since this agent may be the culprit it should not be restarted. [employer] TWISTING DEPARTMENT was updated with plan and she spoke with the transplant team instruments sales representative on-call from [facility] with no additional direction given at this time. 3. Severe SELMA; with serum creatinine of 3.26 mg/dL and BUN of 60 mg/dL present on admission (sharply up form her baseline serum creatinine of 1.14 mg/dL and BUN of 39 mg/dL) with CT evidence suggestive of possible rejection in the setting of a history of Right Renal Transplant (2003) and recent confirmatory report of decreased UOP compounding #1 & #2 - Aggressively volume resuscitate and recheck renal indices daily to follow trend of expected improvement. We will avoid potentially nephrotoxic agents. There were no signs of urinary obstruction on CT but with additional concern for possible Adverse Drug Reaction to lisinopril as a likely contributing factor in her recent sharp decline in renal function so this agent should not be restarted. 4. Severe Metabolic Acidosis with pH 7.23/ pCO2 35.5 mmHg/ PO2 74.5 mmHg/ bicarbonate 15 mmol/L on RA complicated by clinical evidence of Acute Metabolic Encephalopathy with Severe Hypoglycemia of 44 mg/dL noted 8:25 PM and she was then started on IV Sodium Bicarbonate and IV D10 noted after Fall Out of Bed in ER with Skin Tears to Both Wrists and Lateral Left Knee adding to the medical complexity of #1 - #3 - Recheck STAT ABG and also recheck in AM to closely follow trend. Also check blood glucose q. 2h to prevent recurrent hypoglycemia. 5. Elevated initial troponin returning at 2:30 AM returned significantly elevated at 1,202 pg/mL consistent with NSTEMI vs Acute Cardiac Strain in the setting of previously known CAD; s/p CABG (2012) on BASA daily followed by Dr. Donaldson of [facility] adding to the medical complexity and significant morbidity outlined from #1 - #4 - Continue BASA and add IV Heparin per protocol. Serialize troponin. Check echocardiogram to evaluate LVEF with source of potential infection yet to be identified. Patient denies chest pain at this time. Finally, we will consult [facility] cardiology to see patient on rounds in the a.m. for further recommendations with help appreciated in advance. 6. Critically-elevated D-dimer of 8.97 returning at 3:38 AM due to suspected VTE with patient significantly dyspneic since admission adding to the burden of disease outlined from #1 - #5 - Patient started on IV Heparin for #5. V/Q scan ordered as SELMA with not allow for CTA. Check bilateral LE Doppler to evaluate for DVT. 7. Essential Hypertension; on lisinopril-hydrochlorothiazide, amlodipine and carvedilol - Hold all oral antihypertensives until source of infection outlined in #1 has been identified and neutralized. Give hydralazine IV prn for systolic blood pressure > 160 mmHg. 8. OA; with history of cervical spine fusion, spinal stenosis and scoliosis of lumbar spine causing chronic low back pain on prn oxycodone BID at baseline - Patient's severe pain will treated with IV morphine as noted above. 9. Hyperlipidemia; on pravastatin - Hold statin until further notice but check Lipid Profile. 10. Check echocardiogram to evaluate LVEF with source of infection yet to be identified. 11. History of arrhythmia; s/p PPM (2021) - Noted. 12. History of TIA - Noted. 13. Depression; on duloxetine - Hold this agent for now until her condition stabilizes. 14. GERD; on omeprazole - Patient started on IV pantoprazole for #1 & #2. 13. History of umbilical hernia; s/p repair - Noted. 15. History of C-sections x 2 - Noted for the sake of completeness. 16. Osteoporosis; on ibandronate - This agent will be resumed as an outpatient if possible. 17. DVT prophylaxis - Patient on IV Heparin for #5 and #6. Total time: Approximately (but not less than) 75 minutes. Sepsis Attestation Sepsis Alert: Yes Sepsis Attestation: Agree w/Sepsis Date exam was performed: 08/29/24 Time exam was performed: 02:00 Possible Source of Sepsis: GI tract/intra-abdominal and Other (Sepsis was diagnosed without definitive source identified yet but she does have Severe Pancreatitis. ) Sepsis Organ Dysfunction Criteria Present: Creatinine > 2.0 mg/dL, UOP < 0.5 mL/kg/hour for 2 consecutive hours and Lactic Acid > 2 mmol/L Supportive Findings: Sepsis of Unknown Origin evidenced by Leukocytosis of 17.7K with Lactic Acidosis of 5.7 mmol/L and Hypothermia of 95.2 degrees Fahrenheit present on admission and patient s/p right renal and pancreas transplant on immunosuppression with mycophenolate and tacrolimus with severe SELMA and CT evidence of possible transplant rejection. Fluid Resuscitation Fluid resuscitation indicated?: Yes Fluid Resuscitation ordered: 30 ml/kg fluid bolus ordered Amount of fluid ordered: 2 Sepsis Note Date exam was performed: 08/29/24 Time exam was performed: 04:00 Sepsis Attestation: Sepsis re-evaluation was performed Response to fluids: Fluid responsive hypotension Charges/Coding Visit Charges Inpatient E&M: 20326 Init Hosp L3
[2024-08-29 01:18] LABS: Bedside Glucose 171 mg/dL (74-106)
[2024-08-29] MEDS: HYDROmorphone 0.5 MG/0.5 ML SYRINGE IV (01:20)
--- NOTE | 2024-08-29 01:37 | ED.RN ---
Report called to [facility] ICU, Maria Esther LARIOS.
[2024-08-29] MEDS: 0.9% Normal Saline (500mL Bag) 500 ML 999 ML IV (01:52)
[2024-08-29 02:07] LABS: Allen Test Positive; Base Excess -10 mmol/L (-2 to +2); Bicarbonate 16.8 mmol/L (22-26); Blood Gas Specimen Type ART; Mode Not entered; O2 Delivery Device Room Air; PO2 75 mmHG (75-100); SITE R Radial; SO2 93 % (95-99); Total Carbon Dioxide 18 mmol/L; pCO2 36.8 mmHg (35-45); pH 7.27 (7.35-7.45)
[2024-08-29 02:14] LABS: Bedside Glucose 76 mg/dL (74-106)
--- NOTE | 2024-08-29 02:49 | ECHOD_ITS ---
Version 2 Reason For Study: S/P CABG Procedure This was a 2D Doppler, Color Flow transthoracic echocardiogram. Exam performed portable in ICU/CCU. Left Ventricle Normal LV size. Left ventricular systolic function is normal. The left ventricular ejection fraction is 60 %. No regional wall motion abnormalities noted. Right Ventricle Normal RV size. ICD or pacer leads identified within the right ventricle. Normal systolic function. Atria Normal left atrium. Normal right atrium. ICD or pacer leads identified within the right atrium. Pacemaker lead in right atrium appears to be more echogenic than usual. Mitral Valve Bileaflet diffuse mitral valve thickening. There is moderate to severe mitral annular calcification. Mild (1+) eccentric mitral valve insufficiency. Aortic Valve Trisinus/trileaflet aortic valve. Moderate focal aortic valve calcification. Peak aortic valve gradient 45 mmHg. Mean aortic valve gradient 27 mmHg. Moderate aortic stenosis. Pericardium/Pleural No pericardial effusion. MMode/2D Measurements & Calculations LVIDd: 3.2 cm IVSd: 1.2 cm LVOT diam: 1.8 cm LVIDs: 1.8 cm LVPWd: 1.6 cm RVDd: 2.2 cm FS: 42.8 % LVOT area: 2.5 cm2 _ LAV(MOD-bp): 34.1 ml SV(MOD- sp4): 27.7 ml LVAd ap4: 20.6 cm2 LAV(MOD-bp) Indexed: 25.7 ml/m2 LVLd ap4: 7.2 cm SI(MOD- sp4): 20.9 ml/m2 LAV(MOD-sp2): 32.4 ml EDV(MOD-sp4): 47.6 ml LAV(MOD-sp4): 35.3 ml EDV(sp4-el): 49.9 ml LVAs ap4: 12.0 cm2 LVLs ap4: 6.3 cm ESV(MOD-sp4): 19.9 ml ESV(sp4-el): 19.2 ml EF(MOD-sp4): 58.2 % EF(sp4-el): 61.6 % _ SV(sp4-el): 30.7 ml LA A4 area: 13.9 cm2 RA A4 area: 9.8 cm2 Time Measurements MV dec time: 0.05 sec Doppler Measurements & Calculations MV E max fredi: 84.2 cm/sec Lat Peak E' Fredi: 14.7 cm/sec Med Peak E' Fredi: 8.7 cm/sec MV A max fredi: 156.9 cm/sec E/E' lat: 5.7 E/E' med: 9.7 MV E/A: 0.54 _ MV dec slope: 1690 cm/sec2 Ao V2 max: 336.4 cm/sec PA V2 max: 95.7 cm/sec Ao max P.3 mmHg PA V2 mean: 64.2 cm/sec Ao V2 mean: 246.9 cm/sec Ao mean P.3 mmHg Ao V2 VTI: 52.0 cm ECHO/Echo Complete Interpretation Summary Moderate focal aortic valve calcification. Mean aortic valve gradient 27 mmHg. Moderate aortic stenosis. Normal LV size. Left ventricular systolic function is normal. The left ventricular ejection fraction is 60 %. There is moderate to severe mitral annular calcification. Pacemaker lead in right atrium appears to be more echogenic than usual. Ordering Physician: Cory Marx Referring Physician: MORENO NEAL Performed By: Jaimie Pratt RCS
[2024-08-29 03:20] LABS: CPK Total, Creatine Kinase 451 U/L (26-192); Troponin-I HS 1202 pg/mL (3.0-54.0)
[2024-08-29] MEDS: 0.9% Saline Lock 10 ML Syringe IV ×3 (03:46→20:45)
[2024-08-29] MEDS: Linezolid 600 MG 600 MG/300 ML BAG 200 MG IV (03:47)
[2024-08-29 03:50] LABS: Bedside Glucose 45 mg/dL (74-106)
[2024-08-29 03:50] LABS: Bedside Glucose 155 mg/dL (74-106)
--- NOTE | 2024-08-29 03:52 | NURSING ---
called [facility] and left a message for transplant team to call back regarding pt care and if they were agreeable with dr Marx plan
[2024-08-29 04:00] LABS: Cholesterol 105 mg/dL (200); High Density Lipoprotein 88 mg/dL; Lipase > 250 U/L (13-75); Triglycerides 32 mg/dL; Very Low Density Lipoprotein 6 mg/dL (5-40)
[2024-08-29 04:11] LABS: BNP,B-Type NATRIURETIC PEPTIDE 189.7 pg/mL (0-100)
[2024-08-29 04:58] LABS: D-Dimer Quantitative (DVT/PE) 8.97 FEU/ug/m (0.27-0.49)
[2024-08-29] MEDS: Piperacil/Tazobactam 3.375 GM in 0.9% Normal Saline (50mL MB+) 50 ML IV ×2 (05:39→20:46)
--- NOTE | 2024-08-29 05:55 | RAD_ITS ---
PROCEDURE: CHEST 1 VIEW (PORTABLE) REASON FOR EXAM: Confusion. Sepsis. TECHNIQUE: AP portable chest examination. COMPARISON: 12/14/2021 FINDINGS: Intermediate to low lung volumes. Minimal atelectasis within the lung bases. Mildly coarsened interstitial markings. No new focal airspace consolidation, pneumothorax or pleural effusion is seen. Heart size and great vessels are within normal limits. Vascular calcifications within the aortic arch. Prior sternotomy. Interval placement of a left-sided dual lead implantable cardiac device. Interval stimulator wires overlying the thoracolumbar spine. Interval postsurgical changes involving the lower cervical spine. Suture anchors within the right humeral head. Osseous thorax appears intact. Old rib fracture deformity involving the 7th rib on the right posteriorly. Spondylotic change involving the thoracic spine. RAD/Chest 1 View (Portable) IMPRESSION: 1. Intermediate to low lung volumes. 2. No new focal airspace consolidation identified. 3. Chronic and postsurgical changes, as detailed above. [facility]
[2024-08-29 06:12] LABS: Base Excess -5 mmol/L (-2 to +2); Bicarbonate 20.5 mmol/L (22-26); Blood Gas Specimen Type ART; Mode Not entered; O2 Delivery Device Cannula; PO2 102 mmHG (75-100); SITE R Radial; SO2 98 % (95-99); Total Carbon Dioxide 22 mmol/L; pCO2 37.7 mmHg (35-45); pH 7.34 (7.35-7.45)
--- NOTE | 2024-08-29 06:15 | VDLE_ITS ---
Reason For Study: Elevated D-dimer RIGHT LEFT CFV is compressible, spontaneous, phasic, CFV is compressible, spontaneous, phasic, competent and demonstrates normal competent, and demonstrates normal augmentation. augmentation. FV is compressible, spontaneous, phasic, FV is compressible, spontaneous, phasic, competent and demonstrates normal competent and demonstrates normal augmentation. augmentation. POP V is compressible, spontaneous, phasic, T/P Trunk is compressible. competent and demonstrates normal PTV is compressible. augmentation. LT PerV is compressible. T/P Trunk is compressible. PopV is noted visualized due to bandages PTV is compressible. around knee. RT PerV is compressible. GSV previously harvested. Acute deep vein thrombosis is noted in the right SoleusV. It is NONCOMPRESSIBLE and dilated. GSV previously harvested. Procedure This is a venous duplex using B-mode, color flow and spectral Doppler. Exam performed portable in ICU/CCU. A preliminary report was called and/or faxed to ICU and Dr. Johnson. VL/Venous Duplex US - Philip Extrem Interpretation Summary Acute deep vein thrombosis is noted in the right soleus vein. Deep veins of the left lower extremity are patent and compressible segmentally. There is no evidence of left lower extremity deep vein thrombosis. Limited study due to dressing. Ordering Physician: Cory Marx Referring Physician: Luh Hernandez Performed By: Laure Perez RVT
[2024-08-29] MEDS: Morphine 2 MG/ML Syringe IV (06:20)
--- NOTE | 2024-08-29 06:41 | CT_ITS ---
PROCEDURE: CT CHEST, ABD, PELVIS WO CONT REASON FOR EXAM: Pain TECHNIQUE: Axial CT images of the chest, abdomen and pelvis was performed without IV contrast enhancement. Sagittal and coronal reconstructed images were performed for better visualization of the horizontal structures. Evaluation of the abdominal viscera is limited, without the use of IV contrast enhancement., COMPARISON: CT abdomen and pelvis dated 08/28/2024 FINDINGS: CHEST: Respiratory motion artifact limits examination. Hardware: Postsurgical changes involving the lower cervical spine. Evidence of prior sternotomy. Left-sided implantable cardiac device. Mediastinum: Few scattered mediastinal lymph nodes are identified, subcentimeter in size in short axis. No mediastinal or hilar adenopathy is appreciated. Heart: Heart size measures upper limits of normal. No pericardial effusion. Coronary artery calcifications are noted. Thoracic Aorta: Vascular calcifications throughout the thoracic aorta. No thoracic aortic aneurysm. Lungs and Airways: Patchy bibasilar airspace disease slightly more prominent on the left. Calcified granuloma within the superior segment of the right lower lobe. Pleura: Small to moderate-sized bilateral pleural effusion, slightly greater on the left. Bones: Prior sternotomy. Spondylotic changes throughout the thoracic spine. ABDOMEN AND PELVIS: Liver: Unenhanced liver appears intact. No large masses identified. Gallbladder: distended. No calcified gallstones identified. Spleen: Somewhat atrophic, with splenic granulomas Pancreas: Limited assessment secondary to adjacent stomach, free fluid and lack of IV contrast. Pancreas appears atrophic. Adrenals: No adrenal masses are identified bilaterally. Kidneys: [place] kidneys are atrophic, with extensive renovascular calcifications. Pelvic kidney seen on the right. No gross hydronephrosis of the pelvic kidney. Bladder: Campbell catheter within a decompressed urinary bladder. Reproductive Organs: Unremarkable. Bowel: Gas and fluid-filled distended small bowel loops throughout the abdomen and pelvis, largest small bowel loop measures up to 3.7 cm. Distal small bowel loops appear somewhat decompressed. Mild amounts of fecal retention within the right colon. Appendix is not well seen. Vasculature: Extensive vascular calcifications. Peritoneum / Retroperitoneum: Moderate amounts of free fluid throughout the abdomen and pelvis. Postsurgical changes overlying the anterior pelvis. Bones: Dextrocurvature and multilevel spondylotic changes involving the lumbar spine. CT/CT Chest, Abd, Pelvis WO Cont IMPRESSION: 1. New small to moderate-sized bilateral pleural effusions, slightly greater on the left, with associated bibasilar airspace disease. 2. Moderate amounts of free fluid/ascites throughout the abdomen and pelvis, si milar in appearance when compared to prior imaging. 3. Gas and fluid distended small bowel loops, largest small bowel loop measures up to 3.7 cm. Distal small bowel loops appear somewhat decompressed. Correlate clinically for developing small bowel obstruc tion or ileus. 4. Transplanted pelvic kidney on the right. Negative for obstructive uropathy. 5. Evidence of prior granulomatous infection. 6. Additional chronic and postsurgical changes, as detailed above. One or more dose reduction techniques were used (e.g., Automated exposure contr ol, adjustment of the mA and/or kV according to patient size, use of iterative reconstruction technique). Reading [facility]
[2024-08-29] MEDS: HEPARIN/D5w 25,000 UNITS 25,000 UNITS/250 ML IV.SOLN. 5.5 UNITS CONT INF (06:46)
[2024-08-29 06:52] LABS: International Normalized Ratio 1.5; Prothrombin Time (Protime)PT. 18.2 SECONDS (11.7-14.9)
[2024-08-29 06:53] LABS: Partial Thromboplast Time 37.3 Seconds (24.1-36.2)
[2024-08-29 07:49] LABS: Bedside Glucose 76 mg/dL (74-106)
[2024-08-29 07:49] LABS: Bedside Glucose 65 mg/dL (74-106)
[2024-08-29 07:49] LABS: Bedside Glucose 74 mg/dL (74-106)
[2024-08-29 07:49] LABS: Bedside Glucose 91 mg/dL (74-106)
[2024-08-29 08:12] LABS: Absolute Lymphocyte Count 0.22 X10^3/uL (0.83-4.51); Absolute Neutrophil Count 1.8 X10^3/uL (2.0-7.7); Basophil# 0.02 X10^3/uL; Basophil% 0.7 % (0-1); Hematocrit 32.2 % (37-47); Hemoglobin 10.6 g/dL (12.0-15.0); Lymphocyte # 0.22 X10^3/ul (0.83-4.51); Lymphocyte % 7.9 % (19-41); Mean Corp Hgb Conc 32.9 g/dL (32-36); Mean Corpuscular Hgb 28.9 pg (27.0-32.0); Mean Corpuscular Volume 87.7 fL (81-99); Mean Platelet Vol. 11.9 fl (6.2-12.0); Monocyte# 0.69 X10^3/uL; Monocyte% 24.9 % (0-10); NRBC Flagged by Analyzer 0 % (0-5); Neutrophil # 1.83 X10^3/uL (2.7-7.7); Neutrophil % 66.1 % (47-70); POSITIVE COUNT YES; POSITIVE DIFFERENTIAL YES; POSITIVE MORPHOLOGY YES; Platelet Count 70 K/mm3 (150-450); RBC Distribution Width CV 13.5 % (11.6-14.6); RBC Distribution Width SD 43.5 fl (35.1-43.9); Red Blood Count 3.67 M/mm3 (4.2-5.4); White Blood Count 2.8 K/mm3 (4.4-11.0)
[2024-08-29] MEDS: Sodium Bicarbonate 150 MEQ in Dextrose 5%-Water (1000mL Bag) 1,000 ML 125 MEQ IV (08:18)
[2024-08-29 08:20] LABS: Differential Indicated SCAN CRITERIA MET
--- NOTE | 2024-08-29 08:30 | CASEMGMT ---
Addendum entered by Mary Birmingham 08/29/24 12:42: Pt SO and son request list to be expanded to a 100 mile radius. Physical list of 70 in-network hospital's printed from [facility]'s website and provided to the pt SO and son at this time. Original Note: Insurance review for hospitals In-network with this pt's [employer] HMO for transfer is as follows (in order by Distance): [facility], [facility], [facility], [facility], [facility], [facility], [facility], [facility], [facility], [facility], [place], [facility], [facility], [facility], [facility], [facility], [facility]. Bee BIRMINGHAM RN CM
[2024-08-29 08:51] LABS: AST(SGOT) 110 U/L (15-37); Alanine Aminotransfer ALT/SGPT 40 U/L (13-56); Albumin, Serum 2.4 g/dL (3.2-5.0); Alkaline Phosphatase 23 U/L (45-117); Anion Gap 10 (5-15); BUN 62 mg/dL (7-18); BUN/Creat Ratio 18.8 RATIO (10-20); Calcium,Total 7.2 mg/dL (8.5-10.1); Chloride 96 mmol/L (98-107); Creatinine, Serum 3.29 mg/dL (0.55-1.02); EST Glomerular Filtration Rate 15 mL/min (>60); Est Glom Filt Rate - Afr Amer 18 mL/min (>60); Estimated Creatinine Clearance 10.03 ml/min; Globulin 2.3 g/dL (2.2-4.2); Glucose 97 mg/dL (74-106); Potassium 4.7 mmol/L (3.5-5.1); Protein, Total 4.7 g/dL (6.4-8.2); Sodium Level 131 mmol/L (136-145)
--- NOTE | 2024-08-29 09:22 | RAD_ITS ---
EXAM: ABDOMEN SINGLE VIEW (PORTABLE) CLINICAL HISTORY: Nasogastric tube placement attempt 1. COMPARISON: None. TECHNIQUE: Supine film of the abdomen was obtained. FINDINGS: The tip of the nasogastric tube is seen in the right lower lobe bronchus. Blunting of the left costophrenic angle with the atelectasis at the left lung base. There is gaseous distention of the stomach. RAD/Abdomen Single View (Portable) IMPRESSION: The tip of the nasogastric tube is in the right lower lobe bronchus. Reading Location: [place] [id number]
--- NOTE | 2024-08-29 09:25 | EX.PCM.CONCC ---
Assessment & Plan Assessment/Plan (1) Sepsis: QUALIFIERS: Acute renal failure type: unspecified Sepsis acute organ dysfunction status: with acute organ dysfunction Sepsis type: sepsis due to unspecified organism Severe sepsis acute organ dysfunction type: acute renal failure Severe sepsis shock status: without septic shock Qualified Code(s): A41.9 - Sepsis, unspecified organism; R65.20 - Severe sepsis without septic shock; N17.9 - Acute kidney failure, unspecified PLAN: Plan RECOMMENDATIONS: 1. Initiate Levophed, if needed, and to maintain a mean arterial pressure at or above 65 mmHg. 2. Start dextrose containing IV fluids. 3. Stop sodium bicarbonate infusion. 4. Awaiting results of echocardiogram. 5. Check tacrolimus level. 6. Continue empiric antibiotics. 7. Place nasogastric tube. 8. Consultations placed to nephrology and general surgery. 9. The patient is to remain n.p.o. for now. 10. Awaiting bed availability for transfer to tertiary care facility. IMPRESSIONS: 1. Septic shock The patient presented to the hospital with sepsis due to suspected pneumonia with acute sepsis related organ dysfunction as evidenced by acute kidney injury, altered mental status, hypotension requiring vasopressor support and lactic acidemia. The patient did receive supplemental IV fluid resuscitation, per protocol, but remained hemodynamically unstable and was subsequently placed on vasopressor support. Plan to continue empiric antimicrobials, pending infectious workup. In addition to the aforementioned, the patient does have evidence of acute pancreatitis of unclear etiology. 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 Will plan to check a tacrolimus level. Given her organ transplantation history, it would be reasonable to transfer her to a tertiary care facility for ongoing management. In the interim, continue supportive measures. 2. Abdominal distention with questionable early SBO versus ileus General Surgery consultation will be obtained. In the interim, will attempt to place nasogastric tube for decompression purposes. The patient is to remain n.p.o. for now. Continue gentle IV fluid hydration. 3. Toxic/metabolic encephalopathy Most likely related to presenting septic shock. However, the patient had also been receiving morphine in the setting of renal insufficiency, which complicates the picture. Recommend holding morphine for now. If neurostatus worsens, recommend repeat imaging of the head, given her reported fall in the emergency department. 4. Acute kidney injury The patient is status post renal transplantation in 2003 and presented with evidence of acute kidney injury. Nephrology consultation has been obtained. The patient will continue to receive gentle IV fluid hydration for now. Continue to monitor urine output. Sodium bicarbonate infusion can be discontinued. There is no current indication for renal replacement therapy. 5. Pancytopenia Continue current supportive care with serial monitoring of CBC. Plan to transfuse if hemoglobin drops below 7 g/dL. Plan to send type and screen. 6. Troponin elevation Most likely related to demand ischemia in the setting of #1. However, the patient does have a history of ischemic cardiomyopathy. Therefore, it is reasonable to obtain follow-up echocardiogram. Cardiology consultation has also been obtained. 7. History of renal and pancreas transplantation on immunosuppression/chronic pain syndrome/history of TIA Complicates care, management, recovery and prognosis. Attempt to limit sedating medications as feasible. The patient is to remain n.p.o. for now. We are awaiting bed availability for transfer to tertiary care facility. CODE STATUS: Full code (discussed with the patient's at the bedside) TIME: 47 minutes of critical care time, independent of procedures, was spent addressing the patient's septic shock, questionable SBO versus ileus, toxic/metabolic encephalopathy, acute kidney injury, pancytopenia, troponin elevation, review of all data and collaboration with the care team. HPI Consult Data Date of Consult: 08/29/24 HPI Narrative Reason for Consultation: Sepsis, acute kidney injury HPI Narrative: The patient is a 74-year-old female, with a history as outlined below, who presented to the emergency department via her with concerns for worsening abdominal pain. The patient's confirmed that she has a longstanding history of chronic back pain, which worsened over the weekend and subsequently led to the development of abdominal pain, which worsened on Thursday. He also reported that she has been unable to take her antirejection medications for 2 to 3 days now. She has a known history of renal transplant in 2003, which was then followed by pancreas transplant 2004, chronically on mycophenolate and tacrolimus, followed by the [facility]. She also has a medical history significant for coronary artery disease status post CABG, history of TIA, GERD, hypertension and hyperlipidemia. On presentation to the emergency department, the patient had a documented temperature of 95.2 ?F. She was relatively hemodynamically stable and maintaining appropriate oxygen saturations on room air. Initial laboratory evaluation revealed an elevated white blood cell count to 17,000. Platelet count was low at 132,000. Coagulation profile was notable for an INR of 1.5 with a D-dimer of 8.97. Chemistry profile was notable for a sodium of 129, bicarbonate of 14, anion gap of 16, BUN of 16 creatinine of 3.26. Lactate was elevated at 5.7. Lipase was increased to 3395. Initial CT abdomen/pelvis demonstrated scattered abdominal pelvic ascites. Due to her complex medical history including renal pancreas transplant, a transfer to [facility] was initiated. Early this morning, while still awaiting bed availability in the emergency department, the patient was documented to have fallen out of bed. The CT head revealed chronic microvascular ischemic changes along with bilateral lacunar infarcts and a right lentiform nucleus lacunar infarct that had increased in size from prior study. CT C-spine demonstrated no osseous abnormalities. The patient did receive IV fluids and was started on antimicrobial therapy. Unfortunately, due to a lack of bed availability at [facility], the patient was admitted to our medical intensive care unit for further management. This morning, the patient is now pancytopenic with a hemoglobin of 10.6 g/dL and platelet count of 70,000. Due to worsening abdominal pain and distention, a repeat CT chest/abdomen/pelvis was obtained which demonstrated small to moderate bilateral pleural effusions with bibasilar airspace disease along with ascites throughout the abdomen and pelvis and gas and fluid-filled small bowel loops concerning for evolving SBO versus ileus. In addition, the patient's hemodynamic status is borderline. I spoke to the patient's at the bedside at length regarding goals of care/CODE STATUS. He is electing to maintain a full CODE STATUS for the current time. Given the aforementioned findings, consultation was also placed to nephrology and general surgery. Nasogastric tube is going to be placed for decompression purposes. Over the course of the afternoon, the patient's respiratory status remained tenuous with ongoing tachypnea and lethargy. Attempts by general surgery to place a nasogastric tube were unsuccessful. Each time the NG tube was placed, it ended up in the right lower lobe bronchus. In light of the need for gastric decompression, the decision, following a lengthy discussion with the patient's , was to proceed with intubation and subsequent placement of OG tube. In addition, given the patient's hemodynamic instability consent was obtained for a triple-lumen catheter placement. [facility] Medical History Diabetes Bruising Back pain Blackout Gastric reflux History of pain when walking Fatigue Wears hearing aid Wears glasses Cancer Ambulates with cane Arthritis High cholesterol Easy bruising Non-smoker History of stress test History of echocardiogram Cardiology follow-up encounter HLD (hyperlipidemia) Spinal stenosis of lumbar region at multiple levels Scoliosis of lumbar region due to degenerative disease of spine in adult Low back pain DDD (degenerative disc disease) High degree atrioventricular block TIA (transient ischemic attack) Chest pain Non-rheumatic mitral regurgitation Nonrheumatic aortic (valve) stenosis RBBB (right bundle branch block) Atherosclerotic heart disease of [place] coronary artery without angina pectoris Gastroesophageal reflux disease Benign hypertension Home Medications ?Medication ?Instructions ?Recorded ?Last Taken ?Type cyanocobalamin (vitamin B-12) 100 mcg IM QMONTH vitamin 07/10/20 01/22/24 History 1,000 mcg/mL injection solution folic acid 1 mg tablet 1 mg PO DAILY supplement 07/10/20 02/11/24 History tacrolimus 0.5 mg capsule, 1 mg PO Q12H anti rejection 07/10/20 02/11/24 History immediate-release cholecalciferol (vitamin D3) 25 25 mcg PO DAILY vitamin 07/12/20 02/11/24 History mcg (1,000 unit) capsule aspirin 81 mg tablet,delayed 81 mg PO DAILY heart health 10/09/20 02/07/24 History release (Adult Low Dose Aspirin) mycophenolate mofetil 250 mg 250 mg PO BID anti rejection 09/25/22 02/11/24 History capsule amlodipine 10 mg tablet 10 mg PO DAILY BP 11/20/22 02/12/24 04:20 History carvedilol 6.25 mg tablet 6.25 mg PO BID HEART #180 tabs 08/05/23 02/12/24 04:20 Rx ibandronate 150 mg tablet 150 mg PO QMONTH [facility] 08/05/23 Unknown History omeprazole 40 mg capsule,delayed 40 mg PO DAILY GERD 08/05/23 02/12/24 04:20 History release duloxetine 30 mg capsule,delayed 20 mg PO BID DEPRESSION 01/13/24 02/12/24 04:20 History release oxycodone 5 mg tablet 2.5 - 5 mg PO BID PRN pain 04/05/24 Unknown History pravastatin 20 mg tablet 20 mg PO QHS cholesterol #90 tabs 04/05/24 Unknown Rx lisinopril 20 1 tab PO DAILY BP #90 tabs 07/15/24 Unknown Rx mg-hydrochlorothiazide 25 mg tablet sulfamethoxazole 400 1 tab PO DAILY antibiotic 08/29/24 08/28/24 History mg-trimethoprim 80 mg tablet (Bactrim) Allergy/AdvReac Type Severity Reaction Status Date / Time Seasonal Allergies: Uncoded Allergy Other Verified 08/28/24 10:35 Family History Father CAD (coronary artery disease) Mother Dementia Surgical History S/P cervical spinal fusion S/P insertion of sacral nerve stimulator (~11/2022) Presence of permanent cardiac pacemaker (~01/28/22) History of umbilical hernia repair (~03/01/20) History of right breast biopsy (~11/23/03) Cataract extraction status History of repair of rotator cuff (~08/31/09) History of eye surgery (~01/07/05) History of pancreatectomy (~03/2004) History of kidney transplant (~03/2004) History of coronary artery bypass surgery (~07/29/12) Status post pancreas transplantation (~05/25/05) Social History household members: spouse Smoking Status: Never smoker alcohol intake: current alcohol intake frequency: a few times a week substance use type: does not use caffeine: Yes Type: coffee Number of servings: 3 ROS Review of Systems ROS Unobtainable: due to mental status Physical Exam Const Constitutional Narrative: The patient is alert but is acutely ill in appearance and unable to answer any simple questions. General Appearance: lethargic, ill appearing and frail HEENT normocephalic and head/scalp atraumatic Eyes PERRL, EOMs intact bilaterally and conjunctivae normal Neck supple General: trachea midline Chest inspection of chest normal Resp Effort and Inspection: tachypneic Auscultation: diminished lung sounds; Negative for rales, rhonchi or wheezes Cardio S1 normal heart sound and S2 normal heart sound Rate: tachycardic Heart Sounds: murmur GI GI Narrative: Abdomen is distended with diffuse tenderness to palpation. Extremity no clubbing, cyanosis or edema Skin no rashes or lesions noted Neuro CN's II-XII intact bilaterally and moves all extremities Psych Mood & Affect: flat affect Lab / Micro Data 08/29/24 08:03 08/29/24 08:03 Labs: Laboratory Results - last 24 hr 08/28/24 10:50: WBC 17.7 H, RBC 4.80, Hgb 13.7, Hct 42.3, MCV 88.1, MCH 28.5, MCHC 32.4, RDW Std Deviation 43.0, RDW Coeff of Jenny 13.3, Plt Count 132 L, MPV 11.1, Immature Gran % (Auto) 0.700, Neut % (Auto) 86.1 H, Lymph % (Auto) 5.1 L, [place] % (Auto) 7.7, Eos % (Auto) 0.0, Baso % (Auto) 0.4, Absolute Neuts (auto) 15.2 H, Absolute Lymphs (auto) 0.90, Nucleated RBC % 0, Platelet Estimate SLT DEC, Sodium 129 L, Potassium 5.1, Chloride 99, Carbon Dioxide 14.0 L, Anion Gap 16 H, BUN 60 H, Creatinine 3.26 H, Est GFR (MDRD) Af Amer 18 L, Est GFR (MDRD) Non-Af 15 L, BUN/Creatinine Ratio 18.4, Glucose 121 H, Calcium 10.6 H, Total Bilirubin 0.80, AST 48 H, ALT 19, Alkaline Phosphatase 50, Total Protein 6.9, Albumin 3.7, Globulin 3.2, Albumin/Globulin Ratio 1.2, Lipase 3395 H 08/28/24 11:44: Lactic Acid 5.7 H* 08/28/24 12:38: Acetone Level NEGATIVE 08/28/24 14:24: Urine Color Yellow, Urine Clarity Cloudy, Urine pH 5.0, Ur Specific [place] 1.020, Urine Protein 30 H, Urine Glucose (UA) Normal, Urine Ketones 5 H, Urine Occult Blood 150 H, Urine Nitrite Negative, Urine Bilirubin 6 H, Urine Urobilinogen 1 H, Ur Leukocyte Esterase 25 H, Urine RBC 0-5 SEEN, Urine WBC 0-5 SEEN, Ur Squamous Epith Cells 0-5 SEEN, Calcium Oxalate Crystal 1+, Amorphous Sediment 2+ URATE, Urine Bacteria 0 SEEN, Urine Mucus 0 SEEN 08/28/24 16:23: Lactic Acid 3.3 H* 08/28/24 20:25: Sodium 134 L, Potassium 4.8, Chloride 104, Carbon Dioxide 16.0 L, Anion Gap 13, BUN 62 H, Creatinine 3.17 H, Estim Creat Clear Calc 10.36, Est GFR (MDRD) Af Amer 18 L, Est GFR (MDRD) Non-Af 15 L, BUN/Creatinine Ratio 19.6, Glucose 44 L*, Calcium 9.4 08/28/24 22:20: POC Glucose 150 H 08/28/24 23:40: POC Glucose 87 08/29/24 00:53: POC Glucose 171 H 08/29/24 01:56: POC Glucose 76 08/29/24 02:30: Total Creatine Kinase 451 H, Troponin I High Sens 1202 H*, Triglycerides 32, Cholesterol 105, LDL Cholesterol 11, VLDL Cholesterol 6, HDL Cholesterol 88, Lipase > 250 H, Folate 46.30, TSH 3.370 08/29/24 02:59: POC Glucose 45 L 08/29/24 03:30: POC Glucose 155 H 08/29/24 03:38: PT 18.2 H, INR 1.5, APTT 37.3 H, D-Dimer Quant (PE/DVT) 8.97 H*, B-Natriuretic Peptide 189.7 H 08/29/24 04:26: POC Glucose 76 08/29/24 04:54: POC Glucose 91 08/29/24 05:53: POC Glucose 65 L 08/29/24 07:28: POC Glucose 74 08/29/24 08:03: WBC 2.8 L, RBC 3.67 L, Hgb 10.6 L, Hct 32.2 L, MCV 87.7, MCH 28.9, MCHC 32.9, RDW Std Deviation 43.5, RDW Coeff of Jenny 13.5, Plt Count 70 L, MPV 11.9, Immature Gran % (Auto) 0.400, Neut % (Auto) 66.1, Lymph % (Auto) 7.9 L, [place] % (Auto) 24.9 H, Eos % (Auto) 0.0, Baso % (Auto) 0.7, Absolute Neuts (auto) 1.8 L, Absolute Lymphs (auto) 0.22 L, Nucleated RBC % 0, Sodium 131 L, Potassium 4.7, Chloride 96 L, Carbon Dioxide 24.0, Anion Gap 10, BUN 62 H, Creatinine 3.29 H, Estim Creat Clear Calc 10.03, Est GFR (MDRD) Af Amer 18 L, Est GFR (MDRD) Non-Af 15 L, BUN/Creatinine Ratio 18.8, Glucose 97, Calcium 7.2 L, Total Bilirubin 0.40, AST 110 H, ALT 40, Alkaline Phosphatase 23 L, Total Protein 4.7 L, Albumin 2.4 L, Globulin 2.3, Albumin/Globulin Ratio 1.0 ABG Data ABG results: ABG 08/28/24 08/29/24 08/29/24 20:37 02:04 06:08 Specimen Type JAMES ART ART Sample Site Not entered R Radial R Radial pH 7.27 L 7.34 L Bicarbonate Actual 16.8 L 20.5 L Total CO2 18 22 Base Excess -10 L -5 L O2 Saturation 93 L 98 O2 % 21.0 21.0 1.0 ABG pCO2 36.8 37.7 ABG pO2 75 102 H Moody Test Positive N/A VBG pH 7.23 L VBG pO2 75 H VBG HCO3 15 L VBG Total CO2 16 L VBG O2 Sat (Calc) 92 H VBG Base Excess -13 L POC Mix VBG pCO2 Pt Tmp 35.5 L O2 Delivery Device Room Air Room Air Cannula Vent Mode Not entered Not entered Imaging Radiology Impression Abdomen/Pelvis CT 08/28/24 12:15 IMPRESSION: Scattered abdominopelvic ascites. Renal transplantation in the right lower quadrant. Further clinical correlation required to exclude transplant rejection. No free air. Poorly defined pancreatic parenchyma for which clinical correlation is required to exclude pancreatitis. Pancreatic transplantation is noted. One or more dose reduction techniques were used (e.g., Automated exposure control, adjustment of the mA and/or kV according to patient size, use of iterative reconstruction technique). [facility] 08/28/24 18:40 IMPRESSION: 1. Chronic microvascular ischemic changes are again noted. 2. Bilateral lacunar infarcts are again noted. The right lentiform nucleus lacunar infarct has increased in size since the previous study. 3. No extra-axial collections. 4. Age-appropriate senescent change. 5. Left orbital prosthesis. 6. Other nonacute findings detailed above are stable. One or more dose reduction techniques were used (e.g., Automated exposure control, adjustment of the mA and/or kV according to patient size, use of iterative reconstruction technique). Reading Location: [facility] Cervical Spine CT 08/28/24 18:40 IMPRESSION: 1. Status post ACDF, C5 through 7. 2. No acute osseous abnormalities involving the cervical spine. 3. Other nonacute findings detailed above. Reading Location: [facility] Chest X-Ray 08/29/24 05:55 IMPRESSION: 1. Intermediate to low lung volumes. 2. No new focal airspace consolidation identified. 3. Chronic and postsurgical changes, as detailed above. Reading Location: [facility] Chest/Abdomen/Pelvis CT 08/29/24 06:41 IMPRESSION: 1. New small to moderate-sized bilateral pleural effusions, slightly greater on the left, with associated bibasilar airspace disease. 2. Moderate amounts of free fluid/ascites throughout the abdomen and pelvis, similar in appearance when compared to prior imaging. 3. Gas and fluid distended small bowel loops, largest small bowel loop measures up to 3.7 cm. Distal small bowel loops appear somewhat decompressed. Correlate clinically for developing small bowel obstruction or ileus. 4. Transplanted pelvic kidney on the right. Negative for obstructive uropathy. 5. Evidence of prior granulomatous infection. 6. Additional chronic and postsurgical changes, as detailed above. One or more dose reduction techniques were used (e.g., Automated exposure control, adjustment of the mA and/or kV according to patient size, use of iterative reconstruction technique). Reading Location: [facility] Charges/Coding Procedures Hospitalists Procedures: 67394 Critical Care 1st Hr
[2024-08-29 09:34] LABS: Bedside Glucose 56 mg/dL (74-106)
[2024-08-29] MEDS: Norepinephrine 8 MG in 0.9% Normal Saline (250mL Bag) 242 ML 9.4 MG CONT INF (09:42)
--- NOTE | 2024-08-29 09:49 | PCM.CONS.C ---
Assessment & Plan Assessment/Plan (1) Elevated troponin: PLAN: Patient has a history of an elevated troponin. The above is likely secondary to demand ischemia. Patient does have a history of coronary bypass surgery echocardiogram demonstrates preserved left ventricular systolic function at this time with no wall motion abnormalities. I think that she has other major issues ongoing at this time which need to be tackled before any cardiac intervention is undertaken. Her creatinine is elevated and with her kidney transplant I am hesitant to use any contrast agents. Will continue intravenous heparin for now. She has no acute EKG changes. (2) History of coronary artery bypass surgery: PLAN: She does have evidence of coronary bypass surgery as noted above. We will manage this conservatively for now with intravenous heparin. (3) Benign hypertension: PLAN: Her blood pressure is actually low at this particular time and she may need Levophed. Will continue with supportive management. She may need increased IV fluids. (4) Presence of permanent cardiac pacemaker: PLAN: She is status post permanent pacemaker implantation. This appears to be functioning well and I would not recommend we make any changes. HPI Consult Data Date of Consult: 08/29/24 HPI Narrative HPI Narrative: GEORGINA VALLADARES, is a 74 F who presents to the emergency room with nausea vomiting and generalized weakness and then developed severe metabolic acidosis while in the emergency room. As part of her workup blood work was done which demonstrated an elevated cardiac troponin enzymes and cardiology was called for further evaluation and management. She has a past medical history of essential hypertension; on lisinopril-hydrochlorothiazide, amlodipine and carvedilol, hyperlipidemia; on pravastatin, history of Right renal transplant (2003) and subsequent pancreatectomy with pancreas transplant (2004); on mycophenolate mofetil 250 mg PO BID and tacrolimus 1 mg PO BID followed by the [facility], CAD; s/p CABG x 5 (2012) on BASA daily followed by Dr. Donaldson of [facility], history of arrhythmia; s/p PPM (2021) Mrs. Valladares is not a fully-reliable historian at this time so information was gathered form chart, medical staff and computer. According to the records her symptoms began ~2 days prior to admission with decreased appetite and abdominal pain followed by nausea and vomiting with bilious emesis. She informed the ER provider that her last normal BM was yesterday and she also admitted to decreased UOP but no mention of hematuria or dysuria. There was no report of fever, chills, chest pain, SOB, headache or history of diverticulitis with her last colonoscopy allegedly in 2020. In the ER her initial temperature was low at 95.2 degrees Fahrenheit with abdominal tenderness most pronounced in the lower quadrants along with Leukocytosis of 17.7K with Lactic Acidosis of 5.7 mmol/L present on admission concerning for Sepsis of Unknown Origin complicated by Severe SELMA; with serum creatinine of 3.26 mg/dL and BUN of 60 mg/dL present on admission (sharply up form her baseline serum creatinine of 1.14 mg/dL and BUN of 39 mg/dL) compounded by highly elevated serum Lipase of 3,395 U/L present on admission consistent with Acute Pancreatitis with call made to Dr. Sol at [facility] and with patient accepted 6 hours ago - but with no bed available in their ICU. Unfortunately, while in the ER her case took a sharp turn for the worse after she climbed over her bed rail and fell onto the floor below sustaining multiple skin tears over the dorsal aspects of both wrists and the lateral aspect of her Left knee with no report of associated head trauma of LOC. She then underwent trauma evaluation with CT scans of the head and neck that were negative for acute pathologic changes but when her ABG was checked it revealed Severe Metabolic Acidosis with pH 7.23/ pCO2 35.5 mmHg/ PO2 74.5 mmHg/ bicarbonate 15 mmol/L on RA complicated by clinical evidence of Acute Metabolic Encephalopathy with Severe Hypoglycemia of 44 mg/dL noted 8:25 PM and she was then started on IV Sodium Bicarbonate and IV D10. Due to the delay in getting her bed in the tertiary care facility was decided to admit her here. Cardiac enzymes were obtained and were noted to be elevated and cardiology was called for further evaluation and management. At this particular time lying in bed she is moaning and groaning at bedside echocardiogram demonstrates overall preserved left ventricular systolic function concentric left ventricular hypertrophy presents with a EF at 55 to 60%. FOR[facility], LAT[facility] Medical History Diabetes Bruising Back pain Blackout Gastric reflux History of pain when walking Fatigue Wears hearing aid Wears glasses Cancer Ambulates with cane Arthritis High cholesterol Easy bruising Non-smoker History of stress test History of echocardiogram Cardiology follow-up encounter HLD (hyperlipidemia) Spinal stenosis of lumbar region at multiple levels Scoliosis of lumbar region due to degenerative disease of spine in adult Low back pain DDD (degenerative disc disease) High degree atrioventricular block TIA (transient ischemic attack) Chest pain Non-rheumatic mitral regurgitation Nonrheumatic aortic (valve) stenosis RBBB (right bundle branch block) Atherosclerotic heart disease of [place] coronary artery without angina pectoris Gastroesophageal reflux disease Benign hypertension Home Medications ?Medication ?Instructions ?Recorded ?Last Taken ?Type cyanocobalamin (vitamin B-12) 100 mcg IM QMONTH vitamin 07/10/20 01/22/24 History 1,000 mcg/mL injection solution folic acid 1 mg tablet 1 mg PO DAILY supplement 07/10/20 02/11/24 History tacrolimus 0.5 mg capsule, 1 mg PO Q12H anti rejection 07/10/20 02/11/24 History immediate-release cholecalciferol (vitamin D3) 25 25 mcg PO DAILY vitamin 07/12/20 02/11/24 History mcg (1,000 unit) capsule aspirin 81 mg tablet,delayed 81 mg PO DAILY heart health 10/09/20 02/07/24 History release (Adult Low Dose Aspirin) mycophenolate mofetil 250 mg 250 mg PO BID anti rejection 09/25/22 02/11/24 History capsule amlodipine 10 mg tablet 10 mg PO DAILY BP 11/20/22 02/12/24 04:20 History carvedilol 6.25 mg tablet 6.25 mg PO BID HEART #180 tabs 08/05/23 02/12/24 04:20 Rx ibandronate 150 mg tablet 150 mg PO QMONTH [facility] 08/05/23 Unknown History omeprazole 40 mg capsule,delayed 40 mg PO DAILY GERD 08/05/23 02/12/24 04:20 History release duloxetine 30 mg capsule,delayed 20 mg PO BID DEPRESSION 01/13/24 02/12/24 04:20 History release oxycodone 5 mg tablet 2.5 - 5 mg PO BID PRN pain 04/05/24 Unknown History pravastatin 20 mg tablet 20 mg PO QHS cholesterol #90 tabs 04/05/24 Unknown Rx lisinopril 20 1 tab PO DAILY BP #90 tabs 07/15/24 Unknown Rx mg-hydrochlorothiazide 25 mg tablet sulfamethoxazole 400 1 tab PO DAILY antibiotic 02/03/25 02/02/25 History mg-trimethoprim 80 mg tablet (Bactrim) Allergy/AdvReac Type Severity Reaction Status Date / Time Seasonal Allergies: Uncoded Allergy Other Verified 08/28/24 10:35 Family History Father CAD (coronary artery disease) Mother Dementia Surgical History S/P cervical spinal fusion S/P insertion of sacral nerve stimulator (~11/2022) Presence of permanent cardiac pacemaker (~01/28/22) History of umbilical hernia repair (~03/01/20) History of right breast biopsy (~11/23/03) Cataract extraction status History of repair of rotator cuff (~08/31/09) History of eye surgery (~01/07/05) History of pancreatectomy (~03/2004) History of kidney transplant (~03/2004) History of coronary artery bypass surgery (~07/29/12) Status post pancreas transplantation (~05/25/05) Social History household members: spouse Smoking Status: Never smoker alcohol intake: current alcohol intake frequency: a few times a week substance use type: does not use caffeine: Yes Type: coffee Number of servings: 3 Physical Exam Const Constitutional Narrative: The patient is alert but is acutely ill in appearance and unable to answer any simple questions. General Appearance: lethargic, ill appearing and frail HEENT normocephalic and head/scalp atraumatic Eyes PERRL, EOMs intact bilaterally and conjunctivae normal Neck supple General: trachea midline Chest inspection of chest normal Resp Effort and Inspection: tachypneic Auscultation: diminished lung sounds; Negative for rales, rhonchi or wheezes Cardio S1 normal heart sound and S2 normal heart sound Rate: tachycardic GI GI Narrative: Abdomen is distended with diffuse tenderness to palpation. Extremity no clubbing, cyanosis or edema Skin no rashes or lesions noted Neuro CN's II-XII intact bilaterally and moves all extremities Psych Mood & Affect: flat affect Risk Stratification Risk Stratification Applicable: No Objective Data Vital Signs: Vital Signs Temp Pulse Resp BP Pulse Ox O2 Del Method O2 Flow Rate 98.3 F 113 H 35 H 83/52 L 98 Nasal Cannula 2 08/29/24 08:00 08/29/24 08:45 08/29/24 08:45 08/29/24 09:42 08/29/24 08:45 08/29/24 08:45 08/29/24 08:45 Oxygen Flow Rate (L/min) 2 Oxygen Delivery Method Nasal Cannula Weight: 94 lb 12.78 oz Body Mass Index (BMI) 19.1 Intake & Output: Intake and Output for Last 24 Hours 08/27/24 08/28/24 08/29/24 23:59 23:59 23:59 Intake Total 2049 2364.17 / 2364.17 Balance 2049 2364.17 / 2364.17 Lab / Micro Data 08/29/24 08:03 08/29/24 08:03 Labs: Laboratory Results - last 24 hr 08/28/24 10:50: WBC 17.7 H, RBC 4.80, Hgb 13.7, Hct 42.3, MCV 88.1, MCH 28.5, MCHC 32.4, RDW Std Deviation 43.0, RDW Coeff of Jenny 13.3, Plt Count 132 L, MPV 11.1, Immature Gran % (Auto) 0.700, Neut % (Auto) 86.1 H, Lymph % (Auto) 5.1 L, Cass % (Auto) 7.7, Eos % (Auto) 0.0, Baso % (Auto) 0.4, Absolute Neuts (auto) 15.2 H, Absolute Lymphs (auto) 0.90, Nucleated RBC % 0, Platelet Estimate SLT DEC, Sodium 129 L, Potassium 5.1, Chloride 99, Carbon Dioxide 14.0 L, Anion Gap 16 H, BUN 60 H, Creatinine 3.26 H, Est GFR (MDRD) Af Amer 18 L, Est GFR (MDRD) Non-Af 15 L, BUN/Creatinine Ratio 18.4, Glucose 121 H, Calcium 10.6 H, Total Bilirubin 0.80, AST 48 H, ALT 19, Alkaline Phosphatase 50, Total Protein 6.9, Albumin 3.7, Globulin 3.2, Albumin/Globulin Ratio 1.2, Lipase 3395 H 08/28/24 11:44: Lactic Acid 5.7 H* 08/28/24 12:38: Acetone Level NEGATIVE 08/28/24 14:24: Urine Color Yellow, Urine Clarity Cloudy, Urine pH 5.0, Ur Specific Charlotte 1.020, Urine Protein 30 H, Urine Glucose (UA) Normal, Urine Ketones 5 H, Urine Occult Blood 150 H, Urine Nitrite Negative, Urine Bilirubin 6 H, Urine Urobilinogen 1 H, Ur Leukocyte Esterase 25 H, Urine RBC 0-5 SEEN, Urine WBC 0-5 SEEN, Ur Squamous Epith Cells 0-5 SEEN, Calcium Oxalate Crystal 1+, Amorphous Sediment 2+ URATE, Urine Bacteria 0 SEEN, Urine Mucus 0 SEEN 08/28/24 16:23: Lactic Acid 3.3 H* 08/28/24 20:25: Sodium 134 L, Potassium 4.8, Chloride 104, Carbon Dioxide 16.0 L, Anion Gap 13, BUN 62 H, Creatinine 3.17 H, Estim Creat Clear Calc 10.36, Est GFR (MDRD) Af Amer 18 L, Est GFR (MDRD) Non-Af 15 L, BUN/Creatinine Ratio 19.6, Glucose 44 L*, Calcium 9.4 08/28/24 22:20: POC Glucose 150 H 08/28/24 23:40: POC Glucose 87 08/29/24 00:53: POC Glucose 171 H 08/29/24 01:56: POC Glucose 76 08/29/24 02:30: Total Creatine Kinase 451 H, Troponin I High Sens 1202 H*, Triglycerides 32, Cholesterol 105, LDL Cholesterol 11, VLDL Cholesterol 6, HDL Cholesterol 88, Lipase > 250 H, Folate 46.30, TSH 3.370 08/29/24 02:59: POC Glucose 45 L 08/29/24 03:30: POC Glucose 155 H 08/29/24 03:38: PT 18.2 H, INR 1.5, APTT 37.3 H, D-Dimer Quant (PE/DVT) 8.97 H*, B-Natriuretic Peptide 189.7 H 08/29/24 04:26: POC Glucose 76 08/29/24 04:54: POC Glucose 91 08/29/24 05:53: POC Glucose 65 L 08/29/24 07:28: POC Glucose 74 08/29/24 08:03: WBC 2.8 L, RBC 3.67 L, Hgb 10.6 L, Hct 32.2 L, MCV 87.7, MCH 28.9, MCHC 32.9, RDW Std Deviation 43.5, RDW Coeff of Jenny 13.5, Plt Count 70 L, MPV 11.9, Immature Gran % (Auto) 0.400, Neut % (Auto) 66.1, Lymph % (Auto) 7.9 L, Cass % (Auto) 24.9 H, Eos % (Auto) 0.0, Baso % (Auto) 0.7, Absolute Neuts (auto) 1.8 L, Absolute Lymphs (auto) 0.22 L, Nucleated RBC % 0, Sodium 131 L, Potassium 4.7, Chloride 96 L, Carbon Dioxide 24.0, Anion Gap 10, BUN 62 H, Creatinine 3.29 H, Estim Creat Clear Calc 10.03, Est GFR (MDRD) Af Amer 18 L, Est GFR (MDRD) Non-Af 15 L, BUN/Creatinine Ratio 18.8, Glucose 97, Calcium 7.2 L, Total Bilirubin 0.40, AST 110 H, ALT 40, Alkaline Phosphatase 23 L, Total Protein 4.7 L, Albumin 2.4 L, Globulin 2.3, Albumin/Globulin Ratio 1.0 08/29/24 09:17: POC Glucose 56 L ABG Data ABG results: ABG 08/28/24 08/29/24 08/29/24 20:37 02:04 06:08 Specimen Type JAMES ART ART Sample Site Not entered R Radial R Radial pH 7.27 L 7.34 L Bicarbonate Actual 16.8 L 20.5 L Total CO2 18 22 Base Excess -10 L -5 L O2 Saturation 93 L 98 O2 % 21.0 21.0 1.0 ABG pCO2 36.8 37.7 ABG pO2 75 102 H Moody Test Positive N/A VBG pH 7.23 L VBG pO2 75 H VBG HCO3 15 L VBG Total CO2 16 L VBG O2 Sat (Calc) 92 H VBG Base Excess -13 L POC Mix VBG pCO2 Pt Tmp 35.5 L O2 Delivery Device Room Air Room Air Cannula Vent Mode Not entered Not entered Cardiology Labs/Tests 08/28/24 10:50: WBC 17.7 H, RBC 4.80, Hgb 13.7, Hct 42.3, MCV 88.1, MCH 28.5, MCHC 32.4, Plt Count 132 L, MPV 11.1, Immature Gran % (Auto) 0.700, Neut % (Auto) 86.1 H, Lymph % (Auto) 5.1 L, Cass % (Auto) 7.7, Eos % (Auto) 0.0, Baso % (Auto) 0.4, Absolute Neuts (auto) 15.2 H, Nucleated RBC % 0, Sodium 129 L, Potassium 5.1, Chloride 99, Carbon Dioxide 14.0 L, Anion Gap 16 H, BUN 60 H, Creatinine 3.26 H, Est GFR (MDRD) Af Amer 18 L, Est GFR (MDRD) Non-Af 15 L, BUN/Creatinine Ratio 18.4, Glucose 121 H, Calcium 10.6 H, Total Bilirubin 0.80 08/28/24 11:44: Lactic Acid 5.7 H* 08/28/24 14:24: Urine Color Yellow, Urine Clarity Cloudy, Urine pH 5.0, Ur Specific [place] 1.020, Urine Protein 30 H, Urine Glucose (UA) Normal, Urine Ketones 5 H, Urine Occult Blood 150 H, Urine Nitrite Negative, Urine Bilirubin 6 H, Urine Urobilinogen 1 H, Ur Leukocyte Esterase 25 H, Urine RBC 0-5 SEEN, Urine WBC 0-5 SEEN 08/28/24 16:23: Lactic Acid 3.3 H* 08/28/24 20:25: Sodium 134 L, Potassium 4.8, Chloride 104, Carbon Dioxide 16.0 L, Anion Gap 13, BUN 62 H, Creatinine 3.17 H, Est GFR (MDRD) Af Amer 18 L, Est GFR (MDRD) Non-Af 15 L, BUN/Creatinine Ratio 19.6, Glucose 44 L*, Calcium 9.4 08/28/24 20:37: VBG pH 7.23 L, VBG pO2 75 H, VBG HCO3 15 L, VBG O2 Sat (Calc) 92 H, VBG Base Excess -13 L 08/29/24 02:04: pH 7.27 L, Bicarbonate Actual 16.8 L, Base Excess -10 L, O2 Saturation 93 L, ABG pCO2 36.8, ABG pO2 75, Moody Test Positive 08/29/24 02:30: Triglycerides 32, Cholesterol 105, LDL Cholesterol 11, VLDL Cholesterol 6, HDL Cholesterol 88 08/29/24 03:38: PT 18.2 H, INR 1.5, APTT 37.3 H, D-Dimer Quant (PE/DVT) 8.97 H*, B-Natriuretic Peptide 189.7 H 08/29/24 06:08: pH 7.34 L, Bicarbonate Actual 20.5 L, Base Excess -5 L, O2 Saturation 98, ABG pCO2 37.7, ABG pO2 102 H, Moody Test N/A 08/29/24 08:03: WBC 2.8 L, RBC 3.67 L, Hgb 10.6 L, Hct 32.2 L, MCV 87.7, MCH 28.9, MCHC 32.9, Plt Count 70 L, MPV 11.9, Immature Gran % (Auto) 0.400, Neut % (Auto) 66.1, Lymph % (Auto) 7.9 L, Cass % (Auto) 24.9 H, Eos % (Auto) 0.0, Baso % (Auto) 0.7, Absolute Neuts (auto) 1.8 L, Nucleated RBC % 0, Sodium 131 L, Potassium 4.7, Chloride 96 L, Carbon Dioxide 24.0, Anion Gap 10, BUN 62 H, Creatinine 3.29 H, Est GFR (MDRD) Af Amer 18 L, Est GFR (MDRD) Non-Af 15 L, BUN/Creatinine Ratio 18.8, Glucose 97, Calcium 7.2 L, Total Bilirubin 0.40 Rhythm: EKG: ECHO: Stress Test: Cardiac Cath: PCI: CT Surgery: Holter monitor: EPS: PPM: CXR: Chest CT Scan: Radiography Diagnostic Testing: Radiology Impression Abdomen/Pelvis CT 08/28/24 12:15 IMPRESSION: Scattered abdominopelvic ascites. Renal transplantation in the right lower quadrant. Further clinical correlation required to exclude transplant rejection. No free air. Poorly defined pancreatic parenchyma for which clinical correlation is required to exclude pancreatitis. Pancreatic transplantation is noted. One or more dose reduction techniques were used (e.g., Automated exposure control, adjustment of the mA and/or kV according to patient size, use of iterative reconstruction technique). Reading Location: [facility] Brain CT 08/28/24 18:40 IMPRESSION: 1. Chronic microvascular ischemic changes are again noted. 2. Bilateral lacunar infarcts are again noted. The right lentiform nucleus lacunar infarct has increased in size since the previous study. 3. No extra-axial collections. 4. Age-appropriate senescent change. 5. Left orbital prosthesis. 6. Other nonacute findings detailed above are stable. One or more dose reduction techniques were used (e.g., Automated exposure control, adjustment of the mA and/or kV according to patient size, use of iterative reconstruction technique). Reading Location: [facility] Cervical Spine CT 08/28/24 18:40 IMPRESSION: 1. Status post ACDF, C5 through 7. 2. No acute osseous abnormalities involving the cervical spine. 3. Other nonacute findings detailed above. Reading Location: [facility] Chest X-Ray 08/29/24 05:55 IMPRESSION: 1. Intermediate to low lung volumes. 2. No new focal airspace consolidation identified. 3. Chronic and postsurgical changes, as detailed above. Reading Location: [facility] Chest/Abdomen/Pelvis CT 08/29/24 06:41 IMPRESSION: 1. New small to moderate-sized bilateral pleural effusions, slightly greater on the left, with associated bibasilar airspace disease. 2. Moderate amounts of free fluid/ascites throughout the abdomen and pelvis, similar in appearance when compared to prior imaging. 3. Gas and fluid distended small bowel loops, largest small bowel loop measures up to 3.7 cm. Distal small bowel loops appear somewhat decompressed. Correlate clinically for developing small bowel obstruction or ileus. 4. Transplanted pelvic kidney on the right. Negative for obstructive uropathy. 5. Evidence of prior granulomatous infection. 6. Additional chronic and postsurgical changes, as detailed above. One or more dose reduction techniques were used (e.g., Automated exposure control, adjustment of the mA and/or kV according to patient size, use of iterative reconstruction technique). Reading Location: [facility]
--- NOTE | 2024-08-29 09:51 | PCM.RX.CS ---
Consult Antibiotic Management Pharmacy has been consulted to manage selected antibiotic: Vancomycin Type of Intervention Type of Consult: New start Suspected Infection Suspected Infection: Sepsis Labs Labs: Sodium 131 mmol/L (136-145) L 08/29/24 08:03 Potassium 4.7 mmol/L (3.5-5.1) 08/29/24 08:03 Chloride 96 mmol/L (98-107) L 08/29/24 08:03 Carbon Dioxide 24.0 mmol/L (21.0-32.0) 08/29/24 08:03 Anion Gap 10 (5-15) 08/29/24 08:03 BUN 62 mg/dL (7-18) H 08/29/24 08:03 Creatinine 3.29 mg/dL (0.55-1.02) H 08/29/24 08:03 Est GFR (MDRD) Af Amer 18 mL/min (>60) L 08/29/24 08:03 Est GFR (MDRD) Non-Af 15 mL/min (>60) L 08/29/24 08:03 BUN/Creatinine Ratio 18.8 RATIO (10-20) 08/29/24 08:03 Glucose 97 mg/dL (74-106) 08/29/24 08:03 Pharmacy Plan for Drug Dosing Pharmacy Plan for Drug Dosing: NEW START IV VANCOMYCIN Consulting Physician: Jann Indication: Sepsis Goal Trough: 15-20 mg/dL SrCr: 3.29 mg/dL CrCl: 10 mL/min Comments: loading dose of 1000mg given in ER 08/28/24 @ 1401 Vancomycin Dose: Will dose based on levels as CrCl is 10mL/min. Patient already had a loading dose in ER on 08/28/24 so will schedule a random level on 08/30/24 with AM labs. Pending Level: 08/30/24 @ 0600 - random Pharmacy Service will continue to monitor and adjust dosing as required.
--- NOTE | 2024-08-29 10:02 | EX.PCM.CON.S ---
Documented by User: Mirella FORTE PA-C 08/29/24 15:58 Assessment & Plan Assessment/Plan (1) Small bowel obstruction: PLAN: I am seeing this patient in conjunction with Dr. Mclaughlin. She has independently evaluated this patient. 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 She has been diligent on taking her antirejection medications until 2-3 days ago when she developed upper abdominal pain, nausea and dry heaves. CT scan of the chest/ab/pel suggests that the patient has a small bowel obstruction. Patient's current symptoms and overall picture point more towards patient rejecting her kidney and pancreas transplant. Nursing staff was asked to place an NG tube. Two attempts were made to place the NG tube without success. Patient is observed moaning and groaning in bed without any relief. She is unable to answer questions appropriately. [facility] has accepted this patient, however there are no current beds. Dr. Mclaughlin will attempt to place the NG tube. Patient is critically ill at this time. No surgical intervention is being recommended at this facility. Patient's is very frustrated with the whole situation of feeling patient's care is being delayed by not being transferred. By the end of the evaluation, patient's did not want to discuss anything further. I reassured the patient's multiple times that we are attempting to continuously contact [facility] transfer line for updates. I have also shown sympathy in the situation. Patient's husbands questions were answered to the fullest. Thank you for allowing us to participate in this patient's care. HPI Consult Data Date of Consult: 08/29/24 HPI Narrative Reason for Consultation: Small bowel obstruction versus ileus HPI Narrative: GEORGINA VALLADARES, is a 74 F who presents with a 2-3 day history of worsening nausea, dry heaves and abdominal pain. All of patient's history was provided by the patient's as patient was unable to answer questions due to deterioration in mental status. Patient's stated that the patient's symptoms started at 0700 AM on Thursday morning. Patient's pain started in her mid back as well as her upper abdomen. He states she was dry heaving, even with sips of water, for 8 hours. Patient's abdominal symptoms seems to progress Thursday night, however the patient's did not want to sit in the ED on a Thursday night, so he waited to see if she would improve. He states he went to [facility] and returned around 0900 AM and the patient had declined even more. He states at that time he decided to bring her into the ED. He states patient has a history of chronic lower back pain in which she has a nerve stimulator in place for. He notes 6 months ago she had a cervical disc replacement approximately 6 months ago. 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 She had both of these completed at [facility]. She has been taking 2 different kinds of anti-rejections medications since the surgeries. Patient has been unable to take those medications over the last 2-3 days due to dry heaving. Patient's confirms that the patient sees her transplant team every year. He notes the automotive parts coordinator they talk to is [place]. Per , patient has had a previous CABG x 4. She has also been hospitalized years ago with a bowel obstruction which resolved with conservative measures. Patient was hospitalized with a bowel obstruction for 1 month. Per , patient had a feeding tube in her nose that was used for nutrition. He states she is not currently on dialysis. He notes she has a right upper extremity fistula currently that has not been used since the transplant, unsure if it is still able to be used. Patient's notes he had an upper respiratory virus approximately 1 1/2 weeks ago lasting for 5 days. he notes otherwise she would not have been around any other sick contacts. Per patient's , she did not have any mental status issues at home. CT scan of the chest/ab/pel was obtained in the ED demonstrating small to moderate bilateral pleural effusions, slightly greater on the left. Moderate amount of free fluid/ascites throughout the abdomen/pelvis. Gas and fluid distention small bowel loops, largest small bowel loop measures 3.7 cm. Distal small bowel loop appears somewhat decompressed. Correlate clinically for developing small bowel obstruction or ileus. Transplanted pelvic kidney on the right. Evidence of prior granulomatous infection. Additional chronic and postsurgical changes. Pancreas appears atrophic. WBC in the ED 17.7---> 2.8, Hgb 13.7---> 10.6, Plt 132---> 70. Creat. 3.26---> 3.29. Among other abnormal lab work. Patient was noted to have an unwitnessed fall in the ED. Patient's bilateral bed rails were in place. It is unsure of how the patient fell out of bed. She did suffer multiple abrasions. A head and spine CT were obtained as part of the trauma protocol. CT of head and spine were unremarkable. DVT study was obtained demonstrating an acute deep vein thrombosis in the right soleus vein. No DVT noted in the left lower extremity. Patient's troponin was elevated at 1202, lactic acid was noted to be 5.7---> 3.3. Blood glucose was 45 at the time of the patient's fall. [facility] Medical History Diabetes Bruising Back pain Blackout Gastric reflux History of pain when walking Fatigue Wears hearing aid Wears glasses Cancer Ambulates with cane Arthritis High cholesterol Easy bruising Non-smoker History of stress test History of echocardiogram Cardiology follow-up encounter HLD (hyperlipidemia) Spinal stenosis of lumbar region at multiple levels Scoliosis of lumbar region due to degenerative disease of spine in adult Low back pain DDD (degenerative disc disease) High degree atrioventricular block TIA (transient ischemic attack) Chest pain Non-rheumatic mitral regurgitation Nonrheumatic aortic (valve) stenosis RBBB (right bundle branch block) Atherosclerotic heart disease of creek coronary artery without angina pectoris Gastroesophageal reflux disease Benign hypertension Home Medications ?Medication ?Instructions ?Recorded ?Last Taken ?Type cyanocobalamin (vitamin B-12) 100 mcg IM QMONTH vitamin 07/10/20 01/22/24 History 1,000 mcg/mL injection solution folic acid 1 mg tablet 1 mg PO DAILY supplement 07/10/20 02/11/24 History tacrolimus 0.5 mg capsule, 1 mg PO Q12H anti rejection 07/10/20 02/11/24 History immediate-release cholecalciferol (vitamin D3) 25 25 mcg PO DAILY vitamin 07/12/20 02/11/24 History mcg (1,000 unit) capsule aspirin 81 mg tablet,delayed 81 mg PO DAILY heart health 10/09/20 02/07/24 History release (Adult Low Dose Aspirin) mycophenolate mofetil 250 mg 250 mg PO BID anti rejection 09/25/22 02/11/24 History capsule amlodipine 10 mg tablet 10 mg PO DAILY BP 11/20/22 02/12/24 04:20 History carvedilol 6.25 mg tablet 6.25 mg PO BID HEART #180 tabs 08/05/23 02/12/24 04:20 Rx ibandronate 150 mg tablet 150 mg PO QMONTH BONE HEALTH 08/05/23 Unknown History omeprazole 40 mg capsule,delayed 40 mg PO DAILY GERD 08/05/23 02/12/24 04:20 History release duloxetine 30 mg capsule,delayed 20 mg PO BID DEPRESSION 01/13/24 02/12/24 04:20 History release oxycodone 5 mg tablet 2.5 - 5 mg PO BID PRN pain 04/05/24 Unknown History pravastatin 20 mg tablet 20 mg PO QHS cholesterol #90 tabs 04/05/24 Unknown Rx lisinopril 20 1 tab PO DAILY BP #90 tabs 07/15/24 Unknown Rx mg-hydrochlorothiazide 25 mg tablet sulfamethoxazole 400 1 tab PO DAILY antibiotic 08/29/24 08/28/24 History mg-trimethoprim 80 mg tablet (Bactrim) Allergy/AdvReac Type Severity Reaction Status Date / Time Seasonal Allergies: Uncoded Allergy Other Verified 08/28/24 10:35 Family History Father CAD (coronary artery disease) Mother Dementia Surgical History S/P cervical spinal fusion S/P insertion of sacral nerve stimulator (~11/2022) Presence of permanent cardiac pacemaker (~01/28/22) History of umbilical hernia repair (~03/01/20) History of right breast biopsy (~11/23/03) Cataract extraction status History of repair of rotator cuff (~08/31/09) History of eye surgery (~01/07/05) History of pancreatectomy (~03/2004) History of kidney transplant (~03/2004) History of coronary artery bypass surgery (~07/29/12) Status post pancreas transplantation (~05/25/05) Social History household members: spouse Smoking Status: Never smoker alcohol intake: current alcohol intake frequency: a few times a week substance use type: does not use caffeine: Yes Type: coffee Number of servings: 3 ROS Review of Systems ROS Unobtainable: due to encephalopathy and due to mental status Physical Exam Const Constitutional Narrative: Appears to have a gaming tint to her skin color General Appearance: uncooperative and ill appearing Orientation / Consciousness: confused and disoriented HEENT normocephalic Mouth: drooling and other Other Details: excessive salvia production Eyes Pupil: pinpoint Neck full ROM Chest Chest Narrative: left chest pacemaker Resp Effort and Inspection: tachypneic, decreased respiratory effort, labored and grunting Cardio Rate: tachycardic GI GI Narrative: Abdomen- firm, distended, acute abdomen with pain to light palpation, hypoactive bowel sounds. Multiple well-healed incisions on the abdomen Bladder / Kidney Exam: CVA tenderness bilateral Back/Spine Cervical Spine: pain with cervical ROM Thoracic Spine / Upper Back: ROM limited and pain with ROM Lumbar Spine / Lower Back: ROM limited and pain with ROM Extremity General Extremity: AV fistula Skin General Skin Exam: skin tear(s) Neuro Sensorium / Orientation: confused Psych Attitude: uncooperative Thought Process: confused Memory / Cognition: cognition impaired Insight: poor Judgement: poor Lab / Micro Data 08/29/24 08:03 08/29/24 08:03 Labs: Laboratory Results - last 24 hr 08/28/24 10:50: WBC 17.7 H, RBC 4.80, Hgb 13.7, Hct 42.3, MCV 88.1, MCH 28.5, MCHC 32.4, RDW Std Deviation 43.0, RDW Coeff of Jenny 13.3, Plt Count 132 L, MPV 11.1, Immature Gran % (Auto) 0.700, Neut % (Auto) 86.1 H, Lymph % (Auto) 5.1 L, [place] % (Auto) 7.7, Eos % (Auto) 0.0, Baso % (Auto) 0.4, Absolute Neuts (auto) 15.2 H, Absolute Lymphs (auto) 0.90, Nucleated RBC % 0, Platelet Estimate SLT DEC, Sodium 129 L, Potassium 5.1, Chloride 99, Carbon Dioxide 14.0 L, Anion Gap 16 H, BUN 60 H, Creatinine 3.26 H, Est GFR (MDRD) Af Amer 18 L, Est GFR (MDRD) Non-Af 15 L, BUN/Creatinine Ratio 18.4, Glucose 121 H, Calcium 10.6 H, Total Bilirubin 0.80, AST 48 H, ALT 19, Alkaline Phosphatase 50, Total Protein 6.9, Albumin 3.7, Globulin 3.2, Albumin/Globulin Ratio 1.2, Lipase 3395 H 08/28/24 11:44: Lactic Acid 5.7 H* 08/28/24 12:38: Acetone Level NEGATIVE 08/28/24 14:24: Urine Color Yellow, Urine Clarity Cloudy, Urine pH 5.0, Ur Specific [place] 1.020, Urine Protein 30 H, Urine Glucose (UA) Normal, Urine Ketones 5 H, Urine Occult Blood 150 H, Urine Nitrite Negative, Urine Bilirubin 6 H, Urine Urobilinogen 1 H, Ur Leukocyte Esterase 25 H, Urine RBC 0-5 SEEN, Urine WBC 0-5 SEEN, Ur Squamous Epith Cells 0-5 SEEN, Calcium Oxalate Crystal 1+, Amorphous Sediment 2+ URATE, Urine Bacteria 0 SEEN, Urine Mucus 0 SEEN 08/28/24 16:23: Lactic Acid 3.3 H* 08/28/24 20:25: Sodium 134 L, Potassium 4.8, Chloride 104, Carbon Dioxide 16.0 L, Anion Gap 13, BUN 62 H, Creatinine 3.17 H, Estim Creat Clear Calc 10.36, Est GFR (MDRD) Af Amer 18 L, Est GFR (MDRD) Non-Af 15 L, BUN/Creatinine Ratio 19.6, Glucose 44 L*, Calcium 9.4 08/28/24 22:20: POC Glucose 150 H 08/28/24 23:40: POC Glucose 87 08/29/24 00:53: POC Glucose 171 H 08/29/24 01:56: POC Glucose 76 08/29/24 02:30: Total Creatine Kinase 451 H, Troponin I High Sens 1202 H*, Triglycerides 32, Cholesterol 105, LDL Cholesterol 11, VLDL Cholesterol 6, HDL Cholesterol 88, Lipase > 250 H, Folate 46.30, TSH 3.370 08/29/24 02:59: POC Glucose 45 L 08/29/24 03:30: POC Glucose 155 H 08/29/24 03:38: PT 18.2 H, INR 1.5, APTT 37.3 H, D-Dimer Quant (PE/DVT) 8.97 H*, B-Natriuretic Peptide 189.7 H 08/29/24 04:26: POC Glucose 76 08/29/24 04:54: POC Glucose 91 08/29/24 05:53: POC Glucose 65 L 08/29/24 07:28: POC Glucose 74 08/29/24 08:03: WBC 2.8 L, RBC 3.67 L, Hgb 10.6 L, Hct 32.2 L, MCV 87.7, MCH 28.9, MCHC 32.9, RDW Std Deviation 43.5, RDW Coeff of Jenny 13.5, Plt Count 70 L, MPV 11.9, Immature Gran % (Auto) 0.400, Neut % (Auto) 66.1, Lymph % (Auto) 7.9 L, [place] % (Auto) 24.9 H, Eos % (Auto) 0.0, Baso % (Auto) 0.7, Absolute Neuts (auto) 1.8 L, Absolute Lymphs (auto) 0.22 L, Nucleated RBC % 0, Sodium 131 L, Potassium 4.7, Chloride 96 L, Carbon Dioxide 24.0, Anion Gap 10, BUN 62 H, Creatinine 3.29 H, Estim Creat Clear Calc 10.03, Est GFR (MDRD) Af Amer 18 L, Est GFR (MDRD) Non-Af 15 L, BUN/Creatinine Ratio 18.8, Glucose 97, Calcium 7.2 L, Total Bilirubin 0.40, AST 110 H, ALT 40, Alkaline Phosphatase 23 L, Total Protein 4.7 L, Albumin 2.4 L, Globulin 2.3, Albumin/Globulin Ratio 1.0 08/29/24 09:17: POC Glucose 56 L ABG Data ABG results: ABG 08/28/24 08/29/24 08/29/24 20:37 02:04 06:08 Specimen Type JAMES ART ART Sample Site Not entered R Radial R Radial pH 7.27 L 7.34 L Bicarbonate Actual 16.8 L 20.5 L Total CO2 18 22 Base Excess -10 L -5 L O2 Saturation 93 L 98 O2 % 21.0 21.0 1.0 ABG pCO2 36.8 37.7 ABG pO2 75 102 H Moody Test Positive N/A VBG pH 7.23 L VBG pO2 75 H VBG HCO3 15 L VBG Total CO2 16 L VBG O2 Sat (Calc) 92 H VBG Base Excess -13 L POC Mix VBG pCO2 Pt Tmp 35.5 L O2 Delivery Device Room Air Room Air Cannula Vent Mode Not entered Not entered Imaging Radiology Impression Abdomen/Pelvis CT 08/28/24 12:15 IMPRESSION: Scattered abdominopelvic ascites. Renal transplantation in the right lower quadrant. Further clinical correlation required to exclude transplant rejection. No free air. Poorly defined pancreatic parenchyma for which clinical correlation is required to exclude pancreatitis. Pancreatic transplantation is noted. One or more dose reduction techniques were used (e.g., Automated exposure control, adjustment of the mA and/or kV according to patient size, use of iterative reconstruction technique). Reading Location: [employer] Brain CT 08/28/24 18:40 IMPRESSION: 1. Chronic microvascular ischemic changes are again noted. 2. Bilateral lacunar infarcts are again noted. The right lentiform nucleus lacunar infarct has increased in size since the previous study. 3. No extra-axial collections. 4. Age-appropriate senescent change. 5. Left orbital prosthesis. 6. Other nonacute findings detailed above are stable. One or more dose reduction techniques were used (e.g., Automated exposure control, adjustment of the mA and/or kV according to patient size, use of iterative reconstruction technique). Reading Location: [employer] Cervical Spine CT 08/28/24 18:40 IMPRESSION: 1. Status post ACDF, C5 through 7. 2. No acute osseous abnormalities involving the cervical spine. 3. Other nonacute findings detailed above. Reading Location: [facility] Chest X-Ray 08/29/24 05:55 IMPRESSION: 1. Intermediate to low lung volumes. 2. No new focal airspace consolidation identified. 3. Chronic and postsurgical changes, as detailed above. Reading Location: [facility] Chest/Abdomen/Pelvis CT 08/29/24 06:41 IMPRESSION: 1. New small to moderate-sized bilateral pleural effusions, slightly greater on the left, with associated bibasilar airspace disease. 2. Moderate amounts of free fluid/ascites throughout the abdomen and pelvis, similar in appearance when compared to prior imaging. 3. Gas and fluid distended small bowel loops, largest small bowel loop measures up to 3.7 cm. Distal small bowel loops appear somewhat decompressed. Correlate clinically for developing small bowel obstruction or ileus. 4. Transplanted pelvic kidney on the right. Negative for obstructive uropathy. 5. Evidence of prior granulomatous infection. 6. Additional chronic and postsurgical changes, as detailed above. One or more dose reduction techniques were used (e.g., Automated exposure control, adjustment of the mA and/or kV according to patient size, use of iterative reconstruction technique). Reading Location: [facility] Charges/Coding Visit Charges Inpatient E&M: 31549 Init Hosp L2 Documented by User: Dr. Annette Mclaughlin MD 08/29/24 17:56 Assessment & Plan Assessment/Plan (1) Small bowel obstruction: PLAN: Plan Addendum: Agree with Mirella Warner note. Did attempt placing NG tube multiple times at bedside unsuccessful. Right nare blocked, left nare patent however going into the right lung as patient was not able to follow commands for swallowing. Patient's CT abdomen pelvis does show distended stomach as well as small bowel. Patient does need NG however EGD would not be an option as patient would be at high risk for aspiration. An option to place an NG would be intubation if the family would be agreeable, but there could also be a chance of patient not able to be extubated. Family is quite frustrated as transfer to [facility] has not happened yet. Tried discussed with and son that we are unable to control when transfer will take place we can only call and talk to to facility. Currently would not recommend surgical intervention here would recommend at a tertiary care facility if needed. Annette Mclaughlin M.D. Pager: [phone] [facility] [address] [place] [address], [address] [place] [address] Office: [phone] HPI Consult Data Date of Consult: 08/29/24 [facility] Medical History Diabetes Bruising Back pain Blackout Gastric reflux History of pain when walking Fatigue Wears hearing aid Wears glasses Cancer Ambulates with cane Arthritis High cholesterol Easy bruising Non-smoker History of stress test History of echocardiogram Cardiology follow-up encounter HLD (hyperlipidemia) Spinal stenosis of lumbar region at multiple levels Scoliosis of lumbar region due to degenerative disease of spine in adult Low back pain DDD (degenerative disc disease) High degree atrioventricular block TIA (transient ischemic attack) Chest pain Non-rheumatic mitral regurgitation Nonrheumatic aortic (valve) stenosis RBBB (right bundle branch block) Atherosclerotic heart disease of [place] coronary artery without angina pectoris Gastroesophageal reflux disease Benign hypertension Home Medications ?Medication ?Instructions ?Recorded ?Last Taken ?Type cyanocobalamin (vitamin B-12) 100 mcg IM QMONTH vitamin 07/10/20 01/22/24 History 1,000 mcg/mL injection solution folic acid 1 mg tablet 1 mg PO DAILY supplement 07/10/20 02/11/24 History tacrolimus 0.5 mg capsule, 1 mg PO Q12H anti rejection 07/10/20 02/11/24 History immediate-release cholecalciferol (vitamin D3) 25 25 mcg PO DAILY vitamin 07/12/20 02/11/24 History mcg (1,000 unit) capsule aspirin 81 mg tablet,delayed 81 mg PO DAILY heart health 10/09/20 02/07/24 History release (Adult Low Dose Aspirin) mycophenolate mofetil 250 mg 250 mg PO BID anti rejection 09/25/22 02/11/24 History capsule amlodipine 10 mg tablet 10 mg PO DAILY BP 11/20/22 02/12/24 04:20 History carvedilol 6.25 mg tablet 6.25 mg PO BID HEART #180 tabs 08/05/23 02/12/24 04:20 Rx ibandronate 150 mg tablet 150 mg PO QMONTH BONE HEALTH 08/05/23 Unknown History omeprazole 40 mg capsule,delayed 40 mg PO DAILY GERD 08/05/23 02/12/24 04:20 History release duloxetine 30 mg capsule,delayed 20 mg PO BID DEPRESSION 01/13/24 02/12/24 04:20 History release oxycodone 5 mg tablet 2.5 - 5 mg PO BID PRN pain 04/05/24 Unknown History pravastatin 20 mg tablet 20 mg PO QHS cholesterol #90 tabs 04/05/24 Unknown Rx lisinopril 20 1 tab PO DAILY BP #90 tabs 07/15/24 Unknown Rx mg-hydrochlorothiazide 25 mg tablet sulfamethoxazole 400 1 tab PO DAILY antibiotic 08/29/24 08/28/24 History mg-trimethoprim 80 mg tablet (Bactrim) Allergy/AdvReac Type Severity Reaction Status Date / Time Seasonal Allergies: Uncoded Allergy Other Verified 08/28/24 10:35 Family History Father CAD (coronary artery disease) Mother Dementia Surgical History S/P cervical spinal fusion S/P insertion of sacral nerve stimulator (~11/2022) Presence of permanent cardiac pacemaker (~01/28/22) History of umbilical hernia repair (~03/01/20) History of right breast biopsy (~11/23/03) Cataract extraction status History of repair of rotator cuff (~08/31/09) History of eye surgery (~01/07/05) History of pancreatectomy (~03/2004) History of kidney transplant (~03/2004) History of coronary artery bypass surgery (~07/29/12) Status post pancreas transplantation (~05/25/05) Social History household members: spouse Smoking Status: Never smoker alcohol intake: current alcohol intake frequency: a few times a week substance use type: does not use caffeine: Yes Type: coffee Number of servings: 3 Lab / Micro Data 08/29/24 08:03 08/29/24 08:03
[2024-08-29] MEDS: Oxymetazoline 0.05% 1 SPRAY SPRAY.BTL 2 SPRAY NASAL (10:15)
[2024-08-29 10:20] LABS: Vitamin B12 1159 pg/mL (211-911)
[2024-08-29 10:41] LABS: Platelet Estimate MOD DEC (ADEQ)
[2024-08-29] MEDS: LACTATED RINGERS 500 ML 999 ML IV (10:47)
[2024-08-29] MEDS: Dextrose 5%-Lactated Ringers 1,000 ML 75 ML IV (10:49)
--- NOTE | 2024-08-29 11:26 | PN_ITS ---
Subjective Subjective Patient seen and examined. and son were by her bedside. Patient was quite restless and confused and moaning in pain, so unable to do review of systems. She was started on levophed today, and remains tachycardic and tachypneic. Objective Data Objective Data Vital Signs: Vital Signs Temp Pulse Resp BP Pulse Ox O2 Del Method O2 Flow Rate 98.3 F 112 H 37 H 114/62 96 Nasal Cannula 2 08/29/24 08:00 08/29/24 11:00 08/29/24 11:00 08/29/24 11:00 08/29/24 11:00 08/29/24 11:00 08/29/24 11:00 Oxygen Flow Rate (L/min) 2 Oxygen Delivery Method Nasal Cannula Weight: 94 lb 12.78 oz Body Mass Index (BMI) 19.1 Intake & Output: Intake and Output for Last 24 Hours 08/27/24 08/28/24 08/29/24 23:59 23:59 23:59 Intake Total 2049 2595.14 / 2595.14 Balance 2049 2595.14 / 2595.14 Lab / Micro Data 08/29/24 08:03 08/29/24 08:03 Labs: Laboratory Results - last 24 hr 08/28/24 10:50: WBC 17.7 H, RBC 4.80, Hgb 13.7, Hct 42.3, MCV 88.1, MCH 28.5, MCHC 32.4, RDW Std Deviation 43.0, RDW Coeff of Jenny 13.3, Plt Count 132 L, MPV 11.1, Immature Gran % (Auto) 0.700, Neut % (Auto) 86.1 H, Lymph % (Auto) 5.1 L, [place] % (Auto) 7.7, Eos % (Auto) 0.0, Baso % (Auto) 0.4, Absolute Neuts (auto) 15.2 H, Absolute Lymphs (auto) 0.90, Nucleated RBC % 0, Platelet Estimate SLT DEC, Sodium 129 L, Potassium 5.1, Chloride 99, Carbon Dioxide 14.0 L, Anion Gap 16 H, BUN 60 H, Creatinine 3.26 H, Est GFR (MDRD) Af Amer 18 L, Est GFR (MDRD) Non-Af 15 L, BUN/Creatinine Ratio 18.4, Glucose 121 H, Calcium 10.6 H, Total Bilirubin 0.80, AST 48 H, ALT 19, Alkaline Phosphatase 50, Total Protein 6.9, Albumin 3.7, Globulin 3.2, Albumin/Globulin Ratio 1.2, Lipase 3395 H 08/28/24 11:44: Lactic Acid 5.7 H* 08/28/24 12:38: Acetone Level NEGATIVE 08/28/24 14:24: Urine Color Yellow, Urine Clarity Cloudy, Urine pH 5.0, Ur Specific [place] 1.020, Urine Protein 30 H, Urine Glucose (UA) Normal, Urine Ketones 5 H, Urine Occult Blood 150 H, Urine Nitrite Negative, Urine Bilirubin 6 H, Urine Urobilinogen 1 H, Ur Leukocyte Esterase 25 H, Urine RBC 0-5 SEEN, Urine WBC 0-5 SEEN, Ur Squamous Epith Cells 0-5 SEEN, Calcium Oxalate Crystal 1+, Amorphous Sediment 2+ URATE, Urine Bacteria 0 SEEN, Urine Mucus 0 SEEN 08/28/24 16:23: Lactic Acid 3.3 H* 08/28/24 20:25: Sodium 134 L, Potassium 4.8, Chloride 104, Carbon Dioxide 16.0 L , Anion Gap 13, BUN 62 H, Creatinine 3.17 H, Estim Creat Clear Calc 10.36, Est GFR (MDRD) Af Amer 18 L, Est GFR (MDRD) Non-Af 15 L, BUN/Creatinine Ratio 19.6, Glucose 44 L*, Calcium 9.4 08/28/24 22:20: POC Glucose 150 H 08/28/24 23:40: POC Glucose 87 08/29/24 00:53: POC Glucose 171 H 08/29/24 01:56: POC Glucose 76 08/29/24 02:30: Total Creatine Kinase 451 H, Troponin I High Sens 1202 H*, Triglycerides 32, Cholesterol 105, LDL Cholesterol 11, VLDL Cholesterol 6, HDL Cholesterol 88, Lipase > 250 H, Vitamin B12 1159 H, Folate 46.30, TSH 3.370 08/29/24 02:59: POC Glucose 45 L 08/29/24 03:30: POC Glucose 155 H 08/29/24 03:38: PT 18.2 H, INR 1.5, APTT 37.3 H, D-Dimer Quant (PE/DVT) 8.97 H*, B-Natriuretic Peptide 189.7 H 08/29/24 04:26: POC Glucose 76 08/29/24 04:54: POC Glucose 91 08/29/24 05:53: POC Glucose 65 L 08/29/24 07:28: POC Glucose 74 08/29/24 08:03: WBC 2.8 L, RBC 3.67 L, Hgb 10.6 L, Hct 32.2 L, MCV 87.7, MCH 28.9, MCHC 32.9, RDW Std Deviation 43.5, RDW Coeff of Jenny 13.5, Plt Count 70 L, MPV 11.9, Immature Gran % (Auto) 0.400, Neut % (Auto) 66.1, Lymph % (Auto) 7.9 L , [place] % (Auto) 24.9 H, Eos % (Auto) 0.0, Baso % (Auto) 0.7, Absolute Neuts (auto) 1.8 L, Absolute Lymphs (auto) 0.22 L, Nucleated RBC % 0, Differential Comment COMMENT, Diff Path Review November foll, Platelet Estimate MOD DEC, Sodium 131 L, Potassium 4.7, Chloride 96 L, Carbon Dioxide 24.0, Anion Gap 10, BUN 62 H , Creatinine 3.29 H, Estim Creat Clear Calc 10.03, Est GFR (MDRD) Af Amer 18 L, Est GFR (MDRD) Non-Af 15 L, BUN/Creatinine Ratio 18.8, Glucose 97, Calcium 7.2 L , Total Bilirubin 0.40, AST 110 H, ALT 40, Alkaline Phosphatase 23 L, Total Protein 4.7 L, Albumin 2.4 L, Globulin 2.3, Albumin/Globulin Ratio 1.0 08/29/24 09:17: POC Glucose 56 L ABG Data ABG results: ABG 08/28/24 08/29/24 08/29/24 20:37 02:04 06:08 Specimen Type JAMES ART ART Sample Site Not entered R Radial R Radial pH 7.27 L 7.34 L Bicarbonate Actual 16.8 L 20.5 L Total CO2 18 22 Base Excess -10 L -5 L O2 Saturation 93 L 98 O2 % 21.0 21.0 1.0 ABG pCO2 36.8 37.7 ABG pO2 75 102 H Moody Test Positive N/A VBG pH 7.23 L VBG pO2 75 H VBG HCO3 15 L VBG Total CO2 16 L VBG O2 Sat (Calc) 92 H VBG Base Excess -13 L POC Mix VBG pCO2 Pt Tmp 35.5 L O2 Delivery Device Room Air Room Air Cannula Vent Mode Not entered Not entered Radiography Diagnostic Testing: Radiology Impression Abdomen/Pelvis CT 08/28/24 12:15 IMPRESSION: Scattered abdominopelvic ascites. Renal transplantation in the right lower quadrant. Further clinical correlation required to exclude transplant rejection. No free air. Poorly defined pancreatic parenchyma for which clinical correlation is required to exclude pancreatitis. Pancreatic transplantation is noted. One or more dose reduction techniques were used (e.g., Automated exposure control, adjustment of the mA and/or kV according to patient size, use of iterative reconstruction technique). Reading Location: [employer] Brain CT 08/28/24 18:40 IMPRESSION: 1. Chronic microvascular ischemic changes are again noted. 2. Bilateral lacunar infarcts are again noted. The right lentiform nucleus lacunar infarct has increased in size since the previous study. 3. No extra-axial collections. 4. Age-appropriate senescent change. 5. Left orbital prosthesis. 6. Other nonacute findings detailed above are stable. One or more dose reduction techniques were used (e.g., Automated exposure control, adjustment of the mA and/or kV according to patient size, use of iterative reconstruction technique). Reading Location: [employer] Cervical Spine CT 08/28/24 18:40 IMPRESSION: 1. Status post ACDF, C5 through 7. 2. No acute osseous abnormalities involving the cervical spine. 3. Other nonacute findings detailed above. Reading Location: [employer] Echocardiogram 08/29/24 02:49 Interpretation Summary Moderate focal aortic valve calcification. Mean aortic valve gradient 27 mmHg. Moderate aortic stenosis. Normal LV size. Left ventricular systolic function is normal. The left ventricular ejection fraction is 60 %. Ordering Physician: Cory Marx Referring Physician: MORENO NEAL Performed By: Jaimie Pratt RCS Chest X-Ray 08/29/24 05:55 IMPRESSION: 1. Intermediate to low lung volumes. 2. No new focal airspace consolidation identified. 3. Chronic and postsurgical changes, as detailed above. Reading Location: [facility] Chest/Abdomen/Pelvis CT 08/29/24 06:41 IMPRESSION: 1. New small to moderate-sized bilateral pleural effusions, slightly greater on the left, with associated bibasilar airspace disease. 2. Moderate amounts of free fluid/ascites throughout the abdomen and pelvis, similar in appearance when compared to prior imaging. 3. Gas and fluid distended small bowel loops, largest small bowel loop measures up to 3.7 cm. Distal small bowel loops appear somewhat decompressed. Correlate clinically for developing small bowel obstruction or ileus. 4. Transplanted pelvic kidney on the right. Negative for obstructive uropathy. 5. Evidence of prior granulomatous infection. 6. Additional chronic and postsurgical changes, as detailed above. One or more dose reduction techniques were used (e.g., Automated exposure control, adjustment of the mA and/or kV according to patient size, use of iterative reconstruction technique). Reading [facility] Physical Exam Const alert Orientation / Consciousness: confused and lethargic HEENT normocephalic and head/scalp atraumatic Mouth: dry mucous membranes Eyes PERRL and EOMs intact bilaterally Neck no lymphadenopathy and supple Lymph Lymphatic: no lymphadenopathy noted Resp Resp Narrative: diminished breath sounds bibasally, no wheezes or crackles. tachypneic. On 4L of oxygen. Cardio S1 normal heart sound, S2 normal heart sound and no murmurs Cardio Narrative: tachycardic GI GI Narrative: abdomen moderately distended, generalised tenderness to palpation. No guarding or rebound tenderness. Extremity normal capillary refill, no clubbing, cyanosis or edema and no calf tenderness General Extremity: no tenderness to palpation of joints or extremities Skin General Skin Exam: no breakdown Neuro Neuro Narrative: confused, restless, just keeps moaning in bed. Motor Exam: general weakness Assessment & Plan Assessment/Plan (1) Elevated troponin: (2) Acute metabolic encephalopathy: (3) SELMA (acute kidney injury): (4) D-dimer, elevated: PLAN: Plan #Septic shock * Lactic acid was elevated at 5.7. She was also hypothermic on admission and had elevated WBC. * On IV Zosyn and Zyvox. ID consulted. Vancomycin stopped due to severe kidney impairment. * Critical care on board. Patient became hypotensive and had to be started on Levophed today. * She is awaiting transfer to [facility] pending bed availability. I called the transfer line today as she was likely accepted at [facility] pending bed availability. #Acute pancreatitis in the setting of prior pancreatectomy with pancreas transplant * Patient's lipase was elevated at 3395. On tacrolimus and mycophenolate. * CT of the abdomen and pelvis showed poor imaging of the pancreas and there is concern for possible rejection. She was admitted with incessant nausea and vomiting. * Been hydrated aggressively with IV fluids. Patient awaiting transfer to [facility] system * Trend lipase. Currently NPO. Thiazides also on hold. * #SELMA * Creatinine was 3.26 on admission. Her baseline is around 1.4. * She does have a history of right renal transplant in 2023. Trend creatinine. CT of the abdomen and pelvis showed no evidence of obstructive uropathy. * Creatinine is 3.29 today. HCTZ and lisinopril on hold. * Nephrology consulted. #Pancytopenia: * Platelets are 70 today with hemoglobin of 10.6 and WBC of 2.8. * WBC has gone down from 17.7 yesterday to 2.8 today. * Platelets were also 132 yesterday and down to 70 today. * Will monitor closely and if platelet continues to drop will consider stopping heparin drip. * likely related to acute illness * #Anion gap metabolic acidosis * Was on bicarb drip but is being switched to Ringer's lactate with dextrose due to her hypoglycemia. * Critical care and nephrology on board. #Non-STEMI * Creatinine trended up and peaked at thousand 202 consistent with non-STEMI. * 2D echo done and read pending. Cardiology also on board. Currently on heparin drip * #Elevated D-dimer * D-dimer was markedly elevated at over 8. There was concern for PE but in light of the severe SELMA she could not have a CT of the chest. * Currently on heparin drip. Duplex of lower extremities ordered. VQ scan also ordered. * Critical care on board. #Benign essential hypertension: Lisinopril hydrochlorothiazide on hold due to SELMA and pancreatitis. Amlodipine and carvedilol also held due to septic shock. #History of osteoarthritis: S/p cervical fusion. On oxycodone as needed #Hyperlipidemia: On statin #History of sinus arrhythmia: S/p pacemaker insertion in 2021. Stable #Depression: Duloxetine helped due to patient's current medical condition. #DVT prophylaxis: on heparin drip Disposition: * Patient accepted at [facility] ICU pending bed availability. I did call the transfer line at around 11:30 AM today. Per the transfer line the anticipate they will have some discharges today. I spoke to patient's about trying other facilities. said he was waiting to speak to the sports medicine coordinator at [facility] to see whether sports medicine coordinator would recommend he goes to. I was subsequently informed by nursing the patient's was not agreeable to trying which [facility] I did call the [facility] transfer line ([phone]) and they also said they are full and do not have beds I will place the patient on the waiting list. Patient's nurse informed. Charges/Coding Visit Charges Inpatient E&M: 74385 Subs Hosp L3
--- NOTE | 2024-08-29 12:00 | RAD_ITS ---
EXAM: ABDOMEN SINGLE VIEW (PORTABLE) CLINICAL HISTORY: Nasogastric tube placement. COMPARISON: Comparison is made with prior study done earlier in the day. TECHNIQUE: Supine film was obtained. FINDINGS: The tip of the nasogastric tube is unchanged and is within the right lower lobe bronchus. RAD/Abdomen Single View (Portable) IMPRESSION: The tip of the nasogastric tube is in the right lower lobe bronchus. Reading Location: [facility]-1
--- NOTE | 2024-08-29 12:05 | RAD_ITS ---
EXAM: ABDOMEN SINGLE VIEW (PORTABLE) CLINICAL HISTORY: Nasogastric tube placement. COMPARISON: Comparison is made with prior study done earlier in the day. TECHNIQUE: Single supine film. FINDINGS: The tip of the nasogastric tube is in the right lower lobe bronchus. There has been no change. RAD/Abdomen Single View (Portable) IMPRESSION: There has been no change. Reading Location: [facility]
[2024-08-29] MEDS: Pantoprazole Sodium 40 MG in 0.9% Normal Saline (100mL MB+) 100 ML 330 MG IV (12:32)
[2024-08-29] MEDS: Etomidate 20 MG/10 ML Vial IV (12:51)
[2024-08-29] MEDS: Midazolam 2 MG/2 ML Syringe 4 MG IV (12:51)
[2024-08-29] MEDS: fentaNYL drip 100 ML 15 MCG CONT INF (13:00)
[2024-08-29] MEDS: Propofol 10MG/Ml 1,000 MG/100 ML Bottle 2.6 MG CONT INF (13:00)
--- NOTE | 2024-08-29 13:06 | RAD_ITS ---
EXAM: CHEST 1 VIEW (PORTABLE) CLINICAL HISTORY: Endotracheal tube placement and orogastric tube placement. COMPARISON: Comparison is made with prior study done earlier in the day. TECHNIQUE: Portable chest radiograph was obtained. FINDINGS: A right-sided internal jugular venous catheter has been placed with the tip at the junction of the superior vena cava and right atrium. An endotracheal tube is in-situ with the tip at 3.1 cm proximal to the celia. The tip of the orogastric tube is seen at the gastroesophageal junction entering the stomach. EKG electrodes are seen. Small left pleural effusion with left basilar infiltration and/or atelectasis. Mild increased markings at the right lung base. RAD/Chest 1 View (Portable) IMPRESSION: No evidence of pneumothorax. The tip of the endotracheal tube is at 3.1 cm proximal the celia. The tip of the orogastric tube is seen just distal to the gastroesophageal junc tion. Left basilar atelectasis and/or infiltrate with blunting of the left costophren ic angle. Reading Location: [facility]-1
--- NOTE | 2024-08-29 13:13 | NURSING ---
Dr Forte at bedside preparing to Intubate the patient at this time. 12:53-versed given 1254-etomadate given 12:57 Successful intubation size 7.5ETT 24@lip 12:59 [address] successfully [address] by Dr Forte 13:00 Fentanyl and propofol started at this time. Dr Forte at beside to place central line 1305 Patient prepped sterile procedure by Dr Forte 13:10 Patient cleaned with chloraprep 13:12 Line placed successfully chest x-ray and kub place 13:15 line [address] in by Dr Forte.
--- NOTE | 2024-08-29 13:13 | PCM.CONS.R ---
Assessment & Plan Assessment/Plan (1) History of end stage renal disease: (2) Septic shock: (3) SELMA (acute kidney injury): (4) History of kidney transplant: (5) History of pancreas transplant: PLAN: Plan This is a 74-year-old female with past medical history significant for ESRD (presumably from diabetes mellitus type 1) status post kidney and pancreas transplant who was admitted to the hospital for septic shock. Nephrology consulted as patient has history of ESRD requiring hemodialysis but fortunately received kidney transplant in 2003. Baseline serum creatinine seems to be ranging around 1 to 1.2 mg/dL. Current creatinine is 3.2 mg/dL. Patient has some urine output, she has indwelling Campbell. Noncontrast CT of abdomen and pelvis no gross hydronephrosis. No hyperkalemia, acidemia improved. Patient is on Levophed drip, blood pressures have improved slightly. Discussed with family there is no acute indication for renal placement therapy at this time. Surgery team consulted for possible small bowel obstruction versus ileus, NGT was just successfully placed. Patient is awaiting transfer to [facility], possibly [facility]. Discussed patient with Dr. Hernadez. Will order Cpeptid and CMV PCR. Continue holding mycophenolate. Further orders forthcoming as hospitalization evolves. HPI Consult Data Date of Consult: 08/29/24 HPI Narrative HPI Narrative: GEORGINA VALLADARES, is a 74 F with past medical history significant for kidney (2003) and pancreas transplant (2004), coronary artery disease status post CABG, diabetes mellitus type 1 diagnosed at age 21 years old who was brought to the emergency room for confusion, complaints of abdominal pain, nausea and hypoglycemia. Patient was just intubated, information is gathered from her son and . Patient has history of ESRD and was on hemodialysis up until she received kidney transplant in 2003 through the [facility]. Patient follows with [facility] transplant team. Patient had been having nausea, decreased appetite, vomiting and abdominal pain. Workup in the emergency room concerning for sepsis, white count 17,000, lactic level 5.7, lipase 3395. Patient was initially hypothermic with temperature 95.2 ?F on admission. She was admitted to ICU for sepsis protocol. Patient started on IV pressors. Nephrology consulted as patient has history of ESRD received kidney transplant. Baseline creatinine seems to be running around 1-1.2 mg/dL. February 17, 2024 serum creatinine 1.14. Yesterday in the emergency room creatinine 3.26 and today her creatinine is 3.29 mg/dL [facility] Medical History Diabetes Bruising Back pain Blackout Gastric reflux History of pain when walking Fatigue Wears hearing aid Wears glasses Cancer Ambulates with cane Arthritis High cholesterol Easy bruising Non-smoker History of stress test History of echocardiogram Cardiology follow-up encounter HLD (hyperlipidemia) Spinal stenosis of lumbar region at multiple levels Scoliosis of lumbar region due to degenerative disease of spine in adult Low back pain DDD (degenerative disc disease) High degree atrioventricular block TIA (transient ischemic attack) Chest pain Non-rheumatic mitral regurgitation Nonrheumatic aortic (valve) stenosis RBBB (right bundle branch block) Atherosclerotic heart disease of [place] coronary artery without angina pectoris Gastroesophageal reflux disease Benign hypertension Home Medications ?Medication ?Instructions ?Recorded ?Last Taken ?Type cyanocobalamin (vitamin B-12) 100 mcg IM QMONTH vitamin 07/10/20 01/22/24 History 1,000 mcg/mL injection solution folic acid 1 mg tablet 1 mg PO DAILY supplement 07/10/20 02/11/24 History tacrolimus 0.5 mg capsule, 1 mg PO Q12H anti rejection 07/10/20 02/11/24 History immediate-release cholecalciferol (vitamin D3) 25 25 mcg PO DAILY vitamin 07/12/20 02/11/24 History mcg (1,000 unit) capsule aspirin 81 mg tablet,delayed 81 mg PO DAILY heart health 10/09/20 02/07/24 History release (Adult Low Dose Aspirin) mycophenolate mofetil 250 mg 250 mg PO BID anti rejection 09/25/22 02/11/24 History capsule amlodipine 10 mg tablet 10 mg PO DAILY BP 11/20/22 02/12/24 04:20 History carvedilol 6.25 mg tablet 6.25 mg PO BID HEART #180 tabs 08/05/23 02/12/24 04:20 Rx ibandronate 150 mg tablet 150 mg PO QMONTH B[facility]ALTH 08/05/23 Unknown History omeprazole 40 mg capsule,delayed 40 mg PO DAILY GERD 08/05/23 02/12/24 04:20 History release duloxetine 30 mg capsule,delayed 20 mg PO BID DEPRESSION 01/13/24 02/12/24 04:20 History release oxycodone 5 mg tablet 2.5 - 5 mg PO BID PRN pain 04/05/24 Unknown History pravastatin 20 mg tablet 20 mg PO QHS cholesterol #90 tabs 04/05/24 Unknown Rx lisinopril 20 1 tab PO DAILY BP #90 tabs 07/15/24 Unknown Rx mg-hydrochlorothiazide 25 mg tablet sulfamethoxazole 400 1 tab PO DAILY antibiotic 08/29/24 08/28/24 History mg-trimethoprim 80 mg tablet (Bactrim) Allergy/AdvReac Type Severity Reaction Status Date / Time Seasonal Allergies: Uncoded Allergy Other Verified 08/28/24 10:35 Family History Father CAD (coronary artery disease) Mother Dementia Surgical History S/P cervical spinal fusion S/P insertion of sacral nerve stimulator (~11/2022) Presence of permanent cardiac pacemaker (~01/28/22) History of umbilical hernia repair (~03/01/20) History of right breast biopsy (~11/23/03) Cataract extraction status History of repair of rotator cuff (~08/31/09) History of eye surgery (~01/07/05) History of pancreatectomy (~03/2004) History of kidney transplant (~03/2004) History of coronary artery bypass surgery (~07/29/12) Status post pancreas transplantation (~05/25/05) Social History household members: spouse Smoking Status: Never smoker alcohol intake: current alcohol intake frequency: a few times a week substance use type: does not use caffeine: Yes Type: coffee Number of servings: 3 ROS ROS Narrative Unable to obtain Physical Exam Narrative Intubated S1, S2, RRR Abdomen soft, nontender No edema Indwelling Campbell with yellow urine in tubing Nonfunctioning AV graft left forearm Lab / Micro Data 08/29/24 08:03 08/29/24 08:03 Labs: Laboratory Results - last 24 hr 08/28/24 14:24: Urine Color Yellow, Urine Clarity Cloudy, Urine pH 5.0, Ur Specific [place] 1.020, Urine Protein 30 H, Urine Glucose (UA) Normal, Urine Ketones 5 H, Urine Occult Blood 150 H, Urine Nitrite Negative, Urine Bilirubin 6 H, Urine Urobilinogen 1 H, Ur Leukocyte Esterase 25 H, Urine RBC 0-5 SEEN, Urine WBC 0-5 SEEN, Ur Squamous Epith Cells 0-5 SEEN, Calcium Oxalate Crystal 1+, Amorphous Sediment 2+ URATE, Urine Bacteria 0 SEEN, Urine Mucus 0 SEEN 08/28/24 16:23: Lactic Acid 3.3 H* 08/28/24 20:25: Sodium 134 L, Potassium 4.8, Chloride 104, Carbon Dioxide 16.0 L, Anion Gap 13, BUN 62 H, Creatinine 3.17 H, Estim Creat Clear Calc 10.36, Est GFR (MDRD) Af Amer 18 L, Est GFR (MDRD) Non-Af 15 L, BUN/Creatinine Ratio 19.6, Glucose 44 L*, Calcium 9.4 08/28/24 22:20: POC Glucose 150 H 08/28/24 23:40: POC Glucose 87 08/29/24 00:53: POC Glucose 171 H 08/29/24 01:56: POC Glucose 76 08/29/24 02:30: Total Creatine Kinase 451 H, Troponin I High Sens 1202 H*, Triglycerides 32, Cholesterol 105, LDL Cholesterol 11, VLDL Cholesterol 6, HDL Cholesterol 88, Lipase > 250 H, Vitamin B12 1159 H, Folate 46.30, TSH 3.370 08/29/24 02:59: POC Glucose 45 L 08/29/24 03:30: POC Glucose 155 H 08/29/24 03:38: PT 18.2 H, INR 1.5, APTT 37.3 H, D-Dimer Quant (PE/DVT) 8.97 H*, B-Natriuretic Peptide 189.7 H 08/29/24 04:26: POC Glucose 76 08/29/24 04:54: POC Glucose 91 08/29/24 05:53: POC Glucose 65 L 08/29/24 07:28: POC Glucose 74 08/29/24 08:03: WBC 2.8 L, RBC 3.67 L, Hgb 10.6 L, Hct 32.2 L, MCV 87.7, MCH 28.9, MCHC 32.9, RDW Std Deviation 43.5, RDW Coeff of Jenny 13.5, Plt Count 70 L, MPV 11.9, Immature Gran % (Auto) 0.400, Neut % (Auto) 66.1, Lymph % (Auto) 7.9 L, Parke % (Auto) 24.9 H, Eos % (Auto) 0.0, Baso % (Auto) 0.7, Absolute Neuts (auto) 1.8 L, Absolute Lymphs (auto) 0.22 L, Nucleated RBC % 0, Differential Comment COMMENT, Diff Path Review November foll, Platelet Estimate MOD DEC, Sodium 131 L, Potassium 4.7, Chloride 96 L, Carbon Dioxide 24.0, Anion Gap 10, BUN 62 H, Creatinine 3.29 H, Estim Creat Clear Calc 10.03, Est GFR (MDRD) Af Amer 18 L, Est GFR (MDRD) Non-Af 15 L, BUN/Creatinine Ratio 18.8, Glucose 97, Calcium 7.2 L, Total Bilirubin 0.40, AST 110 H, ALT 40, Alkaline Phosphatase 23 L, Total Protein 4.7 L, Albumin 2.4 L, Globulin 2.3, Albumin/Globulin Ratio 1.0 08/29/24 09:17: POC Glucose 56 L 08/29/24 10:46: Ammonia 17.0, Blood Type O POSITIVE, Antibody Screen NEGATIVE ABG Data ABG results: ABG 08/28/24 08/29/24 08/29/24 20:37 02:04 06:08 Specimen Type JAMES ART ART Sample Site Not entered R Radial R Radial pH 7.27 L 7.34 L Bicarbonate Actual 16.8 L 20.5 L Total CO2 18 22 Base Excess -10 L -5 L O2 Saturation 93 L 98 O2 % 21.0 21.0 1.0 ABG pCO2 36.8 37.7 ABG pO2 75 102 H Moody Test Positive N/A VBG pH 7.23 L VBG pO2 75 H VBG HCO3 15 L VBG Total CO2 16 L VBG O2 Sat (Calc) 92 H VBG Base Excess -13 L POC Mix VBG pCO2 Pt Tmp 35.5 L O2 Delivery Device Room Air Room Air Cannula Vent Mode Not entered Not entered Imaging Radiology Impression Abdomen/Pelvis CT 08/28/24 12:15 IMPRESSION: Scattered abdominopelvic ascites. Renal transplantation in the right lower quadrant. Further clinical correlation required to exclude transplant rejection. No free air. Poorly defined pancreatic parenchyma for which clinical correlation is required to exclude pancreatitis. Pancreatic transplantation is noted. One or more dose reduction techniques were used (e.g., Automated exposure control, adjustment of the mA and/or kV according to patient size, use of iterative reconstruction technique). Reading Location: [facility] Brain CT 08/28/24 18:40 IMPRESSION: 1. Chronic microvascular ischemic changes are again noted. 2. Bilateral lacunar infarcts are again noted. The right lentiform nucleus lacunar infarct has increased in size since the previous study. 3. No extra-axial collections. 4. Age-appropriate senescent change. 5. Left orbital prosthesis. 6. Other nonacute findings detailed above are stable. One or more dose reduction techniques were used (e.g., Automated exposure control, adjustment of the mA and/or kV according to patient size, use of iterative reconstruction technique). Reading Location: [employer] Cervical Spine CT 08/28/24 18:40 IMPRESSION: 1. Status post ACDF, C5 through 7. 2. No acute osseous abnormalities involving the cervical spine. 3. Other nonacute findings detailed above. Reading Location: [employer] Echocardiogram 08/29/24 02:49 Interpretation Summary Moderate focal aortic valve calcification. Mean aortic valve gradient 27 mmHg. Moderate aortic stenosis. Normal LV size. Left ventricular systolic function is normal. The left ventricular ejection fraction is 60 %. Ordering Physician: Cory Marx Referring Physician: MORENO HERNANDEZ Performed By: Jaimie Pratt RCS Chest X-Ray 08/29/24 05:55 IMPRESSION: 1. Intermediate to low lung volumes. 2. No new focal airspace consolidation identified. 3. Chronic and postsurgical changes, as detailed above. Reading Location: [facility] Venous Doppler Study 08/29/24 06:15 Interpretation Summary Acute deep vein thrombosis is noted in the right soleus vein. Deep veins of the left lower extremity are patent and compressible segmentally. There is no evidence of left lower extremity deep vein thrombosis. Limited study due to dressing. Ordering Physician: Cory Marx Referring Physician: Moreno Hernandez Performed By: Laure Perez RVT Chest/Abdomen/Pelvis CT 08/29/24 06:41 IMPRESSION: 1. New small to moderate-sized bilateral pleural effusions, slightly greater on the left, with associated bibasilar airspace disease. 2. Moderate amounts of free fluid/ascites throughout the abdomen and pelvis, similar in appearance when compared to prior imaging. 3. Gas and fluid distended small bowel loops, largest small bowel loop measures up to 3.7 cm. Distal small bowel loops appear somewhat decompressed. Correlate clinically for developing small bowel obstruction or ileus. 4. Transplanted pelvic kidney on the right. Negative for obstructive uropathy. 5. Evidence of prior granulomatous infection. 6. Additional chronic and postsurgical changes, as detailed above. One or more dose reduction techniques were used (e.g., Automated exposure control, adjustment of the mA and/or kV according to patient size, use of iterative reconstruction technique). Reading Location: [facility] [employer] KUB X-Ray 08/29/24 09:22 IMPRESSION: The tip of the nasogastric tube is in the right lower lobe bronchus. Reading Location: [facility] KUB X-Ray 08/29/24 12:00 IMPRESSION: The tip of the nasogastric tube is in the right lower lobe bronchus. Reading Location: [facility] KUB X-Ray 08/29/24 12:05 IMPRESSION: There has been no change. Reading Location: [facility]
--- NOTE | 2024-08-29 13:18 | RAD_ITS ---
EXAM: XR Abdomen, 1 View CLINICAL INDICATION: TECHNIQUE: Frontal supine view of the abdomen/pelvis. COMPARISON: No relevant prior studies available. FINDINGS: GASTROINTESTINAL TRACT: Multiple distended small bowel loops measuring up to 4.0 cm, concerning for at least a partial small bowel obstruction. BONES/JOINTS: Unremarkable. No acute fracture. RAD/Abdomen Single View (Portable) IMPRESSION: Multiple distended small bowel loops measuring up to 4.0 cm, concerning for at least a partial small bowel obstruction. Reading Location: [facility]
--- NOTE | 2024-08-29 13:32 | NURSING ---
1304 Spoke with Beverly Padilla CNP, data entry coordinator with [facility] and caring for this patient for many years per spouse request on his cell phone. He has spoken with her and shared the situation asking for her help in getting the patient to [facility]. I explained that the patient needed an NG tube for decompression, was now on the ventilator and getting a central line for Levo and sedation. She stated she would share the information with her team who would help manage the patient at [facility] when a bed became available. 1320 informed spouse and son that intubation and NG tube placement were completed and central line was in process
--- NOTE | 2024-08-29 13:52 | PCM.OP.PRO2 ---
Procedures Hospitalists Procedures: [id number] Insert Emergency Airway Non-invasive Procedural Procedure Information Description of procedure: Intubation Indication: Respiratory failure Consent was obtained from: The patient was placed in the appropriate sniffing position. Preoxygenated sedation via [id number] was provided for a minimum of 3 minutes. The patient had continuous cardiac as well as pulse oximetry monitoring during the procedure. Procedure sedation was provided by the administration of 4 mg of Versed and 20 mg of etomidate. Direct laryngoscopy was then performed using a number 3 MAC blade, which revealed a grade 1 view. A 7.5 mm endotracheal tube was visualized advancing between the cords to the level of 23 cm at the lip. The stylette was then removed and discarded. Tube placement was confirmed by fogging in the tube along with equal and bilateral breath sounds. Colorimetric change was visualized on the CO2 meter. The cuff was then inflated and the tube secured using a commercially available device. A good pulse oximetry waveform was seen on the monitor throughout the procedure. A portable chest x-ray has been ordered to confirm appropriate placement. The patient tolerated the procedure well.
--- NOTE | 2024-08-29 13:53 | PCM.OP.PRO2 ---
Procedures Hospitalists Procedures: [id number] Insert Non-tunnel CV Cath Non-invasive Procedural Procedure Information Description of procedure: Central Venous Catheter Indication: Septic shock Consent was obtained from: A time-out was completed verifying correct patient, procedure, site, positioning, and special equipment if applicable. The patient was placed in a dependent position appropriate for central line placement based on the vein to be cannulated. The patient's right neck was prepped and draped in a sterile fashion. 1% lidocaine was used to anesthetize the surrounding skin area. A triple-lumen catheter was introduced into the right internal jugular vein using the Seldinger technique and under ultrasound guidance. The catheter was threaded smoothly over the guidewire and appropriate blood return was obtained. Each lumen of the catheter was evacuated of air and flushed with sterile saline. The catheter was then sutured in place to the skin and a sterile dressing applied. Chest x-ray to confirm appropriate positioning is pending. ULTRASOUND GUIDANCE STATEMENT (Vascular Access): I performed ultrasound image acquisition and interpretation for needle placement during the procedure. The vessel was identified and found to be free of thrombosis by compression technique. A safe point of entry was marked at the skin in an angle for axis was determined. The needle was guided by obtaining free-flowing fluid and by real-time visualization.
--- NOTE | 2024-08-29 14:15 | RAD_ITS ---
EXAM: CHEST 1 VIEW (PORTABLE) CLINICAL HISTORY: Orogastric tube placement. COMPARISON: Comparison is made with prior study the earlier in the day. TECHNIQUE: Portable chest radiograph was obtained. FINDINGS: The tip of the orogastric tube is in the distal portion of the stomach. The remainder of the examination is unchanged. RAD/Chest 1 View (Portable) IMPRESSION: The tip of the orogastric tube is in the distal portion of the stomach. The re mainder of the examination is unchanged. Reading Location: [place] [id number]
[2024-08-29 14:16] LABS: Base Excess -7 mmol/L (-2 to +2); Bicarbonate 16.5 mmol/L (22-26); Blood Gas Specimen Type ART; Mode AC; O2 Delivery Device Adult Vent; PEEP 5; PO2 78 mmHG (75-100); RR 14; SITE R Brach; SO2 97 % (95-99); Total Carbon Dioxide 17 mmol/L; pCO2 21.6 mmHg (35-45); pH 7.49 (7.35-7.45)
[2024-08-29 14:34] LABS: CPK Total, Creatine Kinase 850 U/L (26-192); Triglycerides 21 mg/dL
[2024-08-29 14:36] LABS: Bedside Glucose 44 mg/dL (74-106)
[2024-08-29 14:38] LABS: Hemoglobin A1c 5.3 % (3.8-5.6)
[2024-08-29 15:49] LABS: Bedside Glucose 66 mg/dL (74-106)
[2024-08-29] MEDS: Dextrose 10%-Water 250 ML 50 ML IV ×2 (15:55→20:58)
--- NOTE | 2024-08-29 16:21 | CHAPLAIN ---
Type of Pastoral Visit _x__ Initial Visit ___ Follow-up Visit ___ On-call Visit ___ General Patient Visit ___ Spiritual Assessment ___ Family Conference ___ Bereavement ___ Rapid Response ___ Code Blue ___ Other (describe below) Pastoral Care Referral From ___ Patient ___ Family ___ Nurse ___ Physician ___ Program Director [employer] ___ Ice Bag Assembler _x__ Other (describe below) Sacrament/Intervention _x__ Active listening ___ Anointing ___ Spiritism ___ Bereavement ___ Communion ___ Rufina exploration ___ ___ Life review ___ Prayer ___ Reconciliation ___ Sacrament of Sick _x__ Supportive presence ___ Wedding ___ Other (describe below) Pastoral Comments HRO asked this mechanic welder truck driver about seeing this patient and family since it has been a difficult and emotional situation over the last couple of days; pt is on the vent and not doing well; spouse and son are in the room; pt is to be transferred when a bed becomes available at [facility]; spouse is welcoming and explains some of the situation; the concrete finishing machine operator has been in this morning to give Anointing of the Sick which brought comfort to the family; offer of presence, listening, and support to family; spoke to the patient with comforting words but she gave no response
[2024-08-29 17:44] LABS: Bedside Glucose 91 mg/dL (74-106)
[2024-08-29] MEDS: fentaNYL drip 100 ML 12.5 MCG CONT INF (19:46)
--- NOTE | 2024-08-29 19:49 | NURSING ---
Fingerstick blood glucose level 68. Venous blood glucose level was 105.
--- NOTE | 2024-08-29 20:34 | NURSING ---
Called [facility] at 194. Spoke with bed coordinator and she had to call the bed coordinator at [place]. She returned the call and said it's not looking like there will be a bed tonight at this time. She said to keep calling for updates though.
[2024-08-29] MEDS: Chlorhexidine 15 ML PO (20:59)
[2024-08-29] MEDS: Vasopressin 20 UNITS in 0.9% Normal Saline (50mL Bag) 24 ML 3 UNITS CONT INF (21:09)
[2024-08-29] MEDS: Acetaminophen 650 MG Suppository RC (21:09)
[2024-08-29] MEDS: Norepinephrine 8 MG in 0.9% Normal Saline (250mL Bag) 242 ML 28.1 MG CONT INF (22:00)
--- NOTE | 2024-08-29 22:39 | PCM.HOSP.N ---
Hospitalist Note Patient with hypoglycemic episodes ongoing despite D10 drip. Also prior had LR with D5. Will transition to D10 only and increase to 100 mg/hr with continued close accu checks. Giving amp now additionally during drip increase/transition.
[2024-08-29 22:45] LABS: Bedside Glucose 44 mg/dL (74-106)
[2024-08-29 23:37] LABS: Bedside Glucose 175 mg/dL (74-106)
[2024-08-30] VITALS (53 sets, daily range): BP systolic 74–137; BP diastolic 17–74; PULSE 60–120; RESP 14–28; TEMP 35.9–38; O2SAT 90–100; BMI 21.2
[2024-08-30] MEDS: Dextrose 10%-Water 250 ML 100 ML IV ×4 (00:35→07:54)
[2024-08-30] MEDS: 0.9% Saline Lock 10 ML Syringe IV ×4 (00:35→23:00)
[2024-08-30 00:48] LABS: Bedside Glucose 140 mg/dL (74-106)
[2024-08-30 02:08] LABS: Partial Thromboplast Time 55.9 Seconds (24.1-36.2)
[2024-08-30] MEDS: Vasopressin 20 UNITS in 0.9% Normal Saline (50mL Bag) 24 ML 3 UNITS CONT INF ×3 (02:13→18:41)
[2024-08-30 02:55] LABS: Bedside Glucose 157 mg/dL (74-106)
[2024-08-30] MEDS: CHLORHEXIDINE GLUC 2% CLOTH 1 EACH TOWELETTE TOPICAL (03:07)
[2024-08-30 03:11] LABS: Absolute Lymphocyte Count 0.76 X10^3/uL (0.83-4.51); Absolute Neutrophil Count 5.7 X10^3/uL (2.0-7.7); Basophil# 0.02 X10^3/uL; Basophil% 0.3 % (0-1); Eosinophil# 0.06 X10^3/uL; Eosinophils% 0.8 % (0-5); Hematocrit 34.5 % (37-47); Hemoglobin 11.4 g/dL (12.0-15.0); Lymphocyte # 0.76 X10^3/ul (0.83-4.51); Lymphocyte % 9.9 % (19-41); Mean Corpuscular Volume 87.8 fL (81-99); Mean Platelet Vol. 12.9 fl (6.2-12.0); Monocyte# 1.01 X10^3/uL; Monocyte% 13.2 % (0-10); NRBC Flagged by Analyzer 0 % (0-5); Neutrophil % 74.2 % (47-70); POSITIVE COUNT YES; POSITIVE MORPHOLOGY YES; Platelet Count 74 K/mm3 (150-450); RBC Distribution Width CV 13.9 % (11.6-14.6); RBC Distribution Width SD 44.3 fl (35.1-43.9); Red Blood Count 3.93 M/mm3 (4.2-5.4); White Blood Count 7.7 K/mm3 (4.4-11.0)
[2024-08-30 03:36] LABS: Vancomycin, Random Level 10.8 ug/mL (0.0-15.0)
[2024-08-30 03:38] LABS: Anion Gap 15 (5-15); BUN 68 mg/dL (7-18); BUN/Creat Ratio 16.7 RATIO (10-20); Calcium,Total 6.5 mg/dL (8.5-10.1); Chloride 93 mmol/L (98-107); Creatinine, Serum 4.07 mg/dL (0.55-1.02); EST Glomerular Filtration Rate 11 mL/min (>60); Est Glom Filt Rate - Afr Amer 14 mL/min (>60); Estimated Creatinine Clearance 8.58 ml/min; Glucose 133 mg/dL (74-106); Potassium 5.4 mmol/L (3.5-5.1); Sodium Level 125 mmol/L (136-145)
--- NOTE | 2024-08-30 03:45 | NURSING ---
Called [facility] transfer center just now and also around midnight to check on bed availability. Both times they did not have any beds available.
[2024-08-30 04:20] LABS: Differential Comment SCANNED; Differential Indicated SCAN CRITERIA MET
[2024-08-30 04:21] LABS: Platelet Estimate MKD DEC (ADEQ); Reactive Lymphocyte 1+
[2024-08-30] MEDS: Norepinephrine 8 MG in 0.9% Normal Saline (250mL Bag) 242 ML 37.5 MG CONT INF (05:23)
[2024-08-30 05:51] LABS: Bedside Glucose 139 mg/dL (74-106)
[2024-08-30 07:23] LABS: Bedside Glucose 68 mg/dL (74-106)
[2024-08-30 07:23] LABS: Bedside Glucose 105 mg/dL (74-106)
--- NOTE | 2024-08-30 07:41 | PCM.PN.INT ---
Assessment & Plan Assessment/Plan (1) Sepsis: QUALIFIERS: Acute renal failure type: unspecified Sepsis acute organ dysfunction status: with acute organ dysfunction Sepsis type: sepsis due to unspecified organism Severe sepsis acute organ dysfunction type: acute renal failure Severe sepsis shock status: without septic shock Qualified Code(s): A41.9 - Sepsis, unspecified organism; R65.20 - Severe sepsis without septic shock; N17.9 - Acute kidney failure, unspecified PLAN: Plan RECOMMENDATIONS: 1. Continue assist-control mode mechanical ventilation. Obtain follow-up ABG and chest x-ray this morning. 2. Start sodium bicarbonate infusion. 3. Increase D10 infusion rate. 4. Continue weight-based heparin infusion. 5. Continue vasopressor support and initiate stress dose steroids. 6. Hold all sedating medications. 7. Obtain EEG. 8. Continue antimicrobials. 9. Continue appropriate GI prophylaxis. 10. Awaiting bed availability for transfer to tertiary care facility. IMPRESSIONS: 1. Septic shock with multisystem organ failure The patient presented to the hospital with sepsis due to suspected pneumonia with acute sepsis related organ dysfunction as evidenced by acute kidney injury, altered mental status, hypotension requiring vasopressor support and lactic acidemia. The patient did receive supplemental IV fluid resuscitation, per protocol, but remained hemodynamically unstable and was subsequently placed on vasopressor support. Plan to continue empiric antimicrobials, pending infectious workup. In addition to the aforementioned, the patient does have evidence of acute pancreatitis of unclear etiology. 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 Tacrolimus level is pending. Recommend continuing Prograf via OG tube, if feasible. Given her organ transplantation history, it would be reasonable to transfer her to a tertiary care facility for ongoing management. In the interim, continue supportive measures. 2. Acute hypoxemic respiratory failure/PEA cardiac arrest Most likely secondary to underlying pneumonia and inability to compensate for profound metabolic derangements. Plan to continue assist-control mode of mechanical ventilation. Continue to wean FiO2 and PEEP as tolerated. Will obtain follow-up chest imaging and ABG this morning. On August 30, the patient did experience a brief PEA cardiac arrest. Given that she was noted to have lower extremity DVT on Doppler study yesterday, it is certainly feasible that the patient may also have a pulmonary embolism. However, her underlying renal function would preclude our ability to obtain a CTA chest. Therefore, we will plan to continue a weight-based heparin infusion, despite her thrombocytopenia. 3. Lower extremity DVT Continue weight-based heparin infusion. 4. Ischemic hepatitis Most likely secondary to poor perfusion state in the setting of #1. Continue current supportive measures. 5. Abdominal distention with questionable early SBO versus ileus Orogastric tube was placed on August 29 with improvement noted on chest x-ray this morning. General surgery is following with concern for bowel obstruction versus high-grade ileus due to septic shock. 6. Toxic/metabolic encephalopathy Most likely related to presenting septic shock. However, the patient has been less responsive this morning. Therefore, all sedating medications have been discontinued. CT head demonstrated no acute findings. As noted above, will obtain arterial blood gas. In the interim, given the nystagmus noted on examination, we will obtain EEG. At the present time, the patient is too clinically unstable to be taken for MRI brain. 7. Acute kidney injury The patient is status post renal transplantation in 2003 and presented with evidence of acute kidney injury. Nephrology is currently following to assist with medical management. Continue to monitor urine output. Continue sodium bicarbonate infusion. 8. Pancytopenia Continue current supportive care with serial monitoring of CBC. Plan to transfuse if hemoglobin drops below 7 g/dL. 9. Troponin elevation Most likely related to demand ischemia in the setting of #1. Cardiology is currently following. Echocardiogram revealed intact systolic function. 10. History of renal and pancreas transplantation on immunosuppression/chronic pain syndrome/history of TIA Complicates care, management, recovery and prognosis. Attempt to limit sedating medications as feasible. The patient is to remain n.p.o. for now. We are awaiting bed availability for transfer to tertiary care facility. CODE STATUS: Full code (discussed with the patient's at the bedside) TIME: 92 minutes of critical care time, independent of procedures, was spent addressing the patient's septic shock, questionable SBO versus ileus, toxic/metabolic encephalopathy, acute kidney injury, pancytopenia, troponin elevation, review of all data and collaboration with the care team. Subjective Subjective The patient was seen and examined at the bedside this morning. Events from the last 24 hours have been reviewed. The patient is currently afebrile and maintaining appropriate oxygen saturations on assist-control mode mechanical ventilation with an FiO2 requirement of 30% and PEEP of 5. The patient is currently documented to be overall net +6.9 L for the hospitalization. Despite the use of D10, the patient has remained persistently hypoglycemic. She currently remains on Levophed and vasopressin to maintain hemodynamic stability. The patient is currently only sedated on fentanyl. White blood cell count is normal with a hemoglobin of 11.4 g/dL and platelet count of 74,000. Sodium is low at 125 with a potassium of 5.4, chloride of 93, bicarbonate of 17, BUN of 68 and creatinine of 4.07. The patient remains on empiric antimicrobials. Transfer to [facility] is still pending. Update: During morning rounds I was notified by nursing staff that despite her discontinuation of sedation, the patient remains nonresponsive. Therefore, stat CT head was ordered to be completed. Upon completion of the head imaging study, the patient sustained a PEA cardiac arrest. ACLS was initiated with subsequent ROSC. Given that the patient was diagnosed with a DVT yesterday, and over concerns that her PEA arrest may be secondary to pulmonary embolism, the decision was made to continue the weight-based heparin infusion, despite her thrombocytopenia. In addition, the patient was noted to have horizontal nystagmus, for which EEG was ordered. Lastly, I did personally reach out to the counter checker at [facility] to provide an update on the patient's clinical status. She indicated that given the change in her clinical condition that her priority on the list would likely move up. However, the patient is at extremely high risk for further clinical decompensation during transfer. This concern was voiced to the patient's and son. Objective Data Objective Data The patient's most recent lab work, culture data and imaging studies have all been personally reviewed. Surface echocardiogram demonstrated normal LV size and function with an ejection fraction of 60%. Moderate aortic stenosis was noted. Lower extremity Doppler study was positive for DVT in the right soleus vein. Blood and sputum cultures are pending. Vital Signs: Vital Signs Temp Pulse Resp BP Pulse Ox O2 Del Method O2 Flow Rate 98.3 F 83 15 101/59 L 96 Mechanical Ventilator 35 08/30/24 06:00 08/30/24 07:07 08/30/24 07:07 08/30/24 06:00 08/30/24 07:07 08/30/24 06:00 08/29/24 19:00 FiO2 30 08/30/24 07:07 Oxygen Flow Rate (L/min) 35 Oxygen Delivery Method Mechanical Ventilator Weight: 105 lb 2.568 oz Body Mass Index (BMI) 21.2 Intake & Output: Intake and Output for Last 24 Hours 08/28/24 08/29/24 08/30/24 23:59 23:59 23:59 Intake Total 2049 4535.97 / 4640.12 1051.97 / 1051.97 Output Total 975 / 975 Balance 2049 4510.97 / 3675.12 76.97 / 76.97 Lab / Micro Data Attestation: I reviewed the patient's lab results. 08/30/24 02:58 08/30/24 02:58 Labs: Laboratory Results - last 24 hr 08/29/24 02:30: Hemoglobin A1c 5.3, Vitamin B12 1159 H 08/29/24 04:26: POC Glucose 76 08/29/24 04:54: POC Glucose 91 08/29/24 05:53: POC Glucose 65 L 08/29/24 07:28: POC Glucose 74 08/29/24 08:03: WBC 2.8 L, RBC 3.67 L, Hgb 10.6 L, Hct 32.2 L, MCV 87.7, MCH 28.9, MCHC 32.9, RDW Std Deviation 43.5, RDW Coeff of Jenny 13.5, Plt Count 70 L, MPV 11.9, Immature Gran % (Auto) 0.400, Neut % (Auto) 66.1, Lymph % (Auto) 7.9 L, [place] % (Auto) 24.9 H, Eos % (Auto) 0.0, Baso % (Auto) 0.7, Absolute Neuts (auto) 1.8 L, Absolute Lymphs (auto) 0.22 L, Nucleated RBC % 0, Differential Comment COMMENT, Diff Path Review May foll, Platelet Estimate MOD DEC, Sodium 131 L, Potassium 4.7, Chloride 96 L, Carbon Dioxide 24.0, Anion Gap 10, BUN 62 H, Creatinine 3.29 H, Estim Creat Clear Calc 10.03, Est GFR (MDRD) Af Amer 18 L, Est GFR (MDRD) Non-Af 15 L, BUN/Creatinine Ratio 18.8, Glucose 97, Calcium 7.2 L, Total Bilirubin 0.40, AST 110 H, ALT 40, Alkaline Phosphatase 23 L, Total Creatine Kinase 850 H, Total Protein 4.7 L, Albumin 2.4 L, Globulin 2.3, Albumin/Globulin Ratio 1.0, Triglycerides 21 08/29/24 09:17: POC Glucose 56 L 08/29/24 10:46: Ammonia 17.0, Blood Type O POSITIVE, Antibody Screen NEGATIVE 08/29/24 14:16: POC Glucose 44 L* 08/29/24 15:29: APTT 127.0 H* 08/29/24 15:31: POC Glucose 66 L 08/29/24 17:24: POC Glucose 91 08/29/24 19:35: POC Glucose 68 L 08/29/24 19:42: POC Glucose 105 08/29/24 22:22: POC Glucose 44 L* 08/29/24 23:11: POC Glucose 175 H 08/30/24 00:30: APTT 55.9 H, POC Glucose 140 H 08/30/24 02:18: POC Glucose 157 H 08/30/24 02:58: WBC 7.7, RBC 3.93 L, Hgb 11.4 L, Hct 34.5 L, MCV 87.8, MCH 29.0, MCHC 33.0, RDW Std Deviation 44.3 H, RDW Coeff of Jenny 13.9, Plt Count 74 L, MPV 12.9 H, Immature Gran % (Auto) 1.600 H, Neut % (Auto) 74.2 H, Lymph % (Auto) 9.9 L, [place] % (Auto) 13.2 H, Eos % (Auto) 0.8, Baso % (Auto) 0.3, Absolute Neuts (auto) 5.7, Absolute Lymphs (auto) 0.76 L, Nucleated RBC % 0, Differential Comment SCANNED, Reactive Lymphocytes 1+, Platelet Estimate MKD DEC, Sodium 125 L, Potassium 5.4 H, Chloride 93 L, Carbon Dioxide 17.0 L, Anion Gap 15, BUN 68 H, Creatinine 4.07 H, Estim Creat Clear Calc 8.58, Est GFR (MDRD) Af Amer 14 L, Est GFR (MDRD) Non-Af 11 L, BUN/Creatinine Ratio 16.7, Glucose 133 H, Calcium 6.5 L*, Random Vancomycin 10.8 08/30/24 05:23: POC Glucose 139 H ABG Data ABG results: ABG 08/29/24 14:11 Specimen Type ART Sample Site R Brach pH 7.49 H Bicarbonate Actual 16.5 L Total CO2 17 Base Excess -7 L O2 Saturation 97 O2 % 50.0 ABG pCO2 21.6 L ABG pO2 78 Respiration Rate 14 O2 Delivery Device Adult Vent Vent Mode AC Tidal Volume 450.0 POC PEEP 5 Radiography Diagnostic Testing: Radiology Impression Echocardiogram 08/29/24 02:49 Interpretation Summary Moderate focal aortic valve calcification. Mean aortic valve gradient 27 mmHg. Moderate aortic stenosis. Normal LV size. Left ventricular systolic function is normal. The left ventricular ejection fraction is 60 %. There is moderate to severe mitral annular calcification. Pacemaker lead in right atrium appears to be more echogenic than usual. Ordering Physician: Cory Marx Referring Physician: MORENO HERNANDEZ Performed By: Jaimie Pratt RCS Venous Doppler Study 08/29/24 06:15 Interpretation Summary Acute deep vein thrombosis is noted in the right soleus vein. Deep veins of the left lower extremity are patent and compressible segmentally. There is no evidence of left lower extremity deep vein thrombosis. Limited study due to dressing. Ordering Physician: Cory Marx Referring Physician: Moreno Hernandez Performed By: Laure Perez RVT Chest/Abdomen/Pelvis CT 08/29/24 06:41 IMPRESSION: 1. New small to moderate-sized bilateral pleural effusions, slightly greater on the left, with associated bibasilar airspace disease. 2. Moderate amounts of free fluid/ascites throughout the abdomen and pelvis, similar in appearance when compared to prior imaging. 3. Gas and fluid distended small bowel loops, largest small bowel loop measures up to 3.7 cm. Distal small bowel loops appear somewhat decompressed. Correlate clinically for developing small bowel obstruction or ileus. 4. Transplanted pelvic kidney on the right. Negative for obstructive uropathy. 5. Evidence of prior granulomatous infection. 6. Additional chronic and postsurgical changes, as detailed above. One or more dose reduction techniques were used (e.g., Automated exposure control, adjustment of the mA and/or kV according to patient size, use of iterative reconstruction technique). Reading [facility] 08/29/24 09:22 IMPRESSION: The tip of the nasogastric tube is in the right lower lobe bronchus. Reading Location: [facility] KUB X-Ray 08/29/24 12:00 IMPRESSION: The tip of the nasogastric tube is in the right lower lobe bronchus. Reading Location: [facility] KUB X-Ray 08/29/24 12:05 IMPRESSION: There has been no change. Reading Location: [facility] Chest X-Ray 08/29/24 13:06 IMPRESSION: No evidence of pneumothorax. The tip of the endotracheal tube is at 3.1 cm proximal the celia. The tip of the orogastric tube is seen just distal to the gastroesophageal junction. Left basilar atelectasis and/or infiltrate with blunting of the left costophrenic angle. Reading Location: [facility] KUB X-Ray 08/29/24 13:18 IMPRESSION: Multiple distended small bowel loops measuring up to 4.0 cm, concerning for at least a partial small bowel obstruction. Reading Location: [facility] Chest X-Ray 08/29/24 14:15 IMPRESSION: The tip of the orogastric tube is in the distal portion of the stomach. The remainder of the examination is unchanged. [facility] Physical Ex[facility] Const Constitutional Narrative: The patient is currently intubated, sedated and mechanically ventilated. General Appearance: lethargic, ill appearing, frail and patient mechanically ventilated HEENT normocephalic and head/scalp atraumatic Mouth: endotracheal tube in place and OG tube in place Eyes EOMs intact bilaterally and conjunctivae normal Neck supple General: trachea midline and CVC in place Chest inspection of chest normal Resp Auscultation: diminished lung sounds; Negative for rales, rhonchi or wheezes Cardio regular rate, regular rhythm, S1 normal heart sound and S2 normal heart sound Heart Sounds: murmur GI GI Narrative: Abdomen remains distended. Extremity no clubbing, cyanosis or edema Skin no rashes or lesions noted Neuro Neuro Narrative: The patient is not currently responsive to verbal or tactile stimulation. Charges/Coding Procedures Hospitalists Procedures: 04591 Critical Care 1st Hr Multi Select Codes Hospitalists' Procedures Procedures: 39695 Critical Care Addl 30 Min
--- NOTE | 2024-08-30 08:10 | PCM.PN.CARD ---
Subjective Subjective Patient seen and evaluated. Status quo ante Objective Data Vital Signs: Vital Signs Temp Pulse Resp BP Pulse Ox O2 Del Method O2 Flow Rate 98.2 F 83 15 97/59 L 96 Mechanical Ventilator 35 08/30/24 07:00 08/30/24 07:07 08/30/24 07:07 08/30/24 07:00 08/30/24 07:07 08/30/24 07:00 08/29/24 19:00 FiO2 30 08/30/24 07:07 Oxygen Flow Rate (L/min) 35 Oxygen Delivery Method Mechanical Ventilator Weight: 105 lb 2.568 oz Body Mass Index (BMI) 21.2 Intake & Output: Intake and Output for Last 24 Hours 08/28/24 08/29/24 08/30/24 23:59 23:59 23:59 Intake Total 2049 4535.97 / 4640.12 1346.97 / 1346.97 Output Total 975 / 975 Balance 2049 4510.97 / 3675.12 371.97 / 371.97 Lab / Micro Data 08/30/24 02:58 08/30/24 02:58 Labs: Laboratory Results - last 24 hr 08/29/24 02:30: Hemoglobin A1c 5.3, Vitamin B12 1159 H 08/29/24 08:03: WBC 2.8 L, RBC 3.67 L, Hgb 10.6 L, Hct 32.2 L, MCV 87.7, MCH 28.9, MCHC 32.9, RDW Std Deviation 43.5, RDW Coeff of Jenny 13.5, Plt Count 70 L, MPV 11.9, Immature Gran % (Auto) 0.400, Neut % (Auto) 66.1, Lymph % (Auto) 7.9 L, [place] % (Auto) 24.9 H, Eos % (Auto) 0.0, Baso % (Auto) 0.7, Absolute Neuts (auto) 1.8 L, Absolute Lymphs (auto) 0.22 L, Nucleated RBC % 0, Differential Comment COMMENT, Diff Path Review May foll, Platelet Estimate MOD DEC, Sodium 131 L, Potassium 4.7, Chloride 96 L, Carbon Dioxide 24.0, Anion Gap 10, BUN 62 H, Creatinine 3.29 H, Estim Creat Clear Calc 10.03, Est GFR (MDRD) Af Amer 18 L, Est GFR (MDRD) Non-Af 15 L, BUN/Creatinine Ratio 18.8, Glucose 97, Calcium 7.2 L, Total Bilirubin 0.40, AST 110 H, ALT 40, Alkaline Phosphatase 23 L, Total Creatine Kinase 850 H, Total Protein 4.7 L, Albumin 2.4 L, Globulin 2.3, Albumin/Globulin Ratio 1.0, Triglycerides 21 08/29/24 09:17: POC Glucose 56 L 08/29/24 10:46: Ammonia 17.0, Blood Type O POSITIVE, Antibody Screen NEGATIVE 08/29/24 14:16: POC Glucose 44 L* 08/29/24 15:29: APTT 127.0 H* 08/29/24 15:31: POC Glucose 66 L 08/29/24 17:24: POC Glucose 91 08/29/24 19:35: POC Glucose 68 L 08/29/24 19:42: POC Glucose 105 08/29/24 22:22: POC Glucose 44 L* 08/29/24 23:11: POC Glucose 175 H 08/30/24 00:30: APTT 55.9 H, POC Glucose 140 H 08/30/24 02:18: POC Glucose 157 H 08/30/24 02:58: WBC 7.7, RBC 3.93 L, Hgb 11.4 L, Hct 34.5 L, MCV 87.8, MCH 29.0, MCHC 33.0, RDW Std Deviation 44.3 H, RDW Coeff of Jenny 13.9, Plt Count 74 L, MPV 12.9 H, Immature Gran % (Auto) 1.600 H, Neut % (Auto) 74.2 H, Lymph % (Auto) 9.9 L, [place] % (Auto) 13.2 H, Eos % (Auto) 0.8, Baso % (Auto) 0.3, Absolute Neuts (auto) 5.7, Absolute Lymphs (auto) 0.76 L, Nucleated RBC % 0, Differential Comment SCANNED, Reactive Lymphocytes 1+, Platelet Estimate MKD DEC, Sodium 125 L, Potassium 5.4 H, Chloride 93 L, Carbon Dioxide 17.0 L, Anion Gap 15, BUN 68 H, Creatinine 4.07 H, Estim Creat Clear Calc 8.58, Est GFR (MDRD) Af Amer 14 L, Est GFR (MDRD) Non-Af 11 L, BUN/Creatinine Ratio 16.7, Glucose 133 H, Calcium 6.5 L*, Random Vancomycin 10.8 08/30/24 05:23: POC Glucose 139 H ABG Data ABG results: ABG 08/29/24 14:11 Specimen Type ART Sample Site R Brach pH 7.49 H Bicarbonate Actual 16.5 L Total CO2 17 Base Excess -7 L O2 Saturation 97 O2 % 50.0 ABG pCO2 21.6 L ABG pO2 78 Respiration Rate 14 O2 Delivery Device Adult Vent Vent Mode AC Tidal Volume 450.0 POC PEEP 5 Cardiology Labs/Tests 08/29/24 02:30: Hemoglobin A1c 5.3 08/29/24 08:03: WBC 2.8 L, RBC 3.67 L, Hgb 10.6 L, Hct 32.2 L, MCV 87.7, MCH 28.9, MCHC 32.9, Plt Count 70 L, MPV 11.9, Immature Gran % (Auto) 0.400, Neut % (Auto) 66.1, Lymph % (Auto) 7.9 L, [place] % (Auto) 24.9 H, Eos % (Auto) 0.0, Baso % (Auto) 0.7, Absolute Neuts (auto) 1.8 L, Nucleated RBC % 0, Sodium 131 L, Potassium 4.7, Chloride 96 L, Carbon Dioxide 24.0, Anion Gap 10, BUN 62 H, Creatinine 3.29 H, Est GFR (MDRD) Af Amer 18 L, Est GFR (MDRD) Non-Af 15 L, BUN/Creatinine Ratio 18.8, Glucose 97, Calcium 7.2 L, Total Bilirubin 0.40, Triglycerides 21 08/29/24 14:11: pH 7.49 H, Bicarbonate Actual 16.5 L, Base Excess -7 L, O2 Saturation 97, ABG pCO2 21.6 L, ABG pO2 78 08/29/24 15:29: APTT 127.0 H* 08/30/24 00:30: APTT 55.9 H 08/30/24 02:58: WBC 7.7, RBC 3.93 L, Hgb 11.4 L, Hct 34.5 L, MCV 87.8, MCH 29.0, MCHC 33.0, Plt Count 74 L, MPV 12.9 H, Immature Gran % (Auto) 1.600 H, Neut % (Auto) 74.2 H, Lymph % (Auto) 9.9 L, Scott % (Auto) 13.2 H, Eos % (Auto) 0.8, Baso % (Auto) 0.3, Absolute Neuts (auto) 5.7, Nucleated RBC % 0, Sodium 125 L, Potassium 5.4 H, Chloride 93 L, Carbon Dioxide 17.0 L, Anion Gap 15, BUN 68 H, Creatinine 4.07 H, Est GFR (MDRD) Af Amer 14 L, Est GFR (MDRD) Non-Af 11 L, BUN/Creatinine Ratio 16.7, Glucose 133 H, Calcium 6.5 L* Rhythm: EKG: ECHO: Stress Test: Cardiac Cath: PCI: CT Surgery: Holter monitor: EPS: PPM: CXR: Chest CT Scan: Radiography Diagnostic Testing: Radiology Impression Echocardiogram 08/29/24 02:49 Interpretation Summary Moderate focal aortic valve calcification. Mean aortic valve gradient 27 mmHg. Moderate aortic stenosis. Normal LV size. Left ventricular systolic function is normal. The left ventricular ejection fraction is 60 %. There is moderate to severe mitral annular calcification. Pacemaker lead in right atrium appears to be more echogenic than usual. Ordering Physician: Cory Marx Referring Physician: MORENO HERNANDEZ Performed By: Jaimie Pratt RCS Venous Doppler Study 08/29/24 06:15 Interpretation Summary Acute deep vein thrombosis is noted in the right soleus vein. Deep veins of the left lower extremity are patent and compressible segmentally. There is no evidence of left lower extremity deep vein thrombosis. Limited study due to dressing. Ordering Physician: Cory Marx Referring Physician: Moreno Hernandez Performed By: Laure Perez T X-Ray 08/29/24 09:22 IMPRESSION: The tip of the nasogastric tube is in the right lower lobe bronchus. Reading Location: [facility] X-Ray 08/29/24 12:00 IMPRESSION: The tip of the nasogastric tube is in the right lower lobe bronchus. Reading Location: [facility] X-Ray 08/29/24 12:05 IMPRESSION: There has been no change. Reading [facility] Chest X-Ray 08/29/24 13:06 IMPRESSION: No evidence of pneumothorax. The tip of the endotracheal tube is at 3.1 cm proximal the celia. The tip of the orogastric tube is seen just distal to the gastroesophageal junction. Left basilar atelectasis and/or infiltrate with blunting of the left costophrenic angle. Reading Location: [facility] KUB X-Ray 08/29/24 13:18 IMPRESSION: Multiple distended small bowel loops measuring up to 4.0 cm, concerning for at least a partial small bowel obstruction. Reading Location: [facility] Chest X-Ray 08/29/24 14:15 IMPRESSION: The tip of the orogastric tube is in the distal portion of the stomach. The remainder of the examination is unchanged. Reading Location: [facility] Physical Exam Const General Appearance: ill appearing and frail HEENT normocephalic and head/scalp atraumatic Eyes PERRL, EOMs intact bilaterally and conjunctivae normal Neck supple General: trachea midline Chest inspection of chest normal Resp Effort and Inspection: tachypneic Auscultation: diminished lung sounds; Negative for rales, rhonchi or wheezes Cardio S1 normal heart sound and S2 normal heart sound Rate: tachycardic GI GI Narrative: Abdomen is distended with diffuse tenderness to palpation. Extremity no clubbing, cyanosis or edema Skin no rashes or lesions noted Neuro CN's II-XII intact bilaterally and moves all extremities Psych Mood & Affect: flat affect Assessment & Plan Assessment/Plan (1) Elevated troponin: PLAN: Patient has a history of an elevated troponin. The above is likely secondary to demand ischemia. Patient does have a history of coronary bypass surgery echocardiogram demonstrates preserved left ventricular systolic function at this time with no wall motion abnormalities. I think that she has other major issues ongoing at this time which need to be tackled before any cardiac intervention is undertaken. Her creatinine is elevated and with her kidney transplant I am hesitant to use any contrast agents. Will discontinue intravenous heparin for now. She has no acute EKG changes. (2) History of coronary artery bypass surgery: PLAN: She does have evidence of coronary bypass surgery as noted above. We will manage this conservatively for now with intravenous heparin. (3) Benign hypertension: PLAN: Her blood pressure is actually low at this particular time and she may need Levophed. Will continue with supportive management. She did get some IV fluids yesterday. Perhaps this has helped with her heart rate. (4) Presence of permanent cardiac pacemaker: PLAN: She is status post permanent pacemaker implantation. This appears to be functioning well and I would not recommend we make any changes. Echocardiogram demonstrated good positioning but possibly will need a EBONY when transferred to a tertiary care facility for further evaluation of the above.
[2024-08-30] MEDS: Piperacil/Tazobactam 3.375 GM in 0.9% Normal Saline (50mL MB+) 50 ML IV ×2 (08:34→20:45)
[2024-08-30] MEDS: Pantoprazole Sodium 40 MG in 0.9% Normal Saline (100mL MB+) 100 ML 330 MG IV (08:35)
[2024-08-30] MEDS: Chlorhexidine 15 ML PO ×2 (08:45→20:43)
[2024-08-30 08:54] LABS: Allen Test Positive; Base Excess -16 mmol/L (-2 to +2); Bicarbonate 11.3 mmol/L (22-26); Blood Gas Specimen Type ART; Mode AC; O2 Delivery Device Adult Vent; PEEP 5; PO2 50 mmHG (75-100); RR 14; SITE R Brach; SO2 79 % (95-99); Total Carbon Dioxide 12 mmol/L; pCO2 27.1 mmHg (35-45); pH 7.23 (7.35-7.45)
--- NOTE | 2024-08-30 08:59 | PCM.RX.CS ---
Consult Antibiotic Management Pharmacy has been consulted to manage selected antibiotic: Vancomycin Type of Intervention Type of Consult: Follow-up Suspected Infection Suspected Infection: Sepsis Labs Labs: Sodium 125 mmol/L (136-145) L 08/30/24 02:58 Potassium 5.4 mmol/L (3.5-5.1) H 08/30/24 02:58 Chloride 93 mmol/L (98-107) L 08/30/24 02:58 Carbon Dioxide 17.0 mmol/L (21.0-32.0) L 08/30/24 02:58 Anion Gap 15 (5-15) 08/30/24 02:58 BUN 68 mg/dL (7-18) H 08/30/24 02:58 Creatinine 4.07 mg/dL (0.55-1.02) H 08/30/24 02:58 Est GFR (MDRD) Af Amer 14 mL/min (>60) L 08/30/24 02:58 Est GFR (MDRD) Non-Af 11 mL/min (>60) L 08/30/24 02:58 BUN/Creatinine Ratio 16.7 RATIO (10-20) 08/30/24 02:58 Glucose 133 mg/dL (74-106) H 08/30/24 02:58 Random Vancomycin 10.8 ug/mL (0.0-15.0) 08/30/24 02:58 Goal Trough Goal Trough: 15-20 mcg/mL Pharmacy Plan for Drug Dosing Pharmacy Plan for Drug Dosing: VANCOMYCIN LEVEL RECEIVED Current Vancomycin Dose: by level Number of Doses Received: 1000mg x1 Vancomycin Level: 10.8 Hours Since Last Dose: 37 Renal Function: sCr 4.07 Renal Function Trend: declined Vancomycin Plan/Comments: 500mg x1 dose now Pending Level: Random level @ 06:00 08/31/24 for further dosing Pharmacy Service will continue to monitor and adjust dosing as required. Follow-Up Labs Follow-Up Labs: Trough: Vancomycin (08/31/24 @ 06:00)
--- NOTE | 2024-08-30 09:03 | CT_ITS ---
PROCEDURE: BRAIN/HEAD WITHOUT CONTRAST REASON FOR EXAM: Sepsis. Prior renal transplant and pancreas transplant. TECHNIQUE: Multiple axial tomographic images were obtained without intravenous contrast administration. Coronal and sagittal reconstruction was obtained as well. IV CONTRAST: COMPARISON: Comparison is made with prior study dated August 28, 2024. FINDINGS: Mild to moderate degree of cerebral atrophy. Stable bilateral lacunar infarcts. Stable mild degree of bilateral periventricular white matter disease in keeping with a chronic small-vessel ischemic changes. Once again, there is calcification of the cerebral falx. CT/Brain/Head without Contrast IMPRESSION: Stable examination. No acute abnormality is seen. One or more dose reduction techniques were used (e.g., Automated exposure contr ol, adjustment of the mA and/or kV according to patient size, use of iterative reconstruction technique). Reading Location: [place] [address]
--- NOTE | 2024-08-30 09:15 | RAD_ITS ---
EXAM: XR Chest, 1 View CLINICAL INDICATION: TECHNIQUE: Frontal view of the chest. COMPARISON: XR Chest dated 08/29/2024 FINDINGS: LUNGS AND PLEURAL SPACES: Bibasilar atelectasis or pneumonia. No pneumothorax. HEART: Unremarkable. No cardiomegaly. MEDIASTINUM: Unremarkable. Normal mediastinal contour. BONES/JOINTS: Unremarkable. No acute fracture. TUBES, LINES AND DEVICES: Stable tubes and lines. Left-sided cardiac pacemaker. RAD/Chest 1 View (Portable) IMPRESSION: Bibasilar atelectasis or pneumonia. [facility]
[2024-08-30 09:35] LABS: AST(SGOT) 1399 U/L (15-37); Alanine Aminotransfer ALT/SGPT 943 U/L (13-56); Albumin, Serum 1.9 g/dL (3.2-5.0); Alkaline Phosphatase 29 U/L (45-117); Bilirubin, Direct 0.28 mg/dL (0.00-0.30); Globulin 2.4 g/dL (2.2-4.2); Lipase 983 U/L (13-75); Protein, Total 4.3 g/dL (6.4-8.2)
--- NOTE | 2024-08-30 09:44 | CASEMGMT ---
Social Work SW called pt's insurance, pt does not have out of network benefits. SW inquired if no in network facilities can take pt, is there another option. SW directed to form on [employer] Website that would need to be completed and sent in along w/clinical information and stating no in network facilities have a bed, in order to get a prior authorization. It is unclear if authoirzed how it would be covered. There is also the possibility to do a one time agreement by emailing [email or web address], however this would likely take longer. LIBERTY Kapadia
--- NOTE | 2024-08-30 09:55 | PN.SURG_ITS ---
Subjective Subjective Events noted, not responsive after decreasing sedation head CT negative, CPR performed pulse obtained. Still no official transfer bed available, NG put out 900 yesterday. Objective Data Objective Data Vital Signs: Vital Signs Temp Pulse Resp BP Pulse Ox O2 Del Method O2 Flow Rate 98.3 F 87 14 121/67 H 90 Mechanical Ventilator 35 08/30/24 09:00 08/30/24 09:00 08/30/24 09:00 08/30/24 09:00 08/30/24 09:00 08/30/24 09:00 08/29/24 19:00 FiO2 35 08/30/24 09:00 Oxygen Flow Rate (L/min) 35 Oxygen Delivery Method Mechanical Ventilator Weight: 105 lb 2.568 oz Body Mass Index (BMI) 21.2 Intake & Output: Intake and Output for Last 24 Hours 08/28/24 08/29/24 08/30/24 23:59 23:59 23:59 Intake Total 2049 4535.97 / 4640.12 1627.61 / 1627.61 Output Total 995 / 995 Balance 2049 4510.97 / 3675.12 632.61 / 632.61 Lab / Micro Data 08/30/24 02:58 08/30/24 02:58 Labs: Laboratory Results - last 24 hr 08/29/24 02:30: Hemoglobin A1c 5.3, Vitamin B12 1159 H 08/29/24 08:03: Differential Comment COMMENT, Diff Path Review May foll, Platelet Estimate MOD DEC, Total Creatine Kinase 850 H, Triglycerides 21 08/29/24 10:46: Ammonia 17.0, Blood Type O POSITIVE, Antibody Screen NEGATIVE 08/29/24 14:16: POC Glucose 44 L* 08/29/24 15:29: APTT 127.0 H* 08/29/24 15:31: POC Glucose 66 L 08/29/24 17:24: POC Glucose 91 08/29/24 19:35: POC Glucose 68 L 08/29/24 19:42: POC Glucose 105 08/29/24 22:22: POC Glucose 44 L* 08/29/24 23:11: POC Glucose 175 H 08/30/24 00:30: APTT 55.9 H, POC Glucose 140 H 08/30/24 02:18: POC Glucose 157 H 08/30/24 02:58: WBC 7.7, RBC 3.93 L, Hgb 11.4 L, Hct 34.5 L, MCV 87.8, MCH 29.0, MCHC 33.0, RDW Std Deviation 44.3 H, RDW Coeff of Jenny 13.9, Plt Count 74 L, MPV 12.9 H, Immature Gran % (Auto) 1.600 H, Neut % (Auto) 74.2 H, Lymph % (Auto) 9.9 L, Hidalgo % (Auto) 13.2 H, Eos % (Auto) 0.8, Baso % (Auto) 0.3, Absolute Neuts (auto) 5.7, Absolute Lymphs (auto) 0.76 L, Nucleated RBC % 0, Differential Comment SCANNED, Reactive Lymphocytes 1+, Platelet Estimate MKD DEC, Sodium 125 L, Potassium 5.4 H, Chloride 93 L, Carbon Dioxide 17.0 L, Anion Gap 15, BUN 68 H , Creatinine 4.07 H, Estim Creat Clear Calc 8.58, Est GFR (MDRD) Af Amer 14 L, E st GFR (MDRD) Non-Af 11 L, BUN/Creatinine Ratio 16.7, Glucose 133 H, Calcium 6.5 L*, Total Bilirubin 0.60, Direct Bilirubin 0.28, AST 1399 H, ALT 943 H, Alkaline Phosphatase 29 L, Total Protein 4.3 L, Albumin 1.9 L, Globulin 2.4, Lipase 983 H , Random Vancomycin 10.8 08/30/24 05:23: POC Glucose 139 H ABG Data ABG results: ABG 08/29/24 08/30/24 14:11 08:50 Specimen Type ART ART Sample Site R Brach R Brach pH 7.49 H 7.23 L Bicarbonate Actual 16.5 L 11.3 L Total CO2 17 12 Base Excess -7 L -16 L O2 Saturation 97 79 L O2 % 50.0 30.0 ABG pCO2 21.6 L 27.1 L ABG pO2 78 50 L Moody Test Positive Respiration Rate 14 14 O2 Delivery Device Adult Vent Adult Vent Vent Mode AC AC Tidal Volume 450.0 450.0 POC PEEP 5 5 Radiography Diagnostic Testing: Radiology Impression Echocardiogram 08/29/24 02:49 Interpretation Summary Moderate focal aortic valve calcification. Mean aortic valve gradient 27 mmHg. Moderate aortic stenosis. Normal LV size. Left ventricular systolic function is normal. The left ventricular ejection fraction is 60 %. There is moderate to severe mitral annular calcification. Pacemaker lead in right atrium appears to be more echogenic than usual. Ordering Physician: Cory Marx Referring Physician: MORENO HERNANDEZ Performed By: Jaimie Pratt RCS Venous Doppler Study 08/29/24 06:15 Interpretation Summary Acute deep vein thrombosis is noted in the right soleus vein. Deep veins of the left lower extremity are patent and compressible segmentally. There is no evidence of left lower extremity deep vein thrombosis. Limited study due to dressing. Ordering Physician: Cory Marx Referring Physician: Moreno Hernandez Performed By: Laure Perez RVT X-Ray 08/29/24 09:22 IMPRESSION: The tip of the nasogastric tube is in the right lower lobe bronchus. Reading Location: [facility] KUB X-Ray 08/29/24 12:00 IMPRESSION: The tip of the nasogastric tube is in the right lower lobe bronchus. Reading Location: [facility] KUB X-Ray 08/29/24 12:05 IMPRESSION: There has been no change. Reading Location: [facility] Chest X-Ray 08/29/24 13:06 IMPRESSION: No evidence of pneumothorax. The tip of the endotracheal tube is at 3.1 cm proximal the celia. The tip of the orogastric tube is seen just distal to the gastroesophageal junction. Left basilar atelectasis and/or infiltrate with blunting of the left costophrenic angle. Reading Location: [facility] KUB X-Ray 08/29/24 13:18 IMPRESSION: Multiple distended small bowel loops measuring up to 4.0 cm, concerning for at least a partial small bowel obstruction. Reading Location: [facility] Chest X-Ray 08/29/24 14:15 IMPRESSION: The tip of the orogastric tube is in the distal portion of the stomach. The remainder of the examination is unchanged. Reading [facility] 08/30/24 09:15 IMPRESSION: Bibasilar atelectasis or pneumonia. Reading Location: [facility] Physical Exam Narrative Intubated/sedated, mottled appearing upper torso Const General Appearance: ill appearing Resp Resp Narrative: On vent GI GI Narrative: Abdomen distended but soft Assessment & Plan Assessment/Plan (1) Small bowel obstruction: (2) Septic shock: (3) SELMA (acute kidney injury): (4) History of renal transplant: (5) Elevated troponin: (6) History of pancreas transplant: PLAN: Plan Patient is critically ill, prognosis guarded. NG in place put out 900 cc yesterday unsure if truly bowel obstruction versus high-grade ileus due to septic shock. Okay to use for meds. Await transfer bed availability. No plans for general surgery intervention. Annette Mclaughlin M.D. Pager: [phone] [facility] [address] [place] [address], [address] [place] [address] Office: [phone]
--- NOTE | 2024-08-30 10:00 | NURSING ---
0910- This RN, respiratory therapist and ELECTRICAL SYSTEMS DESIGNER transferring patient to CT scan at this time. 919- Arrived in radiology, patient pulled over to CT cot via multiple staff members assisting, CT of head obtained vitals remained stable. 36- Patient pulled over to ICU bed to transfer back to ICU, heart rate maintaining in the 80s 0939- monitor alarming asystole, this RN able to palpate a carotid pulse 0941- no pulse, CPR started and code blue called- see code documentation
[2024-08-30] MEDS: Dextrose 10%-Water 250 ML 125 ML IV ×7 (10:10→23:00)
--- NOTE | 2024-08-30 10:12 | CASEMGMT ---
Per Dr. Forte, the dance instructor recently got off the phone with [facility] as they are working on pt transfer. If pt requires transfer to be expedited, this RN CM expanded the provider search to a 100 mile radius. The following facilities are [facility]-network [facility]: [facility], [facility], [facility], [facility], [facility], [facility], [facility], [facility], [facility], [facility], [facility], [facility], [facility], [facility], [facility], [facility], [facility], [facility], [facility], [facility], [facility], [facility], [facility], [facility], [facility], [facility], [facility], [facility], [facility], [facility], [facility], and [facility]. Bee VARELA RN, CM
--- NOTE | 2024-08-30 10:27 | CPS ---
jessica villa called during CT, pt was already intubated prior to CT scan
[2024-08-30] MEDS: Sodium Bicarbonate 150 MEQ in Dextrose 5%-Water (1000mL Bag) 1,000 ML IV ×2 (10:28→17:45)
[2024-08-30] MEDS: Vancomycin IV 500 MG/100 ML BAG 100 MG IV (10:29)
[2024-08-30] MEDS: HEPARIN/D5w 25,000 UNITS 25,000 UNITS/250 ML IV.SOLN. 2.5 UNITS CONT INF (10:49)
[2024-08-30 10:57] LABS: Bedside Glucose 272 mg/dL (74-106)
[2024-08-30] MEDS: Hydrocortisone Sod Succinate 100 MG/2 ML Vial 50 MG IV ×3 (11:43→23:00)
[2024-08-30] MEDS: Norepinephrine 8 MG in 0.9% Normal Saline (250mL Bag) 242 ML 56.3 MG CONT INF ×2 (12:02→16:58)
--- NOTE | 2024-08-30 12:47 | CHAPLAIN ---
Type of Pastoral Visit ___ Initial Visit _x__ Follow-up Visit ___ On-call Visit ___ General Patient Visit ___ Spiritual Assessment ___ Family Conference ___ Bereavement ___ Rapid Response ___ Code Blue ___ Other (describe below) Pastoral Care Referral From ___ Patient ___ Family _x__ Nurse ___ Physician ___ Bobbin Painter ___ Payable Manager ___ Other (describe below) Sacrament/Intervention _x__ Active listening ___ Anointing ___ Jain ___ Bereavement ___ Communion ___ Rufina exploration ___ ___ Life review ___ Prayer ___ Reconciliation ___ Sacrament of Sick _x__ Supportive presence ___ Wedding ___ Other (describe below) Pastoral Comments Supervising nurse advised this superintendent communications to check in at ICU and RN for this patient; pt was a code blue earlier this morning and is very critical; spouse and son are present as team continues to provide care and stabilize the patient; DR and son talk in the hallway and this superintendent communications approaches to offer support; son begins a conversation with this superintendent communications after DR is finished with his information; son acknowledges that much of this situation is up to God's determination and that he himself has experienced God's healing when he was sick; son acknowledged work of spiritual care and welcomed the support but recommended that the spouse of patient be given private time in the room for now; this superintendent communications has consulted with RN and and will continue to be available on the unit for spiritual care and intervention
--- NOTE | 2024-08-30 12:54 | PN.RENAL_ITS ---
Subjective Subjective Events noted. She remains intubated. Pressor dependent. Had a brief cardiac arrest this morning, status post ROSC. This was a PEA arrest. She had a DVT. Likely related to PE. Currently on heparin drip. Lipase levels are somewhat better. Creatinine worsening. Anuric. Objective Data Objective Data Vital Signs: Vital Signs Temp Pulse Resp BP Pulse Ox O2 Del Method O2 Flow Rate 98.3 F 79 25 H 102/56 L 99 Mechanical Ventilator 35 08/30/24 09:00 08/30/24 12:02 08/30/24 12:02 08/30/24 12:30 08/30/24 12:02 08/30/24 12:02 08/29/24 19:00 FiO2 70 08/30/24 12:02 Oxygen Flow Rate (L/min) 35 Oxygen Delivery Method Mechanical Ventilator Weight: 47.7 kg Body Mass Index (BMI) 21.2 Intake & Output: Intake and Output for Last 24 Hours 08/28/24 08/29/24 08/30/24 23:59 23:59 23:59 Intake Total 2049 4535.97 / 4640.12 2320.76 / 2320.76 Output Total 1260 / 1260 Balance 2049 4510.97 / 3675.12 1060.76 / 1060.76 Lab / Micro Data 08/30/24 02:58 08/30/24 02:58 Labs: Laboratory Results - last 24 hr 08/29/24 02:30: Hemoglobin A1c 5.3 08/29/24 08:03: Total Creatine Kinase 850 H, Triglycerides 21 08/29/24 14:16: POC Glucose 44 L* 08/29/24 15:29: APTT 127.0 H* 08/29/24 15:31: POC Glucose 66 L 08/29/24 17:24: POC Glucose 91 08/29/24 19:35: POC Glucose 68 L 08/29/24 19:42: POC Glucose 105 08/29/24 22:22: POC Glucose 44 L* 08/29/24 23:11: POC Glucose 175 H 08/30/24 00:30: APTT 55.9 H, POC Glucose 140 H 08/30/24 02:18: POC Glucose 157 H 08/30/24 02:58: WBC 7.7, RBC 3.93 L, Hgb 11.4 L, Hct 34.5 L, MCV 87.8, MCH 29.0, MCHC 33.0, RDW Std Deviation 44.3 H, RDW Coeff of Jenny 13.9, Plt Count 74 L, MPV 12.9 H, Immature Gran % (Auto) 1.600 H, Neut % (Auto) 74.2 H, Lymph % (Auto) 9.9 L, [place] % (Auto) 13.2 H, Eos % (Auto) 0.8, Baso % (Auto) 0.3, Absolute Neuts (auto) 5.7, Absolute Lymphs (auto) 0.76 L, Nucleated RBC % 0, Differential Comment SCANNED, Reactive Lymphocytes 1+, Platelet Estimate MKD DEC, Sodium 125 L, Potassium 5.4 H, Chloride 93 L, Carbon Dioxide 17.0 L, Anion Gap 15, BUN 68 H , Creatinine 4.07 H, Estim Creat Clear Calc 8.58, Est GFR (MDRD) Af Amer 14 L, E st GFR (MDRD) Non-Af 11 L, BUN/Creatinine Ratio 16.7, Glucose 133 H, Calcium 6.5 L*, Total Bilirubin 0.60, Direct Bilirubin 0.28, AST 1399 H, ALT 943 H, Alkaline Phosphatase 29 L, Total Protein 4.3 L, Albumin 1.9 L, Globulin 2.4, Lipase 983 H , Random Vancomycin 10.8 08/30/24 05:23: POC Glucose 139 H 08/30/24 10:37: POC Glucose 272 H Micro: Microbiology 08/29/24 14:00 Sputum, Induced/Lukens Gram Stain - Final 08/29/24 14:00 Sputum, Induced/Lukens Respiratory Culture - Preliminary Culture exhibits no growth. ABG Data ABG results: ABG 08/29/24 08/30/24 14:11 08:50 Specimen Type ART ART Sample Site R Brach R Brach pH 7.49 H 7.23 L Bicarbonate Actual 16.5 L 11.3 L Total CO2 17 12 Base Excess -7 L -16 L O2 Saturation 97 79 L O2 % 50.0 30.0 ABG pCO2 21.6 L 27.1 L ABG pO2 78 50 L Moody Test Positive Respiration Rate 14 14 O2 Delivery Device Adult Vent Adult Vent Vent Mode AC AC Tidal Volume 450.0 450.0 POC PEEP 5 5 Radiography Diagnostic Testing: Radiology Impression Echocardiogram 08/29/24 02:49 Interpretation Summary Moderate focal aortic valve calcification. Mean aortic valve gradient 27 mmHg. Moderate aortic stenosis. Normal LV size. Left ventricular systolic function is normal. The left ventricular ejection fraction is 60 %. There is moderate to severe mitral annular calcification. Pacemaker lead in right atrium appears to be more echogenic than usual. Ordering Physician: Cory Marx Referring Physician: MORENO NEAL Performed By: Jaimie Pratt RCS Chest X-Ray 08/29/24 13:06 IMPRESSION: No evidence of pneumothorax. The tip of the endotracheal tube is at 3.1 cm proximal the celia. The tip of the orogastric tube is seen just distal to the gastroesophageal junction. Left basilar atelectasis and/or infiltrate with blunting of the left costophrenic angle. Reading Location: [facility] KUB X-Ray 08/29/24 13:18 IMPRESSION: Multiple distended small bowel loops measuring up to 4.0 cm, concerning for at least a partial small bowel obstruction. Reading Location: [facility] Chest X-Ray 08/29/24 14:15 IMPRESSION: The tip of the orogastric tube is in the distal portion of the stomach. The remainder of the examination is unchanged. Reading Location: [facility] 08/30/24 09:03 IMPRESSION: Stable examination. No acute abnormality is seen. One or more dose reduction techniques were used (e.g., Automated exposure control, adjustment of the mA and/or kV according to patient size, use of iterative reconstruction technique). Reading Location: [facility] Chest X-Ray 08/30/24 09:15 IMPRESSION: Bibasilar atelectasis or pneumonia. Reading Location: [facility] Physical Exam Narrative Intubated S1, S2, RRR Abdomen soft, nontender No edema Indwelling Campbell with yellow urine in tubing Nonfunctioning AV graft left forearm Assessment & Plan Assessment/Plan (1) History of end stage renal disease: (2) Septic shock: (3) SELMA (acute kidney injury): (4) History of kidney transplant: (5) History of pancreas transplant: PLAN: Plan 74-year-old female with history of kidney followed by pancreas transplant. Baseline creatinine mid ones. Came in with what looks like severe sepsis, septic shock. Has acute renal failure which presumably is ATN related from septic shock. History of pancreatic transplant. Reviewed records from [facility]. Her amylase level levels have been slightly on the higher side for several months now. Lipase was normal. She came with a lipase of 3000, better at 900 today. Hepatitis, likely ischemic hepatitis DVT with suspected PE. Heparin drip was initially held due to thrombocytopenia but now resumed due to a PEA arrest this morning History of immunosuppression, tacrolimus, mycophenolate. No prednisone. I did hold her mycophenolate due to suspected septic shock. Tacrolimus at home dose. Acidosis. Due to renal failure. Currently on bicarbonate drip. Overall significantly net positive since admission. Blood cultures are negative so far. Viral titers sent will likely take some time to come back. Tacrolimus levels pending. Discussed with ICU attending. Add antifungal coverage since cultures are still negative. Extensive discussion with family at bedside. Critically ill. I spoke to transplant nephrology at [facility] yesterday. There was no beds available at [facility], she was supposedly on wait list for [facility]. No news on bed availability yet. I am not sure if she is stable enough for transportation at this point. Will discuss with ICU about logistics. I did send a message to transplant nephrology and updated them about her current condition. All questions answered
[2024-08-30] MEDS: Tacrolimus Anhydrous 1 MG Capsule PO ×2 (13:20→20:45)
[2024-08-30 13:21] LABS: Bedside Glucose 47 mg/dL (74-106)
[2024-08-30 13:21] LABS: Bedside Glucose 60 mg/dL (74-106)
[2024-08-30 13:31] LABS: Partial Thromboplast Time 59.3 Seconds (24.1-36.2)
--- NOTE | 2024-08-30 13:51 | NURSING ---
called [place] transfer line, still no bed available at this time
[2024-08-30 13:58] LABS: Pathologist Review Reviewed
[2024-08-30 14:37] LABS: Bedside Glucose 241 mg/dL (74-106)
--- NOTE | 2024-08-30 14:42 | CHAPLAIN ---
Type of Pastoral Visit ___ Initial Visit _x__ Follow-up Visit ___ On-call Visit ___ General Patient Visit ___ Spiritual Assessment ___ Family Conference ___ Bereavement ___ Rapid Response ___ Code Blue ___ Other (describe below) Pastoral Care Referral From ___ Patient _x__ Family ___ Nurse ___ Physician ___ Senior Cobol Developer ___ Parachute Panel Joiner ___ Other (describe below) Sacrament/Intervention _x__ Active listening ___ Anointing ___ Sikhism ___ Bereavement ___ Communion ___ Rufina exploration ___ ___ Life review _x__ Prayer ___ Reconciliation ___ Sacrament of Sick _x__ Supportive presence ___ Wedding ___ Other (describe below) Pastoral Comments entered room to find patient still on the vent and unresponsive; spouse and son are at the bedside; offer of support given; spouse talks about the difficult situation of his and that when he left today he was called back due to patient coded; pt was revived and spouse has been at bedside continually since then; spouse acknowledges that it is a tough decision about transferring pt in hopes of a different treatment or care and that of less risk of keeping her here; spouse shows comprehension that pt is in a very critical position and that this is out of his hands; offer of presence and prayer given to spouse and son; spouse welcomes prayer and sheds a few tears; prayer is given and spouse expresses thanks for the compassion shown and the offering of support;
--- NOTE | 2024-08-30 14:45 | CASEMGMT ---
Social Work SW spoke w/pt's and son Jassi in room, offered support. Pt's states they have been for 54 years. SW remains available for support to family as needed. LIBERTY Kapadia
--- NOTE | 2024-08-30 16:20 | NURSING ---
and son at bedside requesting to speak with Dr. Forte regarding risks of transfer. This RN called Dr. Forte and informed him of this request, he stated he spoke with family in depth earlier today and they are aware the risk is her dying in transport or at [facility]. Family adamant on speaking with Dr. Forte, this RN communicated that he is unavailable at this time and I reached out to Dr. Peña to speak with them. stated I don't feel that Dr. Peña has been very hands on with this patient and would rather speak with Dr. Forte. Dr. Peña called the floor and stated If family wants to speak with Dr. Forte then he needs to talk with them, if they want to speak with me I could come up. Laney Winston, fundraising manager, called at this time and spoke with and son in depth on patient status and risks of transfer. Decision was made to not transfer patient to [facility]. Dr. Peña and Dr. Forte made aware of this decision.
--- NOTE | 2024-08-30 16:22 | PN_ITS ---
Subjective Subjective Patient seen and examined. Patient had a CODE BLUE called while she was down getting a CT of the brain today. She was resuscitated per ACLS protocol. She was in PEA and eventually ROSC was achieved. She was sent back to the ICU. Patient remains intubated and sedated. Patient is minimally responsive. We are still awaiting transfer to [facility]. Critical care doctor in my presence spoke extensively to patient's and son about the poor prognosis and the difficulty were having with transfer. Critical care doctor had called [facility] again to try to escalate to the transfer. He was able to speak to the critical care doctor at [facility] and they were trying to make efforts to facilitate the transfer. Objective Data Objective Data Vital Signs: Vital Signs Temp Pulse Resp BP Pulse Ox O2 Del Method O2 Flow Rate 96.7 F L 93 24 H 99/56 L 97 Mechanical Ventilator 35 08/30/24 14:00 08/30/24 15:56 08/30/24 15:14 08/30/24 14:00 08/30/24 15:14 08/30/24 14:00 08/29/24 19:00 FiO2 60 08/30/24 15:14 Oxygen Flow Rate (L/min) 35 Oxygen Delivery Method Mechanical Ventilator Weight: 105 lb 2.568 oz Body Mass Index (BMI) 21.2 Intake & Output: Intake and Output for Last 24 Hours 08/28/24 08/29/24 08/30/24 23:59 23:59 23:59 Intake Total 2049 4535.97 / 4640.12 2740.77 / 2740.77 Output Total 1290 / 1290 Balance 2049 4510.97 / 3675.12 1450.77 / 1450.77 Lab / Micro Data 08/30/24 02:58 08/30/24 02:58 Labs: Laboratory Results - last 24 hr 08/29/24 08:03: Diff Path Review Reviewed 08/29/24 15:29: APTT 127.0 H* 08/29/24 17:24: POC Glucose 91 08/29/24 19:35: POC Glucose 68 L 08/29/24 19:42: POC Glucose 105 08/29/24 22:22: POC Glucose 44 L* 08/29/24 23:11: POC Glucose 175 H 08/30/24 00:30: APTT 55.9 H, POC Glucose 140 H 08/30/24 02:18: POC Glucose 157 H 08/30/24 02:58: WBC 7.7, RBC 3.93 L, Hgb 11.4 L, Hct 34.5 L, MCV 87.8, MCH 29.0, MCHC 33.0, RDW Std Deviation 44.3 H, RDW Coeff of Jenny 13.9, Plt Count 74 L, MPV 12.9 H, Immature Gran % (Auto) 1.600 H, Neut % (Auto) 74.2 H, Lymph % (Auto) 9.9 L, Terrell % (Auto) 13.2 H, Eos % (Auto) 0.8, Baso % (Auto) 0.3, Absolute Neuts (auto) 5.7, Absolute Lymphs (auto) 0.76 L, Nucleated RBC % 0, Differential Comment SCANNED, Reactive Lymphocytes 1+, Platelet Estimate MKD DEC, Sodium 125 L, Potassium 5.4 H, Chloride 93 L, Carbon Dioxide 17.0 L, Anion Gap 15, BUN 68 H , Creatinine 4.07 H, Estim Creat Clear Calc 8.58, Est GFR (MDRD) Af Amer 14 L, E st GFR (MDRD) Non-Af 11 L, BUN/Creatinine Ratio 16.7, Glucose 133 H, Calcium 6.5 L*, Total Bilirubin 0.60, Direct Bilirubin 0.28, AST 1399 H, ALT 943 H, Alkaline Phosphatase 29 L, Total Protein 4.3 L, Albumin 1.9 L, Globulin 2.4, Lipase 983 H , Random Vancomycin 10.8 08/30/24 05:23: POC Glucose 139 H 08/30/24 07:51: POC Glucose 47 L 08/30/24 07:53: POC Glucose 60 L 08/30/24 10:37: POC Glucose 272 H 08/30/24 12:40: APTT 59.3 H 08/30/24 14:15: POC Glucose 241 H Micro: Microbiology 08/28/24 13:10 Blood Culture (Wb) - Right Wrist Blood Culture - Preliminary No growth in 48 hours. 08/28/24 13:10 Blood Culture (Wb) - Anticubital Right Blood Culture - Preliminary No growth in 48 hours. 08/29/24 14:00 Sputum, Induced/Lukens Gram Stain - Final 08/29/24 14:00 Sputum, Induced/Lukens Respiratory Culture - Preliminary Culture exhibits no growth. ABG Data ABG results: ABG 08/30/24 08:50 Specimen Type ART Sample Site R Brach pH 7.23 L Bicarbonate Actual 11.3 L Total CO2 12 Base Excess -16 L O2 Saturation 79 L O2 % 30.0 ABG pCO2 27.1 L ABG pO2 50 L Moody Test Positive Respiration Rate 14 O2 Delivery Device Adult Vent Vent Mode AC Tidal Volume 450.0 POC PEEP 5 Radiography Diagnostic Testing: Radiology Impression Brain CT 08/30/24 09:03 IMPRESSION: Stable examination. No acute abnormality is seen. One or more dose reduction techniques were used (e.g., Automated exposure control, adjustment of the mA and/or kV according to patient size, use of iterative reconstruction technique). Reading Location: [facility]-1 Chest X-Ray 08/30/24 09:15 IMPRESSION: Bibasilar atelectasis or pneumonia. Reading Location: [facility] Physical Exam Const Constitutional Narrative: patient intubated, sedated, RASS score is -4. HEENT normocephalic, head/scalp atraumatic and hearing grossly normal bilaterally Eyes PERRL and EOMs intact bilaterally Neck no lymphadenopathy and supple Lymph Lymphatic: no lymphadenopathy noted Resp Resp Narrative: intubated, sedated, diminished breath sounds bibasally, no wheezes or crackles. Cardio regular rate, regular rhythm, S1 normal heart sound, S2 normal heart sound and no murmurs GI GI Narrative: abdomen moderately distended, generalised tenderness to palpation. No guarding or rebound tenderness. Extremity General Extremity: no tenderness to palpation of joints or extremities Skin Skin Narrative: Patient looks very pale and skin is mottled. Neuro no focal motor deficits and no sensory deficits noted Neuro Narrative: patient intubated, sedated, RASS score is -4 Assessment & Plan Assessment/Plan (1) Elevated troponin: (2) Acute metabolic encephalopathy: (3) SELMA (acute kidney injury): (4) D-dimer, elevated: PLAN: Plan #Acute cardiopulmonary arrest * Patient was found to be minimally responsive today and so CT of the brain was ordered. Was patient was down getting the CT of the brain she went into PEA and a CODE BLUE was called early this morning. * She was aggressively resuscitated per ACLS protocol and had several rounds of epinephrine and also received bicarb ampule. ROSC was eventually obtained and patient transferred back to the ICU. She remains intubated; despite sedation being turned off patient was minimally responsive. * CT of the brain still showed stable examination with stable bilateral lacunar infarcts. * Chest x-ray showed bilateral atelectasis or pneumonia. * Remains intubated and sedated. However ASA score is -4. * Critical care doctor spoke extensively to family about poor prognosis and the fact that patient could even during transport to tertiary care facility. Critical care doctor did call [facility] transfer line and spoke to the conservation or heritage architect at [facility] in the bed to escalate to the transfer. * Heparin drip was resumed due to concerns that patient could have had a PE as duplex yesterday did not show evidence of DVT. Even though the concern is for bleeding due to her thrombocytopenia, heparin drip still resumed. * Prognosis remains very poor. #Septic shock * Lactic acid was elevated at 5.7. She was also hypothermic on admission and had elevated WBC. * On IV Zosyn and Zyvox. ID on board. Vancomycin stopped due to severe kidney impairment. * Critical care on board. * She did have NG tube inserted. She had to be intubated for the NG tube to be inserted successfully. General surgery on board and she had 900 cc output yesterday. General surgery therefore unsure if this is truly bowel obstruction versus high-grade ID was due to the septic shock. No plans for general surgery intervention. #Acute pancreatitis in the setting of prior pancreatectomy with pancreas transplant * Patient's lipase was elevated at 3395. On tacrolimus and mycophenolate. * CT of the abdomen and pelvis showed poor imaging of the pancreas and there is concern for possible rejection. She was admitted with incessant nausea and vomiting. * Been hydrated aggressively with IV fluids. Patient awaiting transfer to [facility] system * Trend lipase. Currently NPO. Thiazides also on hold. * #SELAM with anion gap metabolic acidosis * Creatinine was 3.26 on admission. Her baseline is around 1.4. * She does have a history of right renal transplant in 2023. Trend creatinine. CT of the abdomen and pelvis showed no evidence of obstructive uropathy. * Creatinine is 3.29 today. HCTZ and lisinopril on hold. * Nephrology consulted. * Now on bicarb drip. Nephrology on board. Management as per nephrology. * Also hyperkalemic with potassium of 5.4. Bicarb is 17 today and creatinine is gone up to 4.07. #Hypocalcemia: * #Hypercalcemia: Calcium is down to 6.5 today. Management as per nephrology. #Pancytopenia: * Platelets are 75 today with hemoglobin of 10.6 and WBC is up to 7.7. * Will monitor closely and if platelet continues to drop will consider stopping heparin drip. * likely related to acute illness * #Non-STEMI * Creatinine trended up and peaked at thousand 202 consistent with non-STEMI. * 2D done showed moderate aortic stenosis with EF of 60% and pacemaker leads in the right atrium as well as moderate to severe mitral annular calcification. * #Elevated D-dimer * D-dimer was markedly elevated at over 8. There was concern for PE but in light of the severe SELMA she could not have a CT of the chest. * Remains on heparin drip. Duplex of lower extremities did show evidence of DVT * Critical care on board. #Benign essential hypertension: Lisinopril hydrochlorothiazide on hold due to SELMA and pancreatitis. Amlodipine and carvedilol also held due to septic shock. #History of osteoarthritis: S/p cervical fusion. On oxycodone as needed #Hyperlipidemia: On statin #History of sinus arrhythmia: S/p pacemaker insertion in 2021. Stable #Depression: Duloxetine helped due to patient's current medical condition. #DVT prophylaxis: on heparin drip Disposition: * Prognosis remains very poor. As stated critical care doctor did call [facility] transfer line to try to escalate the transfer. Patient still awaiting transfer. She was initially accepted at [facility] ICU. I was informed this afternoon that the transfer line had called and the physician from [facility] ICU had spoken to the ICU nurse and based on the change in the patient's clinical status decision made to transfer her to main campus. The plan was that they would hopefully have a bed tonight. Patient's family however later requested to speak to the critical care doctor about the risk versus the benefits of transfer. Per the nurse, the ICU professor of nursing spoke to the patient's family together with the nurse about the risk for transfer. Family have not decided not to transfer patient and to keep her in the hospital. If by tomorrow she still in her current state, family will then consider hospice. Family wanted to remain full code for now. * Charges/Coding Visit Charges Inpatient E&M: 51764 Subs Hosp L3
--- NOTE | 2024-08-30 16:44 | CHAPLAIN ---
Type of Pastoral Visit ___ Initial Visit _x__ Follow-up Visit ___ On-call Visit ___ General Patient Visit ___ Spiritual Assessment ___ Family Conference ___ Bereavement ___ Rapid Response ___ Code Blue ___ Other (describe below) Pastoral Care Referral From ___ Patient ___ Family _x__ Nurse ___ Physician ___ Insurance Customer Service Specialist ___ Clean Up Person ___ Other (describe below) Sacrament/Intervention _x__ Active listening ___ Anointing ___ Voodoo ___ Bereavement ___ Communion ___ Rufina exploration ___ ___ Life review ___ Prayer ___ Reconciliation ___ Sacrament of Sick _x__ Supportive presence ___ Wedding ___ Other (describe below) Pastoral Comments third visit today at conclusion of shift; family is discussing options for treatment, transfer, or hospice care; made available to grandchildren who had arrived and gave understanding of room and what was taking place; offered presence to family; spouse says that family needs time alone for now but he appreciates the kindness and concern shown
--- NOTE | 2024-08-30 18:56 | NURSING ---
[facility] notified of cancelling transfer.
[2024-08-30 19:21] LABS: Partial Thromboplast Time 61.2 Seconds (24.1-36.2)
[2024-08-30] MEDS: Norepinephrine 8 MG in 0.9% Normal Saline (250mL Bag) 242 ML 46.9 MG CONT INF (21:30)
[2024-08-30 22:24] LABS: Bedside Glucose 201 mg/dL (74-106)
[2024-08-31] VITALS (30 sets, daily range): BP systolic 86–134; BP diastolic 53–66; PULSE 60–92; RESP 14–22; TEMP 37.2–38; O2SAT 91–100; BMI 25.0
[2024-08-31] MEDS: Sodium Bicarbonate 150 MEQ in Dextrose 5%-Water (1000mL Bag) 1,000 ML IV ×3 (01:12→16:20)
[2024-08-31] MEDS: Dextrose 10%-Water 250 ML 125 ML IV ×7 (01:13→14:57)
[2024-08-31 02:10] LABS: Absolute Lymphocyte Count 0.33 X10^3/uL (0.83-4.51); Absolute Neutrophil Count 8.9 X10^3/uL (2.0-7.7); Basophil# 0.01 X10^3/uL; Basophil% 0.1 % (0-1); Hematocrit 26.2 % (37-47); Hemoglobin 8.7 g/dL (12.0-15.0); Lymphocyte # 0.33 X10^3/ul (0.83-4.51); Lymphocyte % 3.1 % (19-41); Mean Corp Hgb Conc 33.2 g/dL (32-36); Mean Corpuscular Hgb 28.7 pg (27.0-32.0); Mean Corpuscular Volume 86.5 fL (81-99); Mean Platelet Vol. 12.3 fl (6.2-12.0); Monocyte# 1.23 X10^3/uL; Monocyte% 11.4 % (0-10); NRBC Flagged by Analyzer 0.5 % (0-5); Neutrophil # 8.92 X10^3/uL (2.7-7.7); POSITIVE COUNT YES; POSITIVE DIFFERENTIAL YES; POSITIVE MORPHOLOGY YES; RBC Distribution Width CV 13.7 % (11.6-14.6); RBC Distribution Width SD 42.9 fl (35.1-43.9); Red Blood Count 3.03 M/mm3 (4.2-5.4); White Blood Count 10.8 K/mm3 (4.4-11.0)
[2024-08-31 02:24] LABS: Vancomycin, Random Level 15.7 ug/mL (0.0-15.0)
[2024-08-31 02:27] LABS: Partial Thromboplast Time 67.2 Seconds (24.1-36.2)
[2024-08-31 02:40] LABS: Differential Indicated SCAN CRITERIA MET; Platelet Count 50 K/mm3 (150-450)
[2024-08-31 02:52] LABS: Anion Gap 19 (5-15); BUN 68 mg/dL (7-18); BUN/Creat Ratio 16.1 RATIO (10-20); Calcium,Total 5.1 mg/dL (8.5-10.1); Chloride 78 mmol/L (98-107); Creatinine, Serum 4.23 mg/dL (0.55-1.02); EST Glomerular Filtration Rate 11 mL/min (>60); Est Glom Filt Rate - Afr Amer 13 mL/min (>60); Estimated Creatinine Clearance 8.25 ml/min; Glucose 178 mg/dL (74-106); Sodium Level 116 mmol/L (136-145)
--- NOTE | 2024-08-31 03:05 | PCM.HOSP.N ---
Hospitalist Note Patient with early a.m. labs with significant disturbances with sodium 116, potassium 6.0 not noted to be hemolyzed, BUN/creatinine 68/4.23, calcium 5.1, unfortunately possibility of ileus versus bowel obstruction does not Kayexalate candidate, will very cautiously administer insulin with continue dextrose drip given previous episodes of hypoglycemia, give additional 1 L normal saline bolus now and likely will need additional maintenance fluids in addition to dextrose, administer albuterol x 1 in addition to calcium gluconate with repeat BMP to assure improvement.
[2024-08-31] MEDS: 0.9% Saline Lock 10 ML Syringe IV ×3 (03:18→12:15)
[2024-08-31] MEDS: 0.9% Normal Saline (1000mL) 1,000 ML 999 ML IV (03:18)
[2024-08-31] MEDS: Vasopressin 20 UNITS in 0.9% Normal Saline (50mL Bag) 24 ML 3 UNITS CONT INF ×2 (03:19→14:58)
[2024-08-31 03:37] LABS: Differential Comment SCANNED; Platelet Estimate MKD DEC (ADEQ); Toxic Granulation 2+
[2024-08-31] MEDS: Albuterol 2.5 MG/3 ML VIAL.NEB. INHALATION (03:50)
[2024-08-31] MEDS: Insulin Lispro 100 UNIT/ML VIAL (ADMELOG) IV (04:37)
[2024-08-31] MEDS: Calcium Gluconate IV 2 GM in 0.9% Normal Saline (100mL Bag) 100 ML IV (04:37)
[2024-08-31] MEDS: Hydrocortisone Sod Succinate 100 MG/2 ML Vial 50 MG IV ×2 (04:38→12:13)
[2024-08-31] MEDS: Norepinephrine 8 MG in 0.9% Normal Saline (250mL Bag) 242 ML 28.1 MG CONT INF ×2 (04:42→14:57)
[2024-08-31] MEDS: CHLORHEXIDINE GLUC 2% CLOTH 1 EACH TOWELETTE TOPICAL (05:16)
[2024-08-31 06:29] LABS: Bedside Glucose 209 mg/dL (74-106)
[2024-08-31 07:20] LABS: Anion Gap 19 (5-15); BUN 62 mg/dL (7-18); BUN/Creat Ratio 15.2 RATIO (10-20); Calcium,Total 5.4 mg/dL (8.5-10.1); Chloride 79 mmol/L (98-107); Creatinine, Serum 4.09 mg/dL (0.55-1.02); EST Glomerular Filtration Rate 11 mL/min (>60); Est Glom Filt Rate - Afr Amer 14 mL/min (>60); Estimated Creatinine Clearance 9.34 ml/min; Glucose 163 mg/dL (74-106); Potassium 5.5 mmol/L (3.5-5.1); Sodium Level 116 mmol/L (136-145)
--- NOTE | 2024-08-31 07:42 | PCM.PN.INT ---
Assessment & Plan Assessment/Plan (1) Sepsis: QUALIFIERS: Sepsis type: sepsis due to unspecified organism Sepsis acute organ dysfunction status: with acute organ dysfunction Severe sepsis acute organ dysfunction type: acute renal failure Acute renal failure type: unspecified Severe sepsis shock status: without septic shock Qualified Code(s): A41.9 - Sepsis, unspecified organism; R65.20 - Severe sepsis without septic shock; N17.9 - Acute kidney failure, unspecified PLAN: Plan RECOMMENDATIONS: 1. Continue current supportive measures until arrival of additional family members, at which time, terminal extubation and initiation of comfort care measures will be undertaken. IMPRESSIONS: 1. Septic shock with multisystem organ failure The patient presented to the hospital with sepsis due to suspected pneumonia with acute sepsis related organ dysfunction as evidenced by acute kidney injury, altered mental status, hypotension requiring vasopressor support and lactic acidemia. The patient did receive supplemental IV fluid resuscitation, per protocol, but remained hemodynamically unstable and was subsequently placed on vasopressor support. Plan to continue empiric antimicrobials. In addition to the aforementioned, the patient does have evidence of acute pancreatitis of unclear etiology. 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 Tacrolimus level is pending. Recommend continuing Prograf via OG tube, if feasible. 2. Acute hypoxemic respiratory failure/PEA cardiac arrest Most likely secondary to underlying pneumonia and inability to compensate for profound metabolic derangements. Plan to continue assist-control mode of mechanical ventilation. Continue to wean FiO2 and PEEP as tolerated. On August 30, the patient did experience a brief PEA cardiac arrest. Given that she was noted to have lower extremity DVT on Doppler study yesterday, it is certainly feasible that the patient may also have a pulmonary embolism. However, her underlying renal function would preclude our ability to obtain a CTA chest. Therefore, we will plan to continue a weight-based heparin infusion, despite her thrombocytopenia. 3. Lower extremity DVT Continue weight-based heparin infusion. 4. Ischemic hepatitis Most likely secondary to poor perfusion state in the setting of #1. Continue current supportive measures. 5. Abdominal distention with questionable early SBO versus ileus Orogastric tube was placed on August 29 with improvement noted on follow-up imaging. General surgery is following with concern for bowel obstruction versus high-grade ileus due to septic shock. Continue current supportive care. 6. Toxic/metabolic encephalopathy Likely multifactorial. Initially felt to be the consequence of presenting septic shock. However, the patient has continued to decline clinically. While CT head did not reveal any acute findings, the nystagmus noted on examination is certainly concerning. It is certainly plausible that the patient could be experiencing nonconvulsive status. EEG was completed yesterday with read pending. Unfortunately, the patient is far too unstable to proceed with MRI brain. 7. Acute kidney injury The patient is status post renal transplantation in 2003 and presented with evidence of acute kidney injury. Nephrology is currently following to assist with medical management. Continue to monitor urine output. Continue sodium bicarbonate infusion. 8. Pancytopenia Continue current supportive care with serial monitoring of CBC. Plan to transfuse if hemoglobin drops below 7 g/dL. 9. Troponin elevation Most likely related to demand ischemia in the setting of #1. Cardiology is currently following. Echocardiogram revealed intact systolic function. 10. History of renal and pancreas transplantation on immunosuppression/chronic pain syndrome/history of TIA Complicates care, management, recovery and prognosis. Continue to hold all sedation. CODE STATUS: DNR CCA, with plans to transition to DNR comfort care this afternoon upon additional family arrival. TIME: 40 minutes of critical care time, independent of procedures, was spent addressing the patient's septic shock, questionable SBO versus ileus, toxic/metabolic encephalopathy, acute kidney injury, pancytopenia, troponin elevation, review of all data and collaboration with the care team. Additional time was spent discussing goals of care and CODE STATUS with the patient's family this morning. Subjective Subjective The patient was seen and examined at the bedside this morning. Events from the last 24 hours have been reviewed. The patient remains largely unchanged from a clinical perspective from yesterday. She remains on empiric antibiotics, D10 infusion, sodium bicarbonate, stress dose steroids and a combination of Levophed/vasopressin to maintain hemodynamic stability. She is currently documented to be overall net +15.5 L for the hospitalization. White blood cell count is normal. Hemoglobin is dropped to 8.7 g/dL. Platelet count has also dropped to 50,000. Chemistry profile this morning was notable for a sodium of 116, potassium of 5.5, bicarbonate of 19 and creatinine of 4.09. We are still awaiting the finalized EEG report from yesterday. The patient remains off of all form of sedation and is not currently responsive in any fashion. I had a lengthy, detailed discussion with the patient's and sons regarding her prognosis and overall goals of care. They elected not to proceed with transfer to [facility] yesterday over concerns that the patient could decompensate during the transfer process. In light of her neurologic status and multisystem organ failure they have all collectively come to an agreement to transition her to DNR CCA this morning. Her reported that it is his intention, upon the arrival of additional family members, to transition the patient to comfort care measures and proceed with terminal extubation this afternoon. I did explain to him that if the patient does not pass in the next 24 hours that we would consider a hospice care referral tomorrow. He is in agreement with this plan. Objective Data Objective Data The patient's most recent lab work, culture data and imaging studies have all been personally reviewed. Surface echocardiogram demonstrated normal LV size and function with an ejection fraction of 60%. Moderate aortic stenosis was noted. Lower extremity Doppler study was positive for DVT in the right soleus vein. Blood and sputum cultures are pending. Vital Signs: Vital Signs Temp Pulse Resp BP Pulse Ox O2 Del Method O2 Flow Rate 99.0 F 86 15 110/61 94 Mechanical Ventilator 35 08/31/24 07:00 08/31/24 07:00 08/31/24 07:00 08/31/24 07:00 08/31/24 07:00 08/31/24 07:00 08/29/24 19:00 FiO2 55 08/31/24 07:00 Oxygen Flow Rate (L/min) 35 Oxygen Delivery Method Mechanical Ventilator Weight: 123 lb 14.397 oz Body Mass Index (BMI) 25.0 Intake & Output: Intake and Output for Last 24 Hours 08/29/24 08/30/24 08/31/24 23:59 23:59 23:59 Intake Total 4535.97 / 4640.12 5401.13 / 5473.98 3634.27 / 3634.27 Output Total 1385 / 1385 10 / 10 Balance 4510.97 / 3675.12 4016.13 / 4088.98 3624.27 / 3624.27 Lab / Micro Data Attestation: I reviewed the patient's lab results. 08/31/24 02:00 08/31/24 06:40 Labs: Laboratory Results - last 24 hr 08/29/24 08:03: Diff Path Review Reviewed, Tacrolimus 8.0 08/30/24 02:58: Total Bilirubin 0.60, Direct Bilirubin 0.28, AST 1399 H, ALT 943 H, Alkaline Phosphatase 29 L, Total Protein 4.3 L, Albumin 1.9 L, Globulin 2.4, Lipase 983 H 08/30/24 07:51: POC Glucose 47 L 08/30/24 07:53: POC Glucose 60 L 08/30/24 10:37: POC Glucose 272 H 08/30/24 12:40: APTT 59.3 H 08/30/24 14:15: POC Glucose 241 H 08/30/24 18:50: APTT 61.2 H 08/30/24 21:56: POC Glucose 201 H 08/31/24 02:00: WBC 10.8, RBC 3.03 L, Hgb 8.7 L, Hct 26.2 L, MCV 86.5, MCH 28.7, MCHC 33.2, RDW Std Deviation 42.9, RDW Coeff of Jenny 13.7, Plt Count 50 L*, MPV 12.3 H, Immature Gran % (Auto) 2.400 H, Neut % (Auto) 83.0 H, Lymph % (Auto) 3.1 L, [place] % (Auto) 11.4 H, Eos % (Auto) 0.0, Baso % (Auto) 0.1, Absolute Neuts (auto) 8.9 H, Absolute Lymphs (auto) 0.33 L, Nucleated RBC % 0.5, Differential Comment SCANNED, Toxic Granulation 2+, Platelet Estimate MKD DEC, APTT 67.2 H, Sodium 116 L*, Potassium 6.0 H*, Chloride 78 L, Carbon Dioxide 19.0 L, Anion Gap 19 H, BUN 68 H, Creatinine 4.23 H, Estim Creat Clear Calc 8.25, Est GFR (MDRD) Af Amer 13 L, Est GFR (MDRD) Non-Af 11 L, BUN/Creatinine Ratio 16.1, Glucose 178 H, Calcium 5.1 L*, Random Vancomycin 15.7 H 08/31/24 06:10: POC Glucose 209 H 08/31/24 06:40: Sodium 116 L*, Potassium 5.5 H, Chloride 79 L, Carbon Dioxide 19.0 L, Anion Gap 19 H, BUN 62 H, Creatinine 4.09 H, Estim Creat Clear Calc 9.34, Est GFR (MDRD) Af Amer 14 L, Est GFR (MDRD) Non-Af 11 L, BUN/Creatinine Ratio 15.2, Glucose 163 H, Calcium 5.4 L* Micro: Microbiology 08/28/24 13:10 Blood Culture (Wb) - Right Wrist Blood Culture - Preliminary No growth in 48 hours. 08/28/24 13:10 Blood Culture (Wb) - Anticubital Right Blood Culture - Preliminary No growth in 48 hours. 08/29/24 14:00 Sputum, Induced/Lukens Gram Stain - Final 08/29/24 14:00 Sputum, Induced/Lukens Respiratory Culture - Preliminary Culture exhibits no growth. ABG Data ABG results: ABG 08/30/24 08:50 Specimen Type ART Sample Site R Brach pH 7.23 L Bicarbonate Actual 11.3 L Total CO2 12 Base Excess -16 L O2 Saturation 79 L O2 % 30.0 ABG pCO2 27.1 L ABG pO2 50 L Moody Test Positive Respiration Rate 14 O2 Delivery Device Adult Vent Vent Mode AC Tidal Volume 450.0 POC PEEP 5 Radiography Diagnostic Testing: Radiology Impression Brain CT 08/30/24 09:03 IMPRESSION: Stable examination. No acute abnormality is seen. One or more dose reduction techniques were used (e.g., Automated exposure control, adjustment of the mA and/or kV according to patient size, use of iterative reconstruction technique). Reading Location: [facility]-1 Chest X-Ray 08/30/24 09:15 IMPRESSION: Bibasilar atelectasis or pneumonia. Reading Location: [facility] Physical Exam Const Constitutional Narrative: The patient is currently intubated and mechanically ventilated. General Appearance: lethargic, ill appearing, frail and patient mechanically ventilated HEENT normocephalic and head/scalp atraumatic Mouth: endotracheal tube in place and OG tube in place Eyes EOMs intact bilaterally and conjunctivae normal Neck supple General: trachea midline and CVC in place Chest inspection of chest normal Resp Auscultation: diminished lung sounds; Negative for rales, rhonchi or wheezes Cardio regular rate, regular rhythm, S1 normal heart sound and S2 normal heart sound Heart Sounds: murmur GI GI Narrative: Abdomen remains distended. Extremity no clubbing, cyanosis or edema Skin no rashes or lesions noted Neuro Neuro Narrative: The patient remains comatose on the ventilator. There is no response to verbal or tactile stimulation. Charges/Coding Procedures Hospitalists Procedures: [id number] Critical Care 1st Hr
--- NOTE | 2024-08-31 08:07 | NURSING ---
Spouse removed 3 rings from patient hands and has placed them in clear ziplock back to take home
--- NOTE | 2024-08-31 08:26 | PCM.RX.CS ---
Consult Antibiotic Management Pharmacy has been consulted to manage selected antibiotic: Vancomycin Type of Intervention Type of Consult: Follow-up Prior Doses of Antibiotics Prior Doses of Antibiotics Received/Current Regimen: received vanc 500mg IV x1 yesterday at 10:29 Labs Labs: Sodium 116 mmol/L (136-145) L* 08/31/24 06:40 Potassium 5.5 mmol/L (3.5-5.1) H 08/31/24 06:40 Chloride 79 mmol/L (98-107) L 08/31/24 06:40 Carbon Dioxide 19.0 mmol/L (21.0-32.0) L 08/31/24 06:40 Anion Gap 19 (5-15) H 08/31/24 06:40 BUN 62 mg/dL (7-18) H 08/31/24 06:40 Creatinine 4.09 mg/dL (0.55-1.02) H 08/31/24 06:40 Est GFR (MDRD) Af Amer 14 mL/min (>60) L 08/31/24 06:40 Est GFR (MDRD) Non-Af 11 mL/min (>60) L 08/31/24 06:40 BUN/Creatinine Ratio 15.2 RATIO (10-20) 08/31/24 06:40 Glucose 163 mg/dL (74-106) H 08/31/24 06:40 Random Vancomycin 15.7 ug/mL (0.0-15.0) H 08/31/24 02:00 Microbiology Microbiology: Microbiology 08/28/24 13:10 Blood Culture (Wb) - Right Wrist Blood Culture - Preliminary No growth in 48 hours. 08/28/24 13:10 Blood Culture (Wb) - Anticubital Right Blood Culture - Preliminary No growth in 48 hours. 08/29/24 14:00 Sputum, Induced/Lukens Gram Stain - Final 08/29/24 14:00 Sputum, Induced/Lukens Respiratory Culture - Preliminary Culture exhibits no growth. Dosing Weight Weight used for dosin.2 kg Estimated Creatinine Clearance Estimated Creatinine Clearance: 9.3ml/min Goal Trough Goal Trough: 15-20 mcg/mL Pharmacy Plan for Drug Dosing Pharmacy Plan for Drug Dosing: The vanc random level drawn at 02:00 today was 15.7. Since it is below 20, will give a dose of 750mg IV x1 today based on the patient's weight. Will continue to dose off vanc random levels due to the patient's CrCl being <20. Repeat a random level tomorrow morning. Pharmacy Service will continue to monitor and adjust dosing as required. Follow-Up Labs Follow-Up Labs: Trough: Vancomycin (random) Date/Time Labs Ordered Labs to be done on [date and time ordered]: 09/01/24 06:00
--- NOTE | 2024-08-31 08:33 | PCM.PN.SRG ---
Subjective Subjective Patient evaluated on vent. No bowel activity per nursing overnight. NG output was 500 cc over night. Objective Data Objective Data Vital Signs: Vital Signs Temp Pulse Resp BP Pulse Ox O2 Del Method O2 Flow Rate 99.0 F 86 15 110/61 94 Mechanical Ventilator 35 08/31/24 07:00 08/31/24 07:00 08/31/24 07:00 08/31/24 07:00 08/31/24 07:00 08/31/24 07:00 08/29/24 19:00 FiO2 55 08/31/24 07:00 Oxygen Flow Rate (L/min) 35 Oxygen Delivery Method Mechanical Ventilator Weight: 123 lb 14.397 oz Body Mass Index (BMI) 25.0 Intake & Output: Intake and Output for Last 24 Hours 08/29/24 08/30/24 08/31/24 23:59 23:59 23:59 Intake Total 4535.97 / 4640.12 5401.13 / 5473.98 3634.27 / 3634.27 Output Total 25 / 965 1385 / 1385 10 / 10 Balance 4510.97 / 3675.12 4016.13 / 4088.98 3624.27 / 3624.27 Lab / Micro Data 08/31/24 02:00 08/31/24 06:40 Labs: Laboratory Results - last 24 hr 08/29/24 08:03: Diff Path Review Reviewed, Tacrolimus 8.0 08/30/24 02:58: Total Bilirubin 0.60, Direct Bilirubin 0.28, AST 1399 H, ALT 943 H, Alkaline Phosphatase 29 L, Total Protein 4.3 L, Albumin 1.9 L, Globulin 2.4, Lipase 983 H 08/30/24 07:51: POC Glucose 47 L 08/30/24 07:53: POC Glucose 60 L 08/30/24 10:37: POC Glucose 272 H 08/30/24 12:40: APTT 59.3 H 08/30/24 14:15: POC Glucose 241 H 08/30/24 18:50: APTT 61.2 H 08/30/24 21:56: POC Glucose 201 H 08/31/24 02:00: WBC 10.8, RBC 3.03 L, Hgb 8.7 L, Hct 26.2 L, MCV 86.5, MCH 28.7, MCHC 33.2, RDW Std Deviation 42.9, RDW Coeff of Jenny 13.7, Plt Count 50 L*, MPV 12.3 H, Immature Gran % (Auto) 2.400 H, Neut % (Auto) 83.0 H, Lymph % (Auto) 3.1 L, [place] % (Auto) 11.4 H, Eos % (Auto) 0.0, Baso % (Auto) 0.1, Absolute Neuts (auto) 8.9 H, Absolute Lymphs (auto) 0.33 L, Nucleated RBC % 0.5, Differential Comment SCANNED, Toxic Granulation 2+, Platelet Estimate MKD DEC, APTT 67.2 H, Sodium 116 L*, Potassium 6.0 H*, Chloride 78 L, Carbon Dioxide 19.0 L, Anion Gap 19 H, BUN 68 H, Creatinine 4.23 H, Estim Creat Clear Calc 8.25, Est GFR (MDRD) Af Amer 13 L, Est GFR (MDRD) Non-Af 11 L, BUN/Creatinine Ratio 16.1, Glucose 178 H, Calcium 5.1 L*, Random Vancomycin 15.7 H 08/31/24 06:10: POC Glucose 209 H 08/31/24 06:40: Sodium 116 L*, Potassium 5.5 H, Chloride 79 L, Carbon Dioxide 19.0 L, Anion Gap 19 H, BUN 62 H, Creatinine 4.09 H, Estim Creat Clear Calc 9.34, Est GFR (MDRD) Af Amer 14 L, Est GFR (MDRD) Non-Af 11 L, BUN/Creatinine Ratio 15.2, Glucose 163 H, Calcium 5.4 L* Micro: Microbiology 08/28/24 13:10 Blood Culture (Wb) - Right Wrist Blood Culture - Preliminary No growth in 48 hours. 08/28/24 13:10 Blood Culture (Wb) - Anticubital Right Blood Culture - Preliminary No growth in 48 hours. 08/29/24 14:00 Sputum, Induced/Lukens Gram Stain - Final 08/29/24 14:00 Sputum, Induced/Lukens Respiratory Culture - Preliminary Culture exhibits no growth. ABG Data ABG results: ABG 08/30/24 08:50 Specimen Type ART Sample Site R Brach pH 7.23 L Bicarbonate Actual 11.3 L Total CO2 12 Base Excess -16 L O2 Saturation 79 L O2 % 30.0 ABG pCO2 27.1 L ABG pO2 50 L Moody Test Positive Respiration Rate 14 O2 Delivery Device Adult Vent Vent Mode AC Tidal Volume 450.0 POC PEEP 5 Radiography Diagnostic Testing: Radiology Impression Brain CT 08/30/24 09:03 IMPRESSION: Stable examination. No acute abnormality is seen. One or more dose reduction techniques were used (e.g., Automated exposure control, adjustment of the mA and/or kV according to patient size, use of iterative reconstruction technique). Reading Location: [facility]1 Chest X-Ray 08/30/24 09:15 IMPRESSION: Bibasilar atelectasis or pneumonia. Reading Location: [facility] Physical Exam Const General Appearance: ill appearing Resp Effort and Inspection: mechanically ventilated GI GI Narrative: Abdomen- distended, tympanic upper abdomen Assessment & Plan Assessment/Plan (1) Small bowel obstruction: (2) Septic shock: (3) History of end stage renal disease: (4) History of renal transplant: (5) History of pancreas transplant: (6) Elevated troponin: PLAN: Plan I am following this patient in conjunction [facility] Dr[facility]. He has independently evaluated this patient. Patient remains critically ill. She had to be resuscitated in radiology yesterday. Prognosis is guarded. NG output was 500 cc overnight. Unsure if true bowel obstruction versus ileus at this point. A bed became available at [facility] per patient , however this was declined as he doesn't feel the patient is stable enough to be transferred. No surgical intervention is being recommended. Charges/Coding Visit Charges Inpatient E&M: 62527 [facility] Hosp L1
[2024-08-31] MEDS: Vancomycin HCl 750 MG in 0.9% Normal Saline (250mL Bag) 250 ML 250 MG IV (10:35)
[2024-08-31] MEDS: Chlorhexidine 15 ML PO (10:46)
[2024-08-31] MEDS: Tacrolimus Anhydrous 1 MG Capsule GT (10:49)
[2024-08-31 11:06] LABS: Bedside Glucose 114 mg/dL (74-106)
[2024-08-31 11:20] LABS: Partial Thromboplast Time 63.5 Seconds (24.1-36.2)
[2024-08-31] MEDS: Pantoprazole Sodium 40 MG in 0.9% Normal Saline (100mL MB+) 100 ML 330 MG IV (12:12)
--- NOTE | 2024-08-31 12:39 | NURSING ---
1233 [facility] Physician Azra called requesting to talk to fire equipment inspector regarding brain testing, stating it was her understanding we did not want to do it. I explained that the family has made the patient a DNRCCA until the remainder of the family arrive at which time they plan terminal extubation. I noted that family did not want to wait for the results of her EEG testing from yesturday, they had made a decision and were just waiting on family. She noted that they would likely sign off but will contact the organ procurment project manager entertainment and media to discuss and get back to us.
[2024-08-31] MEDS: Piperacil/Tazobactam 3.375 GM in 0.9% Normal Saline (50mL MB+) 50 ML IV (12:43)
--- NOTE | 2024-08-31 17:05 | PN_ITS ---
Subjective Subjective Patient seen and examined. Family was at bedside namely her and 2 sons. She remains intubated. Family has decided to change CODE STATUS to DNR CCA with intubation today. They are waiting for the family to come and see her before they withdraw care. Patient refused to transfer patient yesterday to tertiary care facility. Objective Data Objective Data Vital Signs: Vital Signs Temp Pulse Resp BP Pulse Ox O2 Del Method O2 Flow Rate 99.1 F 80 14 121/58 H 95 Mechanical Ventilator 35 08/31/24 15:00 08/31/24 15:39 08/31/24 15:39 08/31/24 15:00 08/31/24 15:39 08/31/24 15:00 08/29/24 19:00 FiO2 60 08/31/24 15:39 Oxygen Flow Rate (L/min) 35 Oxygen Delivery Method Mechanical Ventilator Weight: 123 lb 14.397 oz Body Mass Index (BMI) 25.0 Intake & Output: Intake and Output for Last 24 Hours 08/29/24 08/30/24 08/31/24 23:59 23:59 23:59 Intake Total 4535.97 / 4640.12 5401.13 / 5473.98 7301.05 / 7301.05 Output Total 25 / 965 1385 / 1385 10 / 10 Balance 4510.97 / 3675.12 4016.13 / 4088.98 7291.05 / 7291.05 Lab / Micro Data 08/31/24 02:00 08/31/24 06:40 Labs: Laboratory Results - last 24 hr 08/29/24 08:03: Tacrolimus 8.0 08/30/24 18:50: APTT 61.2 H 08/30/24 21:56: POC Glucose 201 H 08/31/24 02:00: WBC 10.8, RBC 3.03 L, Hgb 8.7 L, Hct 26.2 L, MCV 86.5, MCH 28.7, MCHC 33.2, RDW Std Deviation 42.9, RDW Coeff of Jenny 13.7, Plt Count 50 L*, MPV 12.3 H, Immature Gran % (Auto) 2.400 H, Neut % (Auto) 83.0 H, Lymph % (Auto) 3.1 L, [place] % (Auto) 11.4 H, Eos % (Auto) 0.0, Baso % (Auto) 0.1, Absolute Neuts (auto) 8.9 H, Absolute Lymphs (auto) 0.33 L, Nucleated RBC % 0.5, Differential Comment SCANNED, Toxic Granulation 2+, Platelet Estimate MKD DEC, APTT 67.2 H, S odium 116 L*, Potassium 6.0 H*, Chloride 78 L, Carbon Dioxide 19.0 L, Anion Gap 19 H, BUN 68 H, Creatinine 4.23 H, Estim Creat Clear Calc 8.25, Est GFR (MDRD) Af Amer 13 L, Est GFR (MDRD) Non-Af 11 L, BUN/Creatinine Ratio 16.1, Glucose 178 H, Calcium 5.1 L*, Random Vancomycin 15.7 H 08/31/24 06:10: POC Glucose 209 H 08/31/24 06:40: Sodium 116 L*, Potassium 5.5 H, Chloride 79 L, Carbon Dioxide 19.0 L, Anion Gap 19 H, BUN 62 H, Creatinine 4.09 H, Estim Creat Clear Calc 9.34, Est GFR (MDRD) Af Amer 14 L, Est GFR (MDRD) Non-Af 11 L, BUN/Creatinine Ratio 15.2, Glucose 163 H, Calcium 5.4 L* 08/31/24 10:34: POC Glucose 114 H 08/31/24 11:00: APTT 63.5 H Micro: Microbiology 08/29/24 14:00 Sputum, Induced/Lukens Gram Stain - Final 08/29/24 14:00 Sputum, Induced/Lukens Respiratory Culture - Preliminary 08/28/24 13:10 Blood Culture (Wb) - Right Wrist Blood Culture - Preliminary No growth in 48 hours. 08/28/24 13:10 Blood Culture (Wb) - Anticubital Right Blood Culture - Preliminary No growth in 48 hours. Physical Exam Const Constitutional Narrative: patient intubated, sedated, RASS score is -4. HEENT normocephalic and head/scalp atraumatic Mouth: dry mucous membranes Eyes PERRL and EOMs intact bilaterally Neck no lymphadenopathy and supple Lymph Lymphatic: no lymphadenopathy noted Resp Resp Narrative: intubated, sedated, diminished breath sounds bibasally, no wheezes or crackles. Cardio regular rate, regular rhythm, S1 normal heart sound, S2 normal heart sound and no murmurs Cardio Narrative: tachycardic GI GI Narrative: abdomen moderately distended, very firm, generalised tenderness to palpation. No guarding or rebound tenderness. Extremity normal to inspection, full ROM, normal capillary refill, no clubbing, cyanosis or edema and no calf tenderness General Extremity: no tenderness to palpation of joints or extremities Skin Skin Narrative: Patient looks very pale General Skin Exam: no breakdown Neuro Neuro Narrative: patient intubated, sedated, RASS score is -4 Assessment & Plan Assessment/Plan (1) Elevated troponin: (2) Acute metabolic encephalopathy: (3) SELMA (acute kidney injury): (4) D-dimer, elevated: PLAN: Plan #Acute cardiopulmonary arrest * Patient was found to be minimally responsive on 08/30/[address] of the brain was ordered. Was patient was down getting the CT of the brain she went into PEA and a CODE BLUE was called early this morning. * She was aggressively resuscitated per ACLS protocol and had several rounds of epinephrine and also received bicarb ampule. ROSC was eventually obtained and patient transferred back to the ICU. She remains intubated; despite sedation being turned off patient was minimally responsive. * CT of the brain still showed stable examination with stable bilateral lacunar infarcts. * Chest x-ray showed bilateral atelectasis or pneumonia. * Remains intubated and sedated. However ASA score is -4. * Critical care doctor spoke extensively to family about poor prognosis and the fact that patient could even during transport to tertiary care facility. Critical care doctor did call [facility] transfer line and spoke to the beveling machine operator at [facility] in the bed to escalate to the transfer. * Heparin drip was resumed due to concerns that patient could have had a PE as duplex yesterday did not show evidence of DVT. Even though the concern is for bleeding due to her thrombocytopenia, heparin drip still resumed. * Prognosis remains very poor. * Family refused transfer to tertiary care facility as they had decided to withdraw care today. CODE STATUS switched to DNR CCA with intubation and they are waiting for the family members to come see the patient before they withdraw care. * She remains off sedation but is still very lethargic and not responsive. 2D echo showed EF of 60% with moderate aortic stenosis. #Septic shock * Lactic acid was elevated at 5.7. She was also hypothermic on admission and had elevated WBC. * On IV Zosyn and Zyvox. ID on board. Vancomycin stopped due to severe kidney impairment. * Critical care on board. * She did have NG tube inserted. She had to be intubated for the NG tube to be inserted successfully. General surgery on board * General surgery therefore unsure if this is truly bowel obstruction versus high-grade ID was due to the septic shock. No plans for general surgery intervention. #Acute pancreatitis in the setting of prior pancreatectomy with pancreas transplant * Patient's lipase was elevated at 3395 on admission. * CT of the abdomen and pelvis showed poor imaging of the pancreas and there is concern for possible rejection. She was admitted with incessant nausea and vomiting. * Been hydrated aggressively with IV fluids. Patient awaiting transfer to [facility] system * Trend lipase. Currently NPO. Thiazides also on hold. * Has missed several days of her tacrolimus and mycophenolate increasing the concerns for rejection. * #SELMA with anion gap metabolic acidosis * Creatinine has trended upward stool for today. * She does have a history of right renal transplant in 2023. Trend creatinine. CT of the abdomen and pelvis showed no evidence of obstructive uropathy. * HCTZ and lisinopril on hold. * Nephrology on board * Now on bicarb drip. Nephrology on board. Management as per nephrology. * Also hyperkalemic with potassium of 5.5 today. Bicarb is 19 today and Cr is 4.09 * #DVT of the right lower extremity * Duplex done showed DVT of the right lower extremity and patient was on heparin drip. Patient remains on heparin drip. * #Hypocalcemia: * Calcium is further down to 5.4 today. Will replace and trend. #Ischemic hepatitis * Liver enzymes are elevated namely the AST and ALT and this is likely due to the cardiopulmonary arrest with resultant decreased perfusion to the liver. Will monitor for now. #Pancytopenia: * Platelets are further down to 50 today. wbc is up to 10.8 and Hb is 8.7. * Will monitor closely and if platelet continues to drop will consider stopping heparin drip. * likely related to acute illness * #Non-STEMI * Creatinine trended up and peaked at thousand 202 consistent with non-STEMI. * 2D done showed moderate aortic stenosis with EF of 60% and pacemaker leads in the right atrium as well as moderate to severe mitral annular calcification. * #Benign essential hypertension: * Lisinopril hydrochlorothiazide on hold due to SELMA and pancreatitis. * Amlodipine and carvedilol also held due to septic shock. #History of osteoarthritis: S/p cervical fusion. On oxycodone as needed #Hyperlipidemia: On statin #History of sinus arrhythmia: S/p pacemaker insertion in 2021. Stable #Depression: Duloxetine helped due to patient's current medical condition. #DVT prophylaxis: on heparin drip Disposition: * Prognosis remains very poor. Family now say they want to withdraw care and awaiting further family members to come to see their goodbyes to the patient. CODE STATUS changed to DNR CCA with intubation as they do not want any CPR done if she coded again. * Family planning for hospice consult if patient makes the night. Charges/Coding Visit Charges Inpatient E&M: 69024 Subs Hosp L3
--- NOTE | 2024-08-31 19:02 | PCM.DEATH ---
Preliminary Cause of Preliminary Cause of Preliminary Cause of : acute cardiopulmonary arrest due to septic shock and acute hypoxic respiratory failure. Date of Admission: 08/29/24 Date of : 08/31/24 Principle Diagnosis acute cardiopulmonary arrest acute hypoxic respiratory failure acute renal failure with concern for rejection in setting of history of renal transplant. acute pancreatitis with concern for rejection in case of pancreatic transplant. SELMA with severe metabolic acidosis Problem List: Active and Suspected Problems (Updated 08/29/24 @ 15:30 by Mirella FORTE, DARLINEC) Small bowel obstruction (Acute) Septic shock (Acute) History of end stage renal disease (Acute) D-dimer, elevated (Acute) Elevated troponin (Acute) Adverse drug reaction (Acute) Hypoglycemia (Acute) Skin tear of upper extremity (Acute) Acute metabolic encephalopathy (Acute) History of renal transplant (Acute) SELMA (acute kidney injury) (Acute) History of pancreas transplant (Acute) Acute pancreatitis (Acute) Sepsis (Acute) Fall (Acute) Acute renal failure (Acute) Acute hyponatremia (Acute) History of pancreas transplant (Acute) History of kidney transplant (Acute) Hospital Course Patient is a 74-year-old female with an extensive past medical history as outlined including a history of right renal transplant and subsequent pancreatectomy with pancreatic transplant, on mycophenolate and tacrolimus and following up at [facility] was admitted through the ED on 08/29/2024 with a complaint of abdominal pain, confusion and low blood sugars. His symptoms are started about 2 days prior to admission with decreased appetite and abdominal pain followed by nausea and vomiting and bilious emesis. She also admitted to decreased urinary output and denied any hematuria or dysuria. She denied any fever or chills. On admission she was hypothermic with temperature of 95.2. She had marked abdominal tenderness most pronounced in the lower abdomen. Lactic acid was markedly elevated at 5.7 and leukocytosis was also present with WBC of 17.7. She also had SELMA with creatinine of 3.26 with a baseline creatinine being around 1.14. Lipase was also elevated at 3395. She was initially diagnosed with acute pancreatitis and she was accepted at [facility]. However 6 hours after she was accepted there there was still no bed available. In the ED she took a turn for the worse after she climbed over her bed rail and fell onto the floor sustaining multiple skin tears. CT of the head and neck was negative for any acute pathology. ABG done however showed severe metabolic acidosis with pCO2 of 35.5 and bicarb of 15 and pH of 7.23. She was also hypoglycemic with blood sugar of 44 and she was very encephalopathic. She was started on D10 infusion and also sodium bicarb. The ED did call [facility] again to try to transfer patient but there was no availability of beds. After patient spent 15 hours in the ED hospitalist service was consulted to take over and admit patient. She was admitted to the ICU. D-dimer was also markedly elevated at 8.97. She was started on heparin drip due to concerns for non-STEMI and PE. Duplex of the lower extremities was ordered. Her initial troponin was also markedly elevated and subsequently trended upwards. Cardiology and critical care were consulted. General surgery was also consulted. CT of the chest abdomen pelvis showed new to moderate size bilateral pleural effusions slightly greater on the left with associated bibasilar airspace disease and moderate amounts of free fluid and ascites throughout the abdomen and pelvis and a gas and fluid distended small bowel loops with the largest small bowel measuring up to 3.7 cm. She had 2D echo done which showed normal left ventricular size and systolic function and EF of 60% with moderate aortic stenosis and moderate to severe mitral annular calcification. Pacemaker leads in the right atrium appear to be more echogenic than usual. Nephrology was consulted due to the worsening kidney function. She was placed on broad-spectrum antibiotics. She was on vancomycin but this was discontinued due to the impaired kidney function. ID was consulted. Patient had to be started on Levophed because she developed septic shock. Patient had a protracted hospital course and became more encephalopathic even after sedation was turned off. For an NG tube inserted patient had to be intubated as the NG tube kept on getting coiled in the right lung. Duplex of the lower extremities done showed evidence of DVT in the right lower extremity so she was placed on heparin drip. Patient stated became more lethargic and sedation was turned off but she remained very lethargic. CT of the brain was ordered. While she was down getting the CT a CODE BLUE was called as patient developed acute cardiopulmonary arrest. She retained ROSC after she was resuscitated with high quality CPR via ACLS protocol. The vp ad products and planning called [facility] again to press the urgency of transfer in light of patient's deteriorating status and the limited care she could be offered he had due to the complexity of her situation. This hospitalist also called [facility] trying to transfer patient there but the vp ad products and planning the refused the transfer because he felt she would be better served by going to [facility] where she had received all her care. Patient was initially accepted at [facility] ICU but due to her deterioration, [facility] transfer line which stratified her and plan was for her to go to [facility] ICU. On 08/30/2024, vp ad products and planning had an extensive discussion with family about how critically ill patient was and informed them that patient could during the transfer to the tertiary care facility but at the same time patient needed access to her transplant team and we do not have transplant services and [facility]. Family mild over this and finally decided that they would change the CODE STATUS and did not want patient to be transferred to tertiary facility. Family was therefore switched to DNR CCA with intubation as she was intubated at that moment. After extensive discussion family decided to withdraw care. Care was withdrawn on 08/31/2024 and patient at 1603 on 08/31/2024. Cause of : acute cardiopulmonary arrest due to nonstemi and PE as well as septic shock. Contributing factors include acute pancreatitis in the setting of pancreatic transplant, SELMA in the setting of kidney transplant. Visit Charges Inpatient E&M: 14793 Disch Hosp
[2024-09-01 12:08] LABS: C-Peptide < 0.1 ng/mL (1.1-4.4)
== END 2024-08-31 21:40 | DRG 871 ==
LOC: ED 08-29 01:10 → ICU 08-29 01:31
PROVIDERS: Emergency Medicine; Family Medicine; Internal Medicine Critical Care Medicine; Nurse Practitioner Adult Health; Physician Assistant; Admitting Provider Internal Medicine; Emergency Provider Surgery; PCP Family Medicine; Visit Provider Student in an Organized Health Care Education/Training Program
DX: A41.9 Sepsis, unspecified organism (principal); N18.6 End stage renal disease; I26.99 Other pulmonary embolism without acute cor pulmonale; N17.0 Acute kidney failure with tubular necrosis; R65.21 Severe sepsis with septic shock; I21.4 Non-ST elevation (NSTEMI) myocardial infarction; G92.8 Other toxic encephalopathy; J96.01 Acute respiratory failure with hypoxia; J18.9 Pneumonia, unspecified organism; K85.90 Acute pancreatitis without necrosis or infection, unspecified; I12.0 Hypertensive chronic kidney disease with stage 5 chronic kidney disease or end stage renal disease; D61.818 Other pancytopenia; K56.609 Unspecified intestinal obstruction, unspecified as to partial versus complete obstruction; Z94.83 Pancreas transplant status; E87.21 Acute metabolic acidosis; E87.1 Hypo-osmolality and hyponatremia; I24.89 Other forms of acute ischemic heart disease; Z94.0 Kidney transplant status; R18.8 Other ascites; D84.9 Immunodeficiency, unspecified; F32.A Depression, unspecified; E11.649 Type 2 diabetes mellitus with hypoglycemia without coma; I08.0 Rheumatic disorders of both mitral and aortic valves; D69.6 Thrombocytopenia, unspecified; I46.9 Cardiac arrest, cause unspecified; E86.0 Dehydration; M54.9 Dorsalgia, unspecified; S80.212A Abrasion, left knee, initial encounter; S61.511A Laceration without foreign body of right wrist, initial encounter; I25.10 Atherosclerotic heart disease of native coronary artery without angina pectoris; K21.9 Gastro-esophageal reflux disease without esophagitis; E78.5 Hyperlipidemia, unspecified; I25.5 Ischemic cardiomyopathy; E10.649 Type 1 diabetes mellitus with hypoglycemia without coma; E83.52 Hypercalcemia; W06.XXXA Fall from bed, initial encounter; E10.22 Type 1 diabetes mellitus with diabetic chronic kidney disease; F10.90 Alcohol use, unspecified, uncomplicated; Z79.891 Long term (current) use of opiate analgesic; Z79.83 Long term (current) use of bisphosphonates; M81.0 Age-related osteoporosis without current pathological fracture; G89.4 Chronic pain syndrome; Z98.1 Arthrodesis status; Z95.0 Presence of cardiac pacemaker; Y92.238 Other place in hospital as the place of occurrence of the external cause; Z95.1 Presence of aortocoronary bypass graft; Z98.890 Other specified postprocedural states; R01.1 Cardiac murmur, unspecified; Z91.148 Patient's other noncompliance with medication regimen for other reason
CPT/HCPCS: 31500; 31720; 36415; 36600; 51702; 70450; 71045; 71250; 72125; 74018; 74176; 80048; 80053; 80061; 80076; 80197; 80202; 81001; 82009; 82140; 82550; 82607; 82746; 82803; 82962; 83036; 83605; 83690; 83880; 84443; 84478; 84484; 84681; 85025; 85379; 85610; 85730; 86850; 86900; 86901; 87040; 87070; 87205; 87497; 92950; 93005; 93306; 93970; 94002; 94003; 94640; 94762; 94799; 95819; 97803; 99252; 99285; J2020; A4216; C1751; G0463; J0612; J2405